=== PATIENT | female | born 1965 | race African-American/Black ===

== ENCOUNTER → 2017-04-06 | Outpatient (CLI) | payer BC ==
--- NOTE | 2017-04-06 17:15 | WOMENS IMAGING REPORT ---
EXAM DESCRIPTION: BILAT SCREENING MAMMO W/CAD COMPLETED DATE/TIME: 04/06/2017 3:36 pm REASON FOR STUDY: Z12.31, ROUTINE SCREENING MAMMO Z12.31 ENCNTR SCREEN MAMMOGRAM FOR MALIGNANT NEOP LASM OF ABDI COMPARISON: Multiple since 2008 TECHNIQUE: Standard craniocaudal and mediolateral oblique views of each breast recorded using Schrodingera l acquisition. LIMITATIONS: None. FINDINGS: Findings present which are benign by mammographic criteria. No suspicious masses, calcifi cations or architectural distortion. Pertinent benign findings: Postsurgical changes from bilateral breast reduction Read with the assistance of CAD. .[facility] - R2 Cenova Version 1.3 .[facility] - R2 Cenova Version 1.3 .[facility] - R2 Cenova Version 2.4 .[facility] - R2 Cenova Version 2.4 .[facility] - R2 Instructional Support Technician Version 9.2 Benign mammographic findings may include one or more of the following: Smooth masses, popcorn/rim/co arse calcifications, asymmetries, post-procedure changes, and lesions with long-standing stability. IMPRESSION: BENIGN MAMMOGRAPHIC FINDINGS. BIRADS 2 BREAST DENSITY: b. There are scattered areas of fibroglandular density. BIRAD: 2 BENIGN FINDING(S) RECOMMENDATION: ROUTINE SCREENING Please consider bilateral screening tomosynthesis in March 2018 COMMENT: The patient has been notified of the results by letter per [place] requirements. Additional no tification policies are in place for contacting patient with suspicious or incomplete findings. Quality ID #[id number]: The [employer] recommends an annual screening mammogram for women aged 40 years or over. This facility utilizes a reminder system to ensure that all patients receive reminder letters, and/or direct phone calls for appointments. This includes reminders for routine scr eening mammograms, diagnostic mammograms, or other Breast Imaging Interventions when appropriate. Th is patient will be placed in the appropriate reminder system. The [employer] (ACR) has developed recommendations for screening MRI of the breast s in certain patient populations, to be used in conjunction with mammography. Breast MRI surveillanc e may be appropriate for women with more than 20% lifetime risk of developing breast cancer as deter mined by genetic testing, significant family history of the disease, or history of mantle radiation f or Hodgkins Disease. ACR Practice Guidelines 2008. TECHNICAL DOCUMENTATION: FINDING NUMBER: (1) ASSESSMENT: (1) JOB ID: [id number] [employer]- All Rights Reserved
== END ==
LOC: WI 15:28
PROVIDERS: ATTEND Internal Medicine
DX: Z12.31 Encounter for screening mammogram for malignant neoplasm of breast (principal)
CPT/HCPCS: 77067; G0202

== ENCOUNTER 2017-07-31 05:34 | Emergency (ER) | payer BC ==
--- NOTE | 2017-07-31 06:09 | ER Document Report ---
ED General - General Chief Complaint: Low Back Pain Stated Complaint: RIGHT SIDE PAIN Time Seen by Provider: 07/31/17 05:59 Notes: 51-year-old female history of hypertension and fibromyalgia presents with right lower back pain. It has been for 4 days sharp pain, worse with movement. No radiation otherwise. No leg weakness numbness or tingling. Denies dysuria or hematuria. She has also complains of long-standing right elbow pain. This has been there apparently for months. Also is worse with movement. Feels different than her fibromyalgia. Denies fever. No other joint pain. No swelling. TRAVEL OUTSIDE OF THE [place] IN LAST 30 DAYS: No - Related Data Allergies/Adverse Reactions: etodolac [From Lodine] Allergy (Severe, Verified 02/05/16 16:39) Itchiness Penicillins Allergy (Severe, Verified 02/05/16 16:39) Hives Iodinated Contrast- Oral and IV Dye [IV Dye, Iodine Containing] Allergy (Mild, Verified 02/05/16 16:39) Pruritis aspirin [Aspirin] Adverse Reaction (Mild, Verified 02/05/16 16:39) GI upset Past Medical History - Social History Smoking Status: Current Every Day Smoker Family History: Reviewed & Not Pertinent Patient has suicidal ideation: No Patient has homicidal ideation: No - Past Medical History Cardiac Medical History: Reports: Hx Hypertension - 15 yrs-takes meds Denies: Hx Atrial Fibrillation, Hx Congestive Heart Failure, Hx Coronary Artery Disease, Hx Heart Attack, Hx Hypercholesterolemia, Hx Peripheral Vascular Disease, Hx Pulmonary Embolism, Hx Heart Murmur Pulmonary Medical History: Reports: Hx Pneumonia - 2013 X2 Denies: Hx Asthma, Hx Bronchitis, Hx COPD, Hx Respiratory Failure, Hx Sleep Apnea, Hx Tuberculosis Neurological Medical History: Denies: Hx Cerebrovascular Accident, Hx Seizures Endocrine Medical History: Reports: Hx Diabetes Mellitus Type 2. Denies: Hx Graves' Disease, Hx Hyperthyroidism, Hx Hypothyroidism Renal/ Medical History: Denies: Hx Peritoneal Dialysis Malignancy Medical History: Denies: Hx Lung Cancer GI Medical History: Reports: Hx Gastroesophageal Reflux Disease - 2 yrs-takes meds. Denies: Hx Crohn's Disease, Hx Hiatal Hernia, Hx Irritable Bowel, Hx Liver Failure, Hx Ulcer Musculoskeltal Medical History: Reports Hx Arthritis, Reports Hx Fibromyalgia - 3 years, Denies Hx Multiple Sclerosis, Denies Hx Muscular Dystrophy Psychiatric Medical History: Reports: Hx Depression Denies: Hx Bipolar Disorder, Hx Dementia, Hx Post Traumatic Stress Disorder, Hx Schizophrenia Traumatic Medical History: Denies: Hx Fractures Past Surgical History: Reports: Hx Breast Surgery - Breast reduction, Hx Orthopedic Surgery - L acl. Denies: Hx Appendectomy, Hx Bowel Surgery, Hx Section, Hx Cholecystectomy, Hx Colostomy, Hx Coronary Artery Bypass Graft, Hx Gastric Bypass Surgery, Hx Herniorrhaphy, Hx Hysterectomy, Hx Mastectomy, Hx Pacemaker, Hx Tonsillectomy, Hx Tubal Ligation - Immunizations Immunizations up to date: Yes Hx Diphtheria, Pertussis, Tetanus Vaccination: Yes Hx Pneumococcal Vaccination: 11/13/09 Review of Systems - Review of Systems -: Yes All other systems reviewed and negative Physical Exam - Vital signs Vitals: Temp Pulse Resp BP Pulse Ox 97.6 F 73 18 146/81 H 98 07/31/17 05:43 07/31/17 05:43 07/31/17 05:43 07/31/17 05:43 07/31/17 05:43 - Notes Notes: GENERAL: VS as per nursing doc. Well-appearing, well-nourished and in no acute distress. HEAD: Atraumatic, normocephalic. EYES: Pupils equal round and reactive to light, extraocular movements intact, sclera anicteric, no conjunctival injection or discharge. ENT: Nares patent, oropharynx clear without exudates, moist mucous membranes. NECK: Normal range of motion, supple without lymphadenopathy. LUNGS: Breath sounds clear to auscultation bilaterally and equal. No wheezes rales or rhonchi. HEART: Regular rate and rhythm without murmurs. ABDOMEN: Soft, non-tender, normoactive bowel sounds. No guarding, no rebound. No masses appreciated. No Spring sign. BACK: No midline tenderness. Tenderness more over the paraspinal musculature of the lumbar region extending to the right CVA area. EXTREMITIES: Slight decreased range of motion with limited extension secondary to pain. No clear joint effusion. Diffuse right elbow tenderness to palpation. No redness or warmth. NEUROLOGICAL: Cranial nerves grossly intact. Normal speech. Normal sensory and motor exams. No gross cerebellar abnormalities. PSYCH: Normal mood, normal affect. SKIN: Warm, dry, normal turgor, no lesions noted. Course - Re-evaluation Re-evalutation: 07/31/17 07:13 Reviewed x-ray findings with the patient. She does have an orthopedist she will follow up with for further care particularly of the elbow which will be a chronic issue. - Vital Signs Vital signs: Temp Pulse Resp BP Pulse Ox 97.6 F 73 18 146/81 H 98 07/31/17 05:43 07/31/17 05:43 07/31/17 05:43 07/31/17 05:43 07/31/17 05:43 - Laboratory Laboratory results interpreted by me: 07/31/17 06:18 Urine Blood SMALL H Discharge - Discharge Clinical Impression: Elbow pain, right Condition: Good Additional Instructions: Contact your primary care physician for further care. I suggest you contact your orthopedist that you have regarding your elbow as this will be a long-term issue. Prescriptions: Tramadol HCl 50 mg PO Q6HP PRN #12 tablet PRN Reason: Referrals: OSCAR ADAMS MD [Primary Care Provider] - Follow up in 3-5 days
[2017-07-31 06:31] LABS: APPEARANCE,URINE CLEAR; BILIRUBIN,URINE NEGATIVE (NEGATIVE); GLUCOSE, URINE NEGATIVE (NEGATIVE); KETONES,URINE NEGATIVE (NEGATIVE); LEUKOCYTE ESTERASE,URINE NEGATIVE (NEGATIVE); NITRITE,URINE NEGATIVE (NEGATIVE); PROTEIN,URINE NEGATIVE (NEGATIVE); URINE SPECIFIC GRAVITY 1.008; UROBILINOGEN,URINE NEGATIVE mg/dL (<2.0)
--- NOTE | 2017-07-31 06:53 | RADIOLOGY REPORT (SQ) ---
EXAM DESCRIPTION: ELBOW RIGHT OVER 2 VIEWS COMPLETED DATE/TIME: 07/31/2017 6:31 am REASON FOR STUDY: Pain COMPARISON: None. NUMBER OF VIEWS: Four views. 5 images. TECHNIQUE: AP, lateral, and both oblique radiographic images acquired of the right elbow. LIMITATIONS: None. FINDINGS: MINERALIZATION: Normal. BONES: Small to moderate osteophytes throughout the elbow joint. Moderate joint space narrowing and eburnation of the ulnohumeral joint. JOINT: Small-moderate effusion. SOFT TISSUES: No soft tissue swelling. No foreign body. OTHER: No other significant finding. IMPRESSION: Moderate osteoarthritis of the right elbow. Small to moderate right elbow effusion. TECHNICAL DOCUMENTATION: JOB ID: [id number] [employer]- All Rights Reserved
[2017-07-31 08:10] VITALS: BP 133/87
== END 2017-07-31 08:09 | disposition home or self-care (01) ==
LOC: ER 05:34
DX: M25.521 Pain in right elbow (principal); M54.5 Low back pain; I10 Essential (primary) hypertension; E11.9 Type 2 diabetes mellitus without complications; F17.200 Nicotine dependence, unspecified, uncomplicated; Z88.8 Allergy status to other drugs, medicaments and biological substances; Z88.0 Allergy status to penicillin; Z91.041 Radiographic dye allergy status
CPT/HCPCS: 81001; 99284

== ENCOUNTER 2017-08-15 10:08 | Emergency (ER) | payer BC ==
--- NOTE | 2017-08-15 10:56 | ER Document Report ---
ED Medical Screen (RME) - General Chief Complaint: Flank Pain Stated Complaint: FLANK PAIN Time Seen by Provider: 08/15/17 10:46 Notes: Patient says she is having pain in the right lower lumbar back region for approximately 2 weeks. The pain goes away at times, but then at other times is quite severe. She does not have any front, abdominal pain. Patient was seen here in this facility a week ago for the same pain. She says the pain has worsened. Hurts when she moves. She is nauseated but not vomiting. No diarrhea. Unaware of any fever, although she says she sweats heavily. No UTI symptoms. Patient has fibromyalgia. Hypertension, NIDDM. TRAVEL OUTSIDE OF THE [place] IN LAST 30 DAYS: No - Related Data Allergies/Adverse Reactions: etodolac [From Lodine] Allergy (Severe, Verified 08/15/17 10:17) Itchiness Penicillins Allergy (Severe, Verified 08/15/17 10:17) Hives Iodinated Contrast- Oral and IV Dye [IV Dye, Iodine Containing] Allergy (Mild, Verified 08/15/17 10:17) Pruritis aspirin [Aspirin] Adverse Reaction (Mild, Verified 08/15/17 10:17) GI upset Past Medical History - Social History Frequency of alcohol use: None Drug Abuse: None - Past Medical History Cardiac Medical History: Reports: Hx Hypertension - 17 yrs-takes meds Denies: Hx Atrial Fibrillation, Hx Congestive Heart Failure, Hx Coronary Artery Disease, Hx Heart Attack, Hx Hypercholesterolemia, Hx Peripheral Vascular Disease, Hx Pulmonary Embolism, Hx Heart Murmur Pulmonary Medical History: Reports: Hx Pneumonia - 2013 X2 Denies: Hx Asthma, Hx Bronchitis, Hx COPD, Hx Respiratory Failure, Hx Sleep Apnea, Hx Tuberculosis Neurological Medical History: Denies: Hx Cerebrovascular Accident, Hx Seizures Endocrine Medical History: Reports: Hx Diabetes Mellitus Type 2. Denies: Hx Graves' Disease, Hx Hyperthyroidism, Hx Hypothyroidism Renal/ Medical History: Denies: Hx Peritoneal Dialysis Malignancy Medical History: Denies: Hx Lung Cancer GI Medical History: Reports: Hx Gastroesophageal Reflux Disease - 2 yrs-takes meds. Denies: Hx Crohn's Disease, Hx Hiatal Hernia, Hx Irritable Bowel, Hx Liver Failure, Hx Ulcer Musculoskeltal Medical History: Reports Hx Arthritis, Reports Hx Fibromyalgia - 3 years, Denies Hx Multiple Sclerosis, Denies Hx Muscular Dystrophy Psychiatric Medical History: Reports: Hx Depression Denies: Hx Bipolar Disorder, Hx Dementia, Hx Post Traumatic Stress Disorder, Hx Schizophrenia Traumatic Medical History: Denies: Hx Fractures Past Surgical History: Reports: Hx Breast Surgery - breast reduction, Hx Orthopedic Surgery - left knee, rt hip replaced. Denies: Hx Appendectomy, Hx Bowel Surgery, Hx Section, Hx Cholecystectomy, Hx Colostomy, Hx Coronary Artery Bypass Graft, Hx Gastric Bypass Surgery, Hx Herniorrhaphy, Hx Hysterectomy, Hx Mastectomy, Hx Pacemaker, Hx Tonsillectomy, Hx Tubal Ligation - Immunizations Immunizations up to date: Yes Hx Diphtheria, Pertussis, Tetanus Vaccination: Yes Physical Exam - Vital signs Vitals: Temp Pulse Resp BP Pulse Ox 97.9 F 70 22 H 141/70 H 97 08/15/17 10:23 08/15/17 10:23 08/15/17 10:23 08/15/17 10:23 08/15/17 10:23 Course - Vital Signs Vital signs: Temp Pulse Resp BP Pulse Ox 97.9 F 70 22 H 141/70 H 97 08/15/17 10:23 08/15/17 10:23 08/15/17 10:23 08/15/17 10:23 08/15/17 10:23
[2017-08-15 11:27] LABS: APPEARANCE,URINE CLEAR; BILIRUBIN,URINE NEGATIVE (NEGATIVE); GLUCOSE, URINE NEGATIVE (NEGATIVE); KETONES,URINE NEGATIVE (NEGATIVE); LEUKOCYTE ESTERASE,URINE NEGATIVE (NEGATIVE); NITRITE,URINE NEGATIVE (NEGATIVE); PROTEIN,URINE NEGATIVE (NEGATIVE); URINE SPECIFIC GRAVITY 1.003; UROBILINOGEN,URINE NEGATIVE mg/dL (<2.0)
[2017-08-15 11:27] LABS: ABSOLUTE BASOPHILS # (AUTO) 0.1 10^3/uL (0.0-0.2); ABSOLUTE LYMPHOCYTES (AUTO) 1.7 10^3/uL (0.5-4.7); ABSOLUTE MONOCYTES (AUTO) 0.9 10^3/uL (0.1-1.4); ABSOLUTE NEUT (AUTO) 10.6 10^3/uL (1.7-8.2); BASOPHILS % (AUTO) 1.1 % (0-2); EOSINOPHILS % (AUTO) 0.3 % (0-6); HEMATOCRIT 37.1 % (36.0-47.0); HEMOGLOBIN 12.9 g/dL (12.0-15.5); HGB HCT DIFFERENCE 1.6; LYMPHOCYTES % (AUTO) 12.7 % (13-45); MEAN CORPUSCULAR HEMOGLOBIN 29.6 pg (27.0-33.4); MEAN CORPUSCULAR HGB CONC 34.9 g/dL (32.0-36.0); MEAN CORPUSCULAR VOLUME 85 fl (80-97); MONOCYTES % (AUTO) 6.6 % (3-13); RED BLOOD COUNT 4.38 10^6/uL (3.72-5.28); RED CELL DISTRIBUTION WIDTH 13.1 % (11.5-14.0); SEGMENTED NEUTROPHILS % (AUTO) 79.3 % (42-78); WHITE BLOOD COUNT 13.4 10^3/uL (4.0-10.5)
[2017-08-15 11:52] LABS: ALANINE AMINOTRANSFERASE 28 U/L (9-52); ALBUMIN 4.7 g/dL (3.5-5.0); ALKALINE PHOSPHATASE 101 U/L (38-126); ANION GAP 13 (5-19); ASPARTATE AMINO TRANSFERASE 25 U/L (14-36); BILIRUBIN,DIRECT 0.5 mg/dL (0.0-0.4); BILIRUBIN,TOTAL 0.6 mg/dL (0.2-1.3); BLOOD UREA NITROGEN 14 mg/dL (7-20); CALCIUM 9.6 mg/dL (8.4-10.2); CARBON DIOXIDE 26 mmol/L (22-30); CHLORIDE 95 mmol/L (98-107); CREATININE RESULT 0.77 mg/dL (0.52-1.25); GLUCOSE 90 mg/dL (75-110); LIPASE 26.5 U/L (23-300); POTASSIUM 3.8 mmol/L (3.6-5.0); SODIUM 133.5 mmol/L (137-145); TOTAL PROTEIN 8.2 g/dL (6.3-8.2)
--- NOTE | 2017-08-15 12:12 | RADIOLOGY REPORT (SQ) ---
EXAM DESCRIPTION: CT LTD RENAL STONE PROTOCOL ON COMPLETED DATE/TIME: 08/15/2017 11:48 am REASON FOR STUDY: right flank pain COMPARISON: CT abdomen pelvis 02/06/2016, 02/05/2016, 09/25/2014, 08/25/2014, 09/06/2010 TECHNIQUE: CT scan of the abdomen and pelvis performed without intravenous or oral contrast. Images reviewed with lung, soft tissue, and bone windows. Reconstructed coronal and sagittal MPR images revi ewed. All images stored on PACS. All CT scanners at this facility use dose modulation, iterative reconstruction, and/or weight based d osing when appropriate to reduce radiation dose to as low as reasonably achievable (ALARA). [facility]: Dose Right [facility]: CareDose [facility]: Dose Right [facility]: Teradose 4D [facility]: Smart OpenSpan RADIATION DOSE: Up-to-date CT equipment and radiation dose reduction techniques were employed. CTDIv ol: 8.9 mGy. DLP: 471 mGy-cm.mGy. LIMITATIONS: None. FINDINGS: LOWER CHEST: 5 mm left lower lobe noncalcified pleural based nodule unchanged from CT abdo men and pelvis 09/06/2010, benign NON-CONTRASTED LIVER, SPLEEN, ADRENALS: Evaluation limited by lack of IV contrast. No identified sign ificant masses. PANCREAS: No masses. No peripancreatic inflammatory changes. GALLBLADDER: No identified stones by CT criteria. No inflammatory changes to suggest cholecystitis. RIGHT KIDNEY AND URETER: No suspicious masses. Assessment limited by lack of IV contrast. No signif icant calcifications. No hydronephrosis or hydroureter. LEFT KIDNEY AND URETER: No suspicious masses. Assessment limited by lack of IV contrast. No signifi cant calcifications. No hydronephrosis or hydroureter. AORTA AND RETROPERITONEUM: No aneurysm. No retroperitoneal masses or adenopathy. BOWEL AND PERITONEAL CAVITY: No obvious masses or inflammatory changes. No free fluid. Massive const ipation, huge amount of stool throughout the seen right colon, transverse colon, splenic flexure. APPENDIX: Normal. PELVIS, BLADDER, AND ABDOMINAL WALL:No abnormal masses. No free fluid. Bladder normal. BONES: Right hip replacement. OTHER: No other significant finding. IMPRESSION: Large amount of stool in the ascending colon, transverse colon, and splenic flexure. COMMENT: Quality ID # [id number]: Final reports with documentation of one or more dose reduction techniques (e.g., Automated exposure control, adjustment of the mA and/or kV according to patient size, use of iterative reconstruction technique) TECHNICAL DOCUMENTATION: JOB ID: [id number] [employer]- All Rights Reserved
--- NOTE | 2017-08-15 12:28 | ER Document Report ---
ED General - General Chief Complaint: Flank Pain Stated Complaint: FLANK PAIN Time Seen by Provider: 08/15/17 10:46 Mode of Arrival: Ambulatory Information source: Patient Notes: 51-year-old female history of chronic pain presents with complaints of constipation back pain. Patient denies any trauma denies any neurological dysfunction notes her last bowel movement was 1 week ago TRAVEL OUTSIDE OF THE [place] IN LAST 30 DAYS: No - HPI Onset: Last week Onset/Duration: Persistent Quality of pain: Achy Severity: Mild Pain Level: 1 Associated symptoms: Body/muscle aches, Other Exacerbated by: Movement Relieved by: Denies Similar symptoms previously: Yes Recently seen / treated by doctor: Yes - Related Data Allergies/Adverse Reactions: etodolac [From Lodine] Allergy (Severe, Verified 08/15/17 10:17) Itchiness Penicillins Allergy (Severe, Verified 08/15/17 10:17) Hives Iodinated Contrast- Oral and IV Dye [IV Dye, Iodine Containing] Allergy (Mild, Verified 08/15/17 10:17) Pruritis aspirin [Aspirin] Adverse Reaction (Mild, Verified 08/15/17 10:17) GI upset Past Medical History - Social History Smoking Status: Current Every Day Smoker Cigarette use (# per day): Yes Chew tobacco use (# tins/day): No Smoking Education Provided: No Frequency of alcohol use: None Drug Abuse: None Family History: Reviewed & Not Pertinent Patient has suicidal ideation: No Patient has homicidal ideation: No - Past Medical History Cardiac Medical History: Reports: Hx Hypertension - 17 yrs-takes meds Denies: Hx Atrial Fibrillation, Hx Congestive Heart Failure, Hx Coronary Artery Disease, Hx Heart Attack, Hx Hypercholesterolemia, Hx Peripheral Vascular Disease, Hx Pulmonary Embolism, Hx Heart Murmur Pulmonary Medical History: Reports: Hx Pneumonia - 2013 X2 Denies: Hx Asthma, Hx Bronchitis, Hx COPD, Hx Respiratory Failure, Hx Sleep Apnea, Hx Tuberculosis Neurological Medical History: Denies: Hx Cerebrovascular Accident, Hx Seizures Endocrine Medical History: Reports: Hx Diabetes Mellitus Type 2. Denies: Hx Graves' Disease, Hx Hyperthyroidism, Hx Hypothyroidism Renal/ Medical History: Denies: Hx Peritoneal Dialysis Malignancy Medical History: Denies: Hx Lung Cancer GI Medical History: Reports: Hx Gastroesophageal Reflux Disease - 2 yrs-takes meds. Denies: Hx Crohn's Disease, Hx Hiatal Hernia, Hx Irritable Bowel, Hx Liver Failure, Hx Ulcer Musculoskeltal Medical History: Reports Hx Arthritis, Reports Hx Fibromyalgia - 3 years, Denies Hx Multiple Sclerosis, Denies Hx Muscular Dystrophy Psychiatric Medical History: Reports: Hx Depression Denies: Hx Bipolar Disorder, Hx Dementia, Hx Post Traumatic Stress Disorder, Hx Schizophrenia Traumatic Medical History: Denies: Hx Fractures Past Surgical History: Reports: Hx Breast Surgery - breast reduction, Hx Orthopedic Surgery - left knee, rt hip replaced. Denies: Hx Appendectomy, Hx Bowel Surgery, Hx Section, Hx Cholecystectomy, Hx Colostomy, Hx Coronary Artery Bypass Graft, Hx Gastric Bypass Surgery, Hx Herniorrhaphy, Hx Hysterectomy, Hx Mastectomy, Hx Pacemaker, Hx Tonsillectomy, Hx Tubal Ligation - Immunizations Immunizations up to date: Yes Hx Diphtheria, Pertussis, Tetanus Vaccination: Yes Hx Pneumococcal Vaccination: 11/13/09 Review of Systems - Review of Systems Notes: REVIEW OF SYSTEMS: CONSTITUTIONAL : Denies fever, chills, or sweats. Denies recent illness. EENT: Denies eye, ear, throat, or mouth pain or symptoms. Denies nasal or sinus congestion or discharge. Denies throat, tongue, or mouth swelling or difficulty swallowing. CARDIOVASCULAR: Denies chest pain. Denies palpitations or racing or irregular heart beat. Denies ankle edema. RESPIRATORY: Denies cough, cold, or chest congestion. Denies shortness of breath, difficulty breathing, or wheezing. GASTROINTESTINAL: Admits to flank pain constipation GENITOURINARY: Denies difficulty urinating, painful urination, burning, frequency, blood in urine, or discharge. FEMALE GENITOURINARY: Denies vaginal bleeding, heavy or abnormal periods, irregular periods. Denies vaginal discharge or odor. MUSCULOSKELETAL: Denies back or neck pain or stiffness. Denies joint pain or swelling. SKIN: Denies rash, lesions or sores. HEMATOLOGIC : Denies easy bruising or bleeding. LYMPHATIC: Denies swollen, enlarged glands. NEUROLOGICAL: Denies confusion or altered mental status. Denies passing out or loss of consciousness. Denies dizziness or lightheadedness. Denies headache. Denies weakness or paralysis or loss of use of either side. Denies problems with gait or speech. Denies sensory loss, numbness, or tingling. Denies seizures. PSYCHIATRIC: Denies anxiety or stress. Denies depression, suicidal ideation, or homicidal ideation. ALL OTHER SYSTEMS REVIEWED AND NEGATIVE. PHYSICAL EXAMINATION: GENERAL: Well-appearing, well-nourished and in no acute distress. HEAD: Atraumatic, normocephalic. EYES: Pupils equal round and reactive to light, extraocular movements intact, conjunctiva are normal. ENT: Nares patent, oropharynx clear without exudates. Moist mucous membranes. NECK: Normal range of motion, supple without lymphadenopathy LUNGS: Breath sounds clear to auscultation bilaterally and equal. No wheezes rales or rhonchi. HEART: Regular rate and rhythm without murmurs ABDOMEN: Soft, nontender, nondistended abdomen. No guarding, no rebound. No masses appreciated. Right CVA tenderness Female : deferred Musculoskeletal: Normal range of motion, no pitting or edema. No cyanosis. NEUROLOGICAL: Cranial nerves grossly intact. Normal speech, normal gait. Normal sensory, motor exams PSYCH: Normal mood, normal affect. SKIN: Warm, Dry, normal turgor, no rashes or lesions noted. Dictation was performed using [employer] voice recognition software Physical Exam - Vital signs Vitals: Temp Pulse Resp BP Pulse Ox 97.9 F 70 22 H 141/70 H 97 08/15/17 10:23 08/15/17 10:23 08/15/17 10:23 08/15/17 10:23 08/15/17 10:23 Course - Re-evaluation Re-evalutation: 08/15/17 12:[address] was performed noted large amount of stool, this would be consistent with her pain. her pain medication would worsen her symptoms and will treated with Tylenol as a result. She will be given MiraLAX and discharged home Patient was walked by multiple times and she is in the hallway while I was treating emergent patients and noted that she was not making any noise but when I approached her patient immediately began yelling in pain After performing a Medical Screening Examination, I estimate there is LOW risk for EXPANDING OR RUPTURED ABDOMINAL AORTIC ANEURYSM, CAUDA EQUINA SYNDROME, EPIDURAL MASS LESION, or HERNIATED DISK CAUSING SEVERE SPINAL STENOSIS, thus I consider the discharge disposition reasonable. I have reevaluated this patient multiple times and no significant life threatening changes are noted. The patient and I have discussed the diagnosis and risks, and we agree with discharging home and close follow-up. We also discussed returning to the Emergency Department immediately if new or worsening symptoms occur with the understanding that symptoms and presentations can change. We have discussed the symptoms which are most concerning (e.g., saddle anesthesia, urinary or bowel incontinence or retention, changing or worsening pain) that necessitate immediate return. - Vital Signs Vital signs: Temp Pulse Resp BP Pulse Ox 97.9 F 70 22 H 141/70 H 97 08/15/17 10:23 08/15/17 10:23 08/15/17 10:23 08/15/17 10:23 08/15/17 10:23 - Laboratory Result Diagrams: 08/15/17 11:15 08/15/17 11:15 Laboratory results interpreted by me: 08/15/17 08/15/17 08/15/17 10:55 11:15 11:15 WBC 13.4 H Seg Neutrophils % 79.3 H Lymphocytes % 12.7 L Absolute Neutrophils 10.6 H Sodium 133.5 L Chloride 95 L Direct Bilirubin 0.5 H Urine Blood SMALL H - Diagnostic Test Radiology reviewed: Image reviewed, Reports reviewed - Constipation Discharge - Discharge Clinical Impression: Flank pain Constipation Qualifiers: Constipation type: unspecified constipation type Qualified Code(s): K59.00 - Constipation, unspecified Condition: Stable Disposition: HOME, SELF-CARE Instructions: Constipation ([facility]) Prescriptions: Polyethylene Glycol 3350 [Miralax Powder 17 gm/Packet] 1 packet PO DAILY #10 pkg Referrals: OSCAR ADAMS MD [Primary Care Provider] - Follow up tomorrow
[2017-08-15] MEDS ORDERED: ACETAMINOPHEN 325 MG TABLET PO ONE (12:41)
[2017-08-15 13:29] VITALS: BP 148/68
== END 2017-08-15 13:18 | disposition home or self-care (01) ==
LOC: ER 10:08
DX: K59.00 Constipation, unspecified (principal); I10 Essential (primary) hypertension; E11.9 Type 2 diabetes mellitus without complications; F17.210 Nicotine dependence, cigarettes, uncomplicated; Z88.0 Allergy status to penicillin; Z91.041 Radiographic dye allergy status; Z88.8 Allergy status to other drugs, medicaments and biological substances; Z87.19 Personal history of other diseases of the digestive system
CPT/HCPCS: 36415; 76380; 80053; 81001; 83690; 84703; 85025; 99284

== ENCOUNTER 2017-12-11 06:05 | Emergency (ER) | payer BC ==
--- NOTE | 2017-12-11 06:43 | ER Document Report ---
ED General - General Chief Complaint: Flu Symptoms Stated Complaint: FLU LIKE SYMPTOMS Time Seen by Provider: 12/11/17 06:19 Notes: 52-year-old lady presents with a week and a half of cough congestion and intermittent fevers, this is been constant and she has not been evaluated by physician. She woke up this morning with palpitations pounding heart, rapid, which she was able to feel in her throat with some intermittent sharp chest pain. No shortness of breath. No leg swelling. She denies cardiac history but says that she had a stress test done a couple years ago and was fine. In reviewing her records I see that she is at least supposed to be taking metoprolol and Xarelto, presumably for A. fib although she has no history by report and I do not see that in her chart. She states that she has been evaluated in the past for rapid heart rate. In triage her heart rate was 165, but it slowed down when she was moved to the room. TRAVEL OUTSIDE OF THE [place] IN LAST 30 DAYS: No - Related Data Allergies/Adverse Reactions: etodolac [From Lodine] Allergy (Severe, Verified 12/11/17 06:06) Itchiness Penicillins Allergy (Severe, Verified 12/11/17 06:06) Hives Iodinated Contrast- Oral and IV Dye [IV Dye, Iodine Containing] Allergy (Mild, Verified 12/11/17 06:06) Pruritis aspirin [Aspirin] Adverse Reaction (Mild, Verified 12/11/17 06:06) GI upset Past Medical History - Social History Smoking Status: Current Every Day Smoker Smoking Education Provided: Yes - The patient ED visit today was directly related to their abuse of tobacco. Family History: Reviewed & Not Pertinent - Past Medical History Cardiac Medical History: Reports: Hx Hypertension - 17 yrs-takes meds Denies: Hx Atrial Fibrillation, Hx Congestive Heart Failure, Hx Coronary Artery Disease, Hx Heart Attack, Hx Hypercholesterolemia, Hx Peripheral Vascular Disease, Hx Pulmonary Embolism, Hx Heart Murmur Pulmonary Medical History: Reports: Hx Pneumonia - 2013 X2 Denies: Hx Asthma, Hx Bronchitis, Hx COPD, Hx Respiratory Failure, Hx Sleep Apnea, Hx Tuberculosis Neurological Medical History: Denies: Hx Cerebrovascular Accident, Hx Seizures Endocrine Medical History: Reports: Hx Diabetes Mellitus Type 2. Denies: Hx Graves' Disease, Hx Hyperthyroidism, Hx Hypothyroidism Renal/ Medical History: Denies: Hx Peritoneal Dialysis Malignancy Medical History: Denies: Hx Lung Cancer GI Medical History: Reports: Hx Gastroesophageal Reflux Disease - 2 yrs-takes meds. Denies: Hx Crohn's Disease, Hx Hiatal Hernia, Hx Irritable Bowel, Hx Liver Failure, Hx Pancreatitis, Hx Ulcer Musculoskeltal Medical History: Reports Hx Arthritis, Reports Hx Fibromyalgia - 3 years, Denies Hx Multiple Sclerosis, Denies Hx Muscular Dystrophy Psychiatric Medical History: Reports: Hx Depression Denies: Hx Bipolar Disorder, Hx Dementia, Hx Post Traumatic Stress Disorder, Hx Schizophrenia Traumatic Medical History: Denies: Hx Fractures Past Surgical History: Reports: Hx Breast Surgery - breast reduction, Hx Orthopedic Surgery - left knee, rt hip replaced. Denies: Hx Appendectomy, Hx Bowel Surgery, Hx Section, Hx Cholecystectomy, Hx Colostomy, Hx Coronary Artery Bypass Graft, Hx Gastric Bypass Surgery, Hx Herniorrhaphy, Hx Hysterectomy, Hx Mastectomy, Hx Pacemaker, Hx Tonsillectomy, Hx Tubal Ligation - Immunizations Immunizations up to date: Yes Hx Diphtheria, Pertussis, Tetanus Vaccination: Yes Hx Pneumococcal Vaccination: 11/13/09 Review of Systems - Review of Systems Notes: REVIEW OF SYSTEMS GEN: Denies fever, chills, weight loss ENT: Denies sore throat, nasal discharge, ear pain EYES: Denies blurry vision, eye pain, discharge CV: Palpitations no edema, chest pain RESP: Congestion GI: Denies abdominal pain, nausea, vomiting, diarrhea MSK: Denies joint pain/swelling, edema, SKIN: Denies rash, skin lesions LYMPH: Denies swollen glands/lymph nodes NEURO: Denies headache, focal weakness or numbness, dizziness PSYCH: Denies depression, suicidal or homicidal ideation PHYSICAL EXAMINATION General: No acute distress, well-nourished Head: Atraumatic, normocephalic ENT: Mouth normal, oropharynx moist, no exudates or tonsillar enlargement Eyes: Conjunctiva normal, pupils equal, lids normal Neck: No JVD, supple, no guarding CVS: Normal rate, regular rhythm, no murmurs Resp: No resp distress, equal and normal breath sounds bilaterally GI: Nondistended, soft, no tenderness to palpation, no rebound or guarding Ext: No deformities, no edema, normal range of motion in upper and lower ext Back: No CVA or midline TTP Skin: No rash, warm Lymphatic: No lymphadeopathy noted Neuro: Awake, alert. Face symmetric. GCS 15. Physical Exam - Vital signs Vitals: Temp Pulse Resp BP Pulse Ox 97.4 F 165 H 18 142/97 H 96 12/11/17 06:07 12/11/17 06:07 12/11/17 06:07 12/11/17 06:07 12/11/17 06:07 Course - Re-evaluation Re-evalutation: 12/11/17 06:42 This is a 52-year-old lady presented with a history of atrial fibrillation on chronic anticoagulation and rate control presented with resolved palpitations. This is all in the setting of viral illness. She was most likely in rapid atrial fibrillation at triage with a rate of 165 although in the room she is in sinus in the 90s. Her ECG confirms this. I think this is probably a case of intermittent/paroxysmal atrial fibrillation on top of viral syndrome but I will rule out fluid and significant electrolyte abnormalities with lab testing. Her chest pain is probably a consequence of the palpitations rather than true acute coronary syndrome given its atypical nature and history of a stress test which was presumably normal. We will rule out ACS with troponin. 12/11/17 07:34 Patient found to be mildly hypokalemic. This was repleted orally. Her flu swab chest x-ray EKG and other labs are normal. I called and spoke with her primary care doctor, Dr. Hudson. He denies that she has a history of atrial fibrillation. Given that we were unable to capture any arrhythmia and given her otherwise clinical stability she is safe for discharge, he agrees, and he will see her in the office in 2 days for possible laboratory cardiac monitoring. I have discussed with the patient there likely diagnosis, aftercare plan, follow-up plans and my usual and customary return precautions. They verbalized understanding of this. - Vital Signs Vital signs: Temp Pulse Resp BP Pulse Ox 97.4 F 165 H 18 142/97 H 96 12/11/17 06:07 12/11/17 06:07 12/11/17 06:07 12/11/17 06:07 12/11/17 06:07 - Laboratory Result Diagrams: 12/11/17 06:25 12/11/17 06:25 Laboratory results interpreted by me: 12/11/17 12/11/17 06:25 06:25 RDW 14.2 H Sodium 135.5 L Potassium 3.3 L Chloride 95 L Glucose 138 H - Diagnostic Test Radiology reviewed: Image reviewed, Reports reviewed - EKG Interpretation by Me EKG shows normal: Sinus rhythm Rate: Normal Rhythm: NSR When compared to previous EKG there are: No significant change Discharge - Discharge Clinical Impression: Viral syndrome, Hypokalemia Condition: Good Disposition: HOME, SELF-CARE Instructions: Viral Syndrome ([facility]) Additional Instructions: Your potassium was low. I am not going to initiate oral potassium therapy but I would like you to eat a diet high in potassium: Bananas, spinach, avocados. Dr. Hudson will see you in 2 days. Please call his office today to make an appointment. Forms: Return to Work
[2017-12-11 06:45] LABS: ABSOLUTE LYMPHOCYTES (AUTO) 1.7 10^3/uL (0.5-4.7); ABSOLUTE MONOCYTES (AUTO) 0.6 10^3/uL (0.1-1.4); ABSOLUTE NEUT (AUTO) 6.2 10^3/uL (1.7-8.2); BASOPHILS % (AUTO) 0.3 % (0-2); EOSINOPHILS % (AUTO) 0.5 % (0-6); HEMATOCRIT 39.7 % (36.0-47.0); HEMOGLOBIN 13.5 g/dL (12.0-15.5); LYMPHOCYTES % (AUTO) 19.4 % (13-45); MEAN CORPUSCULAR HEMOGLOBIN 28.5 pg (27.0-33.4); MEAN CORPUSCULAR VOLUME 84 fl (80-97); MONOCYTES % (AUTO) 7.1 % (3-13); PLATELET COUNT 298 10^3/uL (150-450); RED BLOOD COUNT 4.73 10^6/uL (3.72-5.28); RED CELL DISTRIBUTION WIDTH 14.2 % (11.5-14.0); SEGMENTED NEUTROPHILS % (AUTO) 72.7 % (42-78); TOTAL CELLS COUNTED % (AUTO) 100 %; WHITE BLOOD COUNT 8.6 10^3/uL (4.0-10.5)
--- NOTE | 2017-12-11 06:53 | RADIOLOGY REPORT (SQ) ---
EXAM DESCRIPTION: CHEST SINGLE VIEW CLINICAL HISTORY: SOB, flu sx COMPARISON: 04/26/2016 FINDINGS: Single frontal view of the chest. The cardiomediastinal silhouette has normal size and contour. No consolidation, pneumothorax, or pleural effusion. No displaced rib fractures identified. Upper abdominal soft tissues are unremarkable. Leads overlie the chest. IMPRESSION: 1. No acute pulmonary process identified.
[2017-12-11] MEDS ORDERED: ACETAMINOPHEN 325 MG TABLET PO ONE (06:55)
[2017-12-11 06:58] LABS: ANION GAP 13 (5-19); BLOOD UREA NITROGEN 7 mg/dL (7-20); CALCIUM 9.4 mg/dL (8.4-10.2); CARBON DIOXIDE 28 mmol/L (22-30); CHLORIDE 95 mmol/L (98-107); GLUCOSE 138 mg/dL (75-110); POTASSIUM 3.3 mmol/L (3.6-5.0); SODIUM 135.5 mmol/L (137-145)
[2017-12-11 07:04] LABS: A TYPE INFLUENZA AG NEGATIVE (NEGATIVE); B INFLUENZA AG NEGATIVE (NEGATIVE)
[2017-12-11] MEDS ORDERED: POTASSIUM CHLORIDE 20 MEQ/15 ML UDCUP PO ONE (07:27)
--- NOTE | 2017-12-11 07:52 | EKG REPORT ---
SEVERITY:- ABNORMAL ECG - SINUS RHYTHM LEFT VENTRICULAR HYPERTROPHY : Confirmed by: Maciej Agosto MD 11-Dec-2017 07:52:21
[2017-12-11 08:13] VITALS: BP 158/98
== END 2017-12-11 09:06 | disposition home or self-care (01) ==
LOC: ER 06:05
DX: B34.9 Viral infection, unspecified (principal); E87.6 Hypokalemia; R05 Cough; R07.9 Chest pain, unspecified; R00.2 Palpitations; I10 Essential (primary) hypertension; F17.200 Nicotine dependence, unspecified, uncomplicated; Z88.0 Allergy status to penicillin; Z91.041 Radiographic dye allergy status; Z88.8 Allergy status to other drugs, medicaments and biological substances; Z87.01 Personal history of pneumonia (recurrent); Z79.01 Long term (current) use of anticoagulants
CPT/HCPCS: 36415; 71045; 80048; 84484; 85025; 87804; 93005; 93010; 99284

== ENCOUNTER → 2018-03-06 | Outpatient (CLI) | payer BC ==
--- NOTE | 2018-03-06 16:23 | RADIOLOGY REPORT (SQ) ---
EXAM DESCRIPTION: ELBOW RT AP/LAT COMPLETED DATE/TIME: 03/06/2018 3:57 pm REASON FOR STUDY: PAIN IN RIGHT ELBOW M25.521 PAIN IN RIGHT ELBOW COMPARISON: 07/31/2017. NUMBER OF VIEWS: Four view. TECHNIQUE: AP, lateral, and both oblique radiographic images acquired of the right elbow. LIMITATIONS: None. FINDINGS: MINERALIZATION: Normal. BONES: No acute fracture or dislocation. No worrisome bone lesions. Prominent osteophytes. JOINT: Moderate joint effusion. SOFT TISSUES: No soft tissue swelling. No foreign body. OTHER: No other significant finding. IMPRESSION: DEGENERATIVE OSTEOARTHRITIS WITH MODERATE JOINT EFFUSION. NO APPARENT ACUTE FINDINGS. TECHNICAL DOCUMENTATION: JOB ID: [id number] [employer]- All Rights Reserved Reading location - IP/workstation name: [email or web address]
== END ==
LOC: OD 15:42
PROVIDERS: ATTEND Internal Medicine
DX: M25.521 Pain in right elbow (principal); M19.021 Primary osteoarthritis, right elbow; M25.421 Effusion, right elbow

== ENCOUNTER 2018-04-11 08:36 | Emergency (ER) | payer BC ==
--- NOTE | 2018-04-11 09:12 | ER Document Report ---
ED General - General Chief Complaint: Fall Stated Complaint: DIZZINESS,FALL Time Seen by Provider: 04/11/18 09:12 Mode of Arrival: Ambulatory Information source: Patient Notes: 52-year-old lady with past medical history of hypertension, diabetes, insomnia who presented today for evaluation of dizziness as well as associated fall. According to patient she was walking down the steps today from her residence and sustained a fall. According to patient she is not sure why she fell. Patient did have some dizziness associated with her symptoms this morning. Patient denies any fevers, chills, chest pain or shortness of breath. Patient does take multiple medications including trazodone as well as Benadryl. Patient appears to be slightly sedated as well as sleepy. Patient denies any drug or alcohol use. Incident happened at work. Patient also complains of low back pain after she sustained a fall, localized to the lumbar spine, no radiation, severity of symptoms a 6 out of 10. Patient also has mild right knee pain without any deformity. TRAVEL OUTSIDE OF THE [place] IN LAST 30 DAYS: No - Related Data Allergies/Adverse Reactions: etodolac [From Lodine] Allergy (Severe, Verified 04/11/18 10:34) Itchiness Penicillins Allergy (Severe, Verified 04/11/18 10:34) Hives Iodinated Contrast- Oral and IV Dye [IV Dye, Iodine Containing] Allergy (Mild, Verified 04/11/18 10:34) Pruritis aspirin [Aspirin] Adverse Reaction (Mild, Verified 04/11/18 10:34) GI upset Past Medical History - General Information source: Patient - Social History Smoking Status: Current Every Day Smoker Family History: Reviewed & Not Pertinent - Past Medical History Cardiac Medical History: Reports: Hx Hypertension - 17 yrs-takes meds Denies: Hx Atrial Fibrillation, Hx Congestive Heart Failure, Hx Coronary Artery Disease, Hx Heart Attack, Hx Hypercholesterolemia, Hx Peripheral Vascular Disease, Hx Pulmonary Embolism, Hx Heart Murmur Pulmonary Medical History: Reports: Hx Pneumonia - 2013 X2 Denies: Hx Asthma, Hx Bronchitis, Hx COPD, Hx Respiratory Failure, Hx Sleep Apnea, Hx Tuberculosis Neurological Medical History: Denies: Hx Cerebrovascular Accident, Hx Seizures Endocrine Medical History: Reports: Hx Diabetes Mellitus Type 2. Denies: Hx Graves' Disease, Hx Hyperthyroidism, Hx Hypothyroidism Renal/ Medical History: Denies: Hx Peritoneal Dialysis Malignancy Medical History: Denies: Hx Lung Cancer GI Medical History: Reports: Hx Gastroesophageal Reflux Disease - 2 yrs-takes meds. Denies: Hx Crohn's Disease, Hx Hiatal Hernia, Hx Irritable Bowel, Hx Liver Failure, Hx Pancreatitis, Hx Ulcer Musculoskeltal Medical History: Reports Hx Arthritis, Reports Hx Fibromyalgia - 3 years, Denies Hx Multiple Sclerosis, Denies Hx Muscular Dystrophy Psychiatric Medical History: Reports: Hx Depression Denies: Hx Bipolar Disorder, Hx Dementia, Hx Post Traumatic Stress Disorder, Hx Schizophrenia Traumatic Medical History: Denies: Hx Fractures Past Surgical History: Reports: Hx Breast Surgery - breast reduction, Hx Orthopedic Surgery - left knee, rt hip replaced. Denies: Hx Appendectomy, Hx Bowel Surgery, Hx Section, Hx Cholecystectomy, Hx Colostomy, Hx Coronary Artery Bypass Graft, Hx Gastric Bypass Surgery, Hx Herniorrhaphy, Hx Hysterectomy, Hx Mastectomy, Hx Pacemaker, Hx Tonsillectomy, Hx Tubal Ligation - Immunizations Immunizations up to date: Yes Hx Diphtheria, Pertussis, Tetanus Vaccination: Yes Hx Pneumococcal Vaccination: 11/13/09 Review of Systems - Review of Systems Notes: REVIEW OF SYSTEMS: CONSTITUTIONAL: -fevers, -chills, + dizziness, + fatigue EENT: -eye pain, -difficulty swallowing, -nasal congestion CARDIOVASCULAR: -chest pain, -syncope. RESPIRATORY: + Cough, -SOB GASTROINTESTINAL: -abdominal pain, -nausea, -vomiting, -diarrhea GENITOURINARY: -dysuria, -hematuria MUSCULOSKELETAL: + Back pain, -neck pain, + knee pain SKIN: -rash or skin lesions. HEMATOLOGIC: -easy bruising or bleeding. LYMPHATIC: -swollen, enlarged glands. NEUROLOGICAL: -altered mental status or loss of consciousness, -headache, - neurologic symptoms PSYCHIATRIC: -anxiety, -depression. ALL OTHER SYSTEMS REVIEWED AND NEGATIVE. Physical Exam - Vital signs Vitals: Temp Pulse Resp BP Pulse Ox 97.8 F 81 18 104/60 94 04/11/18 08:49 04/11/18 08:49 04/11/18 08:49 04/11/18 08:49 04/11/18 08:49 - Notes Notes: Reviewed vital signs and nursing note as charted by RN. CONSTITUTIONAL: Alert and oriented and responds appropriately to questions, appears sleepy and sedated HEAD: Normocephalic; atraumatic EYES: PERRL; Conjunctivae clear, sclerae non-icteric ENT: normal nose; no rhinorrhea; moist mucous membranes; pharynx without lesions noted NECK: Supple without meningismus; non-tender; no cervical lymphadenopathy, no masses CARD: Regular rate and rhythm; no murmurs, no clicks, no rubs, no gallops; symmetric distal pulses RESP: Normal chest excursion without splinting or tachypnea; breath sounds clear and equal bilaterally ABD/GI: Normal bowel sounds; non-distended; soft, nontender BACK: The back appears normal, patient has midline tenderness to palpation without any deformity along the lumbar spine, no step-off, bilateral lower external examination with 5 out of 5 motor strength, sensation is present in all the dermatomes of bilateral lower extremities EXT: Right knee examination without any obvious deformity or abrasions, no open fragments, DP and PT palpable, sensation is present in all dermatomes of the right lower extremity SKIN: Normal color for age and race; warm; dry; good turgor; capillary refill < 2 seconds; no acute lesions noted NEURO: Cranial nerves 3-12 intact. Motor strength 5/5 bilaterally. Sensation intact to touch bilaterally. No pronator drift. Finger to nose intact bilaterally PSYCH: The patient's mood and manner are appropriate. Grooming and personal hygiene are appropriate. Course - Re-evaluation Re-evalutation: 52-year-old here for evaluation of fall secondary to dizziness Unsure if patient sustained a syncope Differential diagnoses includes drug abuse, alcohol intoxication, anemia, syncope, ACS, lumbar spine fracture, DKA, pneumonia, electrolyte abnormalities, lumbar fracture We will obtain basic lab work including CBC, CMP, lipase, alcohol level Chest x-ray, EKG, cardiac biomarkers We will obtain lumbar films No suspicion for any fracture, therefore no need for imaging at present time IV hydration Reassess patient 04/11/18 11:42 Patient is doing well, so far normal workup Alcohol level is negative, normal cardiac workup, no evidence of acute cystitis X-rays without acute fractures We will obtain CT scan of her brain to rule out acute intracranial process such as subdural Patient does not exhibit any focal neurological findings, therefore no suspicion for acute CVA 04/11/18 12:46 CT scan within normal limits Discussed results of workup as well as findings with patient and family, agree with disposition home today and close follow-up with primary care physician Recommended stop taking Benadryl as well as other sedating medications as well as sleep aid agents Patient was given strict precautions to come back if her symptoms are not improving - Vital Signs Vital signs: Temp Pulse Resp BP Pulse Ox 97.8 F 81 18 104/60 94 04/11/18 08:49 04/11/18 08:49 04/11/18 08:49 04/11/18 08:49 04/11/18 08:49 - Laboratory Result Diagrams: 04/11/18 09:25 04/11/18 09:25 Laboratory results interpreted by me: 04/11/18 04/11/18 04/11/18 08:56 09:25 09:25 Hgb 11.4 L Hct 34.0 L POC Glucose 119 H Total Bilirubin 0.1 L - Diagnostic Test Radiology reviewed: Image reviewed - EXAM DESCRIPTION: CT HEAD WITHOUT COMPLETED DATE/TIME: 04/11/2018 12:21 pm REASON FOR STUDY: confusion COMPARISON: 11/21/2010 TECHNIQUE: Axial images acquired through the brain without intravenous contrast. Images reviewed with bone, brain and subdural windows. Additional sagittal and coronal reconstructions were generated. Images stored on PACS. All CT scanners at this facility use dose modulation, iterative reconstruction, and/or weight based dosing when appropriate to reduce radiation dose to as low as reasonably achievable (ALARA). [facility]: Dose Right [facility]: CareDose [facility]: Dose Right [facility]: Teradose 4D [facility]: [employer] RADIATION DOSE: CT Rad equipment meets quality standard of care and radiation dose reduction techniques were employed. CTDIvol: 53.2 mGy. DLP: 1044 mGy-cm. mGy. LIMITATIONS: None. FINDINGS: VENTRICLES: Normal size and contour. CEREBRUM: No masses. No hemorrhage. No midline shift. No evidence for acute infarction. Normal [place]/white matter differentiation. No areas of low density in the white matter. CEREBELLUM: No masses. No hemorrhage. No alteration of density. No evidence for acute infarction. EXTRAAXIAL SPACES: No fluid collections. No masses. ORBITS AND GLOBE: No intra- or extraconal masses. Normal contour of globe without masses. CALVARIUM: No fracture. PARANASAL SINUSES: No fluid or mucosal thickening. SOFT TISSUES: No mass or hematoma. OTHER: No other significant finding. IMPRESSION: NORMAL BRAIN CT WITHOUT CONTRAST. EVIDENCE OF ACUTE STROKE: NO. COMMENT: Quality ID # [id number]: Final reports with documentation of one or more dose reduction techniques (e.g., Automated exposure control, adjustment of the mA and/or kV according to patient size, use of iterative reconstruction technique) TECHNICAL DOCUMENTATION: JOB ID: [id number] [employer]- All Rights Reserved Reading location - IP/workstation name: [email or web address] Dictated by: CHAYO ANDRADE MD [id number] CC: XIAO MCGHEE MD - EKG Interpretation by Me Additional EKG results interpreted by me: 04/11/18 10:51 EKG interpretation 9:56 AM Patient has sinus rhythm, rate 75 DC to 220, QRS narrow, QTC [address] elevations or depressions in any of the leads, no T-wave changes Discharge - Discharge Clinical Impression: Dizziness Fall Qualifiers: Encounter type: initial encounter Qualified Code(s): W19.XXXA - Unspecified fall, initial encounter Back strain Qualifiers: Encounter type: initial encounter Qualified Code(s): S39.012A - Strain of muscle, fascia and tendon of lower back, initial encounter Condition: Stable Disposition: HOME, SELF-CARE Instructions: Dizziness ([facility]) Additional Instructions: Your workup did not reveal any evidence of heart or lung disease You do not have any intracranial abnormalities Please avoid taking sedating medications such as Benadryl, sleeping aid pills as well as melatonin Back films did not reveal any evidence of acute fracture, you probably have degenerative joint disease Please come back if it worsening fevers, chills, nausea vomiting, chest pain or shortness of breath Referrals: OSCAR ADAMS MD [Primary Care Provider] - Follow up as needed
[2018-04-11] MEDS ORDERED: NORMAL SALINE 1000 ML 1,000 ML IV ONE (09:40)
--- NOTE | 2018-04-11 10:19 | EKG REPORT ---
SEVERITY:- ABNORMAL ECG - SINUS RHYTHM FIRST DEGREE AV BLOCK : Confirmed by: Jorge Strong 11-Apr-2018 10:18:41
[2018-04-11 10:46] LABS: ABSOLUTE BASOPHILS # (AUTO) 0.1 10^3/uL (0.0-0.2); ABSOLUTE EOSINOPHILS # (AUTO) 0.1 10^3/uL (0.0-0.6); ABSOLUTE LYMPHOCYTES (AUTO) 1.9 10^3/uL (0.5-4.7); ABSOLUTE MONOCYTES (AUTO) 0.6 10^3/uL (0.1-1.4); ABSOLUTE NEUT (AUTO) 5.8 10^3/uL (1.7-8.2); BASOPHILS % (AUTO) 0.9 % (0-2); EOSINOPHILS % (AUTO) 1.5 % (0-6); HEMOGLOBIN 11.4 g/dL (12.0-15.5); LYMPHOCYTES % (AUTO) 22.3 % (13-45); MEAN CORPUSCULAR HGB CONC 33.6 g/dL (32.0-36.0); MEAN CORPUSCULAR VOLUME 87 fl (80-97); MONOCYTES % (AUTO) 6.9 % (3-13); PLATELET COUNT 271 10^3/uL (150-450); RED BLOOD COUNT 3.93 10^6/uL (3.72-5.28); RED CELL DISTRIBUTION WIDTH 13.8 % (11.5-14.0); SEGMENTED NEUTROPHILS % (AUTO) 68.4 % (42-78); TOTAL CELLS COUNTED % (AUTO) 100 %; WHITE BLOOD COUNT 8.5 10^3/uL (4.0-10.5)
--- NOTE | 2018-04-11 10:55 | RADIOLOGY REPORT (SQ) ---
EXAM DESCRIPTION: CHEST 2 VIEWS COMPLETED DATE/TIME: 04/11/2018 10:44 am REASON FOR STUDY: pneumonia COMPARISON: 04/26/2016 EXAM PARAMETERS: NUMBER OF VIEWS: two views TECHNIQUE: Digital Frontal and Lateral radiographic views of the chest acquired. RADIATION DOSE: NA LIMITATIONS: none FINDINGS: LUNGS AND PLEURA: No opacities, masses or pneumothorax. No pleural effusion. MEDIASTINUM AND HILAR STRUCTURES: No masses or contour abnormalities. HEART AND VASCULAR STRUCTURES: Heart normal size. No evidence for failure. BONES: No acute findings. HARDWARE: None in the chest. OTHER: No other significant finding. IMPRESSION: NO ACUTE RADIOGRAPHIC FINDING IN THE CHEST. TECHNICAL DOCUMENTATION: JOB ID: [id number] [employer]- All Rights Reserved Reading location - IP/workstation name: [email or web address]
--- NOTE | 2018-04-11 10:59 | RADIOLOGY REPORT (SQ) ---
EXAM DESCRIPTION: L SPINE 2 VIEWS COMPLETED DATE/TIME: 04/11/2018 10:44 am REASON FOR STUDY: pain COMPARISON: 09/06/2010 NUMBER OF VIEWS: Three views. TECHNIQUE: AP, lateral and sacral radiographic images acquired of the lumbar spine. LIMITATIONS: None. FINDINGS: Grade 1 anterolisthesis of L4 relative to L5. Disc spaces are preserved. Facet arthropat hy L4- 5 and L5-S1. No definite pars defect. SI joints are normal. IMPRESSION: Facet arthropathy. Grade 1 spondylolisthesis L4-5. TECHNICAL DOCUMENTATION: JOB ID: [id number] [employer]- All Rights Reserved Reading location - IP/workstation name: [email or web address]
[2018-04-11 11:05] LABS: ALANINE AMINOTRANSFERASE 30 U/L (9-52); ALBUMIN 3.6 g/dL (3.5-5.0); ALKALINE PHOSPHATASE 93 U/L (38-126); ANION GAP 9 (5-19); ASPARTATE AMINO TRANSFERASE 26 U/L (14-36); BILIRUBIN,DIRECT 0.1 mg/dL (0.0-0.4); BILIRUBIN,TOTAL 0.1 mg/dL (0.2-1.3); BLOOD UREA NITROGEN 13 mg/dL (7-20); CARBON DIOXIDE 26 mmol/L (22-30); CHLORIDE 104 mmol/L (98-107); GLUCOSE 91 mg/dL (75-110); LIPASE 37.5 U/L (23-300); POTASSIUM 3.7 mmol/L (3.6-5.0); SODIUM 139.2 mmol/L (137-145); TOTAL PROTEIN 6.5 g/dL (6.3-8.2)
[2018-04-11 11:06] LABS: ALCOHOL < 10 mg/dL (NONE DETECTED)
[2018-04-11 11:30] LABS: APPEARANCE,URINE CLEAR; BILIRUBIN,URINE NEGATIVE (NEGATIVE); COLOR,URINE STRAW; GLUCOSE, URINE NEGATIVE (NEGATIVE); KETONES,URINE NEGATIVE (NEGATIVE); LEUKOCYTE ESTERASE,URINE NEGATIVE (NEGATIVE); NITRITE,URINE NEGATIVE (NEGATIVE); PROTEIN,URINE NEGATIVE (NEGATIVE); URINE SPECIFIC GRAVITY 1.004; UROBILINOGEN,URINE NEGATIVE mg/dL (<2.0)
--- NOTE | 2018-04-11 12:30 | RADIOLOGY REPORT (SQ) ---
EXAM DESCRIPTION: CT HEAD WITHOUT COMPLETED DATE/TIME: 04/11/2018 12:21 pm REASON FOR STUDY: confusion COMPARISON: 11/21/2010 TECHNIQUE: Axial images acquired through the brain without intravenous contrast. Images reviewed wi th bone, brain and subdural windows. Additional sagittal and coronal reconstructions were generated. Images stored on PACS. All CT scanners at this facility use dose modulation, iterative reconstruction, and/or weight based d osing when appropriate to reduce radiation dose to as low as reasonably achievable (ALARA). [facility]: Dose Right [facility]: CareDose [facility]: Dose Right [facility]: Teradose 4D [facility]: [employer] RADIATION DOSE: CT Rad equipment meets quality standard of care and radiation dose reduction techniq ues were employed. CTDIvol: 53.2 mGy. DLP: 1044 mGy-cm. mGy. LIMITATIONS: None. FINDINGS: VENTRICLES: Normal size and contour. CEREBRUM: No masses. No hemorrhage. No midline shift. No evidence for acute infarction. Normal gra y/white matter differentiation. No areas of low density in the white matter. CEREBELLUM: No masses. No hemorrhage. No alteration of density. No evidence for acute infarction. EXTRAAXIAL SPACES: No fluid collections. No masses. ORBITS AND GLOBE: No intra- or extraconal masses. Normal contour of globe without masses. CALVARIUM: No fracture. PARANASAL SINUSES: No fluid or mucosal thickening. SOFT TISSUES: No mass or hematoma. OTHER: No other significant finding. IMPRESSION: NORMAL BRAIN CT WITHOUT CONTRAST. EVIDENCE OF ACUTE STROKE: NO. COMMENT: Quality ID # [id number]: Final reports with documentation of one or more dose reduction techniques (e.g., Automated exposure control, adjustment of the mA and/or kV according to patient size, use of iterative reconstruction technique) TECHNICAL DOCUMENTATION: JOB ID: [id number] [employer]- All Rights Reserved Reading location - IP/workstation name: [email or web address]
[2018-04-11 13:26] VITALS: BP 161/81
== END 2018-04-11 13:26 | disposition home or self-care (01) ==
LOC: ER 08:36
DX: S39.012A Strain of muscle, fascia and tendon of lower back, initial encounter (principal); R42 Dizziness and giddiness; W19.XXXA Unspecified fall, initial encounter; I10 Essential (primary) hypertension; E11.9 Type 2 diabetes mellitus without complications; G47.00 Insomnia, unspecified; Z96.651 Presence of right artificial knee joint; Z96.641 Presence of right artificial hip joint
CPT/HCPCS: 93005; 99284; 96360; 36415; 82962; 80307; 83690; 85025; 80053; 81001; 84484; 71046; 72100; 70450; 93010; J7030

== ENCOUNTER 2018-05-10 18:50 | Inpatient (IN) | payer BC ==
[2018-05-10] MEDS ORDERED: VANCOMYCIN HCL INJ 1000 MG VIAL IV ONE (19:11)
[2018-05-10] MEDS ORDERED: LEVOFLOXACIN 750 MG/D5W RTU 750 MG/150 ML RTUPB IV ONE (19:11)
[2018-05-10] MEDS ORDERED: NORMAL SALINE 1000 ML 1,000 ML IV ONE ×2 (19:11→19:54)
[2018-05-10] MEDS ORDERED: ACETAMINOPHEN 325 MG TABLET PO ONE (19:11)
[2018-05-10 19:29] LABS: ABSOLUTE LYMPHOCYTES (AUTO) 0.8 10^3/uL (0.5-4.7); ABSOLUTE MONOCYTES (AUTO) 0.9 10^3/uL (0.1-1.4); ABSOLUTE NEUT (AUTO) 9.7 10^3/uL (1.7-8.2); BASOPHILS % (AUTO) 0.2 % (0-2); HEMATOCRIT 31.1 % (36.0-47.0); HEMOGLOBIN 10.6 g/dL (12.0-15.5); LYMPHOCYTES % (AUTO) 6.9 % (13-45); MEAN CORPUSCULAR HEMOGLOBIN 29.4 pg (27.0-33.4); MEAN CORPUSCULAR HGB CONC 33.9 g/dL (32.0-36.0); MEAN CORPUSCULAR VOLUME 87 fl (80-97); PLATELET COUNT 273 10^3/uL (150-450); RED CELL DISTRIBUTION WIDTH 13.4 % (11.5-14.0); SEGMENTED NEUTROPHILS % (AUTO) 84.9 % (42-78); TOTAL CELLS COUNTED % (AUTO) 100 %; WHITE BLOOD COUNT 11.4 10^3/uL (4.0-10.5)
[2018-05-10 19:33] LABS: INTERNATIONAL RATION (INR) 1.19; PROTHROMBIN TIME 15.7 SEC (11.4-15.4)
[2018-05-10 19:59] LABS: ALANINE AMINOTRANSFERASE 61 U/L (9-52); ALBUMIN 3.6 g/dL (3.5-5.0); ALKALINE PHOSPHATASE 78 U/L (38-126); ANION GAP 15 (5-19); ASPARTATE AMINO TRANSFERASE 105 U/L (14-36); BILIRUBIN,DIRECT 0.6 mg/dL (0.0-0.4); BILIRUBIN,TOTAL 0.6 mg/dL (0.2-1.3); BLOOD UREA NITROGEN 42 mg/dL (7-20); CARBON DIOXIDE 22 mmol/L (22-30); CHLORIDE 101 mmol/L (98-107); GLUCOSE 124 mg/dL (75-110); POTASSIUM 3.7 mmol/L (3.6-5.0); SODIUM 137.9 mmol/L (137-145); TOTAL PROTEIN 6.5 g/dL (6.3-8.2)
--- NOTE | 2018-05-10 20:09 | RADIOLOGY REPORT (SQ) ---
EXAM DESCRIPTION: CHEST 2 VIEWS COMPLETED DATE/TIME: 05/10/2018 7:56 pm REASON FOR STUDY: Pneumonia COMPARISON: 04/11/2018 EXAM PARAMETERS: NUMBER OF VIEWS: two views TECHNIQUE: Digital Frontal and Lateral radiographic views of the chest acquired. RADIATION DOSE: NA LIMITATIONS: none FINDINGS: LUNGS AND PLEURA: There is patchy opacification in the left base and posteriorly and infer iorly on the lateral view. MEDIASTINUM AND HILAR STRUCTURES: No masses or contour abnormalities. HEART AND VASCULAR STRUCTURES: Heart normal size. No evidence for failure. BONES: No acute findings. HARDWARE: None in the chest. OTHER: No other significant finding. IMPRESSION: Left lower lobe pneumonia. TECHNICAL DOCUMENTATION: JOB ID: [id number] [employer]- All Rights Reserved Reading location - IP/workstation name: [email or web address]
--- NOTE | 2018-05-10 21:34 | RADIOLOGY REPORT (SQ) ---
EXAM DESCRIPTION: PELVIS AP COMPLETED DATE/TIME: 05/10/2018 9:26 pm REASON FOR STUDY: injury COMPARISON: 06/13/2016 NUMBER OF VIEWS: One view TECHNIQUE: AP Pelvis LIMITATIONS: None. FINDINGS: MINERALIZATION: Normal. HIPS: Right hip arthroplasty remains in good position. PELVIS AND SACRUM: No acute fracture or dislocation. No worrisome bone lesions. PUBIS AND ISCHIUM: No acute fracture. LOWER LUMBAR SPINE: No significant findings as visualized. SOFT TISSUES: No findings. OTHER: No other significant finding. IMPRESSION: Right hip arthroplasty. No acute abnormality. TECHNICAL DOCUMENTATION: JOB ID: [id number] [employer]- All Rights Reserved Reading location - IP/workstation name: [email or web address]
--- NOTE | 2018-05-10 22:50 | ER Document Report ---
ED General - General Chief Complaint: Altered Mental Status Stated Complaint: FEVER Time Seen by Provider: 05/10/18 19:01 Mode of Arrival: Stretcher Information source: Patient, Emergency Med Personnel Notes: Chief complaint: Fall History of complain:( obtained from----patient) 52 years old female, was presented after had a fall and feeling dizzy and lightheaded. Coughing with possible pneumonia. She called the EMS and EMS opened the door she was at the door step and could not make it and collapsed down. No head injury. Very poor historian Onset: As above Duration: Prior to arrival Severity: Moderate to severe Quality: Not known Context: Possible pneumonia Exacerbating factor and relieving factors: Change of position REVIEW OF SYSTEMS: CONSTITUTIONAL : Denies fever, chills, or sweats. Denies recent illness. EENT: Denies eye, ear, throat, or mouth pain or symptoms. Denies nasal or sinus congestion or discharge. Denies throat, tongue, or mouth swelling or difficulty swallowing. CARDIOVASCULAR: Denies chest pain. Denies palpitations or racing or irregular heart beat. Denies ankle edema. RESPIRATORY: Denies cough, cold, or chest congestion. Denies shortness of breath, difficulty breathing, or wheezing. GASTROINTESTINAL: Denies distention. Denies nausea, vomiting, or diarrhea. Denies blood in vomitus, stools, or per rectum. Denies black, tarry stools. Denies constipation. GENITOURINARY: Denies difficulty urinating, painful urination, burning, frequency, blood in urine, or discharge. FEMALE GENITOURINARY: Denies vaginal bleeding, heavy or abnormal periods, irregular periods. Denies vaginal discharge or odor. MUSCULOSKELETAL: Denies back or neck pain or stiffness. Denies joint pain or swelling. SKIN: Denies rash, lesions or sores. HEMATOLOGIC : Denies easy bruising or bleeding. LYMPHATIC: Denies swollen, enlarged glands. NEUROLOGICAL: Denies confusion or altered mental status. Denies passing out or loss of consciousness. Denies dizziness or lightheadedness. Denies headache. Denies weakness or paralysis or loss of use of either side. Denies problems with gait or speech. Denies sensory loss, numbness, or tingling. Denies seizures. PSYCHIATRIC: Denies anxiety or stress. Denies depression, suicidal ideation, or homicidal ideation. ALL OTHER SYSTEMS REVIEWED AND NEGATIVE. PHYSICAL EXAMINATION: GENERAL: Appears much older than her age. Seems to be in moderate discomfort HEAD: Atraumatic, normocephalic. EYES: Pupils equal round and reactive to light, extraocular movements intact, conjunctiva are normal. ENT: Nares patent, oropharynx clear without exudates. Moist mucous membranes. NECK: Normal range of motion, supple without lymphadenopathy LUNGS: Diffusely decreased breath sounds with left lower lobe crackles HEART: Regular rate and rhythm without murmurs ABDOMEN: Soft, nontender, nondistended abdomen. No guarding, no rebound. No masses appreciated. Examination of genitals-deferred Musculoskeletal: Normal range of motion, no pitting or edema. No cyanosis. NEUROLOGICAL: Cranial nerves grossly intact. Normal speech, normal gait. Normal sensory, motor exams PSYCH: Normal mood, normal affect. SKIN: Warm, Dry, normal turgor, no rashes or lesions noted. Dictation was performed using [employer] voice recognition software TRAVEL OUTSIDE OF THE [place] IN LAST 30 DAYS: No - Related Data Allergies/Adverse Reactions: etodolac [From Lodine] Allergy (Severe, Verified 05/10/18 19:09) Itchiness Penicillins Allergy (Severe, Verified 05/10/18 19:09) Hives Iodinated Contrast- Oral and IV Dye [IV Dye, Iodine Containing] Allergy (Mild, Verified 05/10/18 19:09) Pruritis aspirin [Aspirin] Adverse Reaction (Mild, Verified 05/10/18 19:09) GI upset Past Medical History - General Information source: Patient - Social History Smoking Status: Current Every Day Smoker Frequency of alcohol use: None Drug Abuse: None Family History: Reviewed & Not Pertinent Patient has suicidal ideation: No Patient has homicidal ideation: No - Past Medical History Cardiac Medical History: Reports: Hx Hypertension - 15 yrs-takes meds Denies: Hx Atrial Fibrillation, Hx Congestive Heart Failure, Hx Coronary Artery Disease, Hx Heart Attack, Hx Hypercholesterolemia, Hx Peripheral Vascular Disease, Hx Pulmonary Embolism, Hx Heart Murmur Pulmonary Medical History: Reports: Hx Pneumonia - 2013 X2 Denies: Hx Asthma, Hx Bronchitis, Hx COPD, Hx Respiratory Failure, Hx Sleep Apnea, Hx Tuberculosis Neurological Medical History: Denies: Hx Cerebrovascular Accident, Hx Seizures Endocrine Medical History: Reports: Hx Diabetes Mellitus Type 2. Denies: Hx Graves' Disease, Hx Hyperthyroidism, Hx Hypothyroidism Renal/ Medical History: Denies: Hx Peritoneal Dialysis Malignancy Medical History: Denies: Hx Lung Cancer GI Medical History: Reports: Hx Gastroesophageal Reflux Disease - 2 yrs-takes meds. Denies: Hx Crohn's Disease, Hx Hiatal Hernia, Hx Irritable Bowel, Hx Liver Failure, Hx Pancreatitis, Hx Ulcer Musculoskeltal Medical History: Reports Hx Arthritis, Reports Hx Fibromyalgia - 3 years, Denies Hx Multiple Sclerosis, Denies Hx Muscular Dystrophy Psychiatric Medical History: Reports: Hx Depression Denies: Hx Bipolar Disorder, Hx Dementia, Hx Post Traumatic Stress Disorder, Hx Schizophrenia Traumatic Medical History: Denies: Hx Fractures Past Surgical History: Reports: Hx Breast Surgery - breast reduction, Hx Orthopedic Surgery - left knee, rt hip replaced. Denies: Hx Appendectomy, Hx Bowel Surgery, Hx Section, Hx Cholecystectomy, Hx Colostomy, Hx Coronary Artery Bypass Graft, Hx Gastric Bypass Surgery, Hx Herniorrhaphy, Hx Hysterectomy, Hx Mastectomy, Hx Pacemaker, Hx Tonsillectomy, Hx Tubal Ligation - Immunizations Immunizations up to date: Yes Hx Diphtheria, Pertussis, Tetanus Vaccination: Yes Hx Pneumococcal Vaccination: 11/13/09 Review of Systems - Review of Systems Notes: Dictated Physical Exam - Vital signs Vitals: Resp Pulse Ox 24 H 84 L 05/10/18 19:00 05/10/18 19:00 - Notes Notes: Dictated Course - Re-evaluation Re-evalutation: 05/10/18 22:48 Given IV antibiotics Case was discussed with Dr. Adams and been admitted. - Vital Signs Vital signs: Temp Pulse Resp BP Pulse Ox 100.9 F H 19 92/57 L 93 05/10/18 19:01 05/10/18 19:26 05/10/18 19:26 05/10/18 19:26 - Laboratory Result Diagrams: 05/10/18 19:02 05/10/18 19:02 Laboratory results interpreted by me: 05/10/18 05/10/18 05/10/18 19:02 19:02 19:02 WBC 11.4 H RBC 3.60 L Hgb 10.6 L Hct 31.1 L Seg Neutrophils % 84.9 H Lymphocytes % 6.9 L Absolute Neutrophils 9.7 H PT 15.7 H BUN 42 H Creatinine 5.32 H Est GFR ( Amer) 10 L Est GFR (Non-Af Amer) 8 L Glucose 124 H Direct Bilirubin 0.6 H AST 105 H ALT 61 H - Diagnostic Test Radiology reviewed: Reports reviewed - X-ray reported by radiologist as left lower lobe pneumonia - EKG Interpretation by Ut EKG shows normal: Sinus rhythm - Sinus rhythm sinus tach at 109 bpm normal axis no acute ST elevation ST depression T wave inversion noted. Discharge - Discharge Clinical Impression: Syncope and collapse Pneumonia Qualifiers: Pneumonia type: due to unspecified organism Laterality: left Lung location: lower lobe of lung Qualified Code(s): J18.1 - Lobar pneumonia, unspecified organism Hypotension Qualifiers: Hypotension type: idiopathic hypotension Qualified Code(s): I95.0 - Idiopathic hypotension Condition: Stable Disposition: ADMITTED INPATIENT Admitting Provider: Becca Unit Admitted: Telemetry Referrals: OSCAR ADAMS MD [Primary Care Provider] - Follow up as needed
[2018-05-10] MEDS ORDERED: DEXTROSE 5%-WATER 250 ML with NOREPINEPHRINE BITARTRATE 4 MG IV PRN ×2 (22:55)
[2018-05-10] MEDS ORDERED: DEXTROSE 50%-WATER 25 GM/50 ML DISP.SYRIN IV PRN ×2 (22:56)
[2018-05-10] MEDS ORDERED: DEXTROSE 40% GEL 15 GM TUBE PO PRN ×2 (22:56)
[2018-05-10] MEDS ORDERED: GLUCAGON,HUMAN RECOMB 1 MG INJ IM PRN (22:56)
[2018-05-10] MEDS ORDERED: VANCOMYCIN HCL 0 MG in DEXTROSE 5%-WATER 250 ML IV NR (23:00)
[2018-05-10] MEDS ORDERED: AZTREONAM INJ 1 GM VIAL INJ PRN (23:05)
[2018-05-10 23:09] LABS: VENOUS BLOOD BASE EXCESS -3.9 mmol/L; VENOUS BLOOD HCO3 23.8 mmol/L (20-32); VENOUS BLOOD PCO2 56.2 mmHg (35-63); VENOUS BLOOD PH 7.25 (7.30-7.42)
[2018-05-10] MEDS ORDERED: AZTREONAM 1 GM in DEXTROSE 5%-WATER 50 ML IV ONE (23:15)
[2018-05-11 00:20] LABS: ARTERIAL BLOOD BASE EXCESS -5.5 mmol/L; ARTERIAL BLOOD HCO3 20.6 mmol/L (20-26); ARTERIAL BLOOD O2 SATURATION 95.6 % (94-98); ARTERIAL BLOOD PCO2 43.1 mmHg (35-45); ARTERIAL BLOOD PO2 86.1 mmHg (80-100)
[2018-05-11 00:21] LABS: ARTERIAL BLOOD FIO2 4L
--- NOTE | 2018-05-11 00:26 | EKG REPORT ---
SEVERITY:- OTHERWISE NORMAL ECG - SINUS TACHYCARDIA : Confirmed by: Alida Queen MD 11-May-2018 00:25:06
[2018-05-11] MEDS: NORMAL SALINE 1000 ML 1,000 ML IV PRN ×4 (01:08→23:56)
[2018-05-11] MEDS ORDERED: LEVOFLOXACIN 750 MG/D5W RTU 750 MG/150 ML RTUPB IV ONE (01:30)
[2018-05-11] MEDS ORDERED: AZTREONAM 1 GM in DEXTROSE 5%-WATER 50 ML IV ONE (04:00)
[2018-05-11] MEDS ORDERED: AZTREONAM INJ 1 GM VIAL ONE (04:06)
[2018-05-11] MEDS: HEPARIN SOD (PORCINE) 5,000 UNIT/ML 1 ML SYRINGE SUBCUT SCH ×3 (05:16→21:31)
[2018-05-11 05:25] LABS: APPEARANCE,URINE CLOUDY; BILIRUBIN,URINE NEGATIVE (NEGATIVE); COLOR,URINE AMBER; GLUCOSE, URINE NEGATIVE (NEGATIVE); KETONES,URINE NEGATIVE (NEGATIVE); LEUKOCYTE ESTERASE,URINE TRACE (NEGATIVE); NITRITE,URINE NEGATIVE (NEGATIVE); PROTEIN,URINE 100 mg/dL (NEGATIVE); URINE SPECIFIC GRAVITY 1.016; UROBILINOGEN,URINE NEGATIVE mg/dL (<2.0)
[2018-05-11] MEDS ORDERED: AZTREONAM 1 GM in DEXTROSE 5%-WATER 50 ML IV SCH (06:00)
[2018-05-11 06:52] LABS: ABSOLUTE LYMPHOCYTES (AUTO) 0.8 10^3/uL (0.5-4.7); ABSOLUTE NEUT (AUTO) 11.7 10^3/uL (1.7-8.2); BASOPHILS % (AUTO) 0.3 % (0-2); HEMATOCRIT 30.4 % (36.0-47.0); HEMOGLOBIN 10.3 g/dL (12.0-15.5); LYMPHOCYTES % (AUTO) 5.9 % (13-45); MEAN CORPUSCULAR HEMOGLOBIN 29.4 pg (27.0-33.4); MEAN CORPUSCULAR HGB CONC 33.8 g/dL (32.0-36.0); MEAN CORPUSCULAR VOLUME 87 fl (80-97); MONOCYTES % (AUTO) 7.6 % (3-13); PLATELET COUNT 251 10^3/uL (150-450); RED BLOOD COUNT 3.49 10^6/uL (3.72-5.28); RED CELL DISTRIBUTION WIDTH 13.3 % (11.5-14.0); SEGMENTED NEUTROPHILS % (AUTO) 86.2 % (42-78); TOTAL CELLS COUNTED % (AUTO) 100 %; WHITE BLOOD COUNT 13.6 10^3/uL (4.0-10.5)
[2018-05-11 07:11] LABS: ALANINE AMINOTRANSFERASE 92 U/L (9-52); ALBUMIN 3.3 g/dL (3.5-5.0); ALKALINE PHOSPHATASE 80 U/L (38-126); ANION GAP 13 (5-19); ASPARTATE AMINO TRANSFERASE 267 U/L (14-36); BILIRUBIN,DIRECT 0.6 mg/dL (0.0-0.4); BILIRUBIN,TOTAL 0.6 mg/dL (0.2-1.3); BLOOD UREA NITROGEN 43 mg/dL (7-20); CALCIUM 8.4 mg/dL (8.4-10.2); CARBON DIOXIDE 22 mmol/L (22-30); CHLORIDE 104 mmol/L (98-107); GLUCOSE 122 mg/dL (75-110); POTASSIUM 3.8 mmol/L (3.6-5.0); SODIUM 139.1 mmol/L (137-145); TOTAL PROTEIN 6.1 g/dL (6.3-8.2)
--- NOTE | 2018-05-11 10:21 | RADIOLOGY REPORT (SQ) ---
EXAM DESCRIPTION: CT CHEST WITHOUT COMPLETED DATE/TIME: 05/11/2018 9:56 am REASON FOR STUDY: PNEUMONIA COMPARISON: 2013. Recent radiographs. TECHNIQUE: CT scan performed of the chest without intravenous contrast. Images reviewed with lung, soft tissue and bone windows. Reconstructed coronal and sagittal MPR images reviewed. All images st ored on PACS. All CT scanners at this facility use dose modulation, iterative reconstruction, and/or weight based d osing when appropriate to reduce radiation dose to as low as reasonably achievable (ALARA). [facility]: Dose Right [facility]: CareDose [facility]: Dose Right [facility]: Teradose 4D [facility]: [employer] RADIATION DOSE: CT Rad equipment meets quality standard of care and radiation dose reduction techniq ues were employed. CTDIvol: 13.1 mGy. DLP: 503 mGy-cm. mGy. LIMITATIONS: No technical limitations. FINDINGS: LUNGS AND PLEURA: Right lung clear. Patchy consolidation throughout the left lower lobe. Faint patchy minimally nodular infiltrate in the left upper lobe. HILAR AND MEDIASTINAL STRUCTURES: Limited evaluation without IV contrast. No bulky adenopathy. Slig ht fullness in the left hilum may reflect associated adenopathy. HEART AND VASCULAR STRUCTURES: No aneurysm. No pericardial effusion. UPPER ABDOMEN: Large volume stool, incompletely assessed. THYROID AND OTHER SOFT TISSUES: Thyroid poorly assessed. At least 1 calcified right thyroid nodule. No mass effect on the airway. No axillary adenopathy. BONES: No significant finding. HARDWARE: None in the chest. OTHER: No other significant findings. IMPRESSION: 1. Left upper lobe and left lower lobe pneumonia. Probable associated left hilar adenop athy. TECHNICAL DOCUMENTATION: JOB ID: [id number] Quality ID # [id number]: Final reports with documentation of one or more dose reduction techniques (e.g., Au tomated exposure control, adjustment of the mA and/or kV according to patient size, use of iterative reconstruction technique) 2010 [employer]- All Rights Reserved Reading location - IP/workstation name: [email or web address]
--- NOTE | 2018-05-11 12:16 | RADIOLOGY REPORT (SQ) ---
EXAM DESCRIPTION: CT HEAD WITHOUT COMPLETED DATE/TIME: 05/11/2018 11:59 am REASON FOR STUDY: altered mental status COMPARISON: 04/11/2018 TECHNIQUE: Axial images acquired through the brain without intravenous contrast. Images reviewed wi th bone, brain and subdural windows. Additional sagittal and coronal reconstructions were generated. Images stored on PACS. All CT scanners at this facility use dose modulation, iterative reconstruction, and/or weight based d osing when appropriate to reduce radiation dose to as low as reasonably achievable (ALARA). [facility]: Dose Right [facility]: CareDose [facility]: Dose Right [facility]: Teradose 4D [facility]: Smart [employer] RADIATION DOSE: CT Rad equipment meets quality standard of care and radiation dose reduction techniq ues were employed. CTDIvol: 48.6 mGy. DLP: 929 mGy-cm. mGy. LIMITATIONS: None. FINDINGS: VENTRICLES: Normal size and contour. CEREBRUM: No masses. No hemorrhage. No midline shift. No evidence for acute infarction. Normal gra y/white matter differentiation. No areas of low density in the white matter. CEREBELLUM: No masses. No hemorrhage. No alteration of density. No evidence for acute infarction. EXTRAAXIAL SPACES: No fluid collections. No masses. ORBITS AND GLOBE: No intra- or extraconal masses. Normal contour of globe without masses. CALVARIUM: No fracture. PARANASAL SINUSES: No fluid or mucosal thickening. SOFT TISSUES: No mass or hematoma. OTHER: No other significant finding. IMPRESSION: NORMAL BRAIN CT WITHOUT CONTRAST. EVIDENCE OF ACUTE STROKE: NO. COMMENT: Quality ID # [id number]: Final reports with documentation of one or more dose reduction techniques (e.g., Automated exposure control, adjustment of the mA and/or kV according to patient size, use of iterative reconstruction technique) TECHNICAL DOCUMENTATION: JOB ID: [id number] [facility]- All Rights Reserved Reading location - IP/workstation name: [email or web address]
[2018-05-11] MEDS: AZTREONAM 1 GM in DEXTROSE 5%-WATER 50 ML IV SCH ×2 (14:28→21:31)
--- NOTE | 2018-05-11 16:33 | PDOC H&P ---
History of Present Illness Admission Date/PCP: 05/10/18 22:59 OSCAR ADAMS MD History of Present Illness: DILIP DELGADO is a 52 year old female, she was transferred from home by EMS to the emergency room for evaluation of altered mental status, the patient called EMS to residence, when EMS arrived at the door she apparently collapsed no head injury, she was then transferred to the emergency room for evaluation. When she arrived in the emergency room she was hypotensive, the blood pressure recorded was 70 systolic, she was febrile temperature recorded was 100.9, the oxygen saturation was 84%. The serum creatinine was 5.32. CT chest was done without contrast, it showed patchy consolidation throughout the left lower lobe. The arterial blood gas on FiO2 4 L pH 7.30, PO2 86.2 on, PCO2 is 43 bicarbonate 20. Patient's condition is critical, she has shock liver with severely elevated liver enzymes, acute kidney injury, encephalopathy, she is vigorously resuscitated with IV normal saline to restore blood pressure and improve kidney function. Past Medical History Cardiac Medical History: Reports: Hypertension - 15 yrs-takes meds Pulmonary Medical History: Reports: Pneumonia - 2013 X2 Endocrine Medical History: Reports: Diabetes Mellitus Type 2 Malignancy Medical History: GI Medical History: Reports: Gastroesophageal Reflux Disease - 2 yrs-takes meds Musculoskeltal Medical History: Reports: Arthritis, Fibromyalgia - 3 years Psychiatric Medical History: Reports: Depression Past Surgical History Past Surgical History: Reports: Orthopedic Surgery - left knee, rt hip replaced Social History Smoking Status: Current Every Day Smoker Cigarettes Packs Per Day: 1 Frequency of Alcohol Use: None Hx Recreational Drug Use: No Hx Prescription Drug Abuse: No - Advance Directive Resuscitation Status: Full Code Family History Family History: Reviewed & Not Pertinent Parental Family History Reviewed: Yes Children Family History Reviewed: Yes Sibling(s) Family History Reviewed.: Yes Medication/Allergy Home Medications: Acetaminophen with Codeine [Acetaminophen-Cod #3 Tablet] 1 tab PO Q6HP PRN 05/11 Amitriptyline HCl [Elavil 100 mg Tablet] 100 mg PO DAILY 05/11/18 Chlorpheniramine Maleate [Aller-Chlor 4 mg Tablet] 4 mg PO Q6HP PRN 05/11/18 Desipramine HCl [Norpramin 50 mg Tablet] 50 mg PO DAILY 05/11/18 Esomeprazole Magnesium [Nexium] 40 mg PO DAILY 05/11/18 Eszopiclone [Lunesta] 3 mg PO QHS 05/11/18 Lisinopril/Hydrochlorothiazide [Lisinopril-Hctz 20-12.5 mg Tab] 1 tab PO Q12 Metoprolol Tartrate [Lopressor 50 mg Tablet] 50 mg PO Q12 05/11/18 Montelukast Sodium [Singulair 10 mg Tablet] 10 mg PO QPM 05/11/18 Allergies/Adverse Reactions: etodolac [From Lodine] Allergy (Severe, Verified 05/10/18 19:09) Itchiness Penicillins Allergy (Severe, Verified 05/10/18 19:09) Hives Iodinated Contrast- Oral and IV Dye [IV Dye, Iodine Containing] Allergy (Mild, Verified 05/10/18 19:09) Pruritis aspirin [Aspirin] Adverse Reaction (Mild, Verified 05/10/18 19:09) GI upset Review of Systems Constitutional: PRESENT: chills, fever(s) Eyes: ABSENT: visual disturbances Ears: ABSENT: hearing changes Cardiovascular: PRESENT: chest pain Respiratory: PRESENT: cough Gastrointestinal: PRESENT: nausea Genitourinary: ABSENT: dysuria, hematuria Musculoskeletal: ABSENT: joint swelling Integumentary: ABSENT: rash, wounds Neurological: PRESENT: confusion Psychiatric: PRESENT: anxiety Hematologic/Lymphatic: ABSENT: easy bleeding, easy bruising, lymphadenopathy Physical Exam Vital Signs: Temp Pulse Resp BP Pulse Ox 98.0 F 94 16 111/65 98 05/11/18 11:22 05/11/18 14:00 05/11/18 11:22 05/11/18 11:22 05/11/18 11:22 Intake & Output 05/10/18 05/11/18 05/12/18 06:59 06:59 06:59 Intake Total 522 118 Output Total 80 Balance 442 118 Weight 71.6 kg General appearance: PRESENT: mild distress, other - She is alert but confused, able to answer question sometime appropriately Eye exam: PRESENT: PERRLA Mouth exam: PRESENT: dry mucosa Respiratory exam: PRESENT: rhonchi Cardiovascular exam: PRESENT: +S1, +S2 GI/Abdominal exam: PRESENT: soft Neurological exam: PRESENT: alert, altered Results Laboratory Results: 05/11/18 06:23 05/11/18 06:23 05/11/18 05/11/18 05/11/18 00:05 04:35 06:23 WBC 13.6 H RBC 3.49 L Hgb 10.3 L Hct 30.4 L MCV 87 MCH 29.4 MCHC 33.8 RDW 13.3 Plt Count 251 Seg Neutrophils % 86.2 H Lymphocytes % 5.9 L Monocytes % 7.6 Eosinophils % 0.0 Basophils % 0.3 Absolute Neutrophils 11.7 H Absolute Lymphocytes 0.8 Absolute Monocytes 1.0 Absolute Eosinophils 0.0 Absolute Basophils 0.0 Carbonic Acid 1.30 HCO3/H2CO3 Ratio 15:1 ABG pH 7.30 L ABG pCO2 43.1 ABG pO2 86.1 ABG HCO3 20.6 ABG O2 Saturation 95.6 ABG Base Excess -5.5 FiO2 4L Sodium Potassium Chloride Carbon Dioxide Anion Gap BUN Creatinine Est GFR ( Amer) Est GFR (Non-Af Amer) Glucose Calcium Total Bilirubin AST ALT Alkaline Phosphatase Total Protein Albumin Urine Color DAVON Urine Appearance CLOUDY Urine pH 5.0 Ur Specific [place] 1.016 Urine Protein 100 H Urine Glucose (UA) NEGATIVE Urine Ketones NEGATIVE Urine Blood LARGE H Urine Nitrite NEGATIVE Ur Leukocyte Esterase TRACE H Urine WBC (Auto) 8 Urine RBC (Auto) 3 05/11/18 06:23 WBC RBC Hgb Hct MCV MCH MCHC RDW Plt Count Seg Neutrophils % Lymphocytes % Monocytes % Eosinophils % Basophils % Absolute Neutrophils Absolute Lymphocytes Absolute Monocytes Absolute Eosinophils Absolute Basophils Carbonic Acid HCO3/H2CO3 Ratio ABG pH ABG pCO2 ABG pO2 ABG HCO3 ABG O2 Saturation ABG Base Excess FiO2 Sodium 139.1 Potassium 3.8 Chloride 104 Carbon Dioxide 22 Anion Gap 13 BUN 43 H Creatinine 4.30 H Est GFR ( Amer) 13 L Est GFR (Non-Af Amer) 11 L Glucose 122 H Calcium 8.4 Total Bilirubin 0.6 AST 267 H ALT 92 H Alkaline Phosphatase 80 Total Protein 6.1 L Albumin 3.3 L Urine Color Urine Appearance Urine pH Ur Specific [place] Urine Protein Urine Glucose (UA) Urine Ketones Urine Blood Urine Nitrite Ur Leukocyte Esterase Urine WBC (Auto) Urine RBC (Auto) Impressions: Chest X-Ray 05/10/18 19:12 IMPRESSION: Left lower lobe pneumonia. Pelvis X-Ray 05/10/18 21:10 IMPRESSION: Right hip arthroplasty. No acute abnormality. Chest CT 05/11/18 00:00 IMPRESSION: 1. Left upper lobe and left lower lobe pneumonia. Probable associated left hilar adenopathy. Head CT 05/11/18 00:00 IMPRESSION: NORMAL BRAIN CT WITHOUT CONTRAST. EVIDENCE OF ACUTE STROKE: NO. Assessment & Plan - Diagnosis (1) Septic shock Is this a current diagnosis for this admission?: Yes Plan: Patient presents with septic shock with evidence of end organ dysfunction including acute kidney injury, acute liver injury, acute metabolic encephalopathy with hypotension, she is vigorously hydrated with normal saline at 200 cc/h to restore volume and blood pressure for the next 24 hours with IV norepinephrine if needed (2) Left lower lobe pneumonia Qualifiers: Pneumonia type: due to unspecified organism Qualified Code(s): J18.1 - Lobar pneumonia, unspecified organism Is this a current diagnosis for this admission?: Yes Plan: She has left lower lobe pneumonia, she will empirically be treated with IV antibiotic to cover potential pathogens including community-acquired pathogens and also MRSA (3) Acute hypoxemic respiratory failure Is this a current diagnosis for this admission?: Yes (4) Acute kidney injury Is this a current diagnosis for this admission?: Yes (5) Metabolic acidosis with respiratory acidosis Is this a current diagnosis for this admission?: Yes (6) Shock liver Is this a current diagnosis for this admission?: Yes
[2018-05-11] MEDS ORDERED: ACETAMINOPHEN 325 MG TABLET PO PRN (21:09)
[2018-05-11] MEDS ORDERED: ACETAMINOPHEN 325 MG TABLET ONE (21:09)
[2018-05-12] MEDS: AZTREONAM 1 GM in DEXTROSE 5%-WATER 50 ML IV SCH ×3 (06:38→21:56)
[2018-05-12] MEDS: HEPARIN SOD (PORCINE) 5,000 UNIT/ML 1 ML SYRINGE SUBCUT SCH ×3 (06:39→21:54)
[2018-05-12 08:53] LABS: ABSOLUTE EOSINOPHILS # (AUTO) 0.1 10^3/uL (0.0-0.6); ABSOLUTE LYMPHOCYTES (AUTO) 1.2 10^3/uL (0.5-4.7); ABSOLUTE MONOCYTES (AUTO) 0.9 10^3/uL (0.1-1.4); BASOPHILS % (AUTO) 0.4 % (0-2); EOSINOPHILS % (AUTO) 0.5 % (0-6); HEMATOCRIT 33.5 % (36.0-47.0); HEMOGLOBIN 11.2 g/dL (12.0-15.5); LYMPHOCYTES % (AUTO) 9.2 % (13-45); MEAN CORPUSCULAR HEMOGLOBIN 28.8 pg (27.0-33.4); MEAN CORPUSCULAR HGB CONC 33.4 g/dL (32.0-36.0); MEAN CORPUSCULAR VOLUME 86 fl (80-97); MONOCYTES % (AUTO) 7.1 % (3-13); PLATELET COUNT 247 10^3/uL (150-450); RED BLOOD COUNT 3.87 10^6/uL (3.72-5.28); RED CELL DISTRIBUTION WIDTH 13.5 % (11.5-14.0); SEGMENTED NEUTROPHILS % (AUTO) 82.8 % (42-78); TOTAL CELLS COUNTED % (AUTO) 100 %; WHITE BLOOD COUNT 13.2 10^3/uL (4.0-10.5)
[2018-05-12 09:09] LABS: ALANINE AMINOTRANSFERASE 165 U/L (9-52); ALBUMIN 3.1 g/dL (3.5-5.0); ALKALINE PHOSPHATASE 143 U/L (38-126); ANION GAP 10 (5-19); ASPARTATE AMINO TRANSFERASE 375 U/L (14-36); BILIRUBIN,DIRECT 0.5 mg/dL (0.0-0.4); BILIRUBIN,TOTAL 0.5 mg/dL (0.2-1.3); BLOOD UREA NITROGEN 30 mg/dL (7-20); CALCIUM 8.8 mg/dL (8.4-10.2); CARBON DIOXIDE 24 mmol/L (22-30); CHLORIDE 107 mmol/L (98-107); GLUCOSE 98 mg/dL (75-110); POTASSIUM 3.7 mmol/L (3.6-5.0); SODIUM 141.4 mmol/L (137-145); TOTAL PROTEIN 6.2 g/dL (6.3-8.2)
[2018-05-12] MEDS: NORMAL SALINE 1000 ML 1,000 ML IV PRN (11:36)
[2018-05-12] MEDS ORDERED: (PENDING PHARMACY ID) (Amitriptyline Hcl [Elavil 100 Mg Tablet] 100 MG) PO SCH (13:30)
[2018-05-12] MEDS ORDERED: METOPROLOL TARTRATE 50 MG TABLET PO ONE (14:00)
--- NOTE | 2018-05-12 14:20 | PDOC CONSULTATION ---
Consultation Consult Date: 05/12/18 Consult reason:: blister on right buttock History of Present Illness Admission Date/PCP: 05/10/18 22:59 OSCAR ADAMS MD Patient complains of: pains in the right buttock History of Present Illness: DILIP DELGADO is a 52 year old female who has been having falls bckyard about 2- 4x/day past few weeks. She usually would land on her butt.She also claims a 40- 50 lbs weight loss in the past 2 months. Claims has severe anorexia. Past Medical History Cardiac Medical History: Reports: Hypertension - 17 yrs-takes meds Denies: Atrial Fibrillation, Congestive Heart Failure, Coronary Artery Disease, Myocardial Infarction, Hyperlipidema, Peripheral Vascular Disease, Pulmonary Embolism, Heart Murmur Pulmonary Medical History: Reports: Pneumonia - 2013 X2 Denies: Asthma, Bronchitis, Chronic Obstructive Pulmonary Disease (COPD), Respiratory Failure, Sleep Apnea, Tuberculosis Neurological Medical History: Denies: Seizures Endocrine Medical History: Reports: Diabetes Mellitus Type 2 Denies: Hyperthyroidism, Hypothyroidism Malignancy Medical History: Denies: Lung Cancer GI Medical History: Reports: Gastroesophageal Reflux Disease - 2 yrs-takes meds Denies: Crohn's Disease, Hiatal Hernia Musculoskeltal Medical History: Reports: Arthritis, Fibromyalgia - 3 years Psychiatric Medical History: Reports: Depression Denies: Bipolar Disorder, Dementia, Post Traumatic Stress Disorder Past Surgical History Past Surgical History: Reports: Orthopedic Surgery - left knee, rt hip replaced Denies: Amputation, Appendectomy, Section, Cholecystectomy, Colostomy, Coronary Artery Bypass Graft, Gastric Bypass Surgery, Herniorrhaphy, Hysterectomy, Mastectomy, Pacemaker, Tonsillectomy, Tubal Ligation Social History Smoking Status: Current Every Day Smoker Cigarettes Packs Per Day: 1 Frequency of Alcohol Use: None Hx Recreational Drug Use: No Hx Prescription Drug Abuse: No - Advance Directive Resuscitation Status: Full Code Family History Family History: Reviewed & Not Pertinent Parental Family History Reviewed: Yes Children Family History Reviewed: No Sibling(s) Family History Reviewed.: No Medication/Allergy Home Medications: Acetaminophen with Codeine [Acetaminophen-Cod #3 Tablet] 1 tab PO Q6HP PRN 05/11 Amitriptyline HCl [Elavil 100 mg Tablet] 100 mg PO DAILY 05/11/18 Chlorpheniramine Maleate [Aller-Chlor 4 mg Tablet] 4 mg PO Q6HP PRN 05/11/18 Desipramine HCl [Norpramin 50 mg Tablet] 50 mg PO DAILY 05/11/18 Esomeprazole Magnesium [Nexium] 40 mg PO DAILY 05/11/18 Eszopiclone [Lunesta] 3 mg PO QHS 05/11/18 Lisinopril/Hydrochlorothiazide [Lisinopril-Hctz 20-12.5 mg Tab] 1 tab PO Q12 Metoprolol Tartrate [Lopressor 50 mg Tablet] 50 mg PO Q12 05/11/18 Montelukast Sodium [Singulair 10 mg Tablet] 10 mg PO QPM 05/11/18 Allergies/Adverse Reactions: etodolac [From Lodine] Allergy (Severe, Verified 05/10/18 19:09) Itchiness Penicillins Allergy (Severe, Verified 05/10/18 19:09) Hives Iodinated Contrast- Oral and IV Dye [IV Dye, Iodine Containing] Allergy (Mild, Verified 05/10/18 19:09) Pruritis aspirin [Aspirin] Adverse Reaction (Mild, Verified 05/10/18 19:09) GI upset Review of Systems Constitutional: PRESENT: fever(s), headache(s) Eyes: PRESENT: other - novisual/hearing changes Respiratory: PRESENT: other - no chest pains/dyspnea Genitourinary: PRESENT: other - no dysuria Neurological: PRESENT: syncope Psychiatric: PRESENT: depression Physical Exam Vital Signs: Temp Pulse Resp BP Pulse Ox 98.2 F 101 H 16 136/58 H 100 05/12/18 11:56 05/12/18 11:56 05/12/18 11:56 05/12/18 11:56 05/12/18 11:56 Intake & Output 05/11/18 05/12/18 05/13/18 06:59 06:59 06:59 Intake Total 522 4868 Output Total 80 2250 Balance 442 2618 Weight 71.6 kg 79 kg General appearance: PRESENT: mild distress Head exam: PRESENT: atraumatic, normocephalic Eye exam: PRESENT: conjunctiva pink Mouth exam: PRESENT: moist Neck exam: PRESENT: full ROM Respiratory exam: PRESENT: clear to auscultation katina Cardiovascular exam: PRESENT: RRR Pulses: PRESENT: normal radial pulses Vascular exam: PRESENT: normal capillary refill GI/Abdominal exam: PRESENT: soft Rectal exam: PRESENT: tenderness - right perec, other - right paulie-anal area has a blister about 1.5 cm in diameter Extremities exam: PRESENT: full ROM Musculoskeletal exam: PRESENT: ambulatory Neurological exam: PRESENT: alert, oriented to person, oriented to place, oriented to time, oriented to situation Psychiatric exam: PRESENT: appropriate affect Skin exam: PRESENT: normal color, warm Results Laboratory Results: 05/12/18 08:45 05/12/18 08:45 05/12/18 05/12/18 08:45 08:45 WBC 13.2 H RBC 3.87 Hgb 11.2 L Hct 33.5 L MCV 86 MCH 28.8 MCHC 33.4 RDW 13.5 Plt Count 247 Seg Neutrophils % 82.8 H Lymphocytes % 9.2 L Monocytes % 7.1 Eosinophils % 0.5 Basophils % 0.4 Absolute Neutrophils 11.0 H Absolute Lymphocytes 1.2 Absolute Monocytes 0.9 Absolute Eosinophils 0.1 Absolute Basophils 0.0 Sodium 141.4 Potassium 3.7 Chloride 107 Carbon Dioxide 24 Anion Gap 10 BUN 30 H Creatinine 2.06 H Est GFR ( Amer) 30 L Est GFR (Non-Af Amer) 25 L Glucose 98 Calcium 8.8 Total Bilirubin 0.5 AST 375 H ALT 165 H Alkaline Phosphatase 143 H Total Protein 6.2 L Albumin 3.1 L Impressions: Chest X-Ray 05/10/18 19:12 IMPRESSION: Left lower lobe pneumonia. Pelvis X-Ray 05/10/18 21:10 IMPRESSION: Right hip arthroplasty. No acute abnormality. Chest CT 05/11/18 00:00 IMPRESSION: 1. Left upper lobe and left lower lobe pneumonia. Probable associated left hilar adenopathy. Head CT 05/11/18 00:00 IMPRESSION: NORMAL BRAIN CT WITHOUT CONTRAST. EVIDENCE OF ACUTE STROKE: NO. Assessment & Plan - Diagnosis (1) contusion right butt Is this a current diagnosis for this admission?: Yes - Time Time Spent: 30 to 50 Minutes - Plan Summary Plan Summary: Ct scan of pelvis/gluteal areas with no contrast to r/o abscess Re-evaluate after CT scan.
[2018-05-12] MEDS ORDERED: AMITRIPTYLINE HCL 50 MG TABLET PO ONE (14:30)
--- NOTE | 2018-05-12 14:33 | PDOC PROGRESS REPORT ---
Subjective Progress Note for:: 05/12/18 Subjective:: Patient was admitted for the management of septic shock, she has inflammatory swelling of the right buttock, suspect abscess versus other causes, consultation obtained from surgery, CT scan of the pelvis and abdomen is ordered Reason For Visit: PNEUMONIA, SEPTIC SHOCK,ACUTE KIDNEY INJURY, T2DM Physical Exam Vital Signs: Temp Pulse Resp BP Pulse Ox 98.2 F 101 H 16 136/58 H 100 05/12/18 11:56 05/12/18 11:56 05/12/18 11:56 05/12/18 11:56 05/12/18 11:56 Intake & Output 05/11/18 05/12/18 05/13/18 06:59 06:59 06:59 Intake Total 522 4868 Output Total 80 2250 Balance 442 2618 Weight 71.6 kg 79 kg General appearance: PRESENT: no acute distress Eye exam: PRESENT: PERRLA Respiratory exam: PRESENT: clear to auscultation katina Cardiovascular exam: PRESENT: +S1, +S2 GI/Abdominal exam: PRESENT: soft Neurological exam: PRESENT: alert Results Laboratory Results: 05/12/18 08:45 05/12/18 08:45 05/12/18 05/12/18 08:45 08:45 WBC 13.2 H RBC 3.87 Hgb 11.2 L Hct 33.5 L MCV 86 MCH 28.8 MCHC 33.4 RDW 13.5 Plt Count 247 Seg Neutrophils % 82.8 H Lymphocytes % 9.2 L Monocytes % 7.1 Eosinophils % 0.5 Basophils % 0.4 Absolute Neutrophils 11.0 H Absolute Lymphocytes 1.2 Absolute Monocytes 0.9 Absolute Eosinophils 0.1 Absolute Basophils 0.0 Sodium 141.4 Potassium 3.7 Chloride 107 Carbon Dioxide 24 Anion Gap 10 BUN 30 H Creatinine 2.06 H Est GFR ( Amer) 30 L Est GFR (Non-Af Amer) 25 L Glucose 98 Calcium 8.8 Total Bilirubin 0.5 AST 375 H ALT 165 H Alkaline Phosphatase 143 H Total Protein 6.2 L Albumin 3.1 L Impressions: Chest X-Ray 05/10/18 19:12 IMPRESSION: Left lower lobe pneumonia. Pelvis X-Ray 05/10/18 21:10 IMPRESSION: Right hip arthroplasty. No acute abnormality. Chest CT 05/11/18 00:00 IMPRESSION: 1. Left upper lobe and left lower lobe pneumonia. Probable associated left hilar adenopathy. Head CT 05/11/18 00:00 IMPRESSION: NORMAL BRAIN CT WITHOUT CONTRAST. EVIDENCE OF ACUTE STROKE: NO. Assessment & Plan - Diagnosis (1) Septic shock Is this a current diagnosis for this admission?: Yes (2) Left lower lobe pneumonia Qualifiers: Pneumonia type: due to unspecified organism Qualified Code(s): J18.1 - Lobar pneumonia, unspecified organism Is this a current diagnosis for this admission?: Yes (3) Acute hypoxemic respiratory failure Is this a current diagnosis for this admission?: Yes (4) Acute kidney injury Is this a current diagnosis for this admission?: Yes (5) Metabolic acidosis with respiratory acidosis Is this a current diagnosis for this admission?: Yes (6) Shock liver Is this a current diagnosis for this admission?: Yes (7) Swelling of perineal tissue Is this a current diagnosis for this admission?: Yes Plan: Consultation obtained from surgery (8) ATN (acute tubular necrosis) Is this a current diagnosis for this admission?: Yes Plan: Kidney function improving with hydration
[2018-05-12] MEDS: ACETAMINOPHEN WITH CODEINE #3 TABLET PO PRN ×2 (14:48→22:27)
[2018-05-12] MEDS ORDERED: DESIPRAMINE HCL 50 MG TABLET PO ONE (15:00)
--- NOTE | 2018-05-12 15:44 | RADIOLOGY REPORT (SQ) ---
EXAM DESCRIPTION: CT ABD/PELVIS NO ORAL OR IV COMPLETED DATE/TIME: 05/12/2018 3:27 pm REASON FOR STUDY: weight loss ,inf. swelling of the right gluteal COMPARISON: 02/06/2016 TECHNIQUE: CT scan of the abdomen and pelvis performed without intravenous or oral contrast. Images reviewed with lung, soft tissue, and bone windows. Reconstructed coronal and sagittal MPR images revi ewed. All images stored on PACS. All CT scanners at this facility use dose modulation, iterative reconstruction, and/or weight based d osing when appropriate to reduce radiation dose to as low as reasonably achievable (ALARA). [facility]: Dose Right [facility]: CareDose [facility]: Dose Right [facility]: Teradose 4D [facility]: Smart clipsync RADIATION DOSE: CT Rad equipment meets quality standard of care and radiation dose reduction techniq ues were employed. CTDIvol: 9.5 mGy. DLP: 549 mGy-cm.mGy. LIMITATIONS: None. FINDINGS: LOWER CHEST: Patchy parenchymal opacity at the left lung base. Appearance suggests pneumo nitis. NON-CONTRASTED LIVER, SPLEEN, ADRENALS: Evaluation limited by lack of IV contrast. No identified sign ificant masses. PANCREAS: No masses. No peripancreatic inflammatory changes. GALLBLADDER: No identified stones by CT criteria. No inflammatory changes to suggest cholecystitis. RIGHT KIDNEY AND URETER: No suspicious masses. Assessment limited by lack of IV contrast. No signif icant calcifications. No hydronephrosis or hydroureter. LEFT KIDNEY AND URETER: No suspicious masses. Assessment limited by lack of IV contrast. No signifi cant calcifications. No hydronephrosis or hydroureter. AORTA AND RETROPERITONEUM: No aneurysm. No retroperitoneal masses or adenopathy. BOWEL AND PERITONEAL CAVITY: No obvious masses or inflammatory changes. No free fluid. APPENDIX: Normal. PELVIS, BLADDER, AND ABDOMINAL WALL:Beam hardening artifact obscures detail. Increased soft tissue p resacral an along the rectum and anus slightly asymmetric on the right. Cannot determine if cystic o r solid. A discrete mass is not identified. Bladder is unremarkable. BONES: No significant findings. OTHER: No other significant finding. IMPRESSION: Soft tissue along the rectum and anus as well as presacral which cannot be adequately ch aracterized as there is considerable beam hardening artifact from the right hip replacement. A discrete soft tissue mass is not identified. COMMENT: Quality ID # [id number]: Final reports with documentation of one or more dose reduction techniques (e.g., Automated exposure control, adjustment of the mA and/or kV according to patient size, use of iterative reconstruction technique) TECHNICAL DOCUMENTATION: JOB ID: [id number] [employer]- All Rights Reserved Reading location - IP/workstation name: [email or web address]
[2018-05-12] MEDS: MONTELUKAST SODIUM 10 MG TABLET PO SCH (17:52)
[2018-05-12] MEDS ORDERED: VANCOMYCIN HCL 1,000 MG in DEXTROSE 5%-WATER 250 ML IV SCH (18:00)
[2018-05-12] MEDS ORDERED: VANCOMYCIN HCL 750 MG in DEXTROSE 5%-WATER 250 ML IV SCH (18:00)
[2018-05-12] MEDS: LISINOPRIL 10 MG TABLET PO SCH (21:54)
[2018-05-12] MEDS: METOPROLOL TARTRATE 50 MG TABLET PO SCH (21:54)
[2018-05-12] MEDS ORDERED: LEVOFLOXACIN 500 MG/D5W RTU 500 MG/100 ML RTUPB IV SCH (22:00)
[2018-05-12] MEDS ORDERED: (PENDING PHARMACY ID) (Lisinopril/Hydrochlorothiazide [Lisinopril-Hctz 20-12.5 Mg Tab] 1 T PO SCH (22:00)
[2018-05-12] MEDS: HYDROCHLOROTHIAZIDE 12.5 MG TABLET PO SCH (22:25)
[2018-05-13] MEDS: SILVER SULFADIAZINE 1% CREAM 400 GM TP SCH ×2 (04:00→11:18)
[2018-05-13] MEDS: ACETAMINOPHEN WITH CODEINE #3 TABLET PO PRN (04:11)
[2018-05-13] MEDS: NORMAL SALINE 1000 ML 1,000 ML IV PRN ×2 (04:11→21:38)
[2018-05-13] MEDS: LANSOPRAZOLE 30 MG TAB.RAP.DR PO SCH (05:09)
[2018-05-13] MEDS: AZTREONAM 1 GM in DEXTROSE 5%-WATER 50 ML IV SCH ×3 (05:09→21:37)
[2018-05-13] MEDS: HEPARIN SOD (PORCINE) 5,000 UNIT/ML 1 ML SYRINGE SUBCUT SCH ×3 (05:10→21:38)
[2018-05-13 06:14] LABS: ABSOLUTE EOSINOPHILS # (AUTO) 0.1 10^3/uL (0.0-0.6); ABSOLUTE MONOCYTES (AUTO) 0.9 10^3/uL (0.1-1.4); ABSOLUTE NEUT (AUTO) 8.3 10^3/uL (1.7-8.2); BASOPHILS % (AUTO) 0.3 % (0-2); EOSINOPHILS % (AUTO) 1.2 % (0-6); HEMOGLOBIN 9.7 g/dL (12.0-15.5); MEAN CORPUSCULAR HEMOGLOBIN 29.6 pg (27.0-33.4); MEAN CORPUSCULAR HGB CONC 34.5 g/dL (32.0-36.0); MEAN CORPUSCULAR VOLUME 86 fl (80-97); MONOCYTES % (AUTO) 8.3 % (3-13); PLATELET COUNT 216 10^3/uL (150-450); RED BLOOD COUNT 3.26 10^6/uL (3.72-5.28); RED CELL DISTRIBUTION WIDTH 13.5 % (11.5-14.0); SEGMENTED NEUTROPHILS % (AUTO) 80.2 % (42-78); TOTAL CELLS COUNTED % (AUTO) 100 %; WHITE BLOOD COUNT 10.3 10^3/uL (4.0-10.5)
[2018-05-13 06:28] LABS: ALANINE AMINOTRANSFERASE 137 U/L (9-52); ALBUMIN 2.5 g/dL (3.5-5.0); ALKALINE PHOSPHATASE 130 U/L (38-126); ANION GAP 6 (5-19); ASPARTATE AMINO TRANSFERASE 217 U/L (14-36); BILIRUBIN,DIRECT 0.4 mg/dL (0.0-0.4); BILIRUBIN,TOTAL 0.4 mg/dL (0.2-1.3); BLOOD UREA NITROGEN 21 mg/dL (7-20); CALCIUM 8.4 mg/dL (8.4-10.2); CARBON DIOXIDE 23 mmol/L (22-30); CHLORIDE 109 mmol/L (98-107); GLUCOSE 88 mg/dL (75-110); POTASSIUM 3.4 mmol/L (3.6-5.0); TOTAL PROTEIN 5.1 g/dL (6.3-8.2)
[2018-05-13] MEDS ORDERED: LIDOCAINE 2% INJ-PF (20 MG/ML) 10 ML AMPUL ONE (07:38)
[2018-05-13] MEDS ORDERED: FENTANYL CITRATE INJ/PF 100 MCG/2 ML AMPUL ONE (07:39)
[2018-05-13] MEDS ORDERED: ACETAMINOPHEN 0 MG/0 ML RTUPB IV ONE (07:39)
[2018-05-13] MEDS ORDERED: PROPOFOL INJ 200 MG/20 ML VIAL IV ONE ×2 (07:39→07:56)
[2018-05-13] MEDS ORDERED: MIDAZOLAM 2 MG/2 ML INJ ONE (07:39)
[2018-05-13] MEDS ORDERED: BUPIVACAINE HCL 0.5 % INJ/PF 30 ML SDV ONE (07:54)
[2018-05-13] MEDS ORDERED: KETAMINE HCL INJ 500 MG/10 ML VIAL ONE (07:56)
[2018-05-13] MEDS ORDERED: SILVER SULFADIAZINE 1% CREAM 25 GM ONE (08:29)
[2018-05-13] MEDS ORDERED: DIPHENHYDRAMINE HCL 50 MG/ML VIAL IV PRN (08:31)
[2018-05-13] MEDS ORDERED: MORPHINE SULFATE 10 MG/ML INJ IV PRN (08:31)
[2018-05-13] MEDS ORDERED: OXYCODONE-ACETAMINOPHEN 5-325 MG TABLET PO PRN ×2 (08:31)
[2018-05-13] MEDS ORDERED: FENTANYL CITRATE INJ/PF 100 MCG/2 ML AMPUL IV PRN ×3 (08:31)
[2018-05-13] MEDS ORDERED: MEPERIDINE HCL/PF INJ 25 MG/1 ML DISP.SYRIN IV PRN (08:31)
[2018-05-13] MEDS ORDERED: PROMETHAZINE HCL INJ 25 MG/1 ML VIAL IV PRN ×2 (08:31)
[2018-05-13] MEDS ORDERED: ONDANSETRON HCL INJ/PF 4 MG/2 ML SDV IV PRN (08:31)
[2018-05-13] MEDS ORDERED: OXYCODONE-ACETAMINOPHEN 5-325 MG TABLET ONE (09:46)
[2018-05-13] MEDS ORDERED: MORPHINE SULFATE 10 MG/ML INJ ONE (09:47)
--- NOTE | 2018-05-13 09:50 | OPERATIVE REPORT E ---
Operative Report NAME: DILIP DELGADO : 1965 AGE: 52Y DATE OF SURGERY: 05/13/2018 ROOM: 325 PREOPERATIVE DIAGNOSES: 1. Blisters on the right gluteal area. 2. Soft tissue increase along the right gluteal area on CAT scan. POSTOPERATIVE DIAGNOSES: Second degree holloway along the left gluteal area and primarily on the right side measuring about 13 cm long x 14 cm wide. OPERATION: 1. Debridement of blisters along both gluteal areas. 2. Attempted aspiration along the right gluteal area. 3. Rectal exam. SURGEON: UBALDO CONTE M.D. ANESTHESIA: Sedation. INDICATION: This is a 52-year-old female who was admitted on 05/10/2018 for hypertension, tachycardia and fever. She is diagnosed to have pneumonia. On further history however, patient claims that she would fall backwards about twice a day for the past few days. She was then noted yesterday to have blister along the right perianal sacral areas. She had a CAT scan of the pelvic area which showed increased tissue density primarily on the right gluteal presacral areas. Because of better examination under anesthesia, patient was taken to the OR this morning to make sure there is no further abscess or collection around her rectal area. PROCEDURE: Patient was placed in prone, jackknife position. Adequate sedation was then given. The gluteal and perirectal areas were then prepped and draped in the usual sterile fashion. Appropriate timeout was then called. Next, patient had multiple blisters along the right gluteal area close to the rectum. This extended to the left lateral gluteal area. This measured roughly about 13 cm long x 14 cm wide. The blisters were debrided sharply also with the use of a curette for correctly removing all of this superficial skin as second degree holloway. There was some thickening of the skin on the right side where the blisters were and two attempts [address] place an 18-gauge needle to make sure there was no collection underneath and both times they were negative. After adequate debridement, at this time a rectal exam was then done and patient noted to have no mass or abnormal sphincter tone. Patient was semi-awake and felt the rectal exam. Following this, gloves were changed and a Silvadene cream was placed over the debrided areas and covered with Telfa, 4 x 4 and a thin panty was used to hold dressings in place. Patient tolerated the procedure well. Needle, instruments and sponge counts were all correct. Estimated blood loss was about 5 mL. Patient then brought to the recovery room in satisfactory condition. DICTATING PHYSICIAN: UBALDO CONTE M.D. [id number] PHY#: [id number] ID: [id number] JOB#: [id number] ACCT: [id number] cc:UBALDO CONTE M.D. >
[2018-05-13] MEDS: HYDROCHLOROTHIAZIDE 12.5 MG TABLET PO SCH ×2 (12:18→22:09)
[2018-05-13] MEDS: METOPROLOL TARTRATE 50 MG TABLET PO SCH ×2 (12:18→21:39)
[2018-05-13] MEDS: AMITRIPTYLINE HCL 50 MG TABLET PO SCH (12:18)
[2018-05-13] MEDS: DESIPRAMINE HCL 50 MG TABLET PO SCH (12:19)
[2018-05-13] MEDS: LISINOPRIL 10 MG TABLET PO SCH ×2 (12:19→21:38)
--- NOTE | 2018-05-13 15:28 | PDOC PROGRESS REPORT ---
Subjective Progress Note for:: 05/13/18 Subjective:: Patient was seen today by the bedside she had debridement of both gluteal areas today Reason For Visit: PNEUMONIA, SEPTIC SHOCK,ACUTE KIDNEY INJURY, T2DM Physical Exam Vital Signs: Temp Pulse Resp BP Pulse Ox 97.6 F 78 12 138/78 H 98 05/13/18 11:51 05/13/18 11:51 05/13/18 11:51 05/13/18 11:51 05/13/18 11:51 Intake & Output 05/12/18 05/13/18 05/14/18 06:59 06:59 06:59 Intake Total 4868 2651 177 Output Total 2250 2975 300 Balance 2618 -324 -123 Weight 79 kg 76.7 kg General appearance: PRESENT: no acute distress Eye exam: PRESENT: PERRLA Respiratory exam: PRESENT: rhonchi Cardiovascular exam: PRESENT: +S1, +S2 Neurological exam: PRESENT: alert Results Laboratory Results: 05/13/18 05:55 05/13/18 05:55 05/13/18 05/13/18 05:55 05:55 WBC 10.3 RBC 3.26 L Hgb 9.7 L Hct 28.0 L MCV 86 MCH 29.6 MCHC 34.5 RDW 13.5 Plt Count 216 Seg Neutrophils % 80.2 H Lymphocytes % 10.0 L Monocytes % 8.3 Eosinophils % 1.2 Basophils % 0.3 Absolute Neutrophils 8.3 H Absolute Lymphocytes 1.0 Absolute Monocytes 0.9 Absolute Eosinophils 0.1 Absolute Basophils 0.0 Sodium 138.0 Potassium 3.4 L Chloride 109 H Carbon Dioxide 23 Anion Gap 6 BUN 21 H Creatinine 1.21 Est GFR ( Amer) 56 L Est GFR (Non-Af Amer) 46 L Glucose 88 Calcium 8.4 Total Bilirubin 0.4 AST 217 H ALT 137 H Alkaline Phosphatase 130 H Total Protein 5.1 L Albumin 2.5 L 05/11/18 04:35 Clean Catch Midstream Urine Culture - Final Mixed Urogenital Liz Impressions: Chest X-Ray 05/10/18 19:12 IMPRESSION: Left lower lobe pneumonia. Pelvis X-Ray 05/10/18 21:10 IMPRESSION: Right hip arthroplasty. No acute abnormality. Chest CT 05/11/18 00:00 IMPRESSION: 1. Left upper lobe and left lower lobe pneumonia. Probable associated left hilar adenopathy. Head CT 05/11/18 00:00 IMPRESSION: NORMAL BRAIN CT WITHOUT CONTRAST. EVIDENCE OF ACUTE STROKE: NO. Abdomen/Pelvis CT 05/12/18 00:00 IMPRESSION: Soft tissue along the rectum and anus as well as presacral which cannot be adequately characterized as there is considerable beam hardening artifact from the right hip replacement. A discrete soft tissue mass is not identified. Assessment & Plan - Diagnosis (1) Septic shock Is this a current diagnosis for this admission?: Yes (2) Left lower lobe pneumonia Qualifiers: Pneumonia type: due to unspecified organism Qualified Code(s): J18.1 - Lobar pneumonia, unspecified organism Is this a current diagnosis for this admission?: Yes Plan: Continue IV antibiotic (3) Acute hypoxemic respiratory failure Is this a current diagnosis for this admission?: Yes (4) Acute kidney injury Is this a current diagnosis for this admission?: Yes Plan: The kidney function is improved (5) Metabolic acidosis with respiratory acidosis Is this a current diagnosis for this admission?: Yes (6) Shock liver Is this a current diagnosis for this admission?: Yes (7) Swelling of perineal tissue Is this a current diagnosis for this admission?: Yes (8) ATN (acute tubular necrosis) Is this a current diagnosis for this admission?: Yes (9) Second degree burn of buttock Qualifiers: Encounter type: initial encounter Qualified Code(s): T21.25XA - Burn of second degree of buttock, initial encounter Is this a current diagnosis for this admission?: Yes
[2018-05-13] MEDS: MORPHINE SULFATE 10 MG/ML INJ IV PRN ×2 (16:41→21:52)
[2018-05-13] MEDS: MONTELUKAST SODIUM 10 MG TABLET PO SCH (18:59)
--- NOTE | 2018-05-13 19:12 | EKG REPORT ---
SEVERITY:- NORMAL ECG - SINUS RHYTHM : Confirmed by: Alida Queen MD 13-May-2018 19:10:45
[2018-05-13] MEDS ORDERED: HYDROCHLOROTHIAZIDE 25 MG TABLET ONE (21:46)
[2018-05-14] MEDS: MORPHINE SULFATE 10 MG/ML INJ IV PRN ×3 (06:19→22:55)
[2018-05-14] MEDS: HEPARIN SOD (PORCINE) 5,000 UNIT/ML 1 ML SYRINGE SUBCUT SCH ×3 (06:20→22:40)
[2018-05-14] MEDS: AZTREONAM 1 GM in DEXTROSE 5%-WATER 50 ML IV SCH ×3 (06:20→22:39)
[2018-05-14] MEDS: LANSOPRAZOLE 30 MG TAB.RAP.DR PO SCH (06:20)
[2018-05-14] MEDS: NORMAL SALINE 1000 ML 1,000 ML IV PRN (06:24)
[2018-05-14] MEDS: LISINOPRIL 10 MG TABLET PO SCH ×2 (09:25→22:42)
[2018-05-14] MEDS: AMITRIPTYLINE HCL 50 MG TABLET PO SCH (09:25)
[2018-05-14] MEDS: METOPROLOL TARTRATE 50 MG TABLET PO SCH ×2 (09:26→22:41)
[2018-05-14] MEDS: HYDROCHLOROTHIAZIDE 12.5 MG TABLET PO SCH ×2 (09:26→22:42)
[2018-05-14] MEDS: DESIPRAMINE HCL 50 MG TABLET PO SCH (09:26)
[2018-05-14] MEDS: SILVER SULFADIAZINE 1% CREAM 400 GM TP SCH ×2 (11:51→22:36)
[2018-05-14 17:45] LABS: ABSOLUTE BASOPHILS # (AUTO) 0.1 10^3/uL (0.0-0.2); ABSOLUTE EOSINOPHILS # (AUTO) 0.1 10^3/uL (0.0-0.6); ABSOLUTE LYMPHOCYTES (AUTO) 1.5 10^3/uL (0.5-4.7); ABSOLUTE MONOCYTES (AUTO) 0.9 10^3/uL (0.1-1.4); ABSOLUTE NEUT (AUTO) 8.9 10^3/uL (1.7-8.2); BASOPHILS % (AUTO) 0.6 % (0-2); EOSINOPHILS % (AUTO) 0.7 % (0-6); HEMATOCRIT 30.1 % (36.0-47.0); HEMOGLOBIN 10.2 g/dL (12.0-15.5); LYMPHOCYTES % (AUTO) 13.3 % (13-45); MEAN CORPUSCULAR HEMOGLOBIN 29.1 pg (27.0-33.4); MEAN CORPUSCULAR VOLUME 86 fl (80-97); MONOCYTES % (AUTO) 8.3 % (3-13); PLATELET COUNT 273 10^3/uL (150-450); RED BLOOD COUNT 3.51 10^6/uL (3.72-5.28); RED CELL DISTRIBUTION WIDTH 13.7 % (11.5-14.0); SEGMENTED NEUTROPHILS % (AUTO) 77.1 % (42-78); TOTAL CELLS COUNTED % (AUTO) 100 %; WHITE BLOOD COUNT 11.5 10^3/uL (4.0-10.5)
[2018-05-14 18:02] LABS: ALANINE AMINOTRANSFERASE 142 U/L (9-52); ALBUMIN 2.7 g/dL (3.5-5.0); ALKALINE PHOSPHATASE 158 U/L (38-126); ANION GAP 9 (5-19); ASPARTATE AMINO TRANSFERASE 222 U/L (14-36); BILIRUBIN,DIRECT 0.3 mg/dL (0.0-0.4); BILIRUBIN,TOTAL 0.3 mg/dL (0.2-1.3); BLOOD UREA NITROGEN 9 mg/dL (7-20); CALCIUM 8.1 mg/dL (8.4-10.2); CARBON DIOXIDE 23 mmol/L (22-30); CHLORIDE 107 mmol/L (98-107); GLUCOSE 112 mg/dL (75-110); POTASSIUM 3.4 mmol/L (3.6-5.0); SODIUM 139.4 mmol/L (137-145); TOTAL PROTEIN 5.4 g/dL (6.3-8.2)
[2018-05-14] MEDS: MONTELUKAST SODIUM 10 MG TABLET PO SCH (18:51)
--- NOTE | 2018-05-14 20:00 | PDOC PROGRESS REPORT ---
Subjective Progress Note for:: 05/14/18 Subjective:: Patient was seen by the bedside today she complained of pain at the site of the debridement of the buttock Reason For Visit: PNEUMONIA, SEPTIC SHOCK,ACUTE KIDNEY INJURY, T2DM Physical Exam Vital Signs: Temp Pulse Resp BP Pulse Ox 98.5 F 77 16 135/80 H 100 05/14/18 16:00 05/14/18 16:00 05/14/18 16:00 05/14/18 16:00 05/14/18 16:00 Intake & Output 05/13/18 05/14/18 05/15/18 06:59 06:59 06:59 Intake Total 2651 8220 1608 Output Total 2975 3005 400 Balance -324 5215 1208 Weight 76.7 kg 78.9 kg General appearance: PRESENT: no acute distress Eye exam: PRESENT: PERRLA Respiratory exam: PRESENT: clear to auscultation katina Cardiovascular exam: PRESENT: +S1, +S2 GI/Abdominal exam: PRESENT: soft Neurological exam: PRESENT: alert Results Laboratory Results: 05/14/18 17:30 05/14/18 17:30 05/14/18 05/14/18 17:30 17:30 WBC 11.5 H RBC 3.51 L Hgb 10.2 L Hct 30.1 L MCV 86 MCH 29.1 MCHC 34.0 RDW 13.7 Plt Count 273 Seg Neutrophils % 77.1 Lymphocytes % 13.3 Monocytes % 8.3 Eosinophils % 0.7 Basophils % 0.6 Absolute Neutrophils 8.9 H Absolute Lymphocytes 1.5 Absolute Monocytes 0.9 Absolute Eosinophils 0.1 Absolute Basophils 0.1 Sodium 139.4 Potassium 3.4 L Chloride 107 Carbon Dioxide 23 Anion Gap 9 BUN 9 Creatinine 0.75 Est GFR ( Amer) > 60 Est GFR (Non-Af Amer) > 60 Glucose 112 H Calcium 8.1 L Total Bilirubin 0.3 AST 222 H ALT 142 H Alkaline Phosphatase 158 H Total Protein 5.4 L Albumin 2.7 L Impressions: Chest X-Ray 05/10/18 19:12 IMPRESSION: Left lower lobe pneumonia. Pelvis X-Ray 05/10/18 21:10 IMPRESSION: Right hip arthroplasty. No acute abnormality. Chest CT 05/11/18 00:00 IMPRESSION: 1. Left upper lobe and left lower lobe pneumonia. Probable associated left hilar adenopathy. Head CT 05/11/18 00:00 IMPRESSION: NORMAL BRAIN CT WITHOUT CONTRAST. EVIDENCE OF ACUTE STROKE: NO. Abdomen/Pelvis CT 05/12/18 00:00 IMPRESSION: Soft tissue along the rectum and anus as well as presacral which cannot be adequately characterized as there is considerable beam hardening artifact from the right hip replacement. A discrete soft tissue mass is not identified. Assessment & Plan - Diagnosis (1) Septic shock Is this a current diagnosis for this admission?: Yes (2) Left lower lobe pneumonia Qualifiers: Pneumonia type: due to unspecified organism Qualified Code(s): J18.1 - Lobar pneumonia, unspecified organism Is this a current diagnosis for this admission?: Yes (3) Acute hypoxemic respiratory failure Is this a current diagnosis for this admission?: Yes (4) Acute kidney injury Is this a current diagnosis for this admission?: Yes (5) Metabolic acidosis with respiratory acidosis Is this a current diagnosis for this admission?: Yes (6) Shock liver Is this a current diagnosis for this admission?: Yes (7) Swelling of perineal tissue Is this a current diagnosis for this admission?: Yes (8) ATN (acute tubular necrosis) Is this a current diagnosis for this admission?: Yes (9) Second degree burn of buttock Qualifiers: Encounter type: initial encounter Qualified Code(s): T21.25XA - Burn of second degree of buttock, initial encounter Is this a current diagnosis for this admission?: Yes
[2018-05-14] MEDS: LEVOFLOXACIN 750 MG TABLET PO SCH (22:39)
[2018-05-14] MEDS: ZOLPIDEM TARTRATE 5 MG TABLET PO SCH (22:45)
[2018-05-15] MEDS: HEPARIN SOD (PORCINE) 5,000 UNIT/ML 1 ML SYRINGE SUBCUT SCH ×3 (05:17→21:16)
[2018-05-15] MEDS: LANSOPRAZOLE 30 MG TAB.RAP.DR PO SCH (05:18)
[2018-05-15] MEDS: AZTREONAM 1 GM in DEXTROSE 5%-WATER 50 ML IV SCH ×3 (05:21→21:19)
[2018-05-15] MEDS: MORPHINE SULFATE 10 MG/ML INJ IV PRN ×3 (06:00→20:00)
[2018-05-15 09:15] LABS: ABSOLUTE BASOPHILS # (AUTO) 0.1 10^3/uL (0.0-0.2); ABSOLUTE EOSINOPHILS # (AUTO) 0.1 10^3/uL (0.0-0.6); ABSOLUTE LYMPHOCYTES (AUTO) 1.3 10^3/uL (0.5-4.7); ABSOLUTE MONOCYTES (AUTO) 0.8 10^3/uL (0.1-1.4); ABSOLUTE NEUT (AUTO) 10.4 10^3/uL (1.7-8.2); BASOPHILS % (AUTO) 0.5 % (0-2); EOSINOPHILS % (AUTO) 0.5 % (0-6); HEMATOCRIT 31.6 % (36.0-47.0); HEMOGLOBIN 10.7 g/dL (12.0-15.5); LYMPHOCYTES % (AUTO) 10.6 % (13-45); MEAN CORPUSCULAR HEMOGLOBIN 28.6 pg (27.0-33.4); MEAN CORPUSCULAR HGB CONC 33.8 g/dL (32.0-36.0); MEAN CORPUSCULAR VOLUME 85 fl (80-97); MONOCYTES % (AUTO) 6.3 % (3-13); PLATELET COUNT 279 10^3/uL (150-450); RED BLOOD COUNT 3.73 10^6/uL (3.72-5.28); RED CELL DISTRIBUTION WIDTH 13.4 % (11.5-14.0); SEGMENTED NEUTROPHILS % (AUTO) 82.1 % (42-78); TOTAL CELLS COUNTED % (AUTO) 100 %; WHITE BLOOD COUNT 12.7 10^3/uL (4.0-10.5)
[2018-05-15 09:27] LABS: ALANINE AMINOTRANSFERASE 170 U/L (9-52); ALBUMIN 3.1 g/dL (3.5-5.0); ALKALINE PHOSPHATASE 180 U/L (38-126); ANION GAP 11 (5-19); ASPARTATE AMINO TRANSFERASE 228 U/L (14-36); BILIRUBIN,DIRECT 0.4 mg/dL (0.0-0.4); BILIRUBIN,TOTAL 0.5 mg/dL (0.2-1.3); BLOOD UREA NITROGEN 8 mg/dL (7-20); CALCIUM 8.1 mg/dL (8.4-10.2); CARBON DIOXIDE 24 mmol/L (22-30); CHLORIDE 105 mmol/L (98-107); GLUCOSE 134 mg/dL (75-110); POTASSIUM 3.2 mmol/L (3.6-5.0); SODIUM 139.5 mmol/L (137-145)
[2018-05-15] MEDS: AMITRIPTYLINE HCL 50 MG TABLET PO SCH (10:33)
[2018-05-15] MEDS: METOPROLOL TARTRATE 50 MG TABLET PO SCH ×2 (10:33→21:15)
[2018-05-15] MEDS: LISINOPRIL 10 MG TABLET PO SCH ×2 (10:33→21:13)
[2018-05-15] MEDS: DESIPRAMINE HCL 50 MG TABLET PO SCH (10:34)
[2018-05-15] MEDS: HYDROCHLOROTHIAZIDE 12.5 MG TABLET PO SCH ×2 (10:34→21:15)
[2018-05-15] MEDS: NORMAL SALINE 1000 ML 1,000 ML IV PRN (12:25)
[2018-05-15] MEDS: SILVER SULFADIAZINE 1% CREAM 400 GM TP SCH ×2 (15:53→23:58)
[2018-05-15] MEDS: MONTELUKAST SODIUM 10 MG TABLET PO SCH (17:49)
--- NOTE | 2018-05-15 19:27 | PDOC PROGRESS REPORT ---
Subjective Progress Note for:: 05/15/18 Subjective:: Patient seen by the bedside she was admitted for the management of pneumonia and second-degree holloway of the buttock, she complained of pain Reason For Visit: PNEUMONIA, SEPTIC SHOCK,ACUTE KIDNEY INJURY, T2DM Physical Exam Vital Signs: Temp Pulse Resp BP Pulse Ox 98.0 F 65 16 159/64 H 96 05/15/18 14:59 05/15/18 14:59 05/15/18 14:59 05/15/18 14:59 05/15/18 14:59 Intake & Output 05/14/18 05/15/18 05/16/18 06:59 06:59 06:59 Intake Total 8220 2358 1355 Output Total 3005 1750 350 Balance 5215 608 1005 Weight 78.9 kg 80.6 kg General appearance: PRESENT: no acute distress Eye exam: PRESENT: PERRLA Respiratory exam: PRESENT: clear to auscultation katina Cardiovascular exam: PRESENT: +S1, +S2 GI/Abdominal exam: PRESENT: soft Neurological exam: PRESENT: alert Results Laboratory Results: 05/15/18 08:53 05/15/18 08:53 05/15/18 05/15/18 08:53 08:53 WBC 12.7 H RBC 3.73 Hgb 10.7 L Hct 31.6 L MCV 85 MCH 28.6 MCHC 33.8 RDW 13.4 Plt Count 279 Seg Neutrophils % 82.1 H Lymphocytes % 10.6 L Monocytes % 6.3 Eosinophils % 0.5 Basophils % 0.5 Absolute Neutrophils 10.4 H Absolute Lymphocytes 1.3 Absolute Monocytes 0.8 Absolute Eosinophils 0.1 Absolute Basophils 0.1 Sodium 139.5 Potassium 3.2 L Chloride 105 Carbon Dioxide 24 Anion Gap 11 BUN 8 Creatinine 0.72 Est GFR ( Amer) > 60 Est GFR (Non-Af Amer) > 60 Glucose 134 H Calcium 8.1 L Total Bilirubin 0.5 AST 228 H ALT 170 H Alkaline Phosphatase 180 H Total Protein 6.0 L Albumin 3.1 L Impressions: Chest X-Ray 05/10/18 19:12 IMPRESSION: Left lower lobe pneumonia. Pelvis X-Ray 05/10/18 21:10 IMPRESSION: Right hip arthroplasty. No acute abnormality. Chest CT 05/11/18 00:00 IMPRESSION: 1. Left upper lobe and left lower lobe pneumonia. Probable associated left hilar adenopathy. Head CT 05/11/18 00:00 IMPRESSION: NORMAL BRAIN CT WITHOUT CONTRAST. EVIDENCE OF ACUTE STROKE: NO. Abdomen/Pelvis CT 05/12/18 00:00 IMPRESSION: Soft tissue along the rectum and anus as well as presacral which cannot be adequately characterized as there is considerable beam hardening artifact from the right hip replacement. A discrete soft tissue mass is not identified. Assessment & Plan - Diagnosis (1) Septic shock Is this a current diagnosis for this admission?: Yes (2) Left lower lobe pneumonia Qualifiers: Pneumonia type: due to unspecified organism Qualified Code(s): J18.1 - Lobar pneumonia, unspecified organism Is this a current diagnosis for this admission?: Yes (3) Acute hypoxemic respiratory failure Is this a current diagnosis for this admission?: Yes (4) Acute kidney injury Is this a current diagnosis for this admission?: Yes (5) Metabolic acidosis with respiratory acidosis Is this a current diagnosis for this admission?: Yes (6) Shock liver Is this a current diagnosis for this admission?: Yes (7) Swelling of perineal tissue Is this a current diagnosis for this admission?: Yes (8) ATN (acute tubular necrosis) Is this a current diagnosis for this admission?: Yes (9) Second degree burn of buttock Qualifiers: Encounter type: initial encounter Qualified Code(s): T21.25XA - Burn of second degree of buttock, initial encounter Is this a current diagnosis for this admission?: Yes - Plan Summary Plan Summary: Continue IV antibiotic, IV fluids, other treatment
[2018-05-15] MEDS: POTASSI CL 20 MEQ/50 ML RIDER 20 MEQ/50 ML RTUPB IV SCH (20:06)
[2018-05-15] MEDS: LEVOFLOXACIN 750 MG TABLET PO SCH (21:16)
[2018-05-15] MEDS: ZOLPIDEM TARTRATE 5 MG TABLET PO SCH (21:16)
[2018-05-16] MEDS: POTASSI CL 20 MEQ/50 ML RIDER 20 MEQ/50 ML RTUPB IV SCH ×4 (01:10→17:21)
[2018-05-16] MEDS: MORPHINE SULFATE 10 MG/ML INJ IV PRN ×4 (03:31→21:16)
[2018-05-16] MEDS: NORMAL SALINE 1000 ML 1,000 ML IV PRN ×2 (05:08→20:37)
[2018-05-16] MEDS: HEPARIN SOD (PORCINE) 5,000 UNIT/ML 1 ML SYRINGE SUBCUT SCH ×3 (05:12→21:18)
[2018-05-16] MEDS: LANSOPRAZOLE 30 MG TAB.RAP.DR PO SCH (05:12)
[2018-05-16] MEDS: AZTREONAM 1 GM in DEXTROSE 5%-WATER 50 ML IV SCH ×3 (05:14→22:06)
[2018-05-16] MEDS: INSULIN LISPRO 100 UNIT/ML 3 ML VIAL SUBCUT PRN ×2 (08:12→22:50)
[2018-05-16] MEDS: HYDROCHLOROTHIAZIDE 12.5 MG TABLET PO SCH ×2 (09:18→21:20)
[2018-05-16] MEDS: DESIPRAMINE HCL 50 MG TABLET PO SCH (09:18)
[2018-05-16] MEDS: AMITRIPTYLINE HCL 50 MG TABLET PO SCH (09:18)
[2018-05-16] MEDS: METOPROLOL TARTRATE 50 MG TABLET PO SCH ×2 (09:19→21:19)
[2018-05-16] MEDS: LISINOPRIL 10 MG TABLET PO SCH ×2 (09:19→21:20)
--- NOTE | 2018-05-16 09:57 | PDOC PROGRESS REPORT ---
Subjective Progress Note for:: 05/16/18 Subjective:: Patient was seen by the bedside, the biggest challenge for this patient at this time is balance and gait disorder, MRI brain be ordered to rule out CVA or any other intracranial lesion Reason For Visit: PNEUMONIA, SEPTIC SHOCK,ACUTE KIDNEY INJURY, T2DM Physical Exam Vital Signs: Temp Pulse Resp BP Pulse Ox 98.3 F 76 16 146/75 H 95 05/16/18 07:37 05/16/18 07:37 05/16/18 07:37 05/16/18 07:37 05/16/18 07:37 Intake & Output 05/15/18 05/16/18 05/17/18 06:59 06:59 06:59 Intake Total 2358 2219 Output Total 1750 350 Balance 608 1869 Weight 80.6 kg 80 kg General appearance: PRESENT: no acute distress Head exam: PRESENT: atraumatic, normocephalic Eye exam: PRESENT: PERRLA Ear exam: PRESENT: normal external ear exam Mouth exam: PRESENT: moist, tongue midline Neck exam: PRESENT: full ROM Respiratory exam: PRESENT: clear to auscultation katina Cardiovascular exam: PRESENT: RRR, +S1, +S2 Vascular exam: PRESENT: normal capillary refill GI/Abdominal exam: PRESENT: normal bowel sounds, soft Rectal exam: PRESENT: deferred Neurological exam: PRESENT: alert Psychiatric exam: PRESENT: appropriate affect, normal mood Skin exam: PRESENT: dry, intact, warm Results Laboratory Results: 05/15/18 08:53 05/15/18 08:53 05/11/18 00:34 Blood Blood Culture - Final NO GROWTH IN 5 DAYS Impressions: Chest X-Ray 05/10/18 19:12 IMPRESSION: Left lower lobe pneumonia. Pelvis X-Ray 05/10/18 21:10 IMPRESSION: Right hip arthroplasty. No acute abnormality. Chest CT 05/11/18 00:00 IMPRESSION: 1. Left upper lobe and left lower lobe pneumonia. Probable associated left hilar adenopathy. Head CT 05/11/18 00:00 IMPRESSION: NORMAL BRAIN CT WITHOUT CONTRAST. EVIDENCE OF ACUTE STROKE: NO. Abdomen/Pelvis CT 05/12/18 00:00 IMPRESSION: Soft tissue along the rectum and anus as well as presacral which cannot be adequately characterized as there is considerable beam hardening artifact from the right hip replacement. A discrete soft tissue mass is not identified. Assessment & Plan - Diagnosis (1) Septic shock Is this a current diagnosis for this admission?: Yes (2) Left lower lobe pneumonia Qualifiers: Pneumonia type: due to unspecified organism Qualified Code(s): J18.1 - Lobar pneumonia, unspecified organism Is this a current diagnosis for this admission?: Yes (3) Acute hypoxemic respiratory failure Is this a current diagnosis for this admission?: Yes (4) Acute kidney injury Is this a current diagnosis for this admission?: Yes (5) Metabolic acidosis with respiratory acidosis Is this a current diagnosis for this admission?: Yes (6) Shock liver Is this a current diagnosis for this admission?: Yes (7) Swelling of perineal tissue Is this a current diagnosis for this admission?: Yes (8) ATN (acute tubular necrosis) Is this a current diagnosis for this admission?: Yes (9) Second degree burn of buttock Qualifiers: Encounter type: initial encounter Qualified Code(s): T21.25XA - Burn of second degree of buttock, initial encounter Is this a current diagnosis for this admission?: Yes - Plan Summary Plan Summary: She will continue IV antibiotic, MRI brain ordered to rule out CVA, physical therapy consultation
[2018-05-16] MEDS: SILVER SULFADIAZINE 1% CREAM 400 GM TP SCH ×2 (10:25→22:07)
[2018-05-16 10:36] LABS: HEMATOCRIT 27.4 % (36.0-47.0); HEMOGLOBIN 9.5 g/dL (12.0-15.5); MEAN CORPUSCULAR HEMOGLOBIN 29.3 pg (27.0-33.4); MEAN CORPUSCULAR HGB CONC 34.8 g/dL (32.0-36.0); MEAN CORPUSCULAR VOLUME 84 fl (80-97); PLATELET COUNT 305 10^3/uL (150-450); RED BLOOD COUNT 3.26 10^6/uL (3.72-5.28); RED CELL DISTRIBUTION WIDTH 13.5 % (11.5-14.0); WHITE BLOOD COUNT 16.8 10^3/uL (4.0-10.5)
[2018-05-16 10:54] LABS: ALANINE AMINOTRANSFERASE 147 U/L (9-52); ALBUMIN 2.9 g/dL (3.5-5.0); ALKALINE PHOSPHATASE 161 U/L (38-126); ANION GAP 8 (5-19); ASPARTATE AMINO TRANSFERASE 149 U/L (14-36); BILIRUBIN,DIRECT 0.4 mg/dL (0.0-0.4); BILIRUBIN,TOTAL 0.4 mg/dL (0.2-1.3); BLOOD UREA NITROGEN 8 mg/dL (7-20); CALCIUM 7.6 mg/dL (8.4-10.2); CARBON DIOXIDE 28 mmol/L (22-30); CHLORIDE 104 mmol/L (98-107); GLUCOSE 113 mg/dL (75-110); POTASSIUM 3.2 mmol/L (3.6-5.0); SODIUM 140.3 mmol/L (137-145); TOTAL PROTEIN 5.6 g/dL (6.3-8.2)
[2018-05-16 10:58] LABS: ABSOLUTE LYMPHOCYTES# (MANUAL) 0.7 10^3/uL (0.5-4.7); ABSOLUTE MONOCYTES # (MANUAL) 0.8 10^3/uL (0.1-1.4); ABSOLUTE NEUTROPHILS# (MANUAL) 15.3 10^3/uL (1.7-8.2); BASOPHILS % (MANUAL) 0 % (0-2); EOSINOPHILS % (MANUAL) 0 % (0-6); LYMPHOCYTES % (MANUAL) 4 % (13-45); METAMYELOCYTES % (MANUAL) 2 % (0); MONOCYTES % (MANUAL) 5 % (3-13); RBC MORPHOLOGY COMMENT NORMO-CYTIC/CHROMIC; SEGMENTED NEUTROPHILS % (MAN) 89 % (42-78); TOTAL CELLS COUNTED 100
[2018-05-16 10:59] LABS: PLATELET COMMENT ADEQUATE
--- NOTE | 2018-05-16 12:58 | RADIOLOGY REPORT (SQ) ---
EXAM DESCRIPTION: MRI HEAD WITHOUT COMPLETED DATE/TIME: 05/16/2018 12:22 pm REASON FOR STUDY: balance problem,suspect CVA COMPARISON: MRI brain 03/01/2011, 04/16/2014 CT brain 04/11/2018, 05/11/2018 TECHNIQUE: Multiplanar imaging includes non-contrasted T1, T2, FLAIR, and diffusion with ADC map seq uences. Images stored on PACS. LIMITATIONS: None. FINDINGS: ANATOMY: No developmental anomalies. Normal vascular flow voids. Pituitary fossa normal. CSF SPACES: Normal in size and contour. No hemorrhage. CEREBRUM: Sulci and gyri normal in size and contour. Minimal age-appropriate increased white matter signal on FLAIR imaging, unchanged from prior MR exams. No evidence of hemorrhage, mass, or extraaxi al fluid collection. POSTERIOR FOSSA: No signal alteration. No hemorrhage. No edema, masses or mass effect. Internal paula tory canals, cerebello-pontine angles, mastoids normal. DIFFUSION IMAGING: Negative for acute or sub-acute infarction. ORBITS: No masses. Globes normal. PARANASAL SINUSES: No fluid levels. Mucosa normal. OTHER: No other significant finding. IMPRESSION: ESSENTIALLY NORMAL MRI OF THE BRAIN WITHOUT INTRAVENOUS GADOLINIUM CONTRAST. EVIDENCE OF ACUTE STROKE: NO. TECHNICAL DOCUMENTATION: JOB ID: [id number] [employer]- All Rights Reserved Reading location - IP/workstation name: [email or web address]
[2018-05-16] MEDS: MONTELUKAST SODIUM 10 MG TABLET PO SCH (17:21)
[2018-05-16] MEDS: LEVOFLOXACIN 750 MG TABLET PO SCH (21:20)
[2018-05-16] MEDS: ZOLPIDEM TARTRATE 5 MG TABLET PO SCH (21:20)
[2018-05-17] MEDS: MORPHINE SULFATE 10 MG/ML INJ IV PRN ×5 (01:30→20:26)
[2018-05-17] MEDS: LANSOPRAZOLE 30 MG TAB.RAP.DR PO SCH (05:18)
[2018-05-17] MEDS: HEPARIN SOD (PORCINE) 5,000 UNIT/ML 1 ML SYRINGE SUBCUT SCH ×3 (05:19→21:26)
[2018-05-17] MEDS: AZTREONAM 1 GM in DEXTROSE 5%-WATER 50 ML IV SCH ×3 (05:20→21:28)
[2018-05-17 06:25] LABS: HEMATOCRIT 26.3 % (36.0-47.0); HEMOGLOBIN 9.2 g/dL (12.0-15.5); MEAN CORPUSCULAR HEMOGLOBIN 29.6 pg (27.0-33.4); MEAN CORPUSCULAR HGB CONC 34.8 g/dL (32.0-36.0); MEAN CORPUSCULAR VOLUME 85 fl (80-97); PLATELET COUNT 253 10^3/uL (150-450); RED CELL DISTRIBUTION WIDTH 13.7 % (11.5-14.0); WHITE BLOOD COUNT 15.8 10^3/uL (4.0-10.5)
[2018-05-17 06:55] LABS: ALANINE AMINOTRANSFERASE 119 U/L (9-52); ALBUMIN 2.7 g/dL (3.5-5.0); ALKALINE PHOSPHATASE 143 U/L (38-126); ANION GAP 8 (5-19); ASPARTATE AMINO TRANSFERASE 102 U/L (14-36); BILIRUBIN,DIRECT 0.3 mg/dL (0.0-0.4); BILIRUBIN,TOTAL 0.3 mg/dL (0.2-1.3); BLOOD UREA NITROGEN 6 mg/dL (7-20); CALCIUM 7.5 mg/dL (8.4-10.2); CARBON DIOXIDE 29 mmol/L (22-30); CHLORIDE 104 mmol/L (98-107); GLUCOSE 104 mg/dL (75-110); POTASSIUM 3.4 mmol/L (3.6-5.0); SODIUM 140.7 mmol/L (137-145); TOTAL PROTEIN 5.3 g/dL (6.3-8.2)
[2018-05-17 07:31] LABS: ABSOLUTE LYMPHOCYTES# (MANUAL) 1.9 10^3/uL (0.5-4.7); ABSOLUTE MONOCYTES # (MANUAL) 2.1 10^3/uL (0.1-1.4); ABSOLUTE NEUTROPHILS# (MANUAL) 11.9 10^3/uL (1.7-8.2); BAND NEUTROPHILS % (MANUAL) 2 % (3-5); BASOPHILS % (MANUAL) 0 % (0-2); EOSINOPHILS % (MANUAL) 0 % (0-6); LYMPHOCYTES % (MANUAL) 12 % (13-45); METAMYELOCYTES % (MANUAL) 1 % (0); MONOCYTES % (MANUAL) 13 % (3-13); PLATELET COMMENT ADEQUATE; POLYCHROMASIA SLIGHT; SEGMENTED NEUTROPHILS % (MAN) 72 % (42-78); TOTAL CELLS COUNTED 100; TOXIC GRANULATION SLIGHT; TOXIC VACUOLATION PRESENT
[2018-05-17] MEDS: METOPROLOL TARTRATE 50 MG TABLET PO SCH ×2 (10:24→21:27)
[2018-05-17] MEDS: AMITRIPTYLINE HCL 50 MG TABLET PO SCH (10:24)
[2018-05-17] MEDS: HYDROCHLOROTHIAZIDE 12.5 MG TABLET PO SCH ×2 (10:24→21:26)
[2018-05-17] MEDS: LISINOPRIL 10 MG TABLET PO SCH ×2 (10:24→21:28)
[2018-05-17] MEDS: DESIPRAMINE HCL 50 MG TABLET PO SCH (10:25)
[2018-05-17] MEDS: SILVER SULFADIAZINE 1% CREAM 400 GM TP SCH ×2 (10:25→22:02)
[2018-05-17] MEDS: INSULIN LISPRO 100 UNIT/ML 3 ML VIAL SUBCUT PRN ×2 (17:03→22:01)
[2018-05-17] MEDS: MONTELUKAST SODIUM 10 MG TABLET PO SCH (17:03)
--- NOTE | 2018-05-17 20:15 | PDOC PROGRESS REPORT ---
Subjective Progress Note for:: 05/17/18 Subjective:: She was seen today by physical therapy, outpatient physical therapy was recommended on discharge, she continues to complain of pain of the buttock at the site of the debridement Reason For Visit: PNEUMONIA, SEPTIC SHOCK,ACUTE KIDNEY INJURY, T2DM Physical Exam Vital Signs: Temp Pulse Resp BP Pulse Ox 98.7 F 73 16 140/80 H 97 05/17/18 16:09 05/17/18 19:00 05/17/18 16:09 05/17/18 16:09 05/17/18 16:09 Intake & Output 05/16/18 05/17/18 05/18/18 06:59 06:59 06:59 Intake Total 2219 2574 1430 Output Total 892 463 8226 Balance 1869 1624 -1070 Weight 80 kg 78.9 kg 78.9 kg General appearance: PRESENT: no acute distress Eye exam: PRESENT: PERRLA Respiratory exam: PRESENT: clear to auscultation katina Cardiovascular exam: PRESENT: +S1, +S2 GI/Abdominal exam: PRESENT: soft Neurological exam: PRESENT: alert Results Laboratory Results: 05/17/18 06:13 05/17/18 06:13 05/17/18 05/17/18 06:13 06:13 WBC 15.8 H RBC 3.10 L Hgb 9.2 L Hct 26.3 L MCV 85 MCH 29.6 MCHC 34.8 RDW 13.7 Plt Count 253 Seg Neutrophils % Not Reportable Lymphocytes % Not Reportable Monocytes % Not Reportable Eosinophils % Not Reportable Basophils % Not Reportable Absolute Neutrophils Not Reportable Absolute Lymphocytes Not Reportable Absolute Monocytes Not Reportable Absolute Eosinophils Not Reportable Absolute Basophils Not Reportable Sodium 140.7 Potassium 3.4 L Chloride 104 Carbon Dioxide 29 Anion Gap 8 BUN 6 L Creatinine 0.65 Est GFR ( Amer) > 60 Est GFR (Non-Af Amer) > 60 Glucose 104 Calcium 7.5 L Total Bilirubin 0.3 AST 102 H ALT 119 H Alkaline Phosphatase 143 H Total Protein 5.3 L Albumin 2.7 L Impressions: Chest X-Ray 05/10/18 19:12 IMPRESSION: Left lower lobe pneumonia. Pelvis X-Ray 05/10/18 21:10 IMPRESSION: Right hip arthroplasty. No acute abnormality. Chest CT 05/11/18 00:00 IMPRESSION: 1. Left upper lobe and left lower lobe pneumonia. Probable associated left hilar adenopathy. Head CT 05/11/18 00:00 IMPRESSION: NORMAL BRAIN CT WITHOUT CONTRAST. EVIDENCE OF ACUTE STROKE: NO. Abdomen/Pelvis CT 05/12/18 00:00 IMPRESSION: Soft tissue along the rectum and anus as well as presacral which cannot be adequately characterized as there is considerable beam hardening artifact from the right hip replacement. A discrete soft tissue mass is not identified. Head MRI 05/16/18 00:00 IMPRESSION: ESSENTIALLY NORMAL MRI OF THE BRAIN WITHOUT INTRAVENOUS GADOLINIUM CONTRAST. EVIDENCE OF ACUTE STROKE: NO. Assessment & Plan - Diagnosis (1) Septic shock Is this a current diagnosis for this admission?: Yes (2) Left lower lobe pneumonia Qualifiers: Pneumonia type: due to unspecified organism Qualified Code(s): J18.1 - Lobar pneumonia, unspecified organism Is this a current diagnosis for this admission?: Yes (3) Acute hypoxemic respiratory failure Is this a current diagnosis for this admission?: Yes (4) Acute kidney injury Is this a current diagnosis for this admission?: Yes (5) Metabolic acidosis with respiratory acidosis Is this a current diagnosis for this admission?: Yes (6) Shock liver Is this a current diagnosis for this admission?: Yes (7) Swelling of perineal tissue Is this a current diagnosis for this admission?: Yes (8) ATN (acute tubular necrosis) Is this a current diagnosis for this admission?: Yes (9) Second degree burn of buttock Qualifiers: Encounter type: initial encounter Qualified Code(s): T21.25XA - Burn of second degree of buttock, initial encounter Is this a current diagnosis for this admission?: Yes
[2018-05-17] MEDS: ZOLPIDEM TARTRATE 5 MG TABLET PO SCH (21:27)
[2018-05-17] MEDS: LEVOFLOXACIN 750 MG TABLET PO SCH (21:27)
[2018-05-18] MEDS: MORPHINE SULFATE 10 MG/ML INJ IV PRN ×5 (02:25→20:37)
[2018-05-18] MEDS: LANSOPRAZOLE 30 MG TAB.RAP.DR PO SCH (05:11)
[2018-05-18] MEDS: AZTREONAM 1 GM in DEXTROSE 5%-WATER 50 ML IV SCH ×2 (05:11→21:25)
[2018-05-18] MEDS: HEPARIN SOD (PORCINE) 5,000 UNIT/ML 1 ML SYRINGE SUBCUT SCH ×3 (05:12→21:11)
[2018-05-18 06:40] LABS: HEPATITIS A AB IGM Negative (Negative); HEPATITIS B CORE AB IGM Negative (Negative); HEPATITS B SURFACE ANTIGEN Negative (Negative)
[2018-05-18 07:41] LABS: HEPATITIS A AB IGM Negative (Negative); HEPATITIS B CORE AB IGM Negative (Negative); HEPATITS B SURFACE ANTIGEN Negative (Negative)
[2018-05-18 09:11] LABS: HEPATITIS C VIRUS ANTIBODY <0.1 s/co ratio (0.0-0.9)
[2018-05-18 09:12] LABS: HEPATITIS C VIRUS ANTIBODY <0.1 s/co ratio (0.0-0.9)
[2018-05-18] MEDS: METOPROLOL TARTRATE 50 MG TABLET PO SCH ×2 (10:02→21:12)
[2018-05-18] MEDS: DESIPRAMINE HCL 50 MG TABLET PO SCH (10:02)
[2018-05-18] MEDS: HYDROCHLOROTHIAZIDE 12.5 MG TABLET PO SCH ×2 (10:03→21:14)
[2018-05-18] MEDS: LISINOPRIL 10 MG TABLET PO SCH ×2 (10:03→21:13)
[2018-05-18] MEDS: AMITRIPTYLINE HCL 50 MG TABLET PO SCH (10:03)
[2018-05-18] MEDS: SILVER SULFADIAZINE 1% CREAM 400 GM TP SCH ×2 (10:03→23:00)
[2018-05-18] MEDS: NORMAL SALINE 1000 ML 1,000 ML IV PRN (10:44)
[2018-05-18] MEDS: MONTELUKAST SODIUM 10 MG TABLET PO SCH (17:29)
--- NOTE | 2018-05-18 20:20 | PDOC PROGRESS REPORT ---
Subjective Progress Note for:: 05/18/18 Subjective:: Patient was seen by the bedside she continues to require pain medication for the control of the burn injury in the buttock, the plan is for her to be discharged home on Monday she will stay the weekend in the hospital, when discharged she will require outpatient physical therapy, she has a twin sister and the plan is for her to be discharged home with her sister until full recovery. She is still very deconditioned physically she will require intensive physical therapy to get back to her baseline of functionality Reason For Visit: PNEUMONIA, SEPTIC SHOCK,ACUTE KIDNEY INJURY, T2DM Physical Exam Vital Signs: Temp Pulse Resp BP Pulse Ox 98.5 F 76 16 129/67 H 98 05/18/18 19:19 05/18/18 19:40 05/18/18 19:19 05/18/18 19:19 05/18/18 19:19 Intake & Output 05/17/18 05/18/18 05/19/18 06:59 06:59 06:59 Intake Total 2574 2103 715 Output Total 950 3950 2000 Balance 1624 -2597 -1285 Weight 78.9 kg 78.1 kg General appearance: PRESENT: no acute distress Eye exam: PRESENT: PERRLA Respiratory exam: PRESENT: clear to auscultation katina Cardiovascular exam: PRESENT: +S1, +S2 GI/Abdominal exam: PRESENT: soft Neurological exam: PRESENT: alert, CN II-XII grossly intact Results Laboratory Results: 05/17/18 06:13 05/17/18 06:13 Impressions: Chest X-Ray 05/10/18 19:12 IMPRESSION: Left lower lobe pneumonia. Pelvis X-Ray 05/10/18 21:10 IMPRESSION: Right hip arthroplasty. No acute abnormality. Chest CT 05/11/18 00:00 IMPRESSION: 1. Left upper lobe and left lower lobe pneumonia. Probable associated left hilar adenopathy. Head CT 05/11/18 00:00 IMPRESSION: NORMAL BRAIN CT WITHOUT CONTRAST. EVIDENCE OF ACUTE STROKE: NO. Abdomen/Pelvis CT 05/12/18 00:00 IMPRESSION: Soft tissue along the rectum and anus as well as presacral which cannot be adequately characterized as there is considerable beam hardening artifact from the right hip replacement. A discrete soft tissue mass is not identified. Head MRI 05/16/18 00:00 IMPRESSION: ESSENTIALLY NORMAL MRI OF THE BRAIN WITHOUT INTRAVENOUS GADOLINIUM CONTRAST. EVIDENCE OF ACUTE STROKE: NO. Assessment & Plan - Diagnosis (1) Septic shock Is this a current diagnosis for this admission?: Yes (2) Left lower lobe pneumonia Qualifiers: Pneumonia type: due to unspecified organism Qualified Code(s): J18.1 - Lobar pneumonia, unspecified organism Is this a current diagnosis for this admission?: Yes (3) Acute hypoxemic respiratory failure Is this a current diagnosis for this admission?: Yes (4) Acute kidney injury Is this a current diagnosis for this admission?: Yes (5) Metabolic acidosis with respiratory acidosis Is this a current diagnosis for this admission?: Yes (6) Shock liver Is this a current diagnosis for this admission?: Yes (7) Swelling of perineal tissue Is this a current diagnosis for this admission?: Yes (8) ATN (acute tubular necrosis) Is this a current diagnosis for this admission?: Yes (9) Second degree burn of buttock Qualifiers: Encounter type: initial encounter Qualified Code(s): T21.25XA - Burn of second degree of buttock, initial encounter Is this a current diagnosis for this admission?: Yes
[2018-05-18 20:38] LABS: HEMATOCRIT 28.2 % (36.0-47.0); HEMOGLOBIN 9.8 g/dL (12.0-15.5); MEAN CORPUSCULAR HEMOGLOBIN 29.3 pg (27.0-33.4); MEAN CORPUSCULAR HGB CONC 34.7 g/dL (32.0-36.0); MEAN CORPUSCULAR VOLUME 84 fl (80-97); PLATELET COUNT 329 10^3/uL (150-450); RED BLOOD COUNT 3.34 10^6/uL (3.72-5.28); RED CELL DISTRIBUTION WIDTH 13.8 % (11.5-14.0); WHITE BLOOD COUNT 14.2 10^3/uL (4.0-10.5)
[2018-05-18 20:54] LABS: ABSOLUTE LYMPHOCYTES# (MANUAL) 1.1 10^3/uL (0.5-4.7); ABSOLUTE MONOCYTES # (MANUAL) 0.6 10^3/uL (0.1-1.4); ABSOLUTE NEUTROPHILS# (MANUAL) 12.5 10^3/uL (1.7-8.2); BASOPHILS % (MANUAL) 0 % (0-2); EOSINOPHILS % (MANUAL) 0 % (0-6); LYMPHOCYTES % (MANUAL) 8 % (13-45); MONOCYTES % (MANUAL) 4 % (3-13); SEGMENTED NEUTROPHILS % (MAN) 88 % (42-78); TOTAL CELLS COUNTED 100
[2018-05-18 20:57] LABS: PLATELET COMMENT ADEQUATE; POIKILOCYTOSIS SLIGHT; TARGET CELLS SLIGHT; TOXIC VACUOLATION PRESENT
[2018-05-18 20:59] LABS: ALANINE AMINOTRANSFERASE 87 U/L (9-52); ALBUMIN 2.9 g/dL (3.5-5.0); ALKALINE PHOSPHATASE 152 U/L (38-126); ANION GAP 11 (5-19); ASPARTATE AMINO TRANSFERASE 60 U/L (14-36); BILIRUBIN,DIRECT 0.2 mg/dL (0.0-0.4); BILIRUBIN,TOTAL 0.2 mg/dL (0.2-1.3); BLOOD UREA NITROGEN 10 mg/dL (7-20); CALCIUM 7.5 mg/dL (8.4-10.2); CARBON DIOXIDE 27 mmol/L (22-30); CHLORIDE 102 mmol/L (98-107); GLUCOSE 128 mg/dL (75-110); POTASSIUM 3.3 mmol/L (3.6-5.0); SODIUM 139.6 mmol/L (137-145); TOTAL PROTEIN 5.7 g/dL (6.3-8.2)
[2018-05-18] MEDS: ZOLPIDEM TARTRATE 5 MG TABLET PO SCH (21:12)
[2018-05-18] MEDS: LEVOFLOXACIN 750 MG TABLET PO SCH (21:12)
[2018-05-19] MEDS: MORPHINE SULFATE 10 MG/ML INJ IV PRN ×5 (04:34→22:20)
[2018-05-19] MEDS: AZTREONAM 1 GM in DEXTROSE 5%-WATER 50 ML IV SCH ×3 (05:00→22:02)
[2018-05-19] MEDS: LANSOPRAZOLE 30 MG TAB.RAP.DR PO SCH (05:01)
[2018-05-19] MEDS: HEPARIN SOD (PORCINE) 5,000 UNIT/ML 1 ML SYRINGE SUBCUT SCH ×3 (05:01→22:02)
[2018-05-19 05:28] LABS: ABSOLUTE EOSINOPHILS # (AUTO) 0.1 10^3/uL (0.0-0.6); ABSOLUTE LYMPHOCYTES (AUTO) 1.6 10^3/uL (0.5-4.7); ABSOLUTE MONOCYTES (AUTO) 0.8 10^3/uL (0.1-1.4); ABSOLUTE NEUT (AUTO) 10.9 10^3/uL (1.7-8.2); BASOPHILS % (AUTO) 0.4 % (0-2); EOSINOPHILS % (AUTO) 0.6 % (0-6); HEMATOCRIT 30.4 % (36.0-47.0); HEMOGLOBIN 10.3 g/dL (12.0-15.5); LYMPHOCYTES % (AUTO) 12.1 % (13-45); MEAN CORPUSCULAR HGB CONC 33.9 g/dL (32.0-36.0); MEAN CORPUSCULAR VOLUME 86 fl (80-97); MONOCYTES % (AUTO) 5.8 % (3-13); PLATELET COUNT 348 10^3/uL (150-450); RED BLOOD COUNT 3.55 10^6/uL (3.72-5.28); RED CELL DISTRIBUTION WIDTH 13.5 % (11.5-14.0); SEGMENTED NEUTROPHILS % (AUTO) 81.1 % (42-78); TOTAL CELLS COUNTED % (AUTO) 100 %; WHITE BLOOD COUNT 13.4 10^3/uL (4.0-10.5)
[2018-05-19 05:31] LABS: ALANINE AMINOTRANSFERASE 81 U/L (9-52); ALKALINE PHOSPHATASE 140 U/L (38-126); ANION GAP 11 (5-19); ASPARTATE AMINO TRANSFERASE 55 U/L (14-36); BILIRUBIN,DIRECT 0.3 mg/dL (0.0-0.4); BILIRUBIN,TOTAL 0.3 mg/dL (0.2-1.3); BLOOD UREA NITROGEN 11 mg/dL (7-20); CARBON DIOXIDE 28 mmol/L (22-30); CHLORIDE 103 mmol/L (98-107); GLUCOSE 107 mg/dL (75-110); POTASSIUM 3.7 mmol/L (3.6-5.0); SODIUM 142.3 mmol/L (137-145); TOTAL PROTEIN 5.8 g/dL (6.3-8.2)
[2018-05-19] MEDS: INSULIN LISPRO 100 UNIT/ML 3 ML VIAL SUBCUT PRN ×2 (07:46→22:02)
[2018-05-19] MEDS: HYDROCHLOROTHIAZIDE 12.5 MG TABLET PO SCH ×2 (09:57→22:03)
[2018-05-19] MEDS: AMITRIPTYLINE HCL 50 MG TABLET PO SCH (09:57)
[2018-05-19] MEDS: DESIPRAMINE HCL 50 MG TABLET PO SCH (09:58)
[2018-05-19] MEDS: LISINOPRIL 10 MG TABLET PO SCH ×2 (09:58→22:02)
[2018-05-19] MEDS: METOPROLOL TARTRATE 50 MG TABLET PO SCH ×2 (09:58→22:03)
[2018-05-19] MEDS: SILVER SULFADIAZINE 1% CREAM 400 GM TP SCH (09:59)
--- NOTE | 2018-05-19 10:55 | PDOC PROGRESS REPORT ---
Subjective Progress Note for:: 05/19/18 Subjective:: She is currently doing well Since denied any chest pain denied any shortness of the breath Is complaining of a just the back problems while patient had with this burn wound Reason For Visit: PNEUMONIA, SEPTIC SHOCK,ACUTE KIDNEY INJURY, T2DM Physical Exam Vital Signs: Temp Pulse Resp BP Pulse Ox 97.8 F 65 14 134/71 H 99 05/19/18 07:30 05/19/18 07:30 05/19/18 07:30 05/19/18 07:30 05/19/18 07:30 Intake & Output 05/18/18 05/19/18 05/20/18 06:59 06:59 06:59 Intake Total 2103 1590 Output Total 3950 4400 Balance -1847 -2810 Weight 78.1 kg 77.2 kg General appearance: PRESENT: no acute distress, well-developed, well-nourished Head exam: PRESENT: atraumatic, normocephalic Eye exam: PRESENT: conjunctiva pink, EOMI, PERRLA. ABSENT: scleral icterus Ear exam: PRESENT: normal external ear exam Mouth exam: PRESENT: moist, tongue midline Neck exam: PRESENT: full ROM. ABSENT: carotid bruit, JVD, lymphadenopathy, thyromegaly Respiratory exam: PRESENT: clear to auscultation katina Cardiovascular exam: PRESENT: RRR. ABSENT: diastolic murmur, rubs, systolic murmur Pulses: PRESENT: normal dorsalis pedis pul, +2 pedal pulses bilateral Vascular exam: PRESENT: normal capillary refill GI/Abdominal exam: PRESENT: normal bowel sounds, soft. ABSENT: distended, guarding, mass, organolmegaly, rebound, tenderness Rectal exam: PRESENT: deferred Extremities exam: ABSENT: pedal edema Neurological exam: PRESENT: alert, awake, oriented to person, oriented to place , oriented to time. ABSENT: motor sensory deficit Psychiatric exam: PRESENT: appropriate affect, normal mood. ABSENT: homicidal ideation, suicidal ideation Skin exam: PRESENT: dry, intact, warm. ABSENT: cyanosis, rash Results Laboratory Results: 05/19/18 04:26 05/19/18 04:26 05/18/18 05/18/18 05/19/18 20:30 20:30 04:26 WBC 14.2 H 13.4 H RBC 3.34 L 3.55 L Hgb 9.8 L 10.3 L Hct 28.2 L 30.4 L MCV 84 86 MCH 29.3 29.0 MCHC 34.7 33.9 RDW 13.8 13.5 Plt Count 329 348 Seg Neutrophils % Not Reportable 81.1 H Lymphocytes % Not Reportable 12.1 L Monocytes % Not Reportable 5.8 Eosinophils % Not Reportable 0.6 Basophils % Not Reportable 0.4 Absolute Neutrophils Not Reportable 10.9 H Absolute Lymphocytes Not Reportable 1.6 Absolute Monocytes Not Reportable 0.8 Absolute Eosinophils Not Reportable 0.1 Absolute Basophils Not Reportable 0.0 Sodium 139.6 Potassium 3.3 L Chloride 102 Carbon Dioxide 27 Anion Gap 11 BUN 10 Creatinine 0.83 Est GFR ( Amer) > 60 Est GFR (Non-Af Amer) > 60 Glucose 128 H Calcium 7.5 L Total Bilirubin 0.2 AST 60 H ALT 87 H Alkaline Phosphatase 152 H Total Protein 5.7 L Albumin 2.9 L 05/19/18 04:26 WBC RBC Hgb Hct MCV MCH MCHC RDW Plt Count Seg Neutrophils % Lymphocytes % Monocytes % Eosinophils % Basophils % Absolute Neutrophils Absolute Lymphocytes Absolute Monocytes Absolute Eosinophils Absolute Basophils Sodium 142.3 Potassium 3.7 Chloride 103 Carbon Dioxide 28 Anion Gap 11 BUN 11 Creatinine 0.74 Est GFR ( Amer) > 60 Est GFR (Non-Af Amer) > 60 Glucose 107 Calcium 8.0 L Total Bilirubin 0.3 AST 55 H ALT 81 H Alkaline Phosphatase 140 H Total Protein 5.8 L Albumin 3.0 L Impressions: Chest X-Ray 05/10/18 19:12 IMPRESSION: Left lower lobe pneumonia. Pelvis X-Ray 05/10/18 21:10 IMPRESSION: Right hip arthroplasty. No acute abnormality. Chest CT 05/11/18 00:00 IMPRESSION: 1. Left upper lobe and left lower lobe pneumonia. Probable associated left hilar adenopathy. Head CT 05/11/18 00:00 IMPRESSION: NORMAL BRAIN CT WITHOUT CONTRAST. EVIDENCE OF ACUTE STROKE: NO. Abdomen/Pelvis CT 05/12/18 00:00 IMPRESSION: Soft tissue along the rectum and anus as well as presacral which cannot be adequately characterized as there is considerable beam hardening artifact from the right hip replacement. A discrete soft tissue mass is not identified. Head MRI 05/16/18 00:00 IMPRESSION: ESSENTIALLY NORMAL MRI OF THE BRAIN WITHOUT INTRAVENOUS GADOLINIUM CONTRAST. EVIDENCE OF ACUTE STROKE: NO. 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
[2018-05-19] MEDS: MONTELUKAST SODIUM 10 MG TABLET PO SCH (16:59)
[2018-05-19] MEDS: ZOLPIDEM TARTRATE 5 MG TABLET PO SCH (22:02)
[2018-05-19] MEDS: LEVOFLOXACIN 750 MG TABLET PO SCH (22:02)
[2018-05-20] MEDS: MORPHINE SULFATE 10 MG/ML INJ IV PRN ×6 (03:16→21:50)
[2018-05-20] MEDS: SILVER SULFADIAZINE 1% CREAM 400 GM TP SCH ×2 (03:18→14:38)
[2018-05-20] MEDS: AZTREONAM 1 GM in DEXTROSE 5%-WATER 50 ML IV SCH ×3 (05:56→21:50)
[2018-05-20] MEDS: HEPARIN SOD (PORCINE) 5,000 UNIT/ML 1 ML SYRINGE SUBCUT SCH ×3 (05:57→21:48)
[2018-05-20] MEDS: LANSOPRAZOLE 30 MG TAB.RAP.DR PO SCH (05:57)
[2018-05-20 06:06] LABS: ABSOLUTE EOSINOPHILS # (AUTO) 0.1 10^3/uL (0.0-0.6); ABSOLUTE LYMPHOCYTES (AUTO) 1.4 10^3/uL (0.5-4.7); ABSOLUTE MONOCYTES (AUTO) 0.8 10^3/uL (0.1-1.4); ABSOLUTE NEUT (AUTO) 11.8 10^3/uL (1.7-8.2); BASOPHILS % (AUTO) 0.3 % (0-2); EOSINOPHILS % (AUTO) 0.5 % (0-6); HEMATOCRIT 27.6 % (36.0-47.0); HEMOGLOBIN 9.4 g/dL (12.0-15.5); LYMPHOCYTES % (AUTO) 9.7 % (13-45); MEAN CORPUSCULAR HEMOGLOBIN 29.2 pg (27.0-33.4); MEAN CORPUSCULAR HGB CONC 34.2 g/dL (32.0-36.0); MEAN CORPUSCULAR VOLUME 85 fl (80-97); MONOCYTES % (AUTO) 5.5 % (3-13); PLATELET COUNT 366 10^3/uL (150-450); RED BLOOD COUNT 3.23 10^6/uL (3.72-5.28); RED CELL DISTRIBUTION WIDTH 13.8 % (11.5-14.0); TOTAL CELLS COUNTED % (AUTO) 100 %
[2018-05-20 07:14] LABS: ANION GAP 11 (5-19); BLOOD UREA NITROGEN 12 mg/dL (7-20); CALCIUM 8.3 mg/dL (8.4-10.2); CARBON DIOXIDE 25 mmol/L (22-30); CHLORIDE 103 mmol/L (98-107); GLUCOSE 148 mg/dL (75-110)
[2018-05-20] MEDS: AMITRIPTYLINE HCL 50 MG TABLET PO SCH (09:23)
[2018-05-20] MEDS: METOPROLOL TARTRATE 50 MG TABLET PO SCH ×2 (09:23→21:49)
[2018-05-20] MEDS: DESIPRAMINE HCL 50 MG TABLET PO SCH (09:23)
[2018-05-20] MEDS: HYDROCHLOROTHIAZIDE 12.5 MG TABLET PO SCH ×2 (09:24→21:49)
[2018-05-20] MEDS: LISINOPRIL 10 MG TABLET PO SCH ×2 (09:24→21:49)
--- NOTE | 2018-05-20 10:18 | PDOC PROGRESS REPORT ---
Subjective Progress Note for:: 05/20/18 Subjective:: She is currently doing well Since denied any chest pain denied any shortness of the breath Is complaining of a just the back problems while patient had with this burn wound Reason For Visit: PNEUMONIA, SEPTIC SHOCK,ACUTE KIDNEY INJURY, T2DM Physical Exam Vital Signs: Temp Pulse Resp BP Pulse Ox 97.9 F 65 12 105/82 100 05/20/18 07:54 05/20/18 07:54 05/20/18 07:54 05/20/18 07:54 05/20/18 07:54 Intake & Output 05/19/18 05/20/18 05/21/18 06:59 06:59 06:59 Intake Total 1590 2176 Output Total 4400 3775 Balance -2810 -1599 Weight 77.2 kg 77.9 kg General appearance: PRESENT: no acute distress, well-developed, well-nourished Head exam: PRESENT: atraumatic, normocephalic Eye exam: PRESENT: conjunctiva pink, EOMI, PERRLA. ABSENT: scleral icterus Ear exam: PRESENT: normal external ear exam Mouth exam: PRESENT: moist, tongue midline Neck exam: PRESENT: full ROM. ABSENT: carotid bruit, JVD, lymphadenopathy, thyromegaly Respiratory exam: PRESENT: clear to auscultation katina Cardiovascular exam: PRESENT: RRR. ABSENT: diastolic murmur, rubs, systolic murmur Pulses: PRESENT: normal dorsalis pedis pul, +2 pedal pulses bilateral Vascular exam: PRESENT: normal capillary refill GI/Abdominal exam: PRESENT: normal bowel sounds, soft. ABSENT: distended, guarding, mass, organolmegaly, rebound, tenderness Additonal comments: On the gluteal area second-degree holloway is presence Rectal exam: PRESENT: deferred Extremities exam: ABSENT: pedal edema Neurological exam: PRESENT: alert, awake, oriented to person, oriented to place , oriented to time, oriented to situation, CN II-XII grossly intact. ABSENT: motor sensory deficit Psychiatric exam: PRESENT: appropriate affect, normal mood. ABSENT: homicidal ideation, suicidal ideation Skin exam: PRESENT: dry, intact, warm. ABSENT: cyanosis, rash Results Laboratory Results: 05/20/18 05:18 05/20/18 05:18 05/20/18 05/20/18 05:18 05:18 WBC 14.0 H RBC 3.23 L Hgb 9.4 L Hct 27.6 L MCV 85 MCH 29.2 MCHC 34.2 RDW 13.8 Plt Count 366 Seg Neutrophils % 84.0 H Lymphocytes % 9.7 L Monocytes % 5.5 Eosinophils % 0.5 Basophils % 0.3 Absolute Neutrophils 11.8 H Absolute Lymphocytes 1.4 Absolute Monocytes 0.8 Absolute Eosinophils 0.1 Absolute Basophils 0.0 Sodium 139.0 Potassium 4.0 Chloride 103 Carbon Dioxide 25 Anion Gap 11 BUN 12 Creatinine 0.67 Est GFR ( Amer) > 60 Est GFR (Non-Af Amer) > 60 Glucose 148 H Calcium 8.3 L Impressions: Chest X-Ray 05/10/18 19:12 IMPRESSION: Left lower lobe pneumonia. Pelvis X-Ray 05/10/18 21:10 IMPRESSION: Right hip arthroplasty. No acute abnormality. Chest CT 05/11/18 00:00 IMPRESSION: 1. Left upper lobe and left lower lobe pneumonia. Probable associated left hilar adenopathy. Head CT 05/11/18 00:00 IMPRESSION: NORMAL BRAIN CT WITHOUT CONTRAST. EVIDENCE OF ACUTE STROKE: NO. Abdomen/Pelvis CT 05/12/18 00:00 IMPRESSION: Soft tissue along the rectum and anus as well as presacral which cannot be adequately characterized as there is considerable beam hardening artifact from the right hip replacement. A discrete soft tissue mass is not identified. Head MRI 05/16/18 00:00 IMPRESSION: ESSENTIALLY NORMAL MRI OF THE BRAIN WITHOUT INTRAVENOUS GADOLINIUM CONTRAST. EVIDENCE OF ACUTE STROKE: NO. Assessment & Plan - Diagnosis (1) Second degree burn of buttock Qualifiers: Encounter type: initial encounter Qualified Code(s): T21.25XA - Burn of second degree of buttock, initial encounter Is this a current diagnosis for this admission?: Yes (2) History of total right hip arthroplasty Is this a current diagnosis for this admission?: Yes - Time Time Spent with patient: 15-24 minutes Medications reviewed and adjusted accordingly: Yes Anticipated discharge: Home Within: Other - Inpatient Certification Medical Necessity: Need Close Monitoring Due to Risk of Patient Decompensation Post Hospital Care: D/C Hand Mounter Documentation - Plan Summary Plan Summary: to current medication
[2018-05-20] MEDS: MONTELUKAST SODIUM 10 MG TABLET PO SCH (17:30)
[2018-05-20] MEDS: INSULIN LISPRO 100 UNIT/ML 3 ML VIAL SUBCUT PRN (21:48)
[2018-05-20] MEDS: ZOLPIDEM TARTRATE 5 MG TABLET PO SCH (21:49)
[2018-05-20] MEDS: LEVOFLOXACIN 750 MG TABLET PO SCH (21:49)
[2018-05-21] MEDS: MORPHINE SULFATE 10 MG/ML INJ IV PRN ×7 (01:16→22:04)
[2018-05-21] MEDS: AZTREONAM 1 GM in DEXTROSE 5%-WATER 50 ML IV SCH ×3 (05:24→22:12)
[2018-05-21] MEDS: SILVER SULFADIAZINE 1% CREAM 400 GM TP SCH ×3 (05:24→23:17)
[2018-05-21] MEDS: LANSOPRAZOLE 30 MG TAB.RAP.DR PO SCH (05:24)
[2018-05-21] MEDS: HEPARIN SOD (PORCINE) 5,000 UNIT/ML 1 ML SYRINGE SUBCUT SCH ×3 (05:45→22:05)
[2018-05-21 06:45] LABS: ANION GAP 12 (5-19); BLOOD UREA NITROGEN 11 mg/dL (7-20); CALCIUM 8.9 mg/dL (8.4-10.2); CARBON DIOXIDE 25 mmol/L (22-30); CHLORIDE 105 mmol/L (98-107); GLUCOSE 141 mg/dL (75-110); POTASSIUM 4.1 mmol/L (3.6-5.0)
[2018-05-21] MEDS: AMITRIPTYLINE HCL 50 MG TABLET PO SCH (11:02)
[2018-05-21] MEDS: LISINOPRIL 10 MG TABLET PO SCH ×2 (11:03→21:59)
[2018-05-21] MEDS: METOPROLOL TARTRATE 50 MG TABLET PO SCH ×2 (11:03→22:00)
[2018-05-21] MEDS: DESIPRAMINE HCL 50 MG TABLET PO SCH (11:07)
[2018-05-21] MEDS: HYDROCHLOROTHIAZIDE 12.5 MG TABLET PO SCH ×2 (11:08→21:59)
[2018-05-21 18:21] LABS: ABSOLUTE BASOPHILS # (AUTO) 0.1 10^3/uL (0.0-0.2); ABSOLUTE EOSINOPHILS # (AUTO) 0.1 10^3/uL (0.0-0.6); ABSOLUTE LYMPHOCYTES (AUTO) 1.7 10^3/uL (0.5-4.7); ABSOLUTE MONOCYTES (AUTO) 0.6 10^3/uL (0.1-1.4); ABSOLUTE NEUT (AUTO) 11.9 10^3/uL (1.7-8.2); BASOPHILS % (AUTO) 0.9 % (0-2); EOSINOPHILS % (AUTO) 0.9 % (0-6); HEMATOCRIT 30.3 % (36.0-47.0); HEMOGLOBIN 10.4 g/dL (12.0-15.5); LYMPHOCYTES % (AUTO) 11.7 % (13-45); MEAN CORPUSCULAR HEMOGLOBIN 29.5 pg (27.0-33.4); MEAN CORPUSCULAR HGB CONC 34.2 g/dL (32.0-36.0); MEAN CORPUSCULAR VOLUME 86 fl (80-97); PLATELET COUNT 425 10^3/uL (150-450); RED BLOOD COUNT 3.52 10^6/uL (3.72-5.28); RED CELL DISTRIBUTION WIDTH 14.2 % (11.5-14.0); SEGMENTED NEUTROPHILS % (AUTO) 82.5 % (42-78); TOTAL CELLS COUNTED % (AUTO) 100 %; WHITE BLOOD COUNT 14.4 10^3/uL (4.0-10.5)
[2018-05-21] MEDS: MONTELUKAST SODIUM 10 MG TABLET PO SCH (18:53)
--- NOTE | 2018-05-21 19:55 | PDOC DISCHARGE SUMMARY ---
General - Admit/Disc Date/PCP Admission Date/Primary Care Provider: 05/10/18 22:59 OSCAR ADAMS MD Discharge Date: 05/21/18 - Discharge Diagnosis (1) Septic shock Is this a current diagnosis for this admission?: Yes (2) Left lower lobe pneumonia Is this a current diagnosis for this admission?: Yes (3) Acute hypoxemic respiratory failure Is this a current diagnosis for this admission?: Yes (4) Acute kidney injury Is this a current diagnosis for this admission?: Yes (5) Metabolic acidosis with respiratory acidosis Is this a current diagnosis for this admission?: Yes (6) Shock liver Is this a current diagnosis for this admission?: Yes (7) ATN (acute tubular necrosis) Is this a current diagnosis for this admission?: Yes (8) Second degree burn of buttock Is this a current diagnosis for this admission?: Yes - Additional Information Resuscitation Status: Full Code Prescriptions: Silver Sulfadiazine [Silvadene 1% Cream 400 gm] 1 applic TP Q12@1100,2300 #4 jar Home Medications: Acetaminophen with Codeine [Acetaminophen-Cod #3 Tablet] 1 tab PO Q6HP PRN 05/11 Chlorpheniramine Maleate [Aller-Chlor 4 mg Tablet] 4 mg PO Q6HP PRN 05/11/18 Desipramine HCl [Norpramin 50 mg Tablet] 50 mg PO DAILY 05/11/18 Esomeprazole Magnesium [Nexium] 40 mg PO DAILY 05/11/18 Eszopiclone [Lunesta] 3 mg PO QHS 05/11/18 Lisinopril/Hydrochlorothiazide [Lisinopril-Hctz 20-12.5 mg Tab] 1 tab PO Q12 Metoprolol Tartrate [Lopressor 50 mg Tablet] 50 mg PO Q12 05/11/18 Montelukast Sodium [Singulair 10 mg Tablet] 10 mg PO QPM 05/11/18 Silver Sulfadiazine [Silvadene 1% Cream 400 gm] 1 applic TP Q12@1100,2300 #4 jar 05/21/18 History of Present Illness History of Present Illness: DILIP DELGADO is a 52 year old female, she was transferred from home by EMS to the emergency room for evaluation of altered mental status, the patient called EMS to residence, when EMS arrived at the door she apparently collapsed no head injury, she was then transferred to the emergency room for evaluation. When she arrived in the emergency room she was hypotensive, the blood pressure recorded was 70 systolic, she was febrile temperature recorded was 100.9, the oxygen saturation was 84%. The serum creatinine was 5.32. CT chest was done without contrast, it showed patchy consolidation throughout the left lower lobe. The arterial blood gas on FiO2 4 L pH 7.30, PO2 86.2 on, PCO2 is 43 bicarbonate 20. Patient's condition is critical, she has shock liver with severely elevated liver enzymes, acute kidney injury, encephalopathy, she is vigorously resuscitated with IV normal saline to restore blood pressure and improve kidney function. Hospital Course Hospital Course: Patient was admitted for the management of septic shock, left lower lobe pneumonia and second-degree holloway of the left buttock. She was resuscitated with normal saline to restore blood pressure, she did not require intravenous vasopressors. She was empirically treated with IV antibiotic, aztreonam and Levaquin and vancomycin. She had acute kidney injury secondary to ATN, there was also associated shock liver. She was seen in consultation by the surgeon, she underwent debridement of the holloway injury of the left buttock.She is physically deconditioned, she was seen by physical therapy, outpatient rehabilitation was recommended by physical therapy. Physical Exam Vital Signs: Temp Pulse Resp BP Pulse Ox 98.0 F 66 16 131/69 H 99 05/21/18 15:36 05/21/18 15:36 05/21/18 15:36 05/21/18 15:36 05/21/18 15:36 Intake & Output 05/20/18 05/21/18 05/22/18 06:59 06:59 06:59 Intake Total 2176 2148 1000 Output Total 4872 0890 1600 Balance -6253 -4935 -600 Weight 77.9 kg 77.7 kg General appearance: PRESENT: no acute distress, well-developed, well-nourished Head exam: PRESENT: atraumatic, normocephalic Eye exam: PRESENT: conjunctiva pink, EOMI, PERRLA Ear exam: PRESENT: normal external ear exam Mouth exam: PRESENT: moist, tongue midline Neck exam: PRESENT: full ROM Respiratory exam: PRESENT: clear to auscultation katina Cardiovascular exam: PRESENT: RRR, +S1, +S2 Vascular exam: PRESENT: normal capillary refill GI/Abdominal exam: PRESENT: normal bowel sounds, soft Rectal exam: PRESENT: deferred Neurological exam: PRESENT: alert, awake, oriented to person, oriented to place , oriented to time, oriented to situation, CN II-XII grossly intact Psychiatric exam: PRESENT: appropriate affect, normal mood Skin exam: PRESENT: dry, intact, warm Results Laboratory Results: 05/21/18 18:12 05/21/18 18:12 05/21/18 05/21/18 05/21/18 05:50 18:12 18:12 WBC 14.4 H RBC 3.52 L Hgb 10.4 L Hct 30.3 L MCV 86 MCH 29.5 MCHC 34.2 RDW 14.2 H Plt Count 425 Seg Neutrophils % 82.5 H Lymphocytes % 11.7 L Monocytes % 4.0 Eosinophils % 0.9 Basophils % 0.9 Absolute Neutrophils 11.9 H Absolute Lymphocytes 1.7 Absolute Monocytes 0.6 Absolute Eosinophils 0.1 Absolute Basophils 0.1 Sodium 142.0 Cancelled Potassium 4.1 Cancelled Chloride 105 Cancelled Carbon Dioxide 25 Cancelled Anion Gap 12 Cancelled BUN 11 Cancelled Creatinine 0.68 Cancelled Est GFR ( Amer) > 60 Cancelled Est GFR (Non-Af Amer) > 60 Cancelled Glucose 141 H Cancelled Calcium 8.9 Cancelled Total Bilirubin Cancelled AST Cancelled ALT Cancelled Alkaline Phosphatase Cancelled Total Protein Cancelled Albumin Cancelled Impressions: Chest X-Ray 05/10/18 19:12 IMPRESSION: Left lower lobe pneumonia. Pelvis X-Ray 05/10/18 21:10 IMPRESSION: Right hip arthroplasty. No acute abnormality. Chest CT 05/11/18 00:00 IMPRESSION: 1. Left upper lobe and left lower lobe pneumonia. Probable associated left hilar adenopathy. Head CT 05/11/18 00:00 IMPRESSION: NORMAL BRAIN CT WITHOUT CONTRAST. EVIDENCE OF ACUTE STROKE: NO. Abdomen/Pelvis CT 05/12/18 00:00 IMPRESSION: Soft tissue along the rectum and anus as well as presacral which cannot be adequately characterized as there is considerable beam hardening artifact from the right hip replacement. A discrete soft tissue mass is not identified. Head MRI 05/16/18 00:00 IMPRESSION: ESSENTIALLY NORMAL MRI OF THE BRAIN WITHOUT INTRAVENOUS GADOLINIUM CONTRAST. EVIDENCE OF ACUTE STROKE: NO. Qualifiers - * PATIENT BEING DISCHARGED WITH ANY OF THE FOLLOWING DIAGNOSIS: No
[2018-05-21 20:38] LABS: ALANINE AMINOTRANSFERASE 65 U/L (9-52); ALBUMIN 3.3 g/dL (3.5-5.0); ALKALINE PHOSPHATASE 144 U/L (38-126); ANION GAP 10 (5-19); ASPARTATE AMINO TRANSFERASE 36 U/L (14-36); BILIRUBIN,DIRECT 0.2 mg/dL (0.0-0.4); BILIRUBIN,TOTAL 0.2 mg/dL (0.2-1.3); BLOOD UREA NITROGEN 12 mg/dL (7-20); CARBON DIOXIDE 26 mmol/L (22-30); CHLORIDE 103 mmol/L (98-107); GLUCOSE 183 mg/dL (75-110); POTASSIUM 3.9 mmol/L (3.6-5.0); SODIUM 138.9 mmol/L (137-145); TOTAL PROTEIN 6.2 g/dL (6.3-8.2)
[2018-05-21] MEDS: ZOLPIDEM TARTRATE 5 MG TABLET PO SCH (22:00)
[2018-05-21] MEDS: LEVOFLOXACIN 750 MG TABLET PO SCH (22:00)
[2018-05-21] MEDS: INSULIN LISPRO 100 UNIT/ML 3 ML VIAL SUBCUT PRN (22:05)
[2018-05-22] MEDS: MORPHINE SULFATE 10 MG/ML INJ IV PRN ×3 (01:57→08:58)
[2018-05-22 05:07] LABS: ANION GAP 11 (5-19); BLOOD UREA NITROGEN 12 mg/dL (7-20); CALCIUM 9.3 mg/dL (8.4-10.2); CARBON DIOXIDE 27 mmol/L (22-30); CHLORIDE 104 mmol/L (98-107); GLUCOSE 145 mg/dL (75-110); POTASSIUM 4.1 mmol/L (3.6-5.0); SODIUM 141.7 mmol/L (137-145)
[2018-05-22] MEDS: HEPARIN SOD (PORCINE) 5,000 UNIT/ML 1 ML SYRINGE SUBCUT SCH (05:19)
[2018-05-22] MEDS: AZTREONAM 1 GM in DEXTROSE 5%-WATER 50 ML IV SCH (05:19)
[2018-05-22] MEDS: LANSOPRAZOLE 30 MG TAB.RAP.DR PO SCH (05:20)
[2018-05-22] MEDS: METOPROLOL TARTRATE 50 MG TABLET PO SCH (08:59)
[2018-05-22] MEDS: AMITRIPTYLINE HCL 50 MG TABLET PO SCH (08:59)
[2018-05-22] MEDS: DESIPRAMINE HCL 50 MG TABLET PO SCH (08:59)
[2018-05-22] MEDS: HYDROCHLOROTHIAZIDE 12.5 MG TABLET PO SCH (08:59)
[2018-05-22] MEDS: LISINOPRIL 10 MG TABLET PO SCH (09:00)
[2018-05-22] MEDS: SILVER SULFADIAZINE 1% CREAM 400 GM TP SCH (09:00)
[2018-05-22 09:22] VITALS: BP 135/80
== END 2018-05-22 10:11 | disposition home or self-care (01) | DRG 871 ==
LOC: ER 18:50 → EH 22:59 → 3W 05-11 02:44
PROVIDERS: ADMIT Internal Medicine; ATTEND Internal Medicine
PROC: 0HD8XZZ Extraction of Buttock Skin, External Approach (ICD-10-PCS; principal; 2018-05-13 08:00)
DX: A41.9 Sepsis, unspecified organism (principal); R65.21 Severe sepsis with septic shock; J18.1 Lobar pneumonia, unspecified organism; K72.00 Acute and subacute hepatic failure without coma; N17.0 Acute kidney failure with tubular necrosis; J96.01 Acute respiratory failure with hypoxia; E87.4 Mixed disorder of acid-base balance; T21.25XA Burn of second degree of buttock, initial encounter; T31.0 Burns involving less than 10% of body surface; S30.0XXA Contusion of lower back and pelvis, initial encounter; I10 Essential (primary) hypertension; E11.9 Type 2 diabetes mellitus without complications; K21.9 Gastro-esophageal reflux disease without esophagitis; M79.7 Fibromyalgia; M19.90 Unspecified osteoarthritis, unspecified site; Z79.899 Other long term (current) drug therapy; W19.XXXA Unspecified fall, initial encounter; Y93.9 Activity, unspecified; Y92.9 Unspecified place or not applicable; Y99.9 Unspecified external cause status; F17.200 Nicotine dependence, unspecified, uncomplicated; Z88.0 Allergy status to penicillin; Z91.041 Radiographic dye allergy status; Z88.8 Allergy status to other drugs, medicaments and biological substances; Z88.6 Allergy status to analgesic agent; Z96.641 Presence of right artificial hip joint
CPT/HCPCS: 00300; 36415; 70450; 70551; 71046; 71250; 72170; 74176; 80048; 80053; 80074; 81001; 82550; 82553; 82803; 82962; 83036; 83605; 85025; 85610; 87040; 87086; 93005; 93010; 96361; 96365; 99285; J0131; J1644; J1815; J1956; J2250; J2270; J2704; J3010; J3370; J3480; J3490; J7030; J7060

== ENCOUNTER 2018-05-23 13:13 | Inpatient (IN) | payer BC ==
[2018-05-23] MEDS ORDERED: NORMAL SALINE 1000 ML 1,000 ML IV ONE (13:43)
[2018-05-23 14:04] LABS: ABSOLUTE BASOPHILS # (AUTO) 0.1 10^3/uL (0.0-0.2); ABSOLUTE EOSINOPHILS # (AUTO) 0.1 10^3/uL (0.0-0.6); ABSOLUTE LYMPHOCYTES (AUTO) 1.8 10^3/uL (0.5-4.7); ABSOLUTE MONOCYTES (AUTO) 0.9 10^3/uL (0.1-1.4); ABSOLUTE NEUT (AUTO) 11.9 10^3/uL (1.7-8.2); BASOPHILS % (AUTO) 0.8 % (0-2); EOSINOPHILS % (AUTO) 0.5 % (0-6); HEMATOCRIT 28.3 % (36.0-47.0); HEMOGLOBIN 9.6 g/dL (12.0-15.5); LYMPHOCYTES % (AUTO) 12.2 % (13-45); MEAN CORPUSCULAR HGB CONC 33.9 g/dL (32.0-36.0); MEAN CORPUSCULAR VOLUME 86 fl (80-97); MONOCYTES % (AUTO) 6.3 % (3-13); PLATELET COUNT 509 10^3/uL (150-450); RED BLOOD COUNT 3.31 10^6/uL (3.72-5.28); SEGMENTED NEUTROPHILS % (AUTO) 80.2 % (42-78); TOTAL CELLS COUNTED % (AUTO) 100 %; WHITE BLOOD COUNT 14.8 10^3/uL (4.0-10.5)
--- NOTE | 2018-05-23 14:20 | ER Document Report ---
ED General - General Chief Complaint: Low Blood Pressure Stated Complaint: BLOOD PRESSURE ISSUE Time Seen by Provider: 05/23/18 13:42 TRAVEL OUTSIDE OF THE [place] IN LAST 30 DAYS: No - HPI Notes: 52-year-old female presents with increasing weakness fatigue and falls at home. Patient states she gets woozy when she stands up. Patient was just discharged from the hospital 2 days ago. She denies fever chills or cough denies all other symptoms onset of weakness and fatigue. - Related Data Allergies/Adverse Reactions: etodolac [From Lodine] Allergy (Severe, Verified 05/10/18 19:09) Itchiness Penicillins Allergy (Severe, Verified 05/10/18 19:09) Hives Iodinated Contrast- Oral and IV Dye [IV Dye, Iodine Containing] Allergy (Mild, Verified 05/10/18 19:09) Pruritis aspirin [Aspirin] Adverse Reaction (Mild, Verified 05/10/18 19:09) GI upset Past Medical History - Social History Smoking Status: Current Every Day Smoker Chew tobacco use (# tins/day): No Drug Abuse: None Family History: Reviewed & Not Pertinent Patient has suicidal ideation: No Patient has homicidal ideation: No - Past Medical History Cardiac Medical History: Reports: Hx Hypertension - 17 yrs-takes meds Denies: Hx Atrial Fibrillation, Hx Congestive Heart Failure, Hx Coronary Artery Disease, Hx Heart Attack, Hx Hypercholesterolemia, Hx Peripheral Vascular Disease, Hx Pulmonary Embolism, Hx Heart Murmur Pulmonary Medical History: Reports: Hx Pneumonia - 2013 X2 Denies: Hx Asthma, Hx Bronchitis, Hx COPD, Hx Respiratory Failure, Hx Sleep Apnea, Hx Tuberculosis Neurological Medical History: Denies: Hx Cerebrovascular Accident, Hx Seizures Endocrine Medical History: Reports: Hx Diabetes Mellitus Type 2. Denies: Hx Graves' Disease, Hx Hyperthyroidism, Hx Hypothyroidism Renal/ Medical History: Denies: Hx Peritoneal Dialysis Malignancy Medical History: Denies: Hx Lung Cancer GI Medical History: Reports: Hx Gastroesophageal Reflux Disease - 2 yrs-takes meds. Denies: Hx Crohn's Disease, Hx Hiatal Hernia, Hx Irritable Bowel, Hx Liver Failure, Hx Pancreatitis, Hx Ulcer Musculoskeltal Medical History: Reports Hx Arthritis, Reports Hx Fibromyalgia - 3 years, Denies Hx Multiple Sclerosis, Denies Hx Muscular Dystrophy Psychiatric Medical History: Reports: Hx Depression Denies: Hx Bipolar Disorder, Hx Dementia, Hx Post Traumatic Stress Disorder, Hx Schizophrenia Traumatic Medical History: Denies: Hx Fractures Past Surgical History: Reports: Hx Breast Surgery - breast reduction, Hx Orthopedic Surgery - left knee, rt hip replaced. Denies: Hx Appendectomy, Hx Bowel Surgery, Hx Section, Hx Cholecystectomy, Hx Colostomy, Hx Coronary Artery Bypass Graft, Hx Gastric Bypass Surgery, Hx Herniorrhaphy, Hx Hysterectomy, Hx Mastectomy, Hx Pacemaker, Hx Tonsillectomy, Hx Tubal Ligation - Immunizations Immunizations up to date: Yes Hx Diphtheria, Pertussis, Tetanus Vaccination: Yes Hx Pneumococcal Vaccination: 11/13/09 Review of Systems - Review of Systems Notes: REVIEW OF SYSTEMS: CONSTITUTIONAL: -fevers, -chills EENT: -eye pain, -difficulty swallowing, -nasal congestion CARDIOVASCULAR: -chest pain, -syncope. RESPIRATORY: -cough, -SOB GASTROINTESTINAL: -abdominal pain, -nausea, -vomiting, -diarrhea GENITOURINARY: -dysuria, -hematuria MUSCULOSKELETAL: -back pain, -neck pain SKIN: -rash or skin lesions. HEMATOLOGIC: -easy bruising or bleeding. LYMPHATIC: -swollen, enlarged glands. NEUROLOGICAL: -altered mental status or loss of consciousness, -headache, - neurologic symptoms PSYCHIATRIC: -anxiety, -depression. ALL OTHER SYSTEMS REVIEWED AND NEGATIVE. Physical Exam - Vital signs Vitals: BP 105/65 05/23/18 13:20 - Notes Notes: PHYSICAL EXAMINATION: GENERAL: Well-appearing, well-nourished and in moderate acute distress. HEAD: Atraumatic, normocephalic. EYES: Pupils equal round and reactive to light, extraocular movements intact, sclera anicteric, conjunctiva are normal. ENT: nares patent, oropharynx clear without exudates. Moist mucous membranes. NECK: Normal range of motion, supple without lymphadenopathy LUNGS: Breath sounds clear to auscultation bilaterally and equal. No wheezes rales or rhonchi. HEART: Regular rate and rhythm without murmurs ABDOMEN: Soft, nontender, normoactive bowel sounds. No guarding, no rebound. No masses appreciated. EXTREMITIES: Normal range of motion, no pitting or edema. No cyanosis. NEUROLOGICAL: Cranial nerves grossly intact. Normal speech, normal gait. Normal sensory and motor exams. PSYCH: Normal mood, normal affect. SKIN: Warm, Dry, normal turgor, no rashes or lesions noted. Course - Re-evaluation Re-evalutation: 05/23/18 15:57 Unfortunate female presents with increasing weakness fatigue, profound kidney injury. Patient's kidney function is doubled in the last 2 days although she was just discharged. Patient also has profound leukocytosis. Patient's EKG unremarkable, chest x-ray shows no focal infiltrate is a source of her weakness , urine shows no signs of infection. Very concerning were unable to find the cause of this. Patient also has continued hypotension in the emergency department after fluid resuscitation. 05/23/18 15:58 Patient is no lactic acidosis, blood cultures pending at this time. Do not believe this is infectious did not initiate antibiotics. Patient will be admitted to the hospital for her hypotension and acute kidney injury. - Vital Signs Vital signs: Temp Pulse Resp BP Pulse Ox 98.4 F 20 101/60 97 05/23/18 13:21 05/23/18 15:01 05/23/18 15:00 05/23/18 15:01 - Laboratory Result Diagrams: 05/23/18 13:40 05/23/18 13:40 Laboratory results interpreted by me: 05/23/18 05/23/18 13:40 13:40 WBC 14.8 H RBC 3.31 L Hgb 9.6 L Hct 28.3 L Plt Count 509 H Seg Neutrophils % 80.2 H Lymphocytes % 12.2 L Absolute Neutrophils 11.9 H Creatinine 1.36 H Est GFR ( Amer) 49 L Est GFR (Non-Af Amer) 41 L - EKG Interpretation by Me Additional EKG results interpreted by me: 05/23/18 14:19 Normal sinus rhythm 96 bpm, no ST elevations or depressions, normal VT interval. No pathologic T-wave inversions Discharge - Discharge Clinical Impression: Acute kidney injury Hypotension Qualifiers: Hypotension type: other hypotension type Qualified Code(s): I95.89 - Other hypotension Condition: Stable Disposition: ADMITTED INPATIENT Admitting Provider: [facility] Admitted: Telemetry
[2018-05-23 14:22] LABS: ALANINE AMINOTRANSFERASE 48 U/L (9-52); ALBUMIN 3.5 g/dL (3.5-5.0); ALKALINE PHOSPHATASE 107 U/L (38-126); ANION GAP 12 (5-19); ASPARTATE AMINO TRANSFERASE 31 U/L (14-36); BILIRUBIN,DIRECT 0.4 mg/dL (0.0-0.4); BILIRUBIN,TOTAL 0.4 mg/dL (0.2-1.3); BLOOD UREA NITROGEN 20 mg/dL (7-20); CALCIUM 8.9 mg/dL (8.4-10.2); CARBON DIOXIDE 24 mmol/L (22-30); CHLORIDE 104 mmol/L (98-107); GLUCOSE 79 mg/dL (75-110); POTASSIUM 4.4 mmol/L (3.6-5.0); SODIUM 139.6 mmol/L (137-145); TOTAL PROTEIN 6.4 g/dL (6.3-8.2)
[2018-05-23 14:36] LABS: APPEARANCE,URINE SLIGHTLY-CLOUDY; BILIRUBIN,URINE NEGATIVE (NEGATIVE); COLOR,URINE YELLOW; GLUCOSE, URINE NEGATIVE (NEGATIVE); KETONES,URINE NEGATIVE (NEGATIVE); LEUKOCYTE ESTERASE,URINE NEGATIVE (NEGATIVE); NITRITE,URINE NEGATIVE (NEGATIVE); PROTEIN,URINE NEGATIVE (NEGATIVE); URINE SPECIFIC GRAVITY 1.013; UROBILINOGEN,URINE NEGATIVE mg/dL (<2.0)
--- NOTE | 2018-05-23 14:47 | RADIOLOGY REPORT (SQ) ---
EXAM DESCRIPTION: CHEST 2 VIEWS COMPLETED DATE/TIME: 05/23/2018 2:31 pm REASON FOR STUDY: sob, falls COMPARISON: Two-view chest 05/10/2018 CT chest 05/11/2018 EXAM PARAMETERS: NUMBER OF VIEWS: two views TECHNIQUE: Digital Frontal and Lateral radiographic views of the chest acquired. RADIATION DOSE: NA LIMITATIONS: none FINDINGS: LUNGS AND PLEURA: Airspace disease seen on CT chest 05/11/2018 has resolved. No pleural effusion. No pneumothorax. MEDIASTINUM AND HILAR STRUCTURES: No masses or contour abnormalities. HEART AND VASCULAR STRUCTURES: Heart normal size. No evidence for failure. BONES: No acute findings. HARDWARE: None in the chest. OTHER: No other significant finding. IMPRESSION: No acute findings TECHNICAL DOCUMENTATION: JOB ID: [id number] [employer]- All Rights Reserved Reading location - IP/workstation name: [email or web address]
[2018-05-23] MEDS ORDERED: ENOXAPARIN SODIUM INJ 30 MG/0.3 ML DISP.SYRIN SUBCUT ONE (18:00)
[2018-05-23] MEDS: NORMAL SALINE 1000 ML 1,000 ML IV PRN (18:08)
[2018-05-23] MEDS ORDERED: DESIPRAMINE HCL 50 MG TABLET PO SCH (19:00)
[2018-05-23] MEDS ORDERED: LANSOPRAZOLE 30 MG TAB.RAP.DR PO ONE (20:00)
[2018-05-23] MEDS: ACETAMINOPHEN WITH CODEINE #3 TABLET PO PRN (20:36)
[2018-05-23] MEDS ORDERED: DESIPRAMINE HCL 50 MG TABLET PO ONE (21:00)
--- NOTE | 2018-05-23 21:50 | EKG REPORT ---
SEVERITY:- NORMAL ECG - SINUS RHYTHM : Confirmed by: Alida Queen MD 23-May-2018 21:50:04
[2018-05-23] MEDS: SILVER SULFADIAZINE 1% CREAM 400 GM TP SCH (22:09)
[2018-05-24] MEDS: NORMAL SALINE 1000 ML 1,000 ML IV PRN ×3 (00:45→23:46)
[2018-05-24] MEDS: LANSOPRAZOLE 30 MG TAB.RAP.DR PO SCH (06:29)
[2018-05-24] MEDS: ACETAMINOPHEN WITH CODEINE #3 TABLET PO PRN ×3 (06:29→19:57)
[2018-05-24 08:19] LABS: ABSOLUTE EOSINOPHILS # (AUTO) 0.1 10^3/uL (0.0-0.6); ABSOLUTE LYMPHOCYTES (AUTO) 1.4 10^3/uL (0.5-4.7); ABSOLUTE MONOCYTES (AUTO) 0.8 10^3/uL (0.1-1.4); ABSOLUTE NEUT (AUTO) 7.6 10^3/uL (1.7-8.2); BASOPHILS % (AUTO) 0.3 % (0-2); EOSINOPHILS % (AUTO) 0.7 % (0-6); HEMATOCRIT 25.2 % (36.0-47.0); HEMOGLOBIN 8.7 g/dL (12.0-15.5); LYMPHOCYTES % (AUTO) 13.9 % (13-45); MEAN CORPUSCULAR HEMOGLOBIN 29.8 pg (27.0-33.4); MEAN CORPUSCULAR HGB CONC 34.7 g/dL (32.0-36.0); MEAN CORPUSCULAR VOLUME 86 fl (80-97); MONOCYTES % (AUTO) 8.3 % (3-13); PLATELET COUNT 505 10^3/uL (150-450); RED BLOOD COUNT 2.94 10^6/uL (3.72-5.28); RED CELL DISTRIBUTION WIDTH 14.3 % (11.5-14.0); SEGMENTED NEUTROPHILS % (AUTO) 76.8 % (42-78); TOTAL CELLS COUNTED % (AUTO) 100 %; WHITE BLOOD COUNT 9.9 10^3/uL (4.0-10.5)
[2018-05-24 08:43] LABS: ANION GAP 7 (5-19); BLOOD UREA NITROGEN 11 mg/dL (7-20); CALCIUM 8.9 mg/dL (8.4-10.2); CARBON DIOXIDE 24 mmol/L (22-30); CHLORIDE 110 mmol/L (98-107); GLUCOSE 111 mg/dL (75-110); POTASSIUM 4.5 mmol/L (3.6-5.0); SODIUM 141.4 mmol/L (137-145)
[2018-05-24] MEDS: ENOXAPARIN SODIUM INJ 30 MG/0.3 ML DISP.SYRIN SUBCUT SCH (09:54)
[2018-05-24] MEDS: DESIPRAMINE HCL 50 MG TABLET PO SCH (09:55)
[2018-05-24] MEDS: SILVER SULFADIAZINE 1% CREAM 400 GM TP SCH ×2 (11:44→22:42)
[2018-05-24] MEDS ORDERED: DEXTROSE 40% GEL 15 GM TUBE X 2 PO PRN (19:16)
[2018-05-24] MEDS ORDERED: GLUCAGON,HUMAN RECOMB 1 MG INJ IM PRN (19:16)
[2018-05-24] MEDS ORDERED: DEXTROSE 40% GEL 15 GM TUBE PO PRN (19:16)
[2018-05-24] MEDS ORDERED: DEXTROSE 50%-WATER SYRINGE 12.5 GM/25 ML DOSE IV PRN (19:16)
[2018-05-24] MEDS ORDERED: DEXTROSE 50%-WATER SYRINGE 25 GM/50 ML DOSE IV PRN (19:16)
--- NOTE | 2018-05-24 20:47 | PDOC H&P ---
History of Present Illness Admission Date/PCP: 05/23/18 15:12 OSCAR ADAMS MD History of Present Illness: DILIP DELGADO is a 52 year old female,She was just discharged from this hospital on 05/21/2018 when she was admitted for management of septic shock. She came to emergency room for evaluation of fatigue, frequent fall, weakness, in the emergency room she was evaluated she was found to have a low blood pressure and acute kidney injury. The last time she was admitted she has holloway injury in the left buttock, this was debrided and is still exposed. She has movement disorder, with balance and gait disorder, the last time she was admitted MRI brain was done as part of evaluation for the movement disorder, MRI brain was negative for an acute pathology we will schedule patient for lumbar puncture to evaluate for oligoclonal bands and other potential encephalopathic lesion.There is no evidence of pneumonia no UTI there is no apparent evidence of acute infection at this tiimeThe low blood pressure is most likely due to dehydration from combination of factors including insensible water loss from the large holloway surface in the left buttock and also inadequate intake Past Medical History Cardiac Medical History: Reports: Hypertension - 15 yrs-takes meds Pulmonary Medical History: Reports: Pneumonia - 2013 X2 Endocrine Medical History: Reports: Diabetes Mellitus Type 2 Malignancy Medical History: GI Medical History: Reports: Gastroesophageal Reflux Disease - 2 yrs-takes meds Musculoskeltal Medical History: Reports: Arthritis, Fibromyalgia - 3 years Psychiatric Medical History: Reports: Depression Past Surgical History Past Surgical History: Reports: Orthopedic Surgery - left knee, rt hip replaced Social History Smoking Status: Current Every Day Smoker Cigarettes Packs Per Day: 0.5 Frequency of Alcohol Use: None Hx Recreational Drug Use: No Drugs: None Hx Prescription Drug Abuse: No - Advance Directive Resuscitation Status: Full Code Family History Family History: Reviewed & Not Pertinent Parental Family History Reviewed: Yes Children Family History Reviewed: Yes Sibling(s) Family History Reviewed.: Yes Medication/Allergy Home Medications: Acetaminophen with Codeine [Tylenol #3 Tablet] 1 each PO Q6HP PRN 05/23/18 Amitriptyline HCl [Elavil 100 mg Tablet] 100 mg PO DAILY 05/23/18 Chlorpheniramine Maleate [Chlor-Trimeton 4 mg Tablet] 1 tab PO Q6HP PRN Desipramine HCl [Norpramin 50 Mg Tablet] 50 mg PO DAILY 05/23/18 Esomeprazole Magnesium [Nexium] 40 mg PO DAILY 05/23/18 Eszopiclone [Lunesta] 3 mg PO QHS 05/23/18 Lisinopril/Hydrochlorothiazide [Zestoretic 20-12.5 Mg Tablet] 1 each PO Q12 09/30 Metoprolol Tartrate [Lopressor 50 mg Tablet] 50 mg PO Q12 05/23/18 Montelukast Sodium [Singulair 10 mg Tablet] 10 mg PO QHS 05/23/18 Silver Sulfadiazine [Silvadene 1% Cream 400 gm] 1 applic TP Q12 05/23/18 Allergies/Adverse Reactions: etodolac [From Lodine] Allergy (Severe, Verified 05/10/18 19:09) Itchiness Penicillins Allergy (Severe, Verified 05/10/18 19:09) Hives Iodinated Contrast- Oral and IV Dye [IV Dye, Iodine Containing] Allergy (Mild, Verified 05/10/18 19:09) Pruritis aspirin [Aspirin] Adverse Reaction (Mild, Verified 05/10/18 19:09) GI upset Review of Systems Constitutional: ABSENT: chills, fever(s), headache(s), weight gain, weight loss Eyes: ABSENT: visual disturbances Ears: ABSENT: hearing changes Cardiovascular: ABSENT: chest pain, dyspnea on exertion, edema, orthropnea, palpitations Respiratory: ABSENT: cough, hemoptysis Gastrointestinal: ABSENT: abdominal pain, constipation, diarrhea, hematemesis, hematochezia, nausea, vomiting Genitourinary: ABSENT: dysuria, hematuria Musculoskeletal: PRESENT: back pain, deformity, muscle weakness Integumentary: ABSENT: rash, wounds Neurological: PRESENT: abnormal gait, dizziness, frequent falls, memory loss, weakness Psychiatric: ABSENT: anxiety, depression, homidical ideation, suicidal ideation Endocrine: ABSENT: cold intolerance, heat intolerance, menstrual abnormalities, polydipsia, polyuria Hematologic/Lymphatic: ABSENT: easy bleeding, easy bruising, lymphadenopathy Physical Exam Vital Signs: Temp Pulse Resp BP Pulse Ox 98.2 F 93 20 130/62 H 100 05/24/18 19:37 05/24/18 19:37 05/24/18 19:37 05/24/18 19:37 07/12/18 19:37 Intake & Output 05/23/18 05/24/18 05/25/18 06:59 06:59 06:59 Intake Total 2237 1566 Output Total 1800 Balance 2237 -234 Weight 74.2 kg General appearance: PRESENT: no acute distress Eye exam: PRESENT: PERRLA Mouth exam: PRESENT: dry mucosa Respiratory exam: PRESENT: clear to auscultation katina Cardiovascular exam: PRESENT: +S1, +S2 GI/Abdominal exam: PRESENT: soft Neurological exam: PRESENT: alert Skin exam: PRESENT: dry Results Laboratory Results: 05/24/18 08:00 05/24/18 08:00 05/24/18 05/24/18 08:00 08:00 WBC 9.9 RBC 2.94 L Hgb 8.7 L Hct 25.2 L MCV 86 MCH 29.8 MCHC 34.7 RDW 14.3 H Plt Count 505 H Seg Neutrophils % 76.8 Lymphocytes % 13.9 Monocytes % 8.3 Eosinophils % 0.7 Basophils % 0.3 Absolute Neutrophils 7.6 Absolute Lymphocytes 1.4 Absolute Monocytes 0.8 Absolute Eosinophils 0.1 Absolute Basophils 0.0 Sodium 141.4 Potassium 4.5 Chloride 110 H Carbon Dioxide 24 Anion Gap 7 BUN 11 Creatinine 0.70 Est GFR ( Amer) > 60 Est GFR (Non-Af Amer) > 60 Glucose 111 H Calcium 8.9 05/23/18 05/24/18 05/24/18 18:12 00:31 08:00 Troponin I < 0.012 < 0.012 < 0.012 Impressions: Chest X-Ray 05/23/18 13:50 IMPRESSION: No acute findings Assessment & Plan - Diagnosis (1) Hypotension Qualifiers: Hypotension type: unspecified hypotension type Qualified Code(s): I95.9 - Hypotension, unspecified Is this a current diagnosis for this admission?: Yes Plan: This is due to a combination of factors (2) Acute kidney injury Is this a current diagnosis for this admission?: Yes (3) Movement disorder Is this a current diagnosis for this admission?: Yes Plan: The differential diagnosis is very long, it includes multiple sclerosis Parkinson disease and lumbar puncture will be ordered looking for oligoclonal bands, etc.
[2018-05-24 21:29] LABS: INTERNATIONAL RATION (INR) 1.03
[2018-05-24 21:30] LABS: PARTIAL THROMBOPLASTIN TIME 34.3 SEC (23.5-35.8)
--- NOTE | 2018-05-24 22:11 | RADIOLOGY REPORT (SQ) ---
EXAM DESCRIPTION: ELBOW BILATERAL 2 VIEWS MIN COMPLETED DATE/TIME: 05/24/2018 9:47 pm REASON FOR STUDY: elbow pain COMPARISON: None. NUMBER OF VIEWS: Two views. TECHNIQUE: AP and lateral radiographic images acquired of the right and left elbow. LIMITATIONS: None. FINDINGS: MINERALIZATION: Normal. BONES: No acute fracture or dislocation. No worrisome bone lesions. JOINT: Degenerative joint changes are present to a mild degree in the left elbow into a greater degre e in the right. SOFT TISSUES: No soft tissue swelling. No foreign body. OTHER: No other significant finding. IMPRESSION: Degenerative joint disease worse on the right. TECHNICAL DOCUMENTATION: JOB ID: [id number] [employer]- All Rights Reserved Reading location - IP/workstation name: [email or web address]
[2018-05-24] MEDS: OXYCODONE-ACETAMINOPHEN 5-325 MG TABLET PO PRN (22:52)
[2018-05-25] MEDS: ACETAMINOPHEN WITH CODEINE #3 TABLET PO PRN (03:45)
[2018-05-25 04:34] LABS: HEMOGLOBIN 9.3 g/dL (12.0-15.5); MEAN CORPUSCULAR HEMOGLOBIN 29.8 pg (27.0-33.4); MEAN CORPUSCULAR HGB CONC 34.4 g/dL (32.0-36.0); MEAN CORPUSCULAR VOLUME 86 fl (80-97); RED BLOOD COUNT 3.13 10^6/uL (3.72-5.28); RED CELL DISTRIBUTION WIDTH 14.2 % (11.5-14.0); WHITE BLOOD COUNT 8.2 10^3/uL (4.0-10.5)
[2018-05-25 04:35] LABS: ABSOLUTE EOSINOPHILS # (AUTO) 0.1 10^3/uL (0.0-0.6); ABSOLUTE LYMPHOCYTES (AUTO) 1.3 10^3/uL (0.5-4.7); ABSOLUTE MONOCYTES (AUTO) 0.8 10^3/uL (0.1-1.4); ABSOLUTE NEUT (AUTO) 5.9 10^3/uL (1.7-8.2); BASOPHILS % (AUTO) 0.6 % (0-2); MONOCYTES % (AUTO) 10.2 % (3-13); PLATELET COUNT 490 10^3/uL (150-450); SEGMENTED NEUTROPHILS % (AUTO) 72.2 % (42-78); TOTAL CELLS COUNTED % (AUTO) 100 %
[2018-05-25 04:41] LABS: ANION GAP 10 (5-19); BLOOD UREA NITROGEN 8 mg/dL (7-20); CALCIUM 8.9 mg/dL (8.4-10.2); CARBON DIOXIDE 25 mmol/L (22-30); CHLORIDE 108 mmol/L (98-107); GLUCOSE 148 mg/dL (75-110); POTASSIUM 4.1 mmol/L (3.6-5.0); SODIUM 143.3 mmol/L (137-145)
[2018-05-25] MEDS: LANSOPRAZOLE 30 MG TAB.RAP.DR PO SCH (06:30)
[2018-05-25] MEDS: OXYCODONE-ACETAMINOPHEN 5-325 MG TABLET PO PRN ×3 (06:32→16:04)
[2018-05-25] MEDS: ENOXAPARIN SODIUM INJ 30 MG/0.3 ML DISP.SYRIN SUBCUT SCH (08:29)
[2018-05-25] MEDS: DESIPRAMINE HCL 50 MG TABLET PO SCH (08:32)
[2018-05-25] MEDS: SILVER SULFADIAZINE 1% CREAM 400 GM TP SCH (08:34)
[2018-05-25 11:06] LABS: APPEARANCE ALL TUBES CLEAR; COLOR ALL TUBES COLORLESS; CSF TOTAL VOLUME 8.1 CC; CSF TUBE NUMBER 3; VOLUME TUBE 2 1.8 CC; VOLUME TUBE 4 2.3 CC
[2018-05-25 11:07] LABS: RED BLOOD CELL,CSF 0 /uL (0-10)
[2018-05-25 11:08] LABS: WHITE BLOOD CELL,CSF 2 /uL (0-5)
[2018-05-25 11:31] LABS: GLUCOSE,CSF 79 mg/dL (40-70); PROTEIN,CSF 39 mg/dL (12-60)
--- NOTE | 2018-05-25 11:35 | RADIOLOGY REPORT (SQ) ---
EXAM DESCRIPTION: PICC INSERTION COMPLETED DATE/TIME: 05/25/2018 11:10 am REASON FOR STUDY: ADMINISTRATION OF IV Fluid COMPARISON: None. FLUOROSCOPY TIME: 40 seconds 2 images saved to PACS. TECHNIQUE: Fluoroscopic and ultrasound guided PICC placement. LIMITATIONS: None. PROCEDURE: After written consent and assessment were obtained, the patient was brought into the fluo roscopy room and place supine on the table. Ultrasound evaluation of potential access sites were perf ormed. After successfully identifying a patent antecubital vein, the left arm was prepped and draped in a sterile fashion along with the ultrasound probe. The entry site was anesthetized with 1% lidocai ne. A 21 gauge 7 cm needle was advanced through the skin and into the cephalic vein under live ultras ound guidance. An ultrasound image was saved to PACS confirming access site. A .018 guide wire was then inserted through the needle and into the venous system. The needle was the removed and an 11 duc de scalpel was used to make a 1cm skin incision. A 5 fr peel-away sheath was advanced over the wire and into the venous system. A measurement was then made using the existing wire and live fluoroscopic guidance. The wire was then removed and the trimmed. The PICC was advanced through the peel-away she ath and into the venous system. The peel-away sheath was removed and the catheter was adhered to the patients arm with a stat lock. The catheter was then aspirated and flushed and a sterile bandage was placed over the access site. A fluoroscopic spot image was saved to PACS confirming the catheter tip within the subclavian than. IMPRESSION: SUCCESSFUL PLACEMENT OF A 5 FR dual LUMEN 37 CM PICC IN THE subclavian VEIN. COMMENT: Patient medication list reviewed: Yes. Quality ID 145: Final reports for procedures using fluoroscopy that document radiation exposure danie [place], or exposure time and number of fluorographic images (if radiation exposure indices are not avail able) Quality ID #76: The patient was prepped and draped using maximum sterile barrier technique including cap, mask, sterile gown, sterile gloves, a large sterile sheet, hand hygiene, and 2% Chlorhexidine fo r cutaneous antisepsis. When ultrasound is used, sterile ultrasound techniques are followed requiring sterile gel and sterile probes. TECHNICAL DOCUMENTATION: JOB ID: [id number]- All Rights Reserved rev-03/30 Reading location - IP/workstation name: [email or web address]
--- NOTE | 2018-05-25 11:35 | RADIOLOGY REPORT (SQ) ---
EXAM DESCRIPTION: U/S GUIDE FOR VASCULAR ACCESS COMPLETE DATE/TIME: 05/25/2018 11:10 am REASON FOR STUDY: IV ACCESS FINDINGS: Please see combined report for performance of procedure and radiologic supervision and int erpretation. IMPRESSION: Please see combined report for performance of procedure and radiologic supervision and i nterpretation. Reading location - IP/workstation name: [email or web address]
--- NOTE | 2018-05-25 11:38 | RADIOLOGY REPORT (SQ) ---
EXAM DESCRIPTION: FLUORO/NEEDLE PLACEMENT/SPINE COMPLETE DATE/TIME: 05/25/2018 11:10 am REASON FOR STUDY: MS FINDINGS: Please see combined report for performance of procedure and radiologic supervision and int erpretation. IMPRESSION: Please see combined report for performance of procedure and radiologic supervision and i nterpretation. Reading location - IP/workstation name: [email or web address]
--- NOTE | 2018-05-25 11:38 | RADIOLOGY REPORT (SQ) ---
EXAM DESCRIPTION: LUMBAR PUNCTURE COMPLETED DATE/TIME: 05/25/2018 11:09 am REASON FOR STUDY: movement disorder ? MS COMPARISON: None. FLUOROSCOPY TIME: 27 seconds 1 images saved to PACS. TECHNIQUE: Fluoroscopic guided lumbar puncture. LIMITATIONS: None. PROCEDURE: After written consent and assessment were obtained, the patient was brought into the fluo roscopy room and placed prone on the table. The patient's lower back was prepped in a sterile fashio n and an entry site was selected under live fluoroscopic guidance. The entry site was anesthetized wi th 1% lidocaine. A 21 gauge needle was advanced through the skin and into the thecal sac at the level of L3-L4. After approximately 8 ml was drained, the needle was removed and a sterile bandage was leonid helen of the site. Specimens were sent to the lab for testing. A fluoroscopic spot image was saved to PACS confirming level access. FINDINGS: Clear CSF IMPRESSION: Lumbar puncture under fluoroscopy. No immediate complication. COMMENT: Patient medication list reviewed: Yes. Quality ID [id number]: Final reports for procedures using fluoroscopy that document radiation exposure danie [place], or exposure time and number of fluorographic images (if radiation exposure indices are not avail able) TECHNICAL DOCUMENTATION: JOB ID: [id number] [employer] All Rights Reserved Reading location - IP/workstation name: [facility]
--- NOTE | 2018-05-25 11:39 | RADIOLOGY REPORT (SQ) ---
EXAM DESCRIPTION: FLUORO/CV PLACEMENT COMPLETE DATE/TIME: 05/25/2018 11:10 am REASON FOR STUDY: IV ACCESS FINDINGS: Please see combined report for performance of procedure and radiologic supervision and int erpretation. IMPRESSION: Please see combined report for performance of procedure and radiologic supervision and i nterpretation. Reading location - IP/workstation name: [id number]
[2018-05-25 11:42] LABS: H. INFLUENZAE TYPE B AG NEGATIVE (NEGATIVE); S. PNEUMONIAE AG NEGATIVE (NEGATIVE); STREP. GROUP B AG NEGATIVE (NEGATIVE)
[2018-05-25] MEDS ORDERED: NORMAL SALINE 10 ML SDV (AFTER EACH USE) IV PRN (12:52)
--- NOTE | 2018-05-25 17:36 | PDOC PROGRESS REPORT ---
Subjective Progress Note for:: 05/25/18 Subjective:: She was seen by the bedside, she had lumbar puncture today, the protein analysis is pending. The holloway injury of the buttock especially those on the verge on the buttock looks infected, consultation will be requested from surgery for possible debridement. She has swelling of the right elbow, MRI would be ordered Reason For Visit: HYPOTENSION,JED Physical Exam Vital Signs: Temp Pulse Resp BP Pulse Ox 98.2 F 92 16 147/74 H 100 05/25/18 15:10 05/25/18 15:10 05/25/18 15:10 05/25/18 15:10 05/25/18 15:10 Intake & Output 05/24/18 05/25/18 05/26/18 06:59 06:59 06:59 Intake Total 2237 2621 722 Output Total 3000 Balance 2237 -379 722 Weight 74.2 kg 77 kg General appearance: PRESENT: no acute distress Eye exam: PRESENT: PERRLA Respiratory exam: PRESENT: clear to auscultation katina Cardiovascular exam: PRESENT: +S1, +S2 GI/Abdominal exam: PRESENT: soft Extremities exam: PRESENT: other - holloway injury of the buttock Results Laboratory Results: 05/25/18 04:16 05/25/18 04:16 05/25/18 05/25/18 05/25/18 04:16 04:16 10:15 WBC 8.2 RBC 3.13 L Hgb 9.3 L Hct 27.0 L MCV 86 MCH 29.8 MCHC 34.4 RDW 14.2 H Plt Count 490 H Seg Neutrophils % 72.2 Lymphocytes % 16.0 Monocytes % 10.2 Eosinophils % 1.0 Basophils % 0.6 Absolute Neutrophils 5.9 Absolute Lymphocytes 1.3 Absolute Monocytes 0.8 Absolute Eosinophils 0.1 Absolute Basophils 0.0 Sodium 143.3 Potassium 4.1 Chloride 108 H Carbon Dioxide 25 Anion Gap 10 BUN 8 Creatinine 0.76 Est GFR ( Amer) > 60 Est GFR (Non-Af Amer) > 60 Glucose 148 H Calcium 8.9 Fluid Tube Number 3 CSF Volume 8.1 CSF Appearance CLEAR CSF Color COLORLESS CSF WBC 2 CSF RBC 0 CSF Comment CSF Glucose CSF Total Protein 05/25/18 05/25/18 10:15 10:15 WBC RBC Hgb Hct MCV MCH MCHC RDW Plt Count Seg Neutrophils % Lymphocytes % Monocytes % Eosinophils % Basophils % Absolute Neutrophils Absolute Lymphocytes Absolute Monocytes Absolute Eosinophils Absolute Basophils Sodium Potassium Chloride Carbon Dioxide Anion Gap BUN Creatinine Est GFR ( Amer) Est GFR (Non-Af Amer) Glucose Calcium Fluid Tube Number CSF Volume CSF Appearance CSF Color CSF WBC CSF RBC CSF Comment CSF CULT NOT ORDERED CSF Glucose 79 H CSF Total Protein 39 05/23/18 05/24/18 05/24/18 18:12 00:31 08:00 Troponin I < 0.012 < 0.012 < 0.012 Impressions: Chest X-Ray 05/23/18 13:50 IMPRESSION: No acute findings Elbow X-Ray 05/24/18 00:00 IMPRESSION: Degenerative joint disease worse on the right. Guidance Fluoroscopy 05/25/18 00:00 IMPRESSION: Please see combined report for performance of procedure and radiologic supervision and interpretation. Interventional Vascular Procedure 05/25/18 00:00 IMPRESSION: Please see combined report for performance of procedure and radiologic supervision and interpretation. Lumbar Puncture 05/25/18 00:00 IMPRESSION: Lumbar puncture under fluoroscopy. No immediate complication. PICC Line Insertion 05/25/18 00:00 IMPRESSION: SUCCESSFUL PLACEMENT OF A 5 FR dual LUMEN 37 CM PICC IN THE subclavian VEIN. Assessment & Plan - Diagnosis (1) Hypotension Qualifiers: Hypotension type: unspecified hypotension type Qualified Code(s): I95.9 - Hypotension, unspecified Is this a current diagnosis for this admission?: Yes (2) Acute kidney injury Is this a current diagnosis for this admission?: Yes (3) Movement disorder Is this a current diagnosis for this admission?: Yes
[2018-05-25] MEDS: MORPHINE SULFATE 10 MG/ML INJ IV PRN (20:19)
--- NOTE | 2018-05-25 20:36 | PDOC CONSULTATION ---
Consultation Consult Date: 05/25/18 Consult reason:: possible infected debrided skin blisters at the sacrococcygeal and gluteal areas History of Present Illness Admission Date/PCP: 05/23/18 16:52 OSCAR ADAMS MD Patient complains of: Pains along burn areas History of Present Illness: DILIP DELGADO is a 52 year old female who had blisters on sacrococcygeal areas which were debrided in the OR on 05/13/18. Has been on silvadene dressings since surgery. Consulted for possible infection. Past Medical History Cardiac Medical History: Reports: Hypertension - 17 yrs-takes meds Denies: Atrial Fibrillation, Congestive Heart Failure, Coronary Artery Disease, Myocardial Infarction, Hyperlipidema, Peripheral Vascular Disease, Pulmonary Embolism, Heart Murmur Pulmonary Medical History: Reports: Pneumonia - 2013 X2 Denies: Asthma, Bronchitis, Chronic Obstructive Pulmonary Disease (COPD), Respiratory Failure, Sleep Apnea, Tuberculosis Neurological Medical History: Denies: Seizures Endocrine Medical History: Reports: Diabetes Mellitus Type 2 Denies: Hyperthyroidism, Hypothyroidism Malignancy Medical History: Denies: Lung Cancer GI Medical History: Reports: Gastroesophageal Reflux Disease - 2 yrs-takes meds Denies: Crohn's Disease, Hiatal Hernia Musculoskeltal Medical History: Reports: Arthritis, Fibromyalgia - 3 years Psychiatric Medical History: Reports: Depression Denies: Bipolar Disorder, Dementia, Post Traumatic Stress Disorder Past Surgical History Past Surgical History: Reports: Orthopedic Surgery - left knee, rt hip replaced Denies: Amputation, Appendectomy, Section, Cholecystectomy, Colostomy, Coronary Artery Bypass Graft, Gastric Bypass Surgery, Herniorrhaphy, Hysterectomy, Mastectomy, Pacemaker, Tonsillectomy, Tubal Ligation Social History Smoking Status: Current Every Day Smoker Cigarettes Packs Per Day: 0.5 Frequency of Alcohol Use: None Hx Recreational Drug Use: No Drugs: None Hx Prescription Drug Abuse: No - Advance Directive Resuscitation Status: Full Code Family History Family History: Reviewed & Not Pertinent Parental Family History Reviewed: Yes Children Family History Reviewed: No Sibling(s) Family History Reviewed.: No Medication/Allergy Home Medications: Acetaminophen with Codeine [Tylenol #3 Tablet] 1 each PO Q6HP PRN 05/23/18 Amitriptyline HCl [Elavil 100 mg Tablet] 100 mg PO DAILY 05/23/18 Chlorpheniramine Maleate [Chlor-Trimeton 4 mg Tablet] 1 tab PO Q6HP PRN Desipramine HCl [Norpramin 50 Mg Tablet] 50 mg PO DAILY 05/23/18 Esomeprazole Magnesium [Nexium] 40 mg PO DAILY 05/23/18 Eszopiclone [Lunesta] 3 mg PO QHS 05/23/18 Lisinopril/Hydrochlorothiazide [Zestoretic 20-12.5 Mg Tablet] 1 each PO Q12 09/30 Metoprolol Tartrate [Lopressor 50 mg Tablet] 50 mg PO Q12 05/23/18 Montelukast Sodium [Singulair 10 mg Tablet] 10 mg PO QHS 05/23/18 Silver Sulfadiazine [Silvadene 1% Cream 400 gm] 1 applic TP Q12 05/23/18 Allergies/Adverse Reactions: etodolac [From Lodine] Allergy (Severe, Verified 05/10/18 19:09) Itchiness Penicillins Allergy (Severe, Verified 05/10/18 19:09) Hives Iodinated Contrast- Oral and IV Dye [IV Dye, Iodine Containing] Allergy (Mild, Verified 05/10/18 19:09) Pruritis aspirin [Aspirin] Adverse Reaction (Mild, Verified 05/10/18 19:09) GI upset Review of Systems All systems: reviewed and no additional remarkable complaints except as stated - mild pains at the burn site on the sacrococcygeal areas Physical Exam Vital Signs: Temp Pulse Resp BP Pulse Ox 98.2 F 92 16 147/74 H 100 05/25/18 15:10 05/25/18 15:10 05/25/18 15:10 05/25/18 15:10 05/25/18 15:10 Intake & Output 05/24/18 05/25/18 05/26/18 06:59 06:59 06:59 Intake Total 2237 2621 1680 Output Total 3000 Balance 2237 -379 1680 Weight 74.2 kg 77 kg Exam: 2nd degree holloway to sacrococcygeal areas that are mostly healing. However area at the sacrococcygeal crease with white leathery skin likely deep 2nd degree burn but no definite collection. Results Laboratory Results: 05/25/18 04:16 05/25/18 04:16 05/25/18 05/25/18 05/25/18 04:16 04:16 10:15 WBC 8.2 RBC 3.13 L Hgb 9.3 L Hct 27.0 L MCV 86 MCH 29.8 MCHC 34.4 RDW 14.2 H Plt Count 490 H Seg Neutrophils % 72.2 Lymphocytes % 16.0 Monocytes % 10.2 Eosinophils % 1.0 Basophils % 0.6 Absolute Neutrophils 5.9 Absolute Lymphocytes 1.3 Absolute Monocytes 0.8 Absolute Eosinophils 0.1 Absolute Basophils 0.0 Sodium 143.3 Potassium 4.1 Chloride 108 H Carbon Dioxide 25 Anion Gap 10 BUN 8 Creatinine 0.76 Est GFR ( Amer) > 60 Est GFR (Non-Af Amer) > 60 Glucose 148 H Calcium 8.9 Fluid Tube Number 3 CSF Volume 8.1 CSF Appearance CLEAR CSF Color COLORLESS CSF WBC 2 CSF RBC 0 CSF Comment CSF Glucose CSF Total Protein 05/25/18 05/25/18 10:15 10:15 WBC RBC Hgb Hct MCV MCH MCHC RDW Plt Count Seg Neutrophils % Lymphocytes % Monocytes % Eosinophils % Basophils % Absolute Neutrophils Absolute Lymphocytes Absolute Monocytes Absolute Eosinophils Absolute Basophils Sodium Potassium Chloride Carbon Dioxide Anion Gap BUN Creatinine Est GFR ( Amer) Est GFR (Non-Af Amer) Glucose Calcium Fluid Tube Number CSF Volume CSF Appearance CSF Color CSF WBC CSF RBC CSF Comment CSF CULT NOT ORDERED CSF Glucose 79 H CSF Total Protein 39 05/23/18 05/24/18 05/24/18 18:12 00:31 08:00 Troponin I < 0.012 < 0.012 < 0.012 Impressions: Chest X-Ray 05/23/18 13:50 IMPRESSION: No acute findings Elbow X-Ray 05/24/18 00:00 IMPRESSION: Degenerative joint disease worse on the right. Guidance Fluoroscopy 05/25/18 00:00 IMPRESSION: Please see combined report for performance of procedure and radiologic supervision and interpretation. Interventional Vascular Procedure 05/25/18 00:00 IMPRESSION: Please see combined report for performance of procedure and radiologic supervision and interpretation. Lumbar Puncture 05/25/18 00:00 IMPRESSION: Lumbar puncture under fluoroscopy. No immediate complication. PICC Line Insertion 05/25/18 00:00 IMPRESSION: SUCCESSFUL PLACEMENT OF A 5 FR dual LUMEN 37 CM PICC IN THE subclavian VEIN. Assessment & Plan - Diagnosis (1) Deep 2nd degree holloway to sacococcygeal a Is this a current diagnosis for this admission?: Yes - Time Time Spent: 30 to 50 Minutes - Plan Summary Plan Summary: Continue with Silvadene dressings BID next 2-3 days. I will re-evaluate after 48 hrs. May need deeper debridement and possible VAC tx/skin graft
[2018-05-26] MEDS: SILVER SULFADIAZINE 1% CREAM 400 GM TP SCH ×3 (00:05→21:05)
[2018-05-26] MEDS: NORMAL SALINE 10 ML SDV (SCHEDULED) IV SCH ×3 (00:05→21:05)
[2018-05-26] MEDS: MORPHINE SULFATE 10 MG/ML INJ IV PRN ×5 (00:24→20:13)
[2018-05-26] MEDS: OXYCODONE-ACETAMINOPHEN 5-325 MG TABLET PO PRN ×2 (00:26→05:25)
--- NOTE | 2018-05-26 00:33 | RADIOLOGY REPORT (SQ) ---
EXAM DESCRIPTION: MRI of the right elbow without contrast COMPLETED DATE/TME: 05/25/2018 00:00 CLINICAL HISTORY: 52 years, Female, RT ELBOW SWELLING post IV infiltration. COMPARISON: None. TECHNIQUE: Multiplanar multisequence MRI of the right elbow obtained without contrast. LIMITATIONS: Mild loss of fat saturation on some sequences. FINDINGS: No acute fracture identified. There is severe joint space narrowing with marginal osteophytes as well as subchondral cystic change. There are numerous chondral defects of the distal humerus. Small joint effusion. There is moderate subcutaneous edema found in the lateral soft tissues of the elbow at the level of the antecubital fossa. No definite inflammatory change within the deep fascial layers of the elbow. The ulnar collateral ligament appears intact. Lateral ligamentous complex appears intact. The biceps tendon appears intact. IMPRESSION: 1. Edema in the subcutaneous soft tissues at the lateral aspect of the elbow at the level of the olecranon process. These findings could be seen with IV infiltration. No edema within the deep fascial layers of the forearm. 2. Small joint effusion. 3. No acute fracture. 4. Severe osteoarthritic change of the elbow. 2011 [employer]- All Rights Reserved
[2018-05-26] MEDS: NORMAL SALINE 1000 ML 1,000 ML IV PRN ×2 (02:59→09:27)
[2018-05-26] MEDS: LANSOPRAZOLE 30 MG TAB.RAP.DR PO SCH (05:24)
[2018-05-26 06:39] LABS: ABSOLUTE EOSINOPHILS # (AUTO) 0.1 10^3/uL (0.0-0.6); ABSOLUTE LYMPHOCYTES (AUTO) 1.3 10^3/uL (0.5-4.7); ABSOLUTE MONOCYTES (AUTO) 0.8 10^3/uL (0.1-1.4); ABSOLUTE NEUT (AUTO) 4.8 10^3/uL (1.7-8.2); BASOPHILS % (AUTO) 0.5 % (0-2); EOSINOPHILS % (AUTO) 1.2 % (0-6); HEMATOCRIT 23.9 % (36.0-47.0); HEMOGLOBIN 8.2 g/dL (12.0-15.5); LYMPHOCYTES % (AUTO) 18.9 % (13-45); MEAN CORPUSCULAR HEMOGLOBIN 29.7 pg (27.0-33.4); MEAN CORPUSCULAR HGB CONC 34.4 g/dL (32.0-36.0); MEAN CORPUSCULAR VOLUME 86 fl (80-97); PLATELET COUNT 453 10^3/uL (150-450); RED BLOOD COUNT 2.77 10^6/uL (3.72-5.28); RED CELL DISTRIBUTION WIDTH 14.4 % (11.5-14.0); SEGMENTED NEUTROPHILS % (AUTO) 68.4 % (42-78); TOTAL CELLS COUNTED % (AUTO) 100 %
[2018-05-26 06:49] LABS: ANION GAP 7 (5-19); BLOOD UREA NITROGEN 7 mg/dL (7-20); CALCIUM 8.5 mg/dL (8.4-10.2); CARBON DIOXIDE 26 mmol/L (22-30); CHLORIDE 108 mmol/L (98-107); GLUCOSE 104 mg/dL (75-110); POTASSIUM 4.4 mmol/L (3.6-5.0); SODIUM 141.1 mmol/L (137-145)
--- NOTE | 2018-05-26 08:33 | PDOC PROGRESS REPORT ---
Subjective Progress Note for:: 05/26/18 Subjective:: Patient feeling better, less right arm swelling, less pain in the sacrococcygeal and buttock areas. Reason For Visit: HYPOTENSION,JED Physical Exam Vital Signs: Temp Pulse Resp BP Pulse Ox 98.1 F 88 20 125/72 97 05/26/18 03:53 05/26/18 07:00 05/26/18 03:53 05/26/18 03:53 05/26/18 03:53 Intake & Output 05/25/18 05/26/18 05/27/18 06:59 06:59 06:59 Intake Total 2621 3132 Output Total 3000 1450 Balance -379 1682 Weight 77 kg 77.8 kg General appearance: PRESENT: no acute distress, other - Patient ambulating in room with Skin exam: PRESENT: other - Patient examined in the prone position. Irregular geographic partial dermal burn with some eschar no pus no foul smell. Areas of reepithelialization. Results Laboratory Results: 05/26/18 06:15 05/26/18 06:15 05/25/18 05/25/18 05/25/18 10:15 10:15 10:15 WBC RBC Hgb Hct MCV MCH MCHC RDW Plt Count Seg Neutrophils % Lymphocytes % Monocytes % Eosinophils % Basophils % Absolute Neutrophils Absolute Lymphocytes Absolute Monocytes Absolute Eosinophils Absolute Basophils Sodium Potassium Chloride Carbon Dioxide Anion Gap BUN Creatinine Est GFR ( Amer) Est GFR (Non-Af Amer) Glucose Calcium Fluid Tube Number 3 CSF Volume 8.1 CSF Appearance CLEAR CSF Color COLORLESS CSF WBC 2 CSF RBC 0 CSF Comment CSF CULT NOT ORDERED CSF Glucose 79 H CSF Total Protein 39 05/26/18 05/26/18 06:15 06:15 WBC 7.0 RBC 2.77 L Hgb 8.2 L Hct 23.9 L MCV 86 MCH 29.7 MCHC 34.4 RDW 14.4 H Plt Count 453 H Seg Neutrophils % 68.4 Lymphocytes % 18.9 Monocytes % 11.0 Eosinophils % 1.2 Basophils % 0.5 Absolute Neutrophils 4.8 Absolute Lymphocytes 1.3 Absolute Monocytes 0.8 Absolute Eosinophils 0.1 Absolute Basophils 0.0 Sodium 141.1 Potassium 4.4 Chloride 108 H Carbon Dioxide 26 Anion Gap 7 BUN 7 Creatinine 0.57 Est GFR ( Amer) > 60 Est GFR (Non-Af Amer) > 60 Glucose 104 Calcium 8.5 Fluid Tube Number CSF Volume CSF Appearance CSF Color CSF WBC CSF RBC CSF Comment CSF Glucose CSF Total Protein 05/23/18 05/24/18 05/24/18 18:12 00:31 08:00 Troponin I < 0.012 < 0.012 < 0.012 Impressions: Chest X-Ray 05/23/18 13:50 IMPRESSION: No acute findings Elbow X-Ray 05/24/18 00:00 IMPRESSION: Degenerative joint disease worse on the right. Guidance Fluoroscopy 05/25/18 00:00 IMPRESSION: Please see combined report for performance of procedure and radiologic supervision and interpretation. Interventional Vascular Procedure 05/25/18 00:00 IMPRESSION: Please see combined report for performance of procedure and radiologic supervision and interpretation. Lumbar Puncture 05/25/18 00:00 IMPRESSION: Lumbar puncture under fluoroscopy. No immediate complication. PICC Line Insertion 05/25/18 00:00 IMPRESSION: SUCCESSFUL PLACEMENT OF A 5 FR dual LUMEN 37 CM PICC IN THE subclavian VEIN. Upper Extremity MRI 05/25/18 00:00 IMPRESSION: 1. Edema in the subcutaneous soft tissues at the lateral aspect of the elbow at the level of the olecranon process. These findings could be seen with IV infiltration. No edema within the deep fascial layers of the forearm. 2. Small joint effusion. 3. No acute fracture. 4. Severe osteoarthritic change of the elbow. 2010 [employer]- All Rights Reserved Assessment & Plan - Diagnosis (1) Decubitus ulcer, stage III Qualifiers: Pressure injury location: contiguous region involving back and hip Is this a current diagnosis for this admission?: Yes Plan: Stage III decubitus 2 weeks status post debridement, with partial, successful healing; residual eschar sloughing off. No evidence of deeper infection, pus etc. Recommendations: 1. Continue pressure offloading; Discussed with patient importance of not sitting on her back. 2. No indication for surgical debridement at this time 3. We will start topical enzymatic debridement; avoid use of tape; may use a pull-up. 4. Wound will sloughing of skin and reepithelialization. 5. Can follow-up with surgery on a as needed basis
[2018-05-26] MEDS: DESIPRAMINE HCL 50 MG TABLET PO SCH (09:26)
[2018-05-26] MEDS: ENOXAPARIN SODIUM INJ 30 MG/0.3 ML DISP.SYRIN SUBCUT SCH (09:26)
--- NOTE | 2018-05-26 13:16 | PDOC PROGRESS REPORT ---
Subjective Progress Note for:: 05/26/18 Subjective:: Patient was seen by the bedside, she was seen by the surgeon regarding the open burn injury on the buttock, no intervention recommended at this time, will continue application of Silvadene cream. She had MRI of the right elbow, it demonstrated severe joint space narrowing with marginal osteophytes as well as subchondral cystic change there are numerous chondral defects in the distal humerus also found was subcutaneous edema in the lateral aspect of the elbow at the level of the antecubital fossa. Reason For Visit: HYPOTENSION,JED Physical Exam Vital Signs: Temp Pulse Resp BP Pulse Ox 98.1 F 88 20 125/72 97 05/26/18 03:53 05/26/18 07:00 05/26/18 03:53 05/26/18 03:53 05/26/18 03:53 Intake & Output 05/25/18 05/26/18 05/27/18 06:59 06:59 06:59 Intake Total 2621 3132 Output Total 3000 1450 Balance -379 1682 Weight 77 kg 77.8 kg General appearance: PRESENT: no acute distress Eye exam: PRESENT: PERRLA Respiratory exam: PRESENT: clear to auscultation katina Cardiovascular exam: PRESENT: +S1, +S2 GI/Abdominal exam: PRESENT: soft Musculoskeletal exam: PRESENT: deformity Neurological exam: PRESENT: alert Results Laboratory Results: 05/26/18 06:15 05/26/18 06:15 05/26/18 05/26/18 06:15 06:15 WBC 7.0 RBC 2.77 L Hgb 8.2 L Hct 23.9 L MCV 86 MCH 29.7 MCHC 34.4 RDW 14.4 H Plt Count 453 H Seg Neutrophils % 68.4 Lymphocytes % 18.9 Monocytes % 11.0 Eosinophils % 1.2 Basophils % 0.5 Absolute Neutrophils 4.8 Absolute Lymphocytes 1.3 Absolute Monocytes 0.8 Absolute Eosinophils 0.1 Absolute Basophils 0.0 Sodium 141.1 Potassium 4.4 Chloride 108 H Carbon Dioxide 26 Anion Gap 7 BUN 7 Creatinine 0.57 Est GFR ( Amer) > 60 Est GFR (Non-Af Amer) > 60 Glucose 104 Calcium 8.5 05/23/18 05/24/18 05/24/18 18:12 00:31 08:00 Troponin I < 0.012 < 0.012 < 0.012 Impressions: Chest X-Ray 05/23/18 13:50 IMPRESSION: No acute findings Elbow X-Ray 05/24/18 00:00 IMPRESSION: Degenerative joint disease worse on the right. Guidance Fluoroscopy 05/25/18 00:00 IMPRESSION: Please see combined report for performance of procedure and radiologic supervision and interpretation. Interventional Vascular Procedure 05/25/18 00:00 IMPRESSION: Please see combined report for performance of procedure and radiologic supervision and interpretation. Lumbar Puncture 05/25/18 00:00 IMPRESSION: Lumbar puncture under fluoroscopy. No immediate complication. PICC Line Insertion 05/25/18 00:00 IMPRESSION: SUCCESSFUL PLACEMENT OF A 5 FR dual LUMEN 37 CM PICC IN THE subclavian VEIN. Upper Extremity MRI 05/25/18 00:00 IMPRESSION: 1. Edema in the subcutaneous soft tissues at the lateral aspect of the elbow at the level of the olecranon process. These findings could be seen with IV infiltration. No edema within the deep fascial layers of the forearm. 2. Small joint effusion. 3. No acute fracture. 4. Severe osteoarthritic change of the elbow. 2010 [employer]- All Rights Reserved Assessment & Plan - Diagnosis (1) Hypotension Qualifiers: Hypotension type: unspecified hypotension type Qualified Code(s): I95.9 - Hypotension, unspecified Is this a current diagnosis for this admission?: Yes (2) Acute kidney injury Is this a current diagnosis for this admission?: Yes (3) Movement disorder Is this a current diagnosis for this admission?: Yes (4) Osteoarthritis of right elbow Qualifiers: Osteoarthritis type: primary Qualified Code(s): M19.021 - Primary osteoarthritis, right elbow Is this a current diagnosis for this admission?: Yes
[2018-05-26] MEDS ORDERED: COLLAGENASE CLOSTRIDIUM HIST. OINT 30 GM TOP ONE (14:00)
[2018-05-27] MEDS: NORMAL SALINE 1000 ML 1,000 ML IV PRN ×3 (00:13→19:35)
[2018-05-27] MEDS: OXYCODONE-ACETAMINOPHEN 5-325 MG TABLET PO PRN ×2 (01:37→14:11)
[2018-05-27] MEDS: LANSOPRAZOLE 30 MG TAB.RAP.DR PO SCH (05:55)
[2018-05-27] MEDS: MORPHINE SULFATE 10 MG/ML INJ IV PRN ×4 (05:55→21:20)
[2018-05-27] MEDS: COLLAGENASE CLOSTRIDIUM HIST. OINT 30 GM TOP SCH (09:38)
[2018-05-27] MEDS: DESIPRAMINE HCL 50 MG TABLET PO SCH (09:50)
[2018-05-27] MEDS: ENOXAPARIN SODIUM INJ 30 MG/0.3 ML DISP.SYRIN SUBCUT SCH (09:50)
[2018-05-27] MEDS: SILVER SULFADIAZINE 1% CREAM 400 GM TP SCH (09:51)
[2018-05-27] MEDS: NORMAL SALINE 10 ML SDV (SCHEDULED) IV SCH ×2 (09:51→21:20)
--- NOTE | 2018-05-27 15:18 | PDOC PROGRESS REPORT ---
Subjective Progress Note for:: 05/27/18 Subjective:: Patient was seen by the bedside, she complained of insomnia, hopefully discharge home in a day or 2 to inpatient rehabilitation Reason For Visit: HYPOTENSION,JED Physical Exam Vital Signs: Temp Pulse Resp BP Pulse Ox 98.0 F 96 16 98/67 L 100 05/27/18 10:57 05/27/18 13:45 05/27/18 10:57 05/27/18 10:57 05/27/18 10:57 Intake & Output 05/26/18 05/27/18 05/28/18 06:59 06:59 06:59 Intake Total 3132 5736 755 Output Total 1450 5200 200 Balance 1682 536 555 Weight 77.8 kg 78.9 kg General appearance: PRESENT: no acute distress Eye exam: PRESENT: PERRLA Respiratory exam: PRESENT: clear to auscultation katina Cardiovascular exam: PRESENT: +S1, +S2 GI/Abdominal exam: PRESENT: soft Results Laboratory Results: 05/26/18 06:15 05/26/18 06:15 05/23/18 05/24/18 05/24/18 18:12 00:31 08:00 Troponin I < 0.012 < 0.012 < 0.012 Impressions: Chest X-Ray 05/23/18 13:50 IMPRESSION: No acute findings Elbow X-Ray 05/24/18 00:00 IMPRESSION: Degenerative joint disease worse on the right. Guidance Fluoroscopy 05/25/18 00:00 IMPRESSION: Please see combined report for performance of procedure and radiologic supervision and interpretation. Interventional Vascular Procedure 05/25/18 00:00 IMPRESSION: Please see combined report for performance of procedure and radiologic supervision and interpretation. Lumbar Puncture 05/25/18 00:00 IMPRESSION: Lumbar puncture under fluoroscopy. No immediate complication. PICC Line Insertion 05/25/18 00:00 IMPRESSION: SUCCESSFUL PLACEMENT OF A 5 FR dual LUMEN 37 CM PICC IN THE subclavian VEIN. Upper Extremity MRI 05/25/18 00:00 IMPRESSION: 1. Edema in the subcutaneous soft tissues at the lateral aspect of the elbow at the level of the olecranon process. These findings could be seen with IV infiltration. No edema within the deep fascial layers of the forearm. 2. Small joint effusion. 3. No acute fracture. 4. Severe osteoarthritic change of the elbow. 2011 [employer]- All Rights Reserved Assessment & Plan - Diagnosis (1) Hypotension Qualifiers: Hypotension type: unspecified hypotension type Qualified Code(s): I95.9 - Hypotension, unspecified Is this a current diagnosis for this admission?: Yes (2) Acute kidney injury Is this a current diagnosis for this admission?: Yes (3) Movement disorder Is this a current diagnosis for this admission?: Yes (4) Osteoarthritis of right elbow Qualifiers: Osteoarthritis type: primary Qualified Code(s): M19.021 - Primary osteoarthritis, right elbow Is this a current diagnosis for this admission?: Yes
[2018-05-27] MEDS: ZOLPIDEM TARTRATE 5 MG TABLET PO SCH (21:19)
[2018-05-27] MEDS: INSULIN LISPRO 100 UNIT/ML 3 ML VIAL SUBCUT PRN (21:29)
[2018-05-28] MEDS: NORMAL SALINE 1000 ML 1,000 ML IV PRN ×4 (02:16→21:49)
[2018-05-28] MEDS: MORPHINE SULFATE 10 MG/ML INJ IV PRN ×4 (04:55→21:00)
[2018-05-28] MEDS: LANSOPRAZOLE 30 MG TAB.RAP.DR PO SCH (05:00)
[2018-05-28] MEDS: OXYCODONE-ACETAMINOPHEN 5-325 MG TABLET PO PRN ×2 (07:41→17:51)
[2018-05-28] MEDS: DESIPRAMINE HCL 50 MG TABLET PO SCH (09:09)
[2018-05-28] MEDS: ENOXAPARIN SODIUM INJ 30 MG/0.3 ML DISP.SYRIN SUBCUT SCH (09:11)
[2018-05-28] MEDS: NORMAL SALINE 10 ML SDV (SCHEDULED) IV SCH ×2 (09:16→21:49)
[2018-05-28 19:04] LABS: ABSOLUTE EOSINOPHILS # (AUTO) 0.1 10^3/uL (0.0-0.6); ABSOLUTE LYMPHOCYTES (AUTO) 1.5 10^3/uL (0.5-4.7); ABSOLUTE MONOCYTES (AUTO) 0.8 10^3/uL (0.1-1.4); ABSOLUTE NEUT (AUTO) 4.6 10^3/uL (1.7-8.2); BASOPHILS % (AUTO) 0.4 % (0-2); EOSINOPHILS % (AUTO) 1.9 % (0-6); HEMATOCRIT 23.4 % (36.0-47.0); LYMPHOCYTES % (AUTO) 21.1 % (13-45); MEAN CORPUSCULAR HEMOGLOBIN 29.7 pg (27.0-33.4); MEAN CORPUSCULAR HGB CONC 34.2 g/dL (32.0-36.0); MEAN CORPUSCULAR VOLUME 87 fl (80-97); MONOCYTES % (AUTO) 11.1 % (3-13); PLATELET COUNT 406 10^3/uL (150-450); RED CELL DISTRIBUTION WIDTH 14.3 % (11.5-14.0); SEGMENTED NEUTROPHILS % (AUTO) 65.5 % (42-78); TOTAL CELLS COUNTED % (AUTO) 100 %
[2018-05-28 19:16] LABS: ALANINE AMINOTRANSFERASE 29 U/L (9-52); ALBUMIN 2.8 g/dL (3.5-5.0); ALKALINE PHOSPHATASE 94 U/L (38-126); ANION GAP 10 (5-19); ASPARTATE AMINO TRANSFERASE 22 U/L (14-36); BLOOD UREA NITROGEN 5 mg/dL (7-20); CALCIUM 7.7 mg/dL (8.4-10.2); CARBON DIOXIDE 21 mmol/L (22-30); CHLORIDE 111 mmol/L (98-107); GLUCOSE 109 mg/dL (75-110); POTASSIUM 3.6 mmol/L (3.6-5.0); SODIUM 142.2 mmol/L (137-145); TOTAL PROTEIN 5.5 g/dL (6.3-8.2)
[2018-05-28 19:17] LABS: BILIRUBIN,TOTAL < 0.1 mg/dL (0.2-1.3)
[2018-05-28] MEDS: ZOLPIDEM TARTRATE 5 MG TABLET PO SCH (21:47)
[2018-05-29] MEDS: MORPHINE SULFATE 10 MG/ML INJ IV PRN ×5 (01:39→21:35)
[2018-05-29] MEDS: OXYCODONE-ACETAMINOPHEN 5-325 MG TABLET PO PRN ×2 (03:54→09:32)
[2018-05-29] MEDS: LANSOPRAZOLE 30 MG TAB.RAP.DR PO SCH (05:42)
[2018-05-29 06:14] LABS: ABSOLUTE EOSINOPHILS # (AUTO) 0.1 10^3/uL (0.0-0.6); ABSOLUTE LYMPHOCYTES (AUTO) 1.3 10^3/uL (0.5-4.7); ABSOLUTE MONOCYTES (AUTO) 0.7 10^3/uL (0.1-1.4); ABSOLUTE NEUT (AUTO) 4.4 10^3/uL (1.7-8.2); BASOPHILS % (AUTO) 0.5 % (0-2); EOSINOPHILS % (AUTO) 2.2 % (0-6); HEMATOCRIT 23.3 % (36.0-47.0); LYMPHOCYTES % (AUTO) 19.6 % (13-45); MEAN CORPUSCULAR HEMOGLOBIN 29.6 pg (27.0-33.4); MEAN CORPUSCULAR HGB CONC 34.4 g/dL (32.0-36.0); MEAN CORPUSCULAR VOLUME 86 fl (80-97); MONOCYTES % (AUTO) 10.9 % (3-13); PLATELET COUNT 382 10^3/uL (150-450); RED BLOOD COUNT 2.71 10^6/uL (3.72-5.28); RED CELL DISTRIBUTION WIDTH 14.1 % (11.5-14.0); SEGMENTED NEUTROPHILS % (AUTO) 66.8 % (42-78); TOTAL CELLS COUNTED % (AUTO) 100 %; WHITE BLOOD COUNT 6.6 10^3/uL (4.0-10.5)
[2018-05-29 06:19] LABS: ALANINE AMINOTRANSFERASE 31 U/L (9-52); ALBUMIN 2.9 g/dL (3.5-5.0); ALKALINE PHOSPHATASE 99 U/L (38-126); ANION GAP 9 (5-19); ASPARTATE AMINO TRANSFERASE 22 U/L (14-36); BILIRUBIN,DIRECT 0.2 mg/dL (0.0-0.4); BILIRUBIN,TOTAL 0.2 mg/dL (0.2-1.3); BLOOD UREA NITROGEN 7 mg/dL (7-20); CALCIUM 8.4 mg/dL (8.4-10.2); CARBON DIOXIDE 25 mmol/L (22-30); CHLORIDE 108 mmol/L (98-107); GLUCOSE 111 mg/dL (75-110); SODIUM 142.1 mmol/L (137-145); TOTAL PROTEIN 5.3 g/dL (6.3-8.2)
[2018-05-29] MEDS: DESIPRAMINE HCL 50 MG TABLET PO SCH (09:30)
[2018-05-29] MEDS: ENOXAPARIN SODIUM INJ 30 MG/0.3 ML DISP.SYRIN SUBCUT SCH (09:30)
[2018-05-29] MEDS: NORMAL SALINE 10 ML SDV (SCHEDULED) IV SCH ×2 (09:31→21:39)
[2018-05-29] MEDS: NORMAL SALINE 1000 ML 1,000 ML IV PRN (09:32)
[2018-05-29] MEDS: COLLAGENASE CLOSTRIDIUM HIST. OINT 30 GM TOP SCH (09:32)
[2018-05-29] MEDS: INSULIN LISPRO 100 UNIT/ML 3 ML VIAL SUBCUT PRN (11:49)
--- NOTE | 2018-05-29 20:57 | PDOC PROGRESS REPORT ---
Subjective Progress Note for:: 05/28/18 Subjective:: Patient was seen by the bedside the acute kidney injury is resolved, the plan is to get the patient into rehabilitation, discharge planning is making efforts to find placement for patient pending insurance authorization she has [email or web address] insurance Reason For Visit: HYPOTENSION,JED Physical Exam Vital Signs: Temp Pulse Resp BP Pulse Ox 98.5 F 88 18 164/85 H 100 05/29/18 19:47 05/29/18 19:47 05/29/18 19:47 05/29/18 19:47 05/29/18 19:47 Intake & Output 05/28/18 05/29/18 05/30/18 06:59 06:59 06:59 Intake Total 9277 0092 2650 Output Total 3158 6055 2400 Balance 2206 1912 250 Weight 78.9 kg 79.3 kg General appearance: PRESENT: no acute distress Eye exam: PRESENT: PERRLA Respiratory exam: PRESENT: clear to auscultation katina Cardiovascular exam: PRESENT: +S1, +S2 GI/Abdominal exam: PRESENT: soft Neurological exam: PRESENT: alert Results Laboratory Results: 05/29/18 05:50 05/29/18 05:50 05/29/18 05/29/18 05:50 05:50 WBC 6.6 RBC 2.71 L Hgb 8.0 L Hct 23.3 L MCV 86 MCH 29.6 MCHC 34.4 RDW 14.1 H Plt Count 382 Seg Neutrophils % 66.8 Lymphocytes % 19.6 Monocytes % 10.9 Eosinophils % 2.2 Basophils % 0.5 Absolute Neutrophils 4.4 Absolute Lymphocytes 1.3 Absolute Monocytes 0.7 Absolute Eosinophils 0.1 Absolute Basophils 0.0 Sodium 142.1 Potassium 4.0 Chloride 108 H Carbon Dioxide 25 Anion Gap 9 BUN 7 Creatinine 0.61 Est GFR ( Amer) > 60 Est GFR (Non-Af Amer) > 60 Glucose 111 H Calcium 8.4 Total Bilirubin 0.2 AST 22 ALT 31 Alkaline Phosphatase 99 Total Protein 5.3 L Albumin 2.9 L 05/23/18 18:12 Blood Blood Culture - Final NO GROWTH IN 5 DAYS 05/23/18 05/24/18 05/24/18 18:12 00:31 08:00 Troponin I < 0.012 < 0.012 < 0.012 Impressions: Chest X-Ray 05/23/18 13:50 IMPRESSION: No acute findings Elbow X-Ray 05/24/18 00:00 IMPRESSION: Degenerative joint disease worse on the right. Guidance Fluoroscopy 05/25/18 00:00 IMPRESSION: Please see combined report for performance of procedure and radiologic supervision and interpretation. Interventional Vascular Procedure 05/25/18 00:00 IMPRESSION: Please see combined report for performance of procedure and radiologic supervision and interpretation. Lumbar Puncture 05/25/18 00:00 IMPRESSION: Lumbar puncture under fluoroscopy. No immediate complication. PICC Line Insertion 05/25/18 00:00 IMPRESSION: SUCCESSFUL PLACEMENT OF A 5 FR dual LUMEN 37 CM PICC IN THE subclavian VEIN. Upper Extremity MRI 05/25/18 00:00 IMPRESSION: 1. Edema in the subcutaneous soft tissues at the lateral aspect of the elbow at the level of the olecranon process. These findings could be seen with IV infiltration. No edema within the deep fascial layers of the forearm. 2. Small joint effusion. 3. No acute fracture. 4. Severe osteoarthritic change of the elbow. 2010 [employer]- All Rights Reserved Assessment & Plan - Diagnosis (1) Hypotension Qualifiers: Hypotension type: unspecified hypotension type Qualified Code(s): I95.9 - Hypotension, unspecified Is this a current diagnosis for this admission?: Yes (2) Acute kidney injury Is this a current diagnosis for this admission?: Yes (3) Movement disorder Is this a current diagnosis for this admission?: Yes (4) Osteoarthritis of right elbow Qualifiers: Osteoarthritis type: primary Qualified Code(s): M19.021 - Primary osteoarthritis, right elbow Is this a current diagnosis for this admission?: Yes
--- NOTE | 2018-05-29 20:58 | PDOC PROGRESS REPORT ---
Subjective Progress Note for:: 05/29/18 Subjective:: Patient was seen by the bedside the acute kidney injury is resolved, the plan is to get the patient into rehabilitation, discharge planning is making efforts to find placement for patient pending insurance authorization she has [id number] insurance Reason For Visit: HYPOTENSION,JED Physical Exam Vital Signs: Temp Pulse Resp BP Pulse Ox 98.5 F 88 18 164/85 H 100 05/29/18 19:47 05/29/18 19:47 05/29/18 19:47 05/29/18 19:47 05/29/18 19:47 Intake & Output 05/28/18 05/29/18 05/30/18 06:59 06:59 06:59 Intake Total 6962 7420 2650 Output Total 3578 8905 2400 Balance 2206 1912 250 Weight 78.9 kg 79.3 kg General appearance: PRESENT: no acute distress, well-developed, well-nourished Head exam: PRESENT: atraumatic, normocephalic Eye exam: PRESENT: conjunctiva pink, EOMI, PERRLA Ear exam: PRESENT: normal external ear exam Mouth exam: PRESENT: moist, tongue midline Neck exam: PRESENT: full ROM Respiratory exam: PRESENT: clear to auscultation katina Cardiovascular exam: PRESENT: RRR, +S1, +S2 Pulses: PRESENT: normal dorsalis pedis pul, +2 pedal pulses bilateral Vascular exam: PRESENT: normal capillary refill GI/Abdominal exam: PRESENT: normal bowel sounds, soft Rectal exam: PRESENT: deferred Neurological exam: PRESENT: alert, awake, oriented to person, oriented to place , oriented to time, oriented to situation, CN II-XII grossly intact Psychiatric exam: PRESENT: appropriate affect, normal mood Skin exam: PRESENT: dry, intact, warm. ABSENT: cyanosis, rash Results Laboratory Results: 05/29/18 05:50 05/29/18 05:50 05/29/18 05/29/18 05:50 05:50 WBC 6.6 RBC 2.71 L Hgb 8.0 L Hct 23.3 L MCV 86 MCH 29.6 MCHC 34.4 RDW 14.1 H Plt Count 382 Seg Neutrophils % 66.8 Lymphocytes % 19.6 Monocytes % 10.9 Eosinophils % 2.2 Basophils % 0.5 Absolute Neutrophils 4.4 Absolute Lymphocytes 1.3 Absolute Monocytes 0.7 Absolute Eosinophils 0.1 Absolute Basophils 0.0 Sodium 142.1 Potassium 4.0 Chloride 108 H Carbon Dioxide 25 Anion Gap 9 BUN 7 Creatinine 0.61 Est GFR ( Amer) > 60 Est GFR (Non-Af Amer) > 60 Glucose 111 H Calcium 8.4 Total Bilirubin 0.2 AST 22 ALT 31 Alkaline Phosphatase 99 Total Protein 5.3 L Albumin 2.9 L 05/23/18 18:12 Blood Blood Culture - Final NO GROWTH IN 5 DAYS 05/23/18 05/24/18 05/24/18 18:12 00:31 08:00 Troponin I < 0.012 < 0.012 < 0.012 Impressions: Chest X-Ray 05/23/18 13:50 IMPRESSION: No acute findings Elbow X-Ray 05/24/18 00:00 IMPRESSION: Degenerative joint disease worse on the right. Guidance Fluoroscopy 05/25/18 00:00 IMPRESSION: Please see combined report for performance of procedure and radiologic supervision and interpretation. Interventional Vascular Procedure 05/25/18 00:00 IMPRESSION: Please see combined report for performance of procedure and radiologic supervision and interpretation. Lumbar Puncture 05/25/18 00:00 IMPRESSION: Lumbar puncture under fluoroscopy. No immediate complication. PICC Line Insertion 05/25/18 00:00 IMPRESSION: SUCCESSFUL PLACEMENT OF A 5 FR dual LUMEN 37 CM PICC IN THE subclavian VEIN. Upper Extremity MRI 05/25/18 00:00 IMPRESSION: 1. Edema in the subcutaneous soft tissues at the lateral aspect of the elbow at the level of the olecranon process. These findings could be seen with IV infiltration. No edema within the deep fascial layers of the forearm. 2. Small joint effusion. 3. No acute fracture. 4. Severe osteoarthritic change of the elbow. 2010 [employer]- All Rights Reserved Assessment & Plan - Diagnosis (1) Hypotension Qualifiers: Hypotension type: unspecified hypotension type Qualified Code(s): I95.9 - Hypotension, unspecified Is this a current diagnosis for this admission?: Yes (2) Acute kidney injury Is this a current diagnosis for this admission?: Yes (3) Movement disorder Is this a current diagnosis for this admission?: Yes (4) Osteoarthritis of right elbow Qualifiers: Osteoarthritis type: primary Qualified Code(s): M19.021 - Primary osteoarthritis, right elbow Is this a current diagnosis for this admission?: Yes
[2018-05-29] MEDS: ZOLPIDEM TARTRATE 5 MG TABLET PO SCH (21:34)
[2018-05-29] MEDS: ACETAMINOPHEN WITH CODEINE #3 TABLET PO PRN (23:25)
[2018-05-30] MEDS: LANSOPRAZOLE 30 MG TAB.RAP.DR PO SCH (06:05)
[2018-05-30] MEDS: MORPHINE SULFATE 10 MG/ML INJ IV PRN ×3 (06:05→14:21)
[2018-05-30] MEDS: OXYCODONE-ACETAMINOPHEN 5-325 MG TABLET PO PRN ×2 (08:37→13:19)
[2018-05-30] MEDS: COLLAGENASE CLOSTRIDIUM HIST. OINT 30 GM TOP SCH (09:56)
[2018-05-30] MEDS: DESIPRAMINE HCL 50 MG TABLET PO SCH (09:56)
[2018-05-30] MEDS: ENOXAPARIN SODIUM INJ 30 MG/0.3 ML DISP.SYRIN SUBCUT SCH (09:56)
[2018-05-30] MEDS: NORMAL SALINE 10 ML SDV (SCHEDULED) IV SCH (10:02)
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
[2018-05-30 15:00] VITALS: BP 147/74
[2018-06-02 13:42] LABS: ALPHA-1-GLOBULIN 1 4.5 % (1.1-6.6); ALPHA-2-GLOBULIN 6.7 % (3.0-12.6); CSF ALBUMIN 60.2 % (56.8-76.4); TOTAL PROTEIN CSF PE 28.2 mg/dL (0.0-44.0)
[2018-06-02 16:44] LABS: CSF PE GAMMA GLOBULIN 7.4 % (3.0-13.0); PROT ELEC MSPIKE Not Observed % (Not Observ)
== END 2018-05-30 15:25 | disposition home health service (06) | DRG 683 ==
LOC: ER 13:13 → UNDOADMIN 15:12 → INTOOBSV 15:12 → EH 15:12 → OBSVTOIN 16:52 → 3S 18:24
PROVIDERS: ADMIT Internal Medicine; ATTEND Internal Medicine
PROC: 02HV33Z Insertion of Infusion Device into Superior Vena Cava, Percutaneous Approach (ICD-10-PCS; 2018-05-24)
PROC: B548ZZA Ultrasonography of Superior Vena Cava, Guidance (ICD-10-PCS; 2018-05-24)
PROC: B518ZZA Fluoroscopy of Superior Vena Cava, Guidance (ICD-10-PCS; 2018-05-24)
PROC: 009U3ZX Drainage of Spinal Canal, Percutaneous Approach, Diagnostic (ICD-10-PCS; principal; 2018-05-25)
PROC: B01BZZZ Fluoroscopy of Spinal Cord (ICD-10-PCS; 2018-05-25)
DX: N17.9 Acute kidney failure, unspecified (principal); G25.9 Extrapyramidal and movement disorder, unspecified; T21.25XD Burn of second degree of buttock, subsequent encounter; I95.9 Hypotension, unspecified; M19.021 Primary osteoarthritis, right elbow; Z79.899 Other long term (current) drug therapy; E86.0 Dehydration; X08.8XXD Exposure to other specified smoke, fire and flames, subsequent encounter; I10 Essential (primary) hypertension; E11.9 Type 2 diabetes mellitus without complications; K21.9 Gastro-esophageal reflux disease without esophagitis; M19.90 Unspecified osteoarthritis, unspecified site; M79.7 Fibromyalgia; F32.9 Major depressive disorder, single episode, unspecified; Z96.652 Presence of left artificial knee joint; Z96.641 Presence of right artificial hip joint; F17.210 Nicotine dependence, cigarettes, uncomplicated; Z88.0 Allergy status to penicillin; Z88.8 Allergy status to other drugs, medicaments and biological substances; Z88.6 Allergy status to analgesic agent; Z91.041 Radiographic dye allergy status; Z91.81 History of falling
CPT/HCPCS: 36415; 36569; 62270; 71046; 76937; 77001; 77003; 80048; 80053; 80076; 81001; 82945; 82962; 83605; 83916; 84157; 84166; 84484; 85025; 85610; 85730; 86403; 87040; 87210; 89050; 93005; 93010; 96360; 99285; J1642; J1650; J1815; J2270; J3490; J7030

== ENCOUNTER 2018-06-18 15:14 | Inpatient (IN) | payer BC ==
[2018-06-18] MEDS ORDERED: NORMAL SALINE 1000 ML 1,000 ML IV PRN ×2 (16:32→20:16)
--- NOTE | 2018-06-18 16:32 | ER Document Report ---
ED General - General Chief Complaint: Wound Infection Stated Complaint: POSSIBLE INFECTION Information source: Patient Notes: Chief complaint: Wound infection History of complain:( obtained from----patient) 52 years old female who has a decubitus ulcers which are extensive over the gluteal region and infected was sent over here by the primary care physician to be admitted. She was having fever and chills on and off. Onset: Gradual Duration: Last several weeks Severity: Moderate Quality: Sharp Context: Ulcers Exacerbating factor and relieving factors: Movements REVIEW OF SYSTEMS: CONSTITUTIONAL : Denies fever, chills, or sweats. Denies recent illness. EENT: Denies eye, ear, throat, or mouth pain or symptoms. Denies nasal or sinus congestion or discharge. Denies throat, tongue, or mouth swelling or difficulty swallowing. CARDIOVASCULAR: Denies chest pain. Denies palpitations or racing or irregular heart beat. Denies ankle edema. RESPIRATORY: Denies cough, cold, or chest congestion. Denies shortness of breath, difficulty breathing, or wheezing. GASTROINTESTINAL: Denies distention. Denies nausea, vomiting, or diarrhea. Denies blood in vomitus, stools, or per rectum. Denies black, tarry stools. Denies constipation. GENITOURINARY: Denies difficulty urinating, painful urination, burning, frequency, blood in urine, or discharge. FEMALE GENITOURINARY: Denies vaginal bleeding, heavy or abnormal periods, irregular periods. Denies vaginal discharge or odor. MUSCULOSKELETAL: Denies back or neck pain or stiffness. Denies joint pain or swelling. SKIN: Denies rash, lesions or sores. HEMATOLOGIC : Denies easy bruising or bleeding. LYMPHATIC: Denies swollen, enlarged glands. NEUROLOGICAL: Denies confusion or altered mental status. Denies passing out or loss of consciousness. Denies dizziness or lightheadedness. Denies headache. Denies weakness or paralysis or loss of use of either side. Denies problems with gait or speech. Denies sensory loss, numbness, or tingling. Denies seizures. PSYCHIATRIC: Denies anxiety or stress. Denies depression, suicidal ideation, or homicidal ideation. ALL OTHER SYSTEMS REVIEWED AND NEGATIVE. PHYSICAL EXAMINATION: GENERAL: Appeared to be in moderate discomfort HEAD: Atraumatic, normocephalic. EYES: Pupils equal round and reactive to light, extraocular movements intact, conjunctiva are normal. ENT: Nares patent, oropharynx clear without exudates. Moist mucous membranes. NECK: Normal range of motion, supple without lymphadenopathy LUNGS: Breath sounds clear to auscultation bilaterally and equal. No wheezes rales or rhonchi. HEART: Regular rate and rhythm without murmurs ABDOMEN: Soft, nontender, nondistended abdomen. No guarding, no rebound. No masses appreciated. Examination of genitals-deferred NEUROLOGICAL: Cranial nerves grossly intact. Normal speech, normal gait. Normal sensory, motor exams PSYCH: Normal mood, normal affect. Dictation was performed using [employer] recognition software TRAVEL OUTSIDE OF THE [place] IN LAST 30 DAYS: No - HPI Notes: Dictated - Related Data Allergies/Adverse Reactions: etodolac [From Lodine] Allergy (Severe, Verified 06/18/18 15:17) Itchiness Penicillins Allergy (Severe, Verified 06/18/18 15:17) Hives Iodinated Contrast- Oral and IV Dye [IV Dye, Iodine Containing] Allergy (Mild, Verified 06/18/18 15:17) Pruritis aspirin [Aspirin] Adverse Reaction (Mild, Verified 06/18/18 15:17) GI upset Past Medical History - General Information source: Patient - Social History Smoking Status: Current Every Day Smoker Chew tobacco use (# tins/day): No Frequency of alcohol use: None Drug Abuse: None Family History: Reviewed & Not Pertinent Patient has suicidal ideation: No Patient has homicidal ideation: No - Past Medical History Cardiac Medical History: Reports: Hx Hypertension - 15 yrs-takes meds Denies: Hx Atrial Fibrillation, Hx Congestive Heart Failure, Hx Coronary Artery Disease, Hx Heart Attack, Hx Hypercholesterolemia, Hx Peripheral Vascular Disease, Hx Pulmonary Embolism, Hx Heart Murmur Pulmonary Medical History: Reports: Hx Pneumonia - 2013 X2 Denies: Hx Asthma, Hx Bronchitis, Hx COPD, Hx Respiratory Failure, Hx Sleep Apnea, Hx Tuberculosis Neurological Medical History: Denies: Hx Cerebrovascular Accident, Hx Seizures Endocrine Medical History: Reports: Hx Diabetes Mellitus Type 2. Denies: Hx Graves' Disease, Hx Hyperthyroidism, Hx Hypothyroidism Renal/ Medical History: Denies: Hx Peritoneal Dialysis Malignancy Medical History: Denies: Hx Lung Cancer GI Medical History: Reports: Hx Gastroesophageal Reflux Disease - 2 yrs-takes meds. Denies: Hx Crohn's Disease, Hx Hiatal Hernia, Hx Irritable Bowel, Hx Liver Failure, Hx Pancreatitis, Hx Ulcer Musculoskeletal Medical History: Reports Hx Arthritis, Reports Hx Fibromyalgia - 3 years, Denies Hx Multiple Sclerosis, Denies Hx Muscular Dystrophy Psychiatric Medical History: Reports: Hx Depression Denies: Hx Bipolar Disorder, Hx Dementia, Hx Post Traumatic Stress Disorder, Hx Schizophrenia Traumatic Medical History: Denies: Hx Fractures Past Surgical History: Reports: Hx Breast Surgery - breast reduction, Hx Orthopedic Surgery - left knee, rt hip replaced. Denies: Hx Appendectomy, Hx Bowel Surgery, Hx Section, Hx Cholecystectomy, Hx Colostomy, Hx Coronary Artery Bypass Graft, Hx Gastric Bypass Surgery, Hx Herniorrhaphy, Hx Hysterectomy, Hx Mastectomy, Hx Pacemaker, Hx Tonsillectomy, Hx Tubal Ligation - Immunizations Immunizations up to date: Yes Hx Diphtheria, Pertussis, Tetanus Vaccination: Yes Hx Pneumococcal Vaccination: 11/13/09 Review of Systems - Review of Systems Notes: Dictated Physical Exam - Vital signs Vitals: Temp Pulse Resp BP Pulse Ox 99.4 F 111 H 16 118/58 L 94 06/18/18 15:36 06/18/18 15:36 06/18/18 15:36 06/18/18 15:36 06/18/18 15:36 - Notes Notes: Dictated Course - Vital Signs Vital signs: Temp Pulse Resp BP Pulse Ox 99.4 F 111 H 16 118/58 L 94 06/18/18 15:36 06/18/18 15:36 06/18/18 15:36 06/18/18 15:36 06/18/18 15:36 Discharge - Discharge Clinical Impression: Wound, surgical, infected Qualifiers: Encounter type: initial encounter Qualified Code(s): T81.4XXA - Infection following a procedure, initial encounter Condition: Fair Disposition: ADMITTED INPATIENT Admitting Provider: Be[facility] Unit Admitted: Medical Floor Referrals: OSCAR ADAMS MD [Primary Care Provider] - Follow up as needed
[2018-06-18] MEDS ORDERED: ACETAMINOPHEN 325 MG TABLET PO ONE (21:14)
[2018-06-18] MEDS ORDERED: ACETAMINOPHEN WITH CODEINE #3 TABLET PO PRN (21:29)
[2018-06-18] MEDS ORDERED: VANCOMYCIN HCL 1,000 MG in DEXTROSE 5%-WATER 250 ML IV ONE (22:30)
[2018-06-18] MEDS: PIPERACILLIN SODIUM/TAZOBACTAM 3.375 GM in NORMAL SALINE 100 ML IV SCH (22:32)
[2018-06-18 22:36] LABS: ABSOLUTE LYMPHOCYTES (AUTO) 1.3 10^3/uL (0.5-4.7); ABSOLUTE MONOCYTES (AUTO) 0.9 10^3/uL (0.1-1.4); HEMOGLOBIN 8.7 g/dL (12.0-15.5); TOTAL CELLS COUNTED % (AUTO) 100 %
[2018-06-18 22:43] LABS: ANION GAP 15 (5-19); BLOOD UREA NITROGEN 22 mg/dL (7-20); CALCIUM 8.3 mg/dL (8.4-10.2); CARBON DIOXIDE 21 mmol/L (22-30); CHLORIDE 93 mmol/L (98-107); CREATINE KINASE 1040 U/L (30-135); GLUCOSE 104 mg/dL (75-110); PHOSPHORUS 2.8 mg/dL (2.5-4.5); SODIUM 129.4 mmol/L (137-145)
[2018-06-18 22:44] LABS: ABSOLUTE NEUT (AUTO) 11.2 10^3/uL (1.7-8.2); BASOPHILS % (AUTO) 0.2 % (0-2); EOSINOPHILS % (AUTO) 0.1 % (0-6); HEMATOCRIT 25.7 % (36.0-47.0); LYMPHOCYTES % (AUTO) 9.4 % (13-45); MEAN CORPUSCULAR HEMOGLOBIN 27.9 pg (27.0-33.4); MEAN CORPUSCULAR HGB CONC 33.8 g/dL (32.0-36.0); MEAN CORPUSCULAR VOLUME 83 fl (80-97); MONOCYTES % (AUTO) 6.9 % (3-13); PLATELET COUNT 331 10^3/uL (150-450); RED BLOOD COUNT 3.11 10^6/uL (3.72-5.28); RED CELL DISTRIBUTION WIDTH 14.3 % (11.5-14.0); SEGMENTED NEUTROPHILS % (AUTO) 83.4 % (42-78); WHITE BLOOD COUNT 13.5 10^3/uL (4.0-10.5)
[2018-06-18 22:48] LABS: AMYLASE < 30 U/L (30-110)
[2018-06-18 22:50] LABS: POTASSIUM 2.9 mmol/L (3.6-5.0)
[2018-06-18 22:59] LABS: FREE T4 (FREE THYROXINE) 1.82 ng/dL (0.78-2.19)
[2018-06-18 23:13] LABS: THYROID STIMULATING HORMONE 2.19 uIU/mL (0.47-4.68)
[2018-06-18] MEDS: ZOLPIDEM TARTRATE 5 MG TABLET PO SCH (23:13)
[2018-06-18] MEDS: POTASSIUM CHLORIDE 10 MEQ CAPSULE.ER PO SCH (23:54)
[2018-06-19] MEDS: NORMAL SALINE 1000 ML 1,000 ML IV PRN ×3 (00:03→22:30)
[2018-06-19] MEDS: POTASSIUM CHLORIDE 10 MEQ CAPSULE.ER PO SCH ×2 (04:16→08:47)
[2018-06-19 05:14] LABS: APPEARANCE,URINE CLEAR; BILIRUBIN,URINE NEGATIVE (NEGATIVE); COLOR,URINE YELLOW; GLUCOSE, URINE NEGATIVE (NEGATIVE); KETONES,URINE NEGATIVE (NEGATIVE); LEUKOCYTE ESTERASE,URINE NEGATIVE (NEGATIVE); NITRITE,URINE NEGATIVE (NEGATIVE); PROTEIN,URINE NEGATIVE (NEGATIVE); URINE SPECIFIC GRAVITY 1.006; UROBILINOGEN,URINE NEGATIVE mg/dL (<2.0)
[2018-06-19] MEDS: PIPERACILLIN SODIUM/TAZOBACTAM 3.375 GM in NORMAL SALINE 100 ML IV SCH ×3 (06:32→22:30)
[2018-06-19 06:57] LABS: ABSOLUTE BASOPHILS # (AUTO) 0.1 10^3/uL (0.0-0.2); ABSOLUTE LYMPHOCYTES (AUTO) 1.1 10^3/uL (0.5-4.7); ABSOLUTE MONOCYTES (AUTO) 0.8 10^3/uL (0.1-1.4); ABSOLUTE NEUT (AUTO) 12.9 10^3/uL (1.7-8.2); BASOPHILS % (AUTO) 0.5 % (0-2); EOSINOPHILS % (AUTO) 0.1 % (0-6); HEMATOCRIT 28.7 % (36.0-47.0); HEMOGLOBIN 9.7 g/dL (12.0-15.5); LYMPHOCYTES % (AUTO) 7.6 % (13-45); MEAN CORPUSCULAR HEMOGLOBIN 27.8 pg (27.0-33.4); MEAN CORPUSCULAR HGB CONC 33.8 g/dL (32.0-36.0); MEAN CORPUSCULAR VOLUME 82 fl (80-97); MONOCYTES % (AUTO) 5.2 % (3-13); PLATELET COUNT 326 10^3/uL (150-450); RED CELL DISTRIBUTION WIDTH 14.9 % (11.5-14.0); SEGMENTED NEUTROPHILS % (AUTO) 86.6 % (42-78); TOTAL CELLS COUNTED % (AUTO) 100 %; WHITE BLOOD COUNT 14.9 10^3/uL (4.0-10.5)
[2018-06-19 07:11] LABS: ALANINE AMINOTRANSFERASE 32 U/L (9-52); ALBUMIN 3.7 g/dL (3.5-5.0); ALKALINE PHOSPHATASE 150 U/L (38-126); ANION GAP 15 (5-19); ASPARTATE AMINO TRANSFERASE 70 U/L (14-36); BILIRUBIN,DIRECT 0.6 mg/dL (0.0-0.4); BILIRUBIN,TOTAL 0.8 mg/dL (0.2-1.3); BLOOD UREA NITROGEN 20 mg/dL (7-20); CALCIUM 8.6 mg/dL (8.4-10.2); CARBON DIOXIDE 23 mmol/L (22-30); CHLORIDE 96 mmol/L (98-107); GLUCOSE 133 mg/dL (75-110); POTASSIUM 3.1 mmol/L (3.6-5.0); SODIUM 134.4 mmol/L (137-145)
[2018-06-19 07:12] LABS: CHOLESTEROL 147.17 mg/dL (0-200); TOTAL PROTEIN 7.6 g/dL (6.3-8.2); TRIGLYCERIDES 203 mg/dL (<150)
[2018-06-19 07:22] LABS: DIRECT LDL 57 mg/dL (<100)
[2018-06-19 07:26] LABS: VLDL CHOLESTEROL 40.6 mg/dL (10-31)
[2018-06-19] MEDS: OXYCODONE-ACETAMINOPHEN 5-325 MG TABLET PO PRN ×3 (08:48→15:53)
[2018-06-19] MEDS: LANSOPRAZOLE 30 MG TAB.RAP.DR PO SCH (08:48)
[2018-06-19] MEDS ORDERED: DEXTROSE 40% GEL 15 GM TUBE PO PRN ×2 (09:32)
[2018-06-19] MEDS ORDERED: DEXTROSE 50%-WATER 25 GM/50 ML DISP.SYRIN IV PRN ×2 (09:32)
[2018-06-19] MEDS ORDERED: GLUCAGON,HUMAN RECOMB 1 MG INJ SUBCUT PRN (09:32)
[2018-06-19] MEDS: POTASSI CL 20 MEQ/50 ML RIDER 20 MEQ/50 ML RTUPB IV SCH ×3 (09:37→15:55)
[2018-06-19] MEDS: ENOXAPARIN SODIUM INJ 30 MG/0.3 ML DISP.SYRIN SUBCUT SCH (09:44)
--- NOTE | 2018-06-19 10:44 | PDOC CONSULTATION ---
Consultation Consult Date: 06/19/18 Consult reason:: Evaluate sacral wound History of Present Illness Admission Date/PCP: 06/18/18 17:46 OSCAR ADAMS MD Patient complains of: Buttocks wound History of Present Illness: DILIP DELGADO is a 52 year old female who apparently fell and skidded on her buttocks with resultant wound at her buttocks several weeks ago. She has had the wound problems ever since. With the recent purulent drainage and fevers and chills. She denies any prior problems in this area prior to the accident. She is able to ambulate. She is not bedbound. She does have a history of diabetes. She denies any cardiopulmonary problems in the past. She denies any history of stroke nor myocardial infarctions in the past. He denies any shortness of breath nor chest pain at this time. Past Medical History Cardiac Medical History: Reports: Hypertension - 17 yrs-takes meds Denies: Atrial Fibrillation, Congestive Heart Failure, Coronary Artery Disease, Myocardial Infarction, Hyperlipidema, Peripheral Vascular Disease, Pulmonary Embolism, Heart Murmur Pulmonary Medical History: Reports: Pneumonia - 2013 X2 Denies: Asthma, Bronchitis, Chronic Obstructive Pulmonary Disease (COPD), Respiratory Failure, Sleep Apnea, Tuberculosis Neurological Medical History: Denies: Seizures Endocrine Medical History: Reports: Diabetes Mellitus Type 2 Denies: Hyperthyroidism, Hypothyroidism Malignancy Medical History: Denies: Lung Cancer GI Medical History: Reports: Gastroesophageal Reflux Disease - 2 yrs-takes meds Denies: Crohn's Disease, Hiatal Hernia Musculoskeltal Medical History: Reports: Arthritis, Fibromyalgia - 3 years Psychiatric Medical History: Reports: Depression Denies: Bipolar Disorder, Dementia, Post Traumatic Stress Disorder Past Surgical History Past Surgical History: Reports: Orthopedic Surgery - left knee, rt hip replaced Denies: Amputation, Appendectomy, Section, Cholecystectomy, Colostomy, Coronary Artery Bypass Graft, Gastric Bypass Surgery, Herniorrhaphy, Hysterectomy, Mastectomy, Pacemaker, Tonsillectomy, Tubal Ligation Social History Smoking Status: Current Every Day Smoker Cigarettes Packs Per Day: 2.5 Frequency of Alcohol Use: Social Hx Recreational Drug Use: No Drugs: None Hx Prescription Drug Abuse: No - Advance Directive Resuscitation Status: Full Code Family History Family History: Reviewed & Not Pertinent Parental Family History Reviewed: No Children Family History Reviewed: No Sibling(s) Family History Reviewed.: No Medication/Allergy Home Medications: Acetaminophen with Codeine [Tylenol #3 Tablet] 1 tab PO Q6HP PRN 06/18/18 Esomeprazole Magnesium [Nexium] 40 mg PO DAILY 06/18/18 Eszopiclone [Lunesta] 3 mg PO QHS 06/18/18 Lisinopril/Hydrochlorothiazide [Lisinopril-Hctz 20-12.5 mg Tab] 1 tab PO Q12 04/30 Metformin HCl [Metformin HCl] 500 mg PO BID 06/18/18 Allergies/Adverse Reactions: etodolac [From Lodine] Allergy (Severe, Verified 06/18/18 21:08) Itchiness Penicillins Allergy (Severe, Verified 06/18/18 21:08) Hives Iodinated Contrast- Oral and IV Dye [IV Dye, Iodine Containing] Allergy (Mild, Verified 06/18/18 21:08) Pruritis aspirin [Aspirin] Adverse Reaction (Mild, Verified 06/18/18 21:08) GI upset Physical Exam Vital Signs: Temp Pulse Resp BP Pulse Ox 99.9 F 119 H 19 118/63 97 06/19/18 07:35 06/19/18 07:35 06/19/18 07:35 06/19/18 07:35 06/19/18 07:35 Intake & Output 06/18/18 06/19/18 06/20/18 06:59 06:59 06:59 Intake Total 1390 100 Balance 1390 100 Weight 71.9 kg General appearance: PRESENT: no acute distress, cooperative, disheveled Respiratory exam: PRESENT: clear to auscultation katina Cardiovascular exam: PRESENT: tachycardia GI/Abdominal exam: PRESENT: other - Soft, nondistended nontender to palpation. Neurological exam: PRESENT: alert, awake Psychiatric exam: PRESENT: appropriate affect Skin exam: PRESENT: warm, other - At her sacral region there is partial thickness, wide ulcer involving bilateral buttocks with purulent drainage. There is induration and surrounding erythema. Results Laboratory Results: 06/19/18 06:35 06/19/18 06:35 06/18/18 06/18/18 06/18/18 22:06 22:06 22:06 WBC 13.5 H RBC 3.11 L Hgb 8.7 L Hct 25.7 L MCV 83 MCH 27.9 MCHC 33.8 RDW 14.3 H Plt Count 331 Seg Neutrophils % 83.4 H Lymphocytes % 9.4 L Monocytes % 6.9 Eosinophils % 0.1 Basophils % 0.2 Absolute Neutrophils 11.2 H Absolute Lymphocytes 1.3 Absolute Monocytes 0.9 Absolute Eosinophils 0.0 Absolute Basophils 0.0 Sodium Cancelled Potassium Cancelled Chloride Cancelled Carbon Dioxide Cancelled Anion Gap Cancelled BUN Cancelled Creatinine Cancelled Est GFR ( Amer) Cancelled Est GFR (Non-Af Amer) Cancelled Glucose Cancelled Lactic Acid Cancelled Calcium Cancelled Phosphorus Magnesium Total Bilirubin Cancelled AST Cancelled ALT Cancelled Alkaline Phosphatase Cancelled Ammonia Total Protein Cancelled Albumin Cancelled Triglycerides Cholesterol LDL Cholesterol Direct VLDL Cholesterol HDL Cholesterol Amylase TSH Free T4 Urine Color Urine Appearance Urine pH Ur Specific [place] Urine Protein Urine Glucose (UA) Urine Ketones Urine Blood Urine Nitrite Ur Leukocyte Esterase Urine WBC (Auto) Urine RBC (Auto) 06/18/18 06/18/18 06/18/18 22:06 22:06 22:06 WBC RBC Hgb Hct MCV MCH MCHC RDW Plt Count Seg Neutrophils % Lymphocytes % Monocytes % Eosinophils % Basophils % Absolute Neutrophils Absolute Lymphocytes Absolute Monocytes Absolute Eosinophils Absolute Basophils Sodium 129.4 L Potassium 2.9 L* Chloride 93 L Carbon Dioxide 21 L Anion Gap 15 BUN 22 H Creatinine 1.57 H Est GFR ( Amer) 42 L Est GFR (Non-Af Amer) 34 L Glucose 104 Lactic Acid 0.9 Calcium 8.3 L Phosphorus 2.8 Magnesium 1.5 L Total Bilirubin AST ALT Alkaline Phosphatase Ammonia Total Protein Albumin Triglycerides Cholesterol LDL Cholesterol Direct VLDL Cholesterol HDL Cholesterol Amylase < 30 L TSH 2.19 Free T4 1.82 Urine Color Urine Appearance Urine pH Ur Specific [place] Urine Protein Urine Glucose (UA) Urine Ketones Urine Blood Urine Nitrite Ur Leukocyte Esterase Urine WBC (Auto) Urine RBC (Auto) 06/18/18 06/19/18 06/19/18 23:27 04:30 06:35 WBC 14.9 H RBC 3.50 L Hgb 9.7 L Hct 28.7 L MCV 82 MCH 27.8 MCHC 33.8 RDW 14.9 H Plt Count 326 Seg Neutrophils % 86.6 H Lymphocytes % 7.6 L Monocytes % 5.2 Eosinophils % 0.1 Basophils % 0.5 Absolute Neutrophils 12.9 H Absolute Lymphocytes 1.1 Absolute Monocytes 0.8 Absolute Eosinophils 0.0 Absolute Basophils 0.1 Sodium Potassium Chloride Carbon Dioxide Anion Gap BUN Creatinine Est GFR ( Amer) Est GFR (Non-Af Amer) Glucose Lactic Acid Calcium Phosphorus Magnesium Total Bilirubin AST ALT Alkaline Phosphatase Ammonia 14.6 Total Protein Albumin Triglycerides Cholesterol LDL Cholesterol Direct VLDL Cholesterol HDL Cholesterol Amylase TSH Free T4 Urine Color YELLOW Urine Appearance CLEAR Urine pH 5.0 Ur Specific [place] 1.006 Urine Protein NEGATIVE Urine Glucose (UA) NEGATIVE Urine Ketones NEGATIVE Urine Blood SMALL H Urine Nitrite NEGATIVE Ur Leukocyte Esterase NEGATIVE Urine WBC (Auto) 1 Urine RBC (Auto) 0 06/19/18 06:35 WBC RBC Hgb Hct MCV MCH MCHC RDW Plt Count Seg Neutrophils % Lymphocytes % Monocytes % Eosinophils % Basophils % Absolute Neutrophils Absolute Lymphocytes Absolute Monocytes Absolute Eosinophils Absolute Basophils Sodium 134.4 L Potassium 3.1 L Chloride 96 L Carbon Dioxide 23 Anion Gap 15 BUN 20 Creatinine 1.14 Est GFR ( Amer) > 60 Est GFR (Non-Af Amer) 50 L Glucose 133 H Lactic Acid Calcium 8.6 Phosphorus Magnesium Total Bilirubin 0.8 AST 70 H ALT 32 Alkaline Phosphatase 150 H Ammonia Total Protein 7.6 Albumin 3.7 Triglycerides 203 H Cholesterol 147.17 LDL Cholesterol Direct 57 VLDL Cholesterol 40.6 H HDL Cholesterol 21 L Amylase TSH Free T4 Urine Color Urine Appearance Urine pH Ur Specific [place] Urine Protein Urine Glucose (UA) Urine Ketones Urine Blood Urine Nitrite Ur Leukocyte Esterase Urine WBC (Auto) Urine RBC (Auto) 06/18/18 06/18/18 22:06 22:06 Creatine Kinase 1040 H CK-MB (CK-2) 4.02 Assessment & Plan - Diagnosis (1) Infected second-degree burn Is this a current diagnosis for this admission?: Yes Plan: To the sacral region. Likely began as an abrasion injury with her fall. That became infected and led deepening of the second-degree burn. There is purulent drainage and it needs to be debrided and explored. I will plan this procedure in the operating room. I have explained to the patient the risk and benefits of the procedure including risk of bleeding and prolonged wound healing and need for further surgery. I will likely do a biopsy of the wound as well in light of the atypical appearance and presentation. Will check sacral x-rays preoperatively. We will also check preoperative EKG in light of her what appears to be sinus tachycardia. Patient ate this morning therefore will plan this procedure later today.
--- NOTE | 2018-06-19 10:46 | RADIOLOGY REPORT (SQ) ---
EXAM DESCRIPTION: PELVIS W/OBLIQUES COMPLETED DATE/TIME: 06/19/2018 10:29 am REASON FOR STUDY: s/p fall COMPARISON: None. NUMBER OF VIEWS: Three views. TECHNIQUE: AP pelvis and additional oblique views of both hips. LIMITATIONS: None. FINDINGS: Intact right hip arthroplasty. No evidence of acute fracture or dislocation. IMPRESSION: No acute findings. TECHNICAL DOCUMENTATION: JOB ID: [id number] [employer]- All Rights Reserved Reading location - IP/workstation name: [facility]
--- NOTE | 2018-06-19 11:19 | RADIOLOGY REPORT (SQ) ---
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 FLUOROSCOPY TIME: 33 seconds 2 images saved to PACS. TECHNIQUE: Fluoroscopic and ultrasound guided PICC placement. LIMITATIONS: None. PROCEDURE: After written consent and assessment were obtained, the patient was brought into the fluo roscopy room and place supine on the table. Ultrasound evaluation of potential access sites were perf ormed. After successfully identifying a patent left basilic vein, the left arm was prepped and draped in a sterile fashion along with the ultrasound probe. The entry site was anesthetized with 1% lidoca ine. A 21 gauge 7 cm needle was advanced through the skin and into the basilic vein under live ultras ound guidance. An ultrasound image was saved to PACS confirming access site. A .018 guide wire was then inserted through the needle and into the venous system. The needle was the removed and an 11 duc de scalpel was used to make a 1cm skin incision. A 5 fr peel-away sheath was advanced over the wire and into the venous system. A measurement was then made using the existing wire and live fluoroscopic guidance. The wire was then removed and the trimmed. The PICC was advanced through the peel-away she ath and into the venous system. The peel-away sheath was removed and the catheter was adhered to the patients arm with a stat lock. The catheter was then aspirated and flushed and a sterile bandage was placed over the access site. A fluoroscopic spot image was saved to PACS confirming the catheter tip within the superior vena cava. IMPRESSION: SUCCESSFUL PLACEMENT OF A 5 FR DUAL LUMEN 41 CM PICC IN THE LEFT BASILIC VEIN. COMMENT: Patient medication list reviewed: Yes- Quality ID# 130:Eligible professional attests to doc umenting in the medical record they obtained, updated, or reviewed the patient's current medications. . Quality ID 145: Final reports for procedures using fluoroscopy that document radiation exposure [place]ie [place], or exposure time and number of fluorographic images (if radiation exposure indices are not avail able) Quality ID #76: The patient was prepped and draped using maximum sterile barrier technique including cap, mask, sterile gown, sterile gloves, a large sterile sheet, hand hygiene, and 2% Chlorhexidine fo r cutaneous antisepsis. When ultrasound is used, sterile ultrasound techniques are followed requiring sterile gel and sterile probes. TECHNICAL DOCUMENTATION: JOB ID: [id number] [employer]- All Rights Reserved rev-03/30 Reading location - IP/workstation name: [email or web address]
--- NOTE | 2018-06-19 11:19 | RADIOLOGY REPORT (SQ) ---
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 FLUOROSCOPY TIME: 33 seconds 2 images saved to PACS. TECHNIQUE: Fluoroscopic and ultrasound guided PICC placement. LIMITATIONS: None. PROCEDURE: After written consent and assessment were obtained, the patient was brought into the fluo roscopy room and place supine on the table. Ultrasound evaluation of potential access sites were perf ormed. After successfully identifying a patent left basilic vein, the left arm was prepped and draped in a sterile fashion along with the ultrasound probe. The entry site was anesthetized with 1% lidoca ine. A 21 gauge 7 cm needle was advanced through the skin and into the basilic vein under live ultras ound guidance. An ultrasound image was saved to PACS confirming access site. A .018 guide wire was then inserted through the needle and into the venous system. The needle was the removed and an 11 duc de scalpel was used to make a 1cm skin incision. A 5 fr peel-away sheath was advanced over the wire and into the venous system. A measurement was then made using the existing wire and live fluoroscopic guidance. The wire was then removed and the trimmed. The PICC was advanced through the peel-away she ath and into the venous system. The peel-away sheath was removed and the catheter was adhered to the patients arm with a stat lock. The catheter was then aspirated and flushed and a sterile bandage was placed over the access site. A fluoroscopic spot image was saved to PACS confirming the catheter tip within the superior vena cava. IMPRESSION: SUCCESSFUL PLACEMENT OF A 5 FR DUAL LUMEN 41 CM PICC IN THE LEFT BASILIC VEIN. COMMENT: Patient medication list reviewed: Yes- Quality ID# 130:Eligible professional attests to doc umenting in the medical record they obtained, updated, or reviewed the patient's current medications. . Quality ID 145: Final reports for procedures using fluoroscopy that document radiation exposure [place]ie [place], or exposure time and number of fluorographic images (if radiation exposure indices are not avail able) Quality ID #76: The patient was prepped and draped using maximum sterile barrier technique including cap, mask, sterile gown, sterile gloves, a large sterile sheet, hand hygiene, and 2% Chlorhexidine fo r cutaneous antisepsis. When ultrasound is used, sterile ultrasound techniques are followed requiring sterile gel and sterile probes. TECHNICAL DOCUMENTATION: JOB ID: [id number] [employer]- All Rights Reserved rev-03/30 Reading location - IP/workstation name: [email or web address]
--- NOTE | 2018-06-19 11:19 | RADIOLOGY REPORT (SQ) ---
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 FLUOROSCOPY TIME: 33 seconds 2 images saved to PACS. TECHNIQUE: Fluoroscopic and ultrasound guided PICC placement. LIMITATIONS: None. PROCEDURE: After written consent and assessment were obtained, the patient was brought into the fluo roscopy room and place supine on the table. Ultrasound evaluation of potential access sites were perf ormed. After successfully identifying a patent left basilic vein, the left arm was prepped and draped in a sterile fashion along with the ultrasound probe. The entry site was anesthetized with 1% lidoca ine. A 21 gauge 7 cm needle was advanced through the skin and into the basilic vein under live ultras ound guidance. An ultrasound image was saved to PACS confirming access site. A .018 guide wire was then inserted through the needle and into the venous system. The needle was the removed and an 11 duc de scalpel was used to make a 1cm skin incision. A 5 fr peel-away sheath was advanced over the wire and into the venous system. A measurement was then made using the existing wire and live fluoroscopic guidance. The wire was then removed and the trimmed. The PICC was advanced through the peel-away she ath and into the venous system. The peel-away sheath was removed and the catheter was adhered to the patients arm with a stat lock. The catheter was then aspirated and flushed and a sterile bandage was placed over the access site. A fluoroscopic spot image was saved to PACS confirming the catheter tip within the superior vena cava. IMPRESSION: SUCCESSFUL PLACEMENT OF A 5 FR DUAL LUMEN 41 CM PICC IN THE LEFT BASILIC VEIN. COMMENT: Patient medication list reviewed: Yes- Quality ID# 130:Eligible professional attests to doc umenting in the medical record they obtained, updated, or reviewed the patient's current medications. . Quality ID 145: Final reports for procedures using fluoroscopy that document radiation exposure [place]ie [place], or exposure time and number of fluorographic images (if radiation exposure indices are not avail able) Quality ID #76: The patient was prepped and draped using maximum sterile barrier technique including cap, mask, sterile gown, sterile gloves, a large sterile sheet, hand hygiene, and 2% Chlorhexidine fo r cutaneous antisepsis. When ultrasound is used, sterile ultrasound techniques are followed requiring sterile gel and sterile probes. TECHNICAL DOCUMENTATION: JOB ID: [id number] [employer]- All Rights Reserved rev-03/30 Reading location - IP/workstation name: [email or web address]
[2018-06-19] MEDS: VANCOMYCIN HCL 750 MG in DEXTROSE 5%-WATER 250 ML IV SCH ×2 (11:59→23:51)
[2018-06-19] MEDS ORDERED: NORMAL SALINE 10 ML SDV (AFTER EACH USE) IV PRN (12:11)
--- NOTE | 2018-06-19 13:45 | EKG REPORT ---
SEVERITY:- OTHERWISE NORMAL ECG - SINUS TACHYCARDIA : Confirmed by: Alida Queen MD 19-Jun-2018 13:45:04
[2018-06-19] MEDS ORDERED: SUCCINYLCHOLINE CHLORIDE INJ 200 MG/10 ML VIAL ONE (15:06)
[2018-06-19] MEDS ORDERED: ACETAMINOPHEN 325 MG TABLET PO PRN (16:12)
[2018-06-19 16:48] LABS: ANION GAP 10 (5-19); BLOOD UREA NITROGEN 14 mg/dL (7-20); CALCIUM 8.5 mg/dL (8.4-10.2); CARBON DIOXIDE 22 mmol/L (22-30); CHLORIDE 104 mmol/L (98-107); GLUCOSE 119 mg/dL (75-110)
[2018-06-19 17:07] LABS: POTASSIUM 4.7 mmol/L (3.6-5.0)
[2018-06-19] MEDS ORDERED: MIDAZOLAM 2 MG/2 ML INJ ONE (18:01)
[2018-06-19] MEDS ORDERED: FENTANYL CITRATE INJ/PF 100 MCG/2 ML AMPUL ONE (18:01)
[2018-06-19] MEDS ORDERED: PROPOFOL INJ 200 MG/20 ML VIAL IV ONE (18:02)
[2018-06-19] MEDS ORDERED: DEXAMETHASONE SOD PHOSPHATE INJ 4 MG/1 ML VIAL ONE (18:02)
[2018-06-19] MEDS ORDERED: ONDANSETRON HCL INJ/PF 4 MG/2 ML SDV ONE (18:02)
[2018-06-19] MEDS ORDERED: MORPHINE SULFATE 10 MG/ML INJ ONE (18:02)
[2018-06-19] MEDS ORDERED: BUPIVACAINE HCL 0.25 % INJ/PF (2.5 MG/1 ML) 30 ML VIAL ONE (18:07)
[2018-06-19] MEDS ORDERED: LIDOCAINE 1%/EPINEPHRINE INJ 20 ML VIAL ONE (18:08)
[2018-06-19] MEDS ORDERED: DIPHENHYDRAMINE HCL 50 MG/ML VIAL IV PRN (18:57)
[2018-06-19] MEDS ORDERED: PROMETHAZINE HCL INJ 25 MG/1 ML VIAL IV PRN ×2 (18:57)
[2018-06-19] MEDS ORDERED: MEPERIDINE HCL/PF INJ 25 MG/1 ML DISP.SYRIN IV PRN (18:57)
[2018-06-19] MEDS ORDERED: FENTANYL CITRATE INJ/PF 100 MCG/2 ML AMPUL IV PRN ×3 (18:57)
[2018-06-19] MEDS ORDERED: MORPHINE SULFATE 10 MG/ML INJ IV PRN (18:57)
--- NOTE | 2018-06-19 20:08 | Operative Report ---
Operative Report DATE OF SURGERY: 06/19/18 PREOPERATIVE DIAGNOSIS: Sacral ulcer POSTOPERATIVE DIAGNOSIS: Necrotic sacral ulcer with soft tissue necrosis and associated infection OPERATION: Extensive excisional debridement of sacral necrotic ulcer with 10 x 10 x 4 cm volume of necrotic tissue excised sharply. SURGEON: SOFYA COX ANESTHESIA: GA TISSUE REMOVED OR ALTERED: Necrotic sacral ulcer soft tissue submitted for Gram stain and culture with skin edge submitted to pathology. COMPLICATIONS: None ESTIMATED BLOOD LOSS: 100 cc INTRAOPERATIVE FINDINGS: Extensive soft tissue necrosis of the sacral region with partial thickness skin loss of 13 x 12 cm in area. With full-thickness skin necrosis in an area of just smaller than 5 x 4 cm. Depth of the wound being 4 cm deep with a cavity filled with necrotic tissue about 10 x 10 cm in size. Necrosis extending through most of the sacral muscle in this region. Foul-smelling associated pus. PROCEDURE: Informed consent was obtained. Patient was brought to the operating room and placed on the operating table in supine position. After satisfactory induction of general anesthesia patient was placed in a prone position and her buttocks was prepped and draped in usual sterile fashion. Patient had a 13 x 12 cm ulceration area at the sacral region mostly on the right side with some extension to the left. At the superior portion of this ulcer there was evidence of necrotic skin which was sharply debrided to viable skin. The skin that was excised measured about 4 x 5 cm in size. After unroofing the necrotic region foul-smelling fluid and necrotic tissue was noted. The necrotic tissue was sharply debrided with a scalpel. Extensive debridement had to be performed debriding out about 10 x 10 x 4 cm block of necrotic tissue composed of necrotic fat as well as necrotic muscle the process appear to extend near the sacral fascia. Debridement was performed with a scalpel as well as cautery and curetting but mostly with scalpel. All of the grossly necrotic tissue was debrided. There was bleeding at the base that was controlled with electrocautery. The bleeding at the skin edges were controlled with electrocautery as well. The partial-thickness area of ulceration was scraped which yielded oozing blood indicating viability. Skin edge excised was submitted to pathology. The necrotic tissue was submitted to microbiology. Hemostasis appeared to be good. The wound was then irrigated and packed with gauze. Patient tolerated procedure well with no apparent complications and was taken to the recovery area in stable condition.
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
[2018-06-19] MEDS ORDERED: NORMAL SALINE 500 ML IV ONE (21:15)
[2018-06-19] MEDS: ZOLPIDEM TARTRATE 5 MG TABLET PO SCH (22:30)
[2018-06-19] MEDS: NORMAL SALINE 10 ML SDV (SCHEDULED) IV SCH (22:31)
[2018-06-20] MEDS: PIPERACILLIN SODIUM/TAZOBACTAM 3.375 GM in NORMAL SALINE 100 ML IV SCH ×3 (05:32→22:14)
[2018-06-20 06:13] LABS: ALANINE AMINOTRANSFERASE 50 U/L (9-52); ALBUMIN 2.7 g/dL (3.5-5.0); ALKALINE PHOSPHATASE 153 U/L (38-126); ANION GAP 10 (5-19); ASPARTATE AMINO TRANSFERASE 66 U/L (14-36); BILIRUBIN,DIRECT 0.4 mg/dL (0.0-0.4); BILIRUBIN,TOTAL 0.4 mg/dL (0.2-1.3); BLOOD UREA NITROGEN 11 mg/dL (7-20); CALCIUM 8.5 mg/dL (8.4-10.2); CARBON DIOXIDE 20 mmol/L (22-30); CHLORIDE 110 mmol/L (98-107); GLUCOSE 127 mg/dL (75-110); POTASSIUM 5.1 mmol/L (3.6-5.0); SODIUM 139.7 mmol/L (137-145); TOTAL PROTEIN 5.6 g/dL (6.3-8.2)
[2018-06-20 06:27] LABS: HEMATOCRIT 23.1 % (36.0-47.0); MEAN CORPUSCULAR HEMOGLOBIN 28.1 pg (27.0-33.4); MEAN CORPUSCULAR HGB CONC 33.7 g/dL (32.0-36.0); MEAN CORPUSCULAR VOLUME 83 fl (80-97); PLATELET COUNT 314 10^3/uL (150-450); RED BLOOD COUNT 2.77 10^6/uL (3.72-5.28); RED CELL DISTRIBUTION WIDTH 14.7 % (11.5-14.0); WHITE BLOOD COUNT 13.4 10^3/uL (4.0-10.5)
[2018-06-20 06:32] LABS: HEMOGLOBIN 7.8 g/dL (12.0-15.5)
[2018-06-20 06:44] LABS: ABSOLUTE LYMPHOCYTES# (MANUAL) 0.8 10^3/uL (0.5-4.7); ABSOLUTE MONOCYTES # (MANUAL) 0.4 10^3/uL (0.1-1.4); ABSOLUTE NEUTROPHILS# (MANUAL) 12.2 10^3/uL (1.7-8.2); BAND NEUTROPHILS % (MANUAL) 5 % (3-5); BASOPHILS % (MANUAL) 0 % (0-2); EOSINOPHILS % (MANUAL) 0 % (0-6); LYMPHOCYTES % (MANUAL) 6 % (13-45); MONOCYTES % (MANUAL) 3 % (3-13); SEGMENTED NEUTROPHILS % (MAN) 86 % (42-78); TOTAL CELLS COUNTED 100
[2018-06-20 06:45] LABS: BURR CELLS 2+; PLATELET COMMENT ADEQUATE; POIKILOCYTOSIS 2+; TARGET CELLS 1+
[2018-06-20] MEDS: OXYCODONE-ACETAMINOPHEN 5-325 MG TABLET PO PRN ×2 (06:54→19:51)
[2018-06-20] MEDS: LANSOPRAZOLE 30 MG TAB.RAP.DR PO SCH (06:54)
[2018-06-20] MEDS: ENOXAPARIN SODIUM INJ 30 MG/0.3 ML DISP.SYRIN SUBCUT SCH (09:23)
[2018-06-20] MEDS: VANCOMYCIN HCL 750 MG in DEXTROSE 5%-WATER 250 ML IV SCH ×2 (09:23→22:58)
[2018-06-20] MEDS: MORPHINE SULFATE 10 MG/ML INJ IV PRN ×2 (09:23→22:15)
[2018-06-20] MEDS: NORMAL SALINE 1000 ML 1,000 ML IV PRN ×2 (09:37→22:14)
[2018-06-20] MEDS: NORMAL SALINE 10 ML SDV (SCHEDULED) IV SCH ×2 (09:40→22:17)
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
[2018-06-20 11:50] LABS: ABSOLUTE LYMPHOCYTES (AUTO) 0.8 10^3/uL (0.5-4.7); ABSOLUTE MONOCYTES (AUTO) 0.6 10^3/uL (0.1-1.4); ABSOLUTE NEUT (AUTO) 10.3 10^3/uL (1.7-8.2); BASOPHILS % (AUTO) 0.1 % (0-2); HEMATOCRIT 22.1 % (36.0-47.0); LYMPHOCYTES % (AUTO) 6.7 % (13-45); MEAN CORPUSCULAR HGB CONC 32.5 g/dL (32.0-36.0); MEAN CORPUSCULAR VOLUME 83 fl (80-97); PLATELET COUNT 307 10^3/uL (150-450); RED BLOOD COUNT 2.66 10^6/uL (3.72-5.28); RED CELL DISTRIBUTION WIDTH 14.9 % (11.5-14.0); SEGMENTED NEUTROPHILS % (AUTO) 88.2 % (42-78); TOTAL CELLS COUNTED % (AUTO) 100 %; WHITE BLOOD COUNT 11.7 10^3/uL (4.0-10.5)
[2018-06-20 11:52] LABS: HEMOGLOBIN 7.2 g/dL (12.0-15.5)
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
[2018-06-20] MEDS: ZOLPIDEM TARTRATE 5 MG TABLET PO SCH (22:14)
[2018-06-21] MEDS: OXYCODONE-ACETAMINOPHEN 5-325 MG TABLET PO PRN ×2 (01:27→23:22)
[2018-06-21] MEDS: LANSOPRAZOLE 30 MG TAB.RAP.DR PO SCH (05:55)
[2018-06-21] MEDS: PIPERACILLIN SODIUM/TAZOBACTAM 3.375 GM in NORMAL SALINE 100 ML IV SCH ×3 (05:55→21:06)
[2018-06-21 06:47] LABS: ABSOLUTE EOSINOPHILS # (AUTO) 0.1 10^3/uL (0.0-0.6); ABSOLUTE LYMPHOCYTES (AUTO) 1.6 10^3/uL (0.5-4.7); ABSOLUTE MONOCYTES (AUTO) 0.7 10^3/uL (0.1-1.4); ABSOLUTE NEUT (AUTO) 8.3 10^3/uL (1.7-8.2); BASOPHILS % (AUTO) 0.2 % (0-2); EOSINOPHILS % (AUTO) 0.8 % (0-6); LYMPHOCYTES % (AUTO) 14.8 % (13-45); MEAN CORPUSCULAR HEMOGLOBIN 28.3 pg (27.0-33.4); MEAN CORPUSCULAR HGB CONC 33.7 g/dL (32.0-36.0); MEAN CORPUSCULAR VOLUME 84 fl (80-97); MONOCYTES % (AUTO) 6.2 % (3-13); PLATELET COUNT 319 10^3/uL (150-450); RED BLOOD COUNT 3.45 10^6/uL (3.72-5.28); RED CELL DISTRIBUTION WIDTH 14.4 % (11.5-14.0); TOTAL CELLS COUNTED % (AUTO) 100 %; WHITE BLOOD COUNT 10.6 10^3/uL (4.0-10.5)
[2018-06-21 06:49] LABS: HEMOGLOBIN 9.8 g/dL (12.0-15.5)
[2018-06-21 07:12] LABS: ALANINE AMINOTRANSFERASE 76 U/L (9-52); ALBUMIN 2.6 g/dL (3.5-5.0); ALKALINE PHOSPHATASE 155 U/L (38-126); ANION GAP 9 (5-19); ASPARTATE AMINO TRANSFERASE 119 U/L (14-36); BILIRUBIN,DIRECT 0.3 mg/dL (0.0-0.4); BILIRUBIN,TOTAL 0.4 mg/dL (0.2-1.3); BLOOD UREA NITROGEN 5 mg/dL (7-20); CALCIUM 8.3 mg/dL (8.4-10.2); CARBON DIOXIDE 22 mmol/L (22-30); CHLORIDE 110 mmol/L (98-107); GLUCOSE 103 mg/dL (75-110); POTASSIUM 4.2 mmol/L (3.6-5.0); SODIUM 141.3 mmol/L (137-145); TOTAL PROTEIN 5.7 g/dL (6.3-8.2)
[2018-06-21] MEDS: MORPHINE SULFATE 10 MG/ML INJ IV PRN ×3 (10:13→21:11)
[2018-06-21] MEDS: NORMAL SALINE 10 ML SDV (SCHEDULED) IV SCH ×2 (10:16→21:09)
[2018-06-21] MEDS: ENOXAPARIN SODIUM INJ 30 MG/0.3 ML DISP.SYRIN SUBCUT SCH (10:21)
[2018-06-21] MEDS: VANCOMYCIN HCL 750 MG in DEXTROSE 5%-WATER 250 ML IV SCH ×2 (10:27→21:56)
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
[2018-06-21] MEDS: NORMAL SALINE 1000 ML 1,000 ML IV PRN (21:06)
[2018-06-21] MEDS: ZOLPIDEM TARTRATE 5 MG TABLET PO SCH (21:10)
[2018-06-22] MEDS: MORPHINE SULFATE 10 MG/ML INJ IV PRN ×4 (03:24→21:29)
[2018-06-22] MEDS: PIPERACILLIN SODIUM/TAZOBACTAM 3.375 GM in NORMAL SALINE 100 ML IV SCH ×2 (05:25→16:39)
[2018-06-22] MEDS: LANSOPRAZOLE 30 MG TAB.RAP.DR PO SCH (05:26)
[2018-06-22] MEDS: OXYCODONE-ACETAMINOPHEN 5-325 MG TABLET PO PRN (05:26)
[2018-06-22] MEDS: NORMAL SALINE 10 ML SDV (SCHEDULED) IV SCH ×2 (10:12→21:34)
[2018-06-22] MEDS: NORMAL SALINE 1000 ML 1,000 ML IV PRN (10:13)
[2018-06-22] MEDS: ENOXAPARIN SODIUM INJ 30 MG/0.3 ML DISP.SYRIN SUBCUT SCH (10:15)
[2018-06-22] MEDS: VANCOMYCIN HCL 750 MG in DEXTROSE 5%-WATER 250 ML IV SCH ×2 (12:29→17:41)
[2018-06-22 12:47] LABS: VANCOMYCIN,TROUGH 8.2 ug/mL (5.0-20.0)
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
[2018-06-22] MEDS: ZOLPIDEM TARTRATE 5 MG TABLET PO SCH (21:29)
[2018-06-23] MEDS: OXYCODONE-ACETAMINOPHEN 5-325 MG TABLET PO PRN ×3 (00:05→22:47)
[2018-06-23] MEDS: PIPERACILLIN SODIUM/TAZOBACTAM 3.375 GM in NORMAL SALINE 100 ML IV SCH ×4 (00:06→23:01)
[2018-06-23] MEDS: MORPHINE SULFATE 10 MG/ML INJ IV PRN ×4 (03:06→20:36)
[2018-06-23] MEDS: NORMAL SALINE 1000 ML 1,000 ML IV PRN ×2 (03:08→14:28)
[2018-06-23] MEDS: VANCOMYCIN HCL 750 MG in DEXTROSE 5%-WATER 250 ML IV SCH ×3 (03:49→17:45)
[2018-06-23] MEDS: LANSOPRAZOLE 30 MG TAB.RAP.DR PO SCH (05:37)
[2018-06-23 06:07] LABS: HEMATOCRIT 28.9 % (36.0-47.0); HEMOGLOBIN 9.8 g/dL (12.0-15.5); MEAN CORPUSCULAR HEMOGLOBIN 28.1 pg (27.0-33.4); MEAN CORPUSCULAR VOLUME 83 fl (80-97); PLATELET COUNT 355 10^3/uL (150-450); RED BLOOD COUNT 3.49 10^6/uL (3.72-5.28); RED CELL DISTRIBUTION WIDTH 14.7 % (11.5-14.0); WHITE BLOOD COUNT 10.2 10^3/uL (4.0-10.5)
[2018-06-23 06:22] LABS: ANION GAP 10 (5-19); BLOOD UREA NITROGEN 4 mg/dL (7-20); CALCIUM 8.3 mg/dL (8.4-10.2); CARBON DIOXIDE 22 mmol/L (22-30); CHLORIDE 109 mmol/L (98-107); GLUCOSE 105 mg/dL (75-110); SODIUM 141.4 mmol/L (137-145)
[2018-06-23] MEDS: ENOXAPARIN SODIUM INJ 30 MG/0.3 ML DISP.SYRIN SUBCUT SCH (09:08)
[2018-06-23] MEDS: NORMAL SALINE 10 ML SDV (SCHEDULED) IV SCH ×2 (09:11→22:49)
[2018-06-23] MEDS ORDERED: FENTANYL CITRATE INJ/PF 100 MCG/2 ML AMPUL ONE (11:51)
[2018-06-23] MEDS ORDERED: PROPOFOL INJ 200 MG/20 ML VIAL IV ONE (11:51)
[2018-06-23] MEDS ORDERED: MIDAZOLAM 2 MG/2 ML INJ ONE (11:51)
[2018-06-23] MEDS ORDERED: ACETAMINOPHEN 1,000 MG/100 ML RTUPB IV ONE (11:51)
--- NOTE | 2018-06-23 12:20 | EKG REPORT ---
SEVERITY:- NORMAL ECG - SINUS RHYTHM : Confirmed by: Alida Queen MD 23-Jun-2018 12:20:08
[2018-06-23] MEDS ORDERED: FENTANYL CITRATE INJ/PF 100 MCG/2 ML AMPUL IV PRN ×3 (12:29)
[2018-06-23] MEDS ORDERED: ONDANSETRON HCL INJ/PF 4 MG/2 ML SDV IV PRN (12:29)
[2018-06-23] MEDS ORDERED: MEPERIDINE HCL/PF INJ 25 MG/1 ML DISP.SYRIN IV PRN (12:29)
[2018-06-23] MEDS ORDERED: PROMETHAZINE HCL INJ 25 MG/1 ML VIAL IV PRN ×2 (12:29)
[2018-06-23] MEDS ORDERED: DIPHENHYDRAMINE HCL 50 MG/ML VIAL IV PRN (12:29)
[2018-06-23] MEDS ORDERED: LIDOCAINE 1% INJ-PF (10 MG/ML) 30 ML SDV ONE (12:34)
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
--- NOTE | 2018-06-23 14:21 | OPERATIVE REPORT E ---
Operative Report NAME: DILIP DELGADO : 1965 AGE: 52Y DATE OF SURGERY: 06/23/2018 ROOM: 530 PREOPERATIVE DIAGNOSIS: STAGE IV SACRAL DECUBITUS ULCER, Measuring 10 CM WIDE X 12 CM LONG DOWN TO THE BONE. POSTOPERATIVE DIAGNOSIS: STAGE IV SACRAL DECUBITUS ULCER, Measuring 10 CM WIDE X 12 CM LONG DOWN TO THE BONE. OPERATION: Debridement, incision & drainage of stage IV sacral decubitus ulcer. SURGEON: UBALDO CONTE M.D. ANESTHESIA: Local MAC. INDICATION: This is a 52-year-old female who developed skin necrosis and decubitus ulcer in the sacral area. The patient in the past would have syncopal episode and then would walk or push herself through the wall to get up, causing friction on her sacral area, causing the eventual decubitus ulcer. PROCEDURE: The patient was placed in the prone position and the sacral area was then prepped and draped in the usual sterile fashion. Appropriate timeout was then called. There is tunneling through the sacral area going distally towards the right coccygeal area. This was then anesthetized using 1% lidocaine. About a 6 cm incision was made and hemostasis obtained with cautery. Necrotic tissue underneath it was debrided using #5 blades. There was some foul-smelling discharge and part of this was sent for culture. Next, there was some tunneling also proximally and this was then anesthetized and 2 cm incision made at the midline going proximal. This was further debrided with necrotic tissue underneath. Also, some necrotic tissue underneath the right lateral area with also some tunneling a few centimeters. Debridement was done right close to the bone. Following this, the area was lavaged with 4 liters of saline. Further debridement was then done afterwards. Hemostasis obtained with cautery primarily along the skin and subcu incision site. There may be a few areas of skin necrosis that might be quite difficult to remove, and this may need to be re-seen in the OR in the next 24-48 hours. At any rate, the area was subsequently packed with at least a roll of Betadine-soaked gauze with [id number] Betadine and saline solution. The are was packed with 4 x 4 and ABD pads. The patient tolerated the procedure well. Needle, instrument, and sponge count were all correct. Estimated blood loss about 10 mL. The patient was then brought to the recovery room in satisfactory condition. DICTATING PHYSICIAN: UBALDO CONTE M.D. [id number] PHY#: [id number] ID: [id number] JOB#: [id number] ACCT: [id number] cc:UBALDO CONTE M.D. > [facility]
[2018-06-23] MEDS: ZOLPIDEM TARTRATE 5 MG TABLET PO SCH (22:48)
[2018-06-24] MEDS: VANCOMYCIN HCL 750 MG in DEXTROSE 5%-WATER 250 ML IV SCH ×2 (02:30→09:22)
[2018-06-24] MEDS: MORPHINE SULFATE 10 MG/ML INJ IV PRN ×4 (02:31→20:48)
[2018-06-24] MEDS: NORMAL SALINE 1000 ML 1,000 ML IV PRN ×2 (02:47→14:14)
[2018-06-24] MEDS: PIPERACILLIN SODIUM/TAZOBACTAM 3.375 GM in NORMAL SALINE 100 ML IV SCH ×3 (06:30→23:05)
[2018-06-24] MEDS: LANSOPRAZOLE 30 MG TAB.RAP.DR PO SCH (06:31)
[2018-06-24] MEDS ORDERED: MIDAZOLAM 2 MG/2 ML INJ ONE ×2 (07:39→12:32)
[2018-06-24] MEDS ORDERED: PROPOFOL INJ 200 MG/20 ML VIAL IV ONE ×2 (07:39→12:32)
[2018-06-24] MEDS ORDERED: FENTANYL CITRATE INJ/PF 100 MCG/2 ML AMPUL ONE ×2 (07:39→13:19)
[2018-06-24] MEDS ORDERED: LIDOCAINE 2% INJ-PF (20 MG/ML) 10 ML AMPUL ONE (07:39)
[2018-06-24] MEDS ORDERED: ACETAMINOPHEN 1,000 MG/100 ML RTUPB IV ONE (07:40)
[2018-06-24] MEDS: OXYCODONE-ACETAMINOPHEN 5-325 MG TABLET PO PRN ×2 (08:49→23:05)
[2018-06-24] MEDS: ENOXAPARIN SODIUM INJ 30 MG/0.3 ML DISP.SYRIN SUBCUT SCH (09:18)
[2018-06-24] MEDS: NORMAL SALINE 10 ML SDV (SCHEDULED) IV SCH ×2 (09:22→22:57)
[2018-06-24] MEDS ORDERED: DEXMEDETOMIDINE INJ 80 MCG/20 ML VIAL IV ONE (10:06)
[2018-06-24 10:35] LABS: VANCOMYCIN,TROUGH 22.1 ug/mL (5.0-20.0)
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
[2018-06-24] MEDS ORDERED: LIDOCAINE 1% INJ-PF (10 MG/ML) 30 ML SDV ONE (12:30)
[2018-06-24] MEDS ORDERED: FENTANYL CITRATE INJ/PF 250 MCG/5 ML AMPULE ONE (12:32)
[2018-06-24] MEDS ORDERED: DIPHENHYDRAMINE HCL 50 MG/ML VIAL IV PRN (12:51)
[2018-06-24] MEDS ORDERED: PROMETHAZINE HCL INJ 25 MG/1 ML VIAL IV PRN ×2 (12:51)
[2018-06-24] MEDS ORDERED: MEPERIDINE HCL/PF INJ 25 MG/1 ML DISP.SYRIN IV PRN (12:51)
[2018-06-24] MEDS ORDERED: MORPHINE SULFATE 10 MG/ML INJ IV PRN (12:51)
[2018-06-24] MEDS ORDERED: ONDANSETRON HCL INJ/PF 4 MG/2 ML SDV IV PRN (12:51)
[2018-06-24] MEDS ORDERED: FENTANYL CITRATE INJ/PF 100 MCG/2 ML AMPUL IV PRN ×3 (12:51)
[2018-06-24] MEDS: VANCOMYCIN HCL 500 MG in DEXTROSE 5%-WATER 100 ML IV SCH (17:12)
[2018-06-24] MEDS ORDERED: ONDANSETRON HCL INJ/PF 4 MG/2 ML SDV ONE (18:40)
[2018-06-24] MEDS ORDERED: DEXAMETHASONE SOD PHOSPHATE INJ 4 MG/1 ML VIAL ONE (18:40)
--- NOTE | 2018-06-24 20:41 | OPERATIVE REPORT E ---
Operative Report NAME: DILIP DELGADO : 1965 AGE: 52Y DATE OF SURGERY:06/24/2018 ROOM: [facility] PREOPERATIVE DIAGNOSIS: SACRAL DECUBITUS ULCER, MEASURING 14 X 11 X 4, DOWN TO THE SACRAL BONE. POSTOPERATIVE DIAGNOSIS: SACRAL DECUBITUS ULCER, MEASURING 14 X 11 X 4, DOWN TO THE SACRAL BONE. OPERATION: Debridement and placement of wound vacuum-assisted closure of sacral decubitus ulcer. SURGEON: UBALDO CONTE M.D. ANESTHESIA: Local MAC. INDICATION: This is a 52-year-old female who developed a large sacral decubitus ulcer after falling in the past and trying to move to the door by pushing on her back sitting down, creating friction on the sacral area. This eventually developed a large decubitus, stage IV, that was initially debrided yesterday. Patient is coming today for further debridement and placement of wound V.A.C. PROCEDURE: The patient was placed in the prone position and given sedation. After adequate sedation, patient's sacral area was then prepped and draped in the usual sterile fashion. Local anesthesia infiltrated the undermining circumferential area. An appropriate timeout was called prior to placement of local anesthesia. Further local anesthesia infiltrated near the sacral bone area, where there was some necrotic tissue noted. There was some necrotic tissue that was further debrided sharply with the use of scalpel, #10 blade. Hemostasis was then controlled with cautery. There was more necrotic area down distal, where there was tunneling, and this was then debrided sharply. Again, hemostasis obtained with cautery. The area was then pulse lavaged with about 2 liters of saline. Most of the necrotic tissue was then further debrided sharply. Good hemostasis noted. The cavity that measured 14 x 11 x 4 cm deep was then placed with foam and the foam covered with transparent dressing, with a hole made in the middle of the foam through the transparent dressing, then connected to suction to a pressure of -125 mmHg pressure. It suctioned foam nicely without any leak. Patient tolerated procedure well. Needle, instrument and sponge counts were all correct. Estimated blood loss about 10 cc. Patient was brought to the recovery room in satisfactory condition. DICTATING PHYSICIAN: UBALDO CONTE M.D. [id number] PHY#: [id number] ID: [id number] JOB#: [id number] ACCT: [id number] cc:UBALDO CONTE M.D. >
[2018-06-24] MEDS: ZOLPIDEM TARTRATE 5 MG TABLET PO SCH (22:56)
[2018-06-25] MEDS: VANCOMYCIN HCL 500 MG in DEXTROSE 5%-WATER 100 ML IV SCH ×3 (01:59→18:31)
[2018-06-25] MEDS: NORMAL SALINE 1000 ML 1,000 ML IV PRN ×3 (02:00→22:51)
[2018-06-25] MEDS: MORPHINE SULFATE 10 MG/ML INJ IV PRN ×4 (03:23→20:19)
[2018-06-25] MEDS: LANSOPRAZOLE 30 MG TAB.RAP.DR PO SCH (06:14)
[2018-06-25] MEDS: PIPERACILLIN SODIUM/TAZOBACTAM 3.375 GM in NORMAL SALINE 100 ML IV SCH ×2 (06:14→14:35)
[2018-06-25 07:48] LABS: ABSOLUTE EOSINOPHILS # (AUTO) 0.1 10^3/uL (0.0-0.6); ABSOLUTE LYMPHOCYTES (AUTO) 1.7 10^3/uL (0.5-4.7); ABSOLUTE NEUT (AUTO) 7.5 10^3/uL (1.7-8.2); BASOPHILS % (AUTO) 0.1 % (0-2); EOSINOPHILS % (AUTO) 0.8 % (0-6); HEMATOCRIT 29.4 % (36.0-47.0); HEMOGLOBIN 9.7 g/dL (12.0-15.5); LYMPHOCYTES % (AUTO) 16.7 % (13-45); MEAN CORPUSCULAR HEMOGLOBIN 27.6 pg (27.0-33.4); MEAN CORPUSCULAR VOLUME 84 fl (80-97); MONOCYTES % (AUTO) 9.9 % (3-13); PLATELET COUNT 374 10^3/uL (150-450); RED BLOOD COUNT 3.52 10^6/uL (3.72-5.28); RED CELL DISTRIBUTION WIDTH 14.9 % (11.5-14.0); SEGMENTED NEUTROPHILS % (AUTO) 72.5 % (42-78); TOTAL CELLS COUNTED % (AUTO) 100 %; WHITE BLOOD COUNT 10.4 10^3/uL (4.0-10.5)
[2018-06-25 08:06] LABS: ANION GAP 8 (5-19); BLOOD UREA NITROGEN 7 mg/dL (7-20); CALCIUM 7.9 mg/dL (8.4-10.2); CARBON DIOXIDE 26 mmol/L (22-30); CHLORIDE 107 mmol/L (98-107); GLUCOSE 89 mg/dL (75-110); POTASSIUM 3.8 mmol/L (3.6-5.0); SODIUM 141.3 mmol/L (137-145)
[2018-06-25] MEDS: ENOXAPARIN SODIUM INJ 30 MG/0.3 ML DISP.SYRIN SUBCUT SCH (10:09)
[2018-06-25] MEDS: NORMAL SALINE 10 ML SDV (SCHEDULED) IV SCH ×2 (10:17→22:47)
[2018-06-25] MEDS: OXYCODONE-ACETAMINOPHEN 5-325 MG TABLET PO PRN ×2 (18:30→22:47)
[2018-06-25 19:23] LABS: VANCOMYCIN,TROUGH 18.3 ug/mL (5.0-20.0)
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
[2018-06-26] MEDS: VANCOMYCIN HCL 500 MG in DEXTROSE 5%-WATER 100 ML IV SCH ×2 (01:10→10:08)
[2018-06-26] MEDS: MORPHINE SULFATE 10 MG/ML INJ IV PRN ×5 (01:49→21:37)
[2018-06-26] MEDS: LANSOPRAZOLE 30 MG TAB.RAP.DR PO SCH (05:27)
[2018-06-26 07:44] LABS: ANION GAP 9 (5-19); BLOOD UREA NITROGEN 8 mg/dL (7-20); CALCIUM 8.3 mg/dL (8.4-10.2); CARBON DIOXIDE 24 mmol/L (22-30); CHLORIDE 110 mmol/L (98-107); GLUCOSE 83 mg/dL (75-110); POTASSIUM 3.9 mmol/L (3.6-5.0); SODIUM 142.6 mmol/L (137-145)
[2018-06-26] MEDS: NORMAL SALINE 1000 ML 1,000 ML IV PRN ×3 (09:56→21:39)
[2018-06-26] MEDS: ENOXAPARIN SODIUM INJ 30 MG/0.3 ML DISP.SYRIN SUBCUT SCH (10:08)
[2018-06-26] MEDS: NORMAL SALINE 10 ML SDV (SCHEDULED) IV SCH ×2 (10:09→21:39)
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
[2018-06-26] MEDS: TEMAZEPAM 15 MG CAPSULE PO SCH (21:38)
[2018-06-26] MEDS: PIPERACILLIN SODIUM/TAZOBACTAM 3.375 GM in NORMAL SALINE 100 ML IV SCH (21:38)
[2018-06-27] MEDS: MORPHINE SULFATE 10 MG/ML INJ IV PRN ×4 (03:56→17:07)
[2018-06-27] MEDS: PIPERACILLIN SODIUM/TAZOBACTAM 3.375 GM in NORMAL SALINE 100 ML IV SCH ×4 (03:56→21:10)
[2018-06-27] MEDS: LANSOPRAZOLE 30 MG TAB.RAP.DR PO SCH (05:38)
[2018-06-27 07:15] LABS: ANION GAP 11 (5-19); BLOOD UREA NITROGEN 7 mg/dL (7-20); CALCIUM 8.2 mg/dL (8.4-10.2); CARBON DIOXIDE 24 mmol/L (22-30); CHLORIDE 108 mmol/L (98-107); GLUCOSE 89 mg/dL (75-110); POTASSIUM 3.8 mmol/L (3.6-5.0); SODIUM 142.6 mmol/L (137-145)
[2018-06-27] MEDS: ENOXAPARIN SODIUM INJ 30 MG/0.3 ML DISP.SYRIN SUBCUT SCH (11:07)
[2018-06-27] MEDS: NORMAL SALINE 10 ML SDV (SCHEDULED) IV SCH ×2 (11:09→21:09)
[2018-06-27] MEDS: NORMAL SALINE 1000 ML 1,000 ML IV PRN ×2 (11:12→21:10)
[2018-06-27] MEDS: TEMAZEPAM 15 MG CAPSULE PO SCH (21:09)
[2018-06-28] MEDS: MORPHINE SULFATE 10 MG/ML INJ IV PRN ×6 (01:45→23:44)
[2018-06-28] MEDS: PIPERACILLIN SODIUM/TAZOBACTAM 3.375 GM in NORMAL SALINE 100 ML IV SCH ×3 (02:49→14:32)
[2018-06-28] MEDS: LANSOPRAZOLE 30 MG TAB.RAP.DR PO SCH (06:05)
[2018-06-28] MEDS: ENOXAPARIN SODIUM INJ 30 MG/0.3 ML DISP.SYRIN SUBCUT SCH (09:52)
[2018-06-28] MEDS: NORMAL SALINE 10 ML SDV (SCHEDULED) IV SCH ×2 (09:52→21:27)
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
[2018-06-28] MEDS: NORMAL SALINE 1000 ML 1,000 ML IV PRN (19:20)
[2018-06-28] MEDS ORDERED: CLINDAMYCIN 600 MG/D5W RTU 600 MG/50 ML RTUPB IV SCH (19:30)
[2018-06-28] MEDS ORDERED: FLUCONAZOLE 100 MG TABLET PO SCH (20:00)
[2018-06-28] MEDS: TEMAZEPAM 15 MG CAPSULE PO SCH (21:27)
[2018-06-28] MEDS: CLINDAMYCIN 600 MG/D5W RTU 600 MG/50 ML RTUPB IV SCH (21:28)
[2018-06-28] MEDS ORDERED: CLINDAMYCIN 300 MG/D5W RTU 300 MG/50 ML RTUPB IV SCH (22:00)
[2018-06-29] MEDS: LANSOPRAZOLE 30 MG TAB.RAP.DR PO SCH (05:01)
[2018-06-29] MEDS: MORPHINE SULFATE 10 MG/ML INJ IV PRN ×3 (05:02→14:33)
[2018-06-29] MEDS: CLINDAMYCIN 600 MG/D5W RTU 600 MG/50 ML RTUPB IV SCH ×2 (05:02→14:10)
[2018-06-29] MEDS: ENOXAPARIN SODIUM INJ 30 MG/0.3 ML DISP.SYRIN SUBCUT SCH (09:16)
[2018-06-29] MEDS: NORMAL SALINE 10 ML SDV (SCHEDULED) IV SCH (09:21)
[2018-06-29 16:50] VITALS: BP 169/77
== END 2018-06-29 17:30 | disposition home health service (06) | DRG 854 ==
LOC: ER 15:14 → EH 17:46 → 5 06-19 06:49
PROVIDERS: ADMIT Internal Medicine; ATTEND Internal Medicine
PROC: 0KBP0ZZ Excision of Left Hip Muscle, Open Approach (ICD-10-PCS; 2018-06-19)
PROC: 0KBN0ZZ Excision of Right Hip Muscle, Open Approach (ICD-10-PCS; 2018-06-19)
PROC: B518ZZA Fluoroscopy of Superior Vena Cava, Guidance (ICD-10-PCS; 2018-06-19)
PROC: 02HV33Z Insertion of Infusion Device into Superior Vena Cava, Percutaneous Approach (ICD-10-PCS; 2018-06-19)
PROC: B548ZZA Ultrasonography of Superior Vena Cava, Guidance (ICD-10-PCS; 2018-06-19)
PROC: 0QB10ZZ Excision of Sacrum, Open Approach (ICD-10-PCS; 2018-06-23)
PROC: 0QB10ZZ Excision of Sacrum, Open Approach (ICD-10-PCS; principal; 2018-06-24 11:30)
DX: A41.9 Sepsis, unspecified organism (principal); T81.4XXA Infection following a procedure, initial encounter; L98.423 Non-pressure chronic ulcer of back with necrosis of muscle; B96.6 Bacteroides fragilis [B. fragilis] as the cause of diseases classified elsewhere; B95.7 Other staphylococcus as the cause of diseases classified elsewhere; I10 Essential (primary) hypertension; K21.9 Gastro-esophageal reflux disease without esophagitis; M19.90 Unspecified osteoarthritis, unspecified site; F32.9 Major depressive disorder, single episode, unspecified; Z96.652 Presence of left artificial knee joint; F17.210 Nicotine dependence, cigarettes, uncomplicated; T21.24XD Burn of second degree of lower back, subsequent encounter; W01.0XXD Fall on same level from slipping, tripping and stumbling without subsequent striking against object, subsequent encounter; E11.42 Type 2 diabetes mellitus with diabetic polyneuropathy; G47.00 Insomnia, unspecified; Z96.641 Presence of right artificial hip joint; E11.622 Type 2 diabetes mellitus with other skin ulcer; L98.493 Non-pressure chronic ulcer of skin of other sites with necrosis of muscle; Z88.0 Allergy status to penicillin; Z88.8 Allergy status to other drugs, medicaments and biological substances; Z91.041 Radiographic dye allergy status; Z88.6 Allergy status to analgesic agent; Z79.899 Other long term (current) drug therapy
CPT/HCPCS: 1120; 300; 36415; 36430; 36569; 72190; 76937; 77001; 80048; 80061; 80076; 80202; 81001; 82140; 82150; 82550; 82553; 82565; 82962; 83036; 83605; 83735; 84100; 84439; 84443; 85025; 85027; 86850; 86900; 86901; 86920; 87040; 87070; 87075; 87077; 87186; 87205; 88304; 93005; 93010; 99284; J0131; J0330; J1100; J1642; J1650; J2250; J2270; J2405; J2543; J2704; J3010; J3370; J3480; J3490; J7030; J7060; P9016

== ENCOUNTER → 2018-08-22 | Outpatient (CLI) | payer SELFPAY ==
--- NOTE | 2018-08-22 12:45 | RADIOLOGY REPORT (SQ) ---
EXAM DESCRIPTION: PELVIS AP COMPLETED DATE/TIME: 08/22/2018 11:51 am REASON FOR STUDY: PRESSURE ULCER OF SACRAL REGION, STAGE 4 L89.154 PRESSURE ULCER OF SACRAL REGION, STAGE 4 COMPARISON: 06/19/2018, 05/08/2018, 06/13/2016, 11/29/2013 NUMBER OF VIEWS: One view TECHNIQUE: AP Pelvis LIMITATIONS: None. FINDINGS: MINERALIZATION: Osteopenic HIPS: No acute fracture or dislocation. No worrisome bone lesions. PELVIS AND SACRUM: No acute fracture or dislocation. No worrisome bone lesions. PUBIS AND ISCHIUM: No acute fracture. LOWER LUMBAR SPINE: No significant findings as visualized. SOFT TISSUES: No findings. OTHER: There is a right total hip replacement with acetabular component anchored with a single screw. No lucency around the hardware worrisome for loosening IMPRESSION: Old right hip replacement. No aggressive bony demineralization worrisome for osteomyelitis TECHNICAL DOCUMENTATION: JOB ID: [id number] [email or web address] All Rights Reserved Reading location - IP/workstation name: [email or web address]
[2018-08-22 13:42] LABS: ABSOLUTE BASOPHILS # (AUTO) 0.1 10^3/uL (0.0-0.2); ABSOLUTE EOSINOPHILS # (AUTO) 0.1 10^3/uL (0.0-0.6); ABSOLUTE LYMPHOCYTES (AUTO) 2.3 10^3/uL (0.5-4.7); ABSOLUTE MONOCYTES (AUTO) 0.5 10^3/uL (0.1-1.4); ABSOLUTE NEUT (AUTO) 5.8 10^3/uL (1.7-8.2); BASOPHILS % (AUTO) 1.4 % (0-2); HEMATOCRIT 32.2 % (36.0-47.0); HEMOGLOBIN 10.9 g/dL (12.0-15.5); LYMPHOCYTES % (AUTO) 26.6 % (13-45); MEAN CORPUSCULAR HGB CONC 33.7 g/dL (32.0-36.0); MEAN CORPUSCULAR VOLUME 80 fl (80-97); MONOCYTES % (AUTO) 5.2 % (3-13); PLATELET COUNT 297 10^3/uL (150-450); RED BLOOD COUNT 4.01 10^6/uL (3.72-5.28); RED CELL DISTRIBUTION WIDTH 17.4 % (11.5-14.0); SEGMENTED NEUTROPHILS % (AUTO) 65.8 % (42-78); TOTAL CELLS COUNTED % (AUTO) 100 %; WHITE BLOOD COUNT 8.8 10^3/uL (4.0-10.5)
[2018-08-22 14:16] LABS: ALANINE AMINOTRANSFERASE 19 U/L (9-52); ALBUMIN 3.9 g/dL (3.5-5.0); ALKALINE PHOSPHATASE 85 U/L (38-126); ANION GAP 12 (5-19); ASPARTATE AMINO TRANSFERASE 19 U/L (14-36); BILIRUBIN,DIRECT 0.2 mg/dL (0.0-0.4); BILIRUBIN,TOTAL 0.3 mg/dL (0.2-1.3); BLOOD UREA NITROGEN 7 mg/dL (7-20); C-REACTIVE PROTEIN 21.6 mg/L (<10.0); CALCIUM 9.5 mg/dL (8.4-10.2); CARBON DIOXIDE 25 mmol/L (22-30); CHLORIDE 101 mmol/L (98-107); GLUCOSE 80 mg/dL (75-110); POTASSIUM 3.6 mmol/L (3.6-5.0); SODIUM 138.4 mmol/L (137-145); TOTAL PROTEIN 7.4 g/dL (6.3-8.2)
[2018-08-22 14:24] LABS: ERYTHROCYTE SEDIMENTATION RATE 63 mm/hr (0-30)
== END ==
LOC: OD 11:35
PROVIDERS: ATTEND Nurse Practitioner
DX: E11.621 Type 2 diabetes mellitus with foot ulcer (principal); L89.154 Pressure ulcer of sacral region, stage 4
CPT/HCPCS: 36415; 72170; 80053; 83036; 85025; 85652; 86140

== ENCOUNTER 2018-09-18 12:16 | Emergency (ER) | payer SELFPAY ==
--- NOTE | 2018-09-18 14:04 | ER Document Report ---
HPI - HPI Patient complains to provider of: recheck wound Onset: Other - 08/04 Onset/Duration: Gradual Pain Level: 5 Context: 53 yo female c/o pain to her chronic sacral ulcer that is tx at the wound care clinic. Wants it to be checked. No fever. Associated Symptoms: None Exacerbated by: Sitting Relieved by: Denies - ROS ROS below otherwise negative: Yes Systems Reviewed and Negative: Yes All other systems reviewed and negative - REPRODUCTIVE Reproductive: DENIES: : Past Medical History - General Information source: Patient - Social History Smoking Status: Current Every Day Smoker Lives with: Family Family History: Reviewed & Not Pertinent - Past Medical History Cardiac Medical History: Reports: Hx Hypertension - 15 yrs-takes meds Pulmonary Medical History: Reports: Hx Pneumonia - 2013 X2 Endocrine Medical History: Reports: Hx Diabetes Mellitus Type 2 Malignancy Medical History: GI Medical History: Reports: Hx Gastroesophageal Reflux Disease - 2 yrs-takes meds Musculoskeletal Medical History: Reports Hx Arthritis, Reports Hx Fibromyalgia - 3 years Psychiatric Medical History: Reports: Hx Depression Past Surgical History: Reports: Hx Breast Surgery - breast reduction, Hx Orthopedic Surgery - left knee, rt hip replaced - Immunizations Immunizations up to date: Yes Hx Diphtheria, Pertussis, Tetanus Vaccination: Yes Hx Pneumococcal Vaccination: 11/13/09 Vertical Provider Document - CONSTITUTIONAL Agree With Documented VS: Yes Exam Limitations: No Limitations General Appearance: No Apparent Distress - INFECTION CONTROL TRAVEL OUTSIDE OF THE [place] IN LAST 30 DAYS: No - NEURO Level of Consciousness: Alert - 8 cm irregularly Motor/Sensory: No Motor Deficit, No Sensory Deficit - DERM Notes: 8 cm oval sacral wound with exudate, tissue filling in, looks healthy Course - Re-evaluation Re-evalutation: 09/18/18 15:14 pt has not had dressing change of xray yet. 09/18/18 15:55 X-rays negative per radiologist, patient wants to go back to work tomorrow 09/18/18 16:00 - Vital Signs Vital signs: Temp Pulse Resp BP Pulse Ox 98.4 F 74 14 154/77 H 96 09/18/18 12:22 09/18/18 12:22 09/18/18 12:22 09/18/18 12:22 09/18/18 12:22 Discharge - Discharge Clinical Impression: dressing changer coccyx Contusion Qualifiers: Encounter type: initial encounter Contusion area: lower back Qualified Code(s) : S30.0XXA - Contusion of lower back and pelvis, initial encounter Condition: Good Disposition: HOME, SELF-CARE Instructions: Contusion ([facility]), Dressing Instructions for Open Wounds ([facility]) Additional Instructions: Shower with antibacterial soap and water daily with packing See the wound care clinic as planned Tylenol up to 4000 mg a day for pain Return to the emergency room for any worsening of the symptoms Wound culture is pending Prescriptions: Tramadol HCl [Ultram 50 mg Tablet] 50 mg PO ASDIR PRN #15 tablet PRN Reason: Forms: Return to Work Referrals: MARY CARLISLE, INSTRUCTOR [employer]ITT[employer] [ALLIED HEALTH PROFESSIONAL] - Follow up as needed
[2018-09-18] MEDS ORDERED: ACETAMINOPHEN 325 MG TABLET PO ONE (14:20)
--- NOTE | 2018-09-18 15:51 | RADIOLOGY REPORT (SQ) ---
EXAM DESCRIPTION: SACRUM AND COCCYX COMPLETED DATE/TIME: 09/18/2018 3:43 pm REASON FOR STUDY: fall, increased pain COMPARISON: None. NUMBER OF VIEWS: Three views. TECHNIQUE: AP, lateral, and tilt views of the sacrum and coccyx. LIMITATIONS: None. FINDINGS: MINERALIZATION: Normal. BONES: No acute fracture or dislocation. No worrisome bone lesions. SOFT TISSUES: No soft tissue swelling. No foreign body. OTHER: No other significant finding. IMPRESSION: NEGATIVE STUDY OF THE SACRUM AND COCCYX. TECHNICAL DOCUMENTATION: JOB ID: [id number] [employer]- All Rights Reserved Reading location - IP/workstation name: [email or web address]
[2018-09-18 16:19] VITALS: BP 140/80
== END 2018-09-18 16:19 | disposition home or self-care (01) ==
LOC: ER 12:16
DX: S31.000D Unspecified open wound of lower back and pelvis without penetration into retroperitoneum, subsequent encounter (principal); I10 Essential (primary) hypertension; E11.9 Type 2 diabetes mellitus without complications; X58.XXXD Exposure to other specified factors, subsequent encounter
CPT/HCPCS: 72220; 87070; 87077; 87186; 87205; 99283

== ENCOUNTER 2018-10-02 05:57 | Emergency (ER) | payer SELFPAY ==
[2018-10-02] MEDS ORDERED: MORPHINE SULFATE 10 MG/ML INJ IV ONE ×2 (06:58→09:32)
--- NOTE | 2018-10-02 07:11 | ER Document Report ---
ED General - General Chief Complaint: Hip Pain Stated Complaint: HIP AND BACK PAIN Time Seen by Provider: 10/02/18 06:38 TRAVEL OUTSIDE OF THE [place] IN LAST 30 DAYS: No - HPI Notes: Patient is a 53-year-old female that presents to the emergency department for chief complaint of sacral wound pain. Patient has had a chronic wound over her sacrum since surgery back in June. She is not sure what exactly the surgery was that she had done initially or who her surgeon was. The wound had been followed by the wound clinic until 3 weeks ago when she ran out of insurance. She states that she has had increased pain and drainage from the wound over the last few days. She has been taking Tylenol with minimal relief of her pain. She states it is more painful when she sits on the wound or is up walking around. She states it is a sharp pain. Past Medical History: Diabetes, hypertension Past Surgical History: Back surgery Social History: Daily tobacco, denies drugs and alcohol Family History: Reviewed and noncontributory for presenting illness Allergies: Reviewed, see documented allergy list. REVIEW OF SYSTEMS: CONSTITUTIONAL : No fever No chills No diaphoresis No recent illness EENT: No vision changes No congestion No sore throat CARDIOVASCULAR: No chest pain No palpitations RESPIRATORY: No shortness of breath No cough No difficulty breathing GASTROINTESTINAL: No abdominal pain No nausea No vomiting No diarrhea GENITOURINARY: No dysuria No hematuria No difficulty urinating MUSCULOSKELETAL: back pain No leg pain No arm pain SKIN: No rashes sacral lesions LYMPHATIC: No swollen, enlarged glands. NEUROLOGICAL: No lightheadedness No headache No weakness No paresthesias PSYCHIATRIC: No anxiety No depression PHYSICAL EXAMINATION: Vital signs reviewed, nursing noted reviewed. GENERAL: Well-appearing, well-nourished and in no acute distress. HEAD: Atraumatic, normocephalic. EYES: Eyes appear normal, extraocular movements intact, sclera anicteric, conjunctiva are normal. ENT: nares patent, oropharynx clear without exudates. Moist mucous membranes. NECK: Normal range of motion, supple without lymphadenopathy LUNGS: Breath sounds clear to auscultation bilaterally and equal. No wheezes rales or rhonchi. HEART: Regular rate and rhythm without murmurs ABDOMEN: Soft, nontender, normoactive bowel sounds. No rebound, guarding, or rigidity. No masses appreciated. EXTREMITIES: Nontender, good range of motion, no pitting or edema. NEUROLOGICAL: No focal neurological deficits. Moves all extremities spontaneously Motor and sensory grossly intact on exam. PSYCH: Normal mood, normal affect. SKIN: Warm, Dry, normal turgor. chronic full-thickness sacral wound with overlying granulous tissue, no surrounding erythema, no crepitus. - Related Data Allergies/Adverse Reactions: etodolac [From Lodine] Allergy (Severe, Verified 09/18/18 12:24) Itchiness Penicillins Allergy (Severe, Verified 09/18/18 12:24) Hives Iodinated Contrast- Oral and IV Dye [IV Dye, Iodine Containing] Allergy (Mild, Verified 09/18/18 12:24) Pruritis aspirin [Aspirin] Adverse Reaction (Mild, Verified 09/18/18 12:24) GI upset Past Medical History - Social History Smoking Status: Unknown if Ever Smoked Chew tobacco use (# tins/day): No Frequency of alcohol use: None Drug Abuse: None Family History: Reviewed & Not Pertinent Patient has suicidal ideation: No Patient has homicidal ideation: No - Past Medical History Cardiac Medical History: Reports: Hx Hypertension - 17 yrs-takes meds Denies: Hx Atrial Fibrillation, Hx Congestive Heart Failure, Hx Coronary Artery Disease, Hx Heart Attack, Hx Hypercholesterolemia, Hx Peripheral Vascular Disease, Hx Pulmonary Embolism, Hx Heart Murmur Pulmonary Medical History: Reports: Hx Pneumonia - 2013 X2 Denies: Hx Asthma, Hx Bronchitis, Hx COPD, Hx Respiratory Failure, Hx Sleep Apnea, Hx Tuberculosis Neurological Medical History: Denies: Hx Cerebrovascular Accident, Hx Seizures Endocrine Medical History: Reports: Hx Diabetes Mellitus Type 2. Denies: Hx Graves' Disease, Hx Hyperthyroidism, Hx Hypothyroidism Renal/ Medical History: Denies: Hx Peritoneal Dialysis Malignancy Medical History: Denies: Hx Lung Cancer GI Medical History: Reports: Hx Gastroesophageal Reflux Disease - 2 yrs-takes meds. Denies: Hx Crohn's Disease, Hx Hiatal Hernia, Hx Irritable Bowel, Hx Liver Failure, Hx Pancreatitis, Hx Ulcer Musculoskeletal Medical History: Reports Hx Arthritis, Reports Hx Fibromyalgia - 3 years, Denies Hx Multiple Sclerosis, Denies Hx Muscular Dystrophy Psychiatric Medical History: Reports: Hx Depression Denies: Hx Bipolar Disorder, Hx Dementia, Hx Post Traumatic Stress Disorder, Hx Schizophrenia Traumatic Medical History: Denies: Hx Fractures Past Surgical History: Reports: Hx Breast Surgery - breast reduction, Hx Orthopedic Surgery - left knee, rt hip replaced. Denies: Hx Appendectomy, Hx Bowel Surgery, Hx Section, Hx Cholecystectomy, Hx Colostomy, Hx Coronary Artery Bypass Graft, Hx Gastric Bypass Surgery, Hx Herniorrhaphy, Hx Hysterectomy, Hx Mastectomy, Hx Pacemaker, Hx Tonsillectomy, Hx Tubal Ligation - Immunizations Immunizations up to date: Yes Hx Diphtheria, Pertussis, Tetanus Vaccination: Yes Hx Pneumococcal Vaccination: 11/13/09 Review of Systems - Review of Systems Notes: Dictated Physical Exam - Vital signs Vitals: Temp Pulse Resp BP Pulse Ox 98.1 F 80 18 171/85 H 98 10/02/18 05:58 10/02/18 05:58 10/02/18 05:58 10/02/18 05:58 10/02/18 05:58 - Notes Notes: Dictated Course - Re-evaluation Re-evalutation: 10/02/18 07:11 Vitals reviewed. Nursing notes reviewed. Patient given pain medication. 10/02/18 09:37 Patient reevaluated and did have improvement of her pain. She is still feeling uncomfortable and will be given a repeat dose of morphine. X-ray shows no signs of osteomyelitis or deeper wound. She has no superficial erythema or signs of infection. Lab work was initially ordered however after 8 tries to draw blood with no success patient is now refusing further blood draw attempts. I feel it is reasonable to forego lab work since patient has no sirs criteria and is nontoxic-appearing. She will follow closely with her primary care doctor for wound reevaluation. She was encouraged to continue pursuing insurance so she can get back into wound management. She was counseled on symptoms to return to the emergency room and verbalized understanding. She was discharged in stable condition. Sacrum and Coccyx X-Ray 10/02/18 07:37 IMPRESSION: No radiographic abnormality of the sacrum or coccyx; evaluation is somewhat limited by large burden of stool in the colon and rectum. There is no evidence of bony erosion or sclerosis to suggest osteomyelitis. MRI is more sensitive for the evaluation of bone marrow edema if osteomyelitis is suspected. - Vital Signs Vital signs: Temp Pulse Resp BP Pulse Ox 98.1 F 80 18 171/85 H 98 10/02/18 05:58 10/02/18 05:58 10/02/18 05:58 10/02/18 05:58 10/02/18 05:58 Discharge - Discharge Clinical Impression: Sacral wound Qualifiers: Encounter type: initial encounter Qualified Code(s): S31.000A - Unspecified open wound of lower back and pelvis without penetration into retroperitoneum, initial encounter Condition: Stable Disposition: HOME, SELF-CARE Instructions: Delayed Wound Closure ([facility]) Additional Instructions: Please return to the emergency department if you have any worsening, or concern of your symptoms. Please return to the emergency department if you develop chest pain, difficulty breathing, severe abdominal pain, or ongoing vomiting. Please follow-up with your primary care physician in 2-3 days and any other recommended physicians. If prescribed, take all medications as directed. If you have any questions or concerns do not hesitate to return the emergency department for evaluation. Continue pursuing health insurance and return to wound management physician care. Forms: Return to Work Referrals: OSCAR ADAMS MD [Primary Care Provider] - Follow up in 3-5 days
--- NOTE | 2018-10-02 09:05 | RADIOLOGY REPORT (SQ) ---
EXAM DESCRIPTION: SACRUM AND COCCYX COMPLETED DATE/TIME: 10/02/2018 8:54 am REASON FOR STUDY: sacral wound COMPARISON: 09/18/2018 NUMBER OF VIEWS: Three views. TECHNIQUE: AP, lateral, and tilt views of the sacrum and coccyx. LIMITATIONS: Overlying stool FINDINGS: MINERALIZATION: Osteopenia. BONES: No acute fracture or dislocation. No evidence of bony erosion or sclerosis. No worrisome bon e lesions. Evaluation of the sacrum and frontal views is limited by burden of dense stool in the col on and rectum. SOFT TISSUES: No soft tissue swelling. No foreign body. OTHER: No other significant finding. IMPRESSION: No radiographic abnormality of the sacrum or coccyx; evaluation is somewhat limited by l arge burden of stool in the colon and rectum. There is no evidence of bony erosion or sclerosis to s uggest osteomyelitis. MRI is more sensitive for the evaluation of bone marrow edema if osteomyelitis is suspected. TECHNICAL DOCUMENTATION: JOB ID: [id number] [employer]- All Rights Reserved Reading location - IP/workstation name: [email or web address]
[2018-10-02 10:02] VITALS: BP 140/76
== END 2018-10-02 10:02 | disposition home or self-care (01) ==
LOC: ER 05:57
DX: S31.000A Unspecified open wound of lower back and pelvis without penetration into retroperitoneum, initial encounter (principal); X58.XXXA Exposure to other specified factors, initial encounter; I10 Essential (primary) hypertension; E11.9 Type 2 diabetes mellitus without complications; Z98.890 Other specified postprocedural states; Z88.0 Allergy status to penicillin; Z88.6 Allergy status to analgesic agent; Z96.641 Presence of right artificial hip joint
CPT/HCPCS: 96376; 99283; 96374; 72220; J2270

== ENCOUNTER 2018-12-20 10:40 | Emergency (ER) | payer BC ==
--- NOTE | 2018-12-20 11:11 | ER Document Report ---
ED Medical Screen (RME) - General Chief Complaint: Numbness Stated Complaint: HEADACHE Time Seen by Provider: 12/20/18 10:58 Primary Care Provider: OSCAR ADAMS MD [Primary Care Provider] - Follow up as needed Mode of Arrival: Ambulatory Information source: Patient Notes: Patient is a 53-year-old female who presents to the emergency department complaining of left-sided numbness. She reports numbness from her face down to her foot on the left side. Patient denies any weakness. She states she has a history of mini strokes. Patient reports she woke up with the symptoms at 3:00 this morning. She ambulated into the emergency department with multimedia assistant an even and steady gait. Exam: Heart sounds S1-S2 present. Lung sounds clear to auscultation bilaterally. 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 I have greeted and performed a rapid initial assessment of this patient. A comprehensive ED assessment and evaluation of the patient, analysis of test results and completion of the medical decision making process will be conducted by additional ED providers. Dictation of this chart was performed using voice recognition software; therefore, there may be some unintended grammatical errors. TRAVEL OUTSIDE OF THE [place] IN LAST 30 DAYS: No - Related Data Allergies/Adverse Reactions: etodolac [From Lodine] Allergy (Severe, Verified 12/20/18 10:51) Itchiness Penicillins Allergy (Severe, Verified 12/20/18 10:51) Hives Iodinated Contrast- Oral and IV Dye [IV Dye, Iodine Containing] Allergy (Mild, Verified 12/20/18 10:51) Pruritis aspirin [Aspirin] Adverse Reaction (Mild, Verified 12/20/18 10:51) GI upset Past Medical History - Past Medical History Cardiac Medical History: Reports: Hx Hypertension - 17 yrs-takes meds Denies: Hx Atrial Fibrillation, Hx Congestive Heart Failure, Hx Coronary Artery Disease, Hx Heart Attack, Hx Hypercholesterolemia, Hx Peripheral Vascular Disease, Hx Pulmonary Embolism, Hx Heart Murmur Pulmonary Medical History: Reports: Hx Pneumonia - 2013 X2 Denies: Hx Asthma, Hx Bronchitis, Hx COPD, Hx Respiratory Failure, Hx Sleep Apnea, Hx Tuberculosis Neurological Medical History: Denies: Hx Cerebrovascular Accident, Hx Seizures Endocrine Medical History: Reports: Hx Diabetes Mellitus Type 2. Denies: Hx Graves' Disease, Hx Hyperthyroidism, Hx Hypothyroidism Renal/ Medical History: Denies: Hx Peritoneal Dialysis Malignancy Medical History: Denies: Hx Lung Cancer GI Medical History: Reports: Hx Gastroesophageal Reflux Disease - 2 yrs-takes meds. Denies: Hx Crohn's Disease, Hx Hiatal Hernia, Hx Irritable Bowel, Hx Liver Failure, Hx Pancreatitis, Hx Ulcer Musculoskeltal Medical History: Reports Hx Arthritis, Reports Hx Fibromyalgia - 3 years, Denies Hx Multiple Sclerosis, Denies Hx Muscular Dystrophy Psychiatric Medical History: Reports: Hx Depression Denies: Hx Bipolar Disorder, Hx Dementia, Hx Post Traumatic Stress Disorder, Hx Schizophrenia Traumatic Medical History: Denies: Hx Fractures Past Surgical History: Reports: Hx Breast Surgery - breast reduction, Hx Orthopedic Surgery - left knee, rt hip replaced. Denies: Hx Appendectomy, Hx Bowel Surgery, Hx Section, Hx Cholecystectomy, Hx Colostomy, Hx Coronary Artery Bypass Graft, Hx Gastric Bypass Surgery, Hx Herniorrhaphy, Hx Hysterectomy, Hx Mastectomy, Hx Pacemaker, Hx Tonsillectomy, Hx Tubal Ligation - Immunizations Immunizations up to date: Yes Hx Diphtheria, Pertussis, Tetanus Vaccination: Yes Physical Exam - Vital signs Vitals: Temp Pulse Resp BP Pulse Ox 97.9 F 77 20 171/87 H 98 12/20/18 10:54 12/20/18 10:54 12/20/18 10:54 12/20/18 10:54 12/20/18 10:54 Course - Vital Signs Vital signs: Temp Pulse Resp BP Pulse Ox 97.9 F 77 20 171/87 H 98 12/20/18 10:54 12/20/18 10:54 12/20/18 10:54 12/20/18 10:54 12/20/18 10:54 Doctor's Discharge - Discharge Referrals: OSCAR ADAMS MD [Primary Care Provider] - Follow up as needed
--- NOTE | 2018-12-20 12:10 | RADIOLOGY REPORT (SQ) ---
EXAM DESCRIPTION: CHEST SINGLE VIEW COMPLETED DATE/TIME: 12/20/2018 11:53 am REASON FOR STUDY: altered sensation left side COMPARISON: 07/21/2018 EXAM PARAMETERS: NUMBER OF VIEWS: One view. TECHNIQUE: Single frontal radiographic view of the chest acquired. RADIATION DOSE: NA LIMITATIONS: None. FINDINGS: LUNGS AND PLEURA: No opacities, masses or pneumothorax. No pleural effusion. Linear atele ctasis right base. MEDIASTINUM AND HILAR STRUCTURES: No masses. Contour normal. HEART AND VASCULAR STRUCTURES: Heart normal in size. Normal vasculature. BONES: No acute findings. HARDWARE: None in the chest. OTHER: No other significant finding. IMPRESSION: Linear atelectasis at the right lung base. TECHNICAL DOCUMENTATION: JOB ID: [id number] [employer]- All Rights Reserved Reading location - IP/workstation name: [email or web address]
--- NOTE | 2018-12-20 12:16 | RADIOLOGY REPORT (SQ) ---
EXAM DESCRIPTION: CT HEAD WITHOUT COMPLETED DATE/TIME: 12/20/2018 12:06 pm REASON FOR STUDY: altered sensation left side COMPARISON: 05/11/2018 TECHNIQUE: Axial images acquired through the brain without intravenous contrast. Images reviewed wi th bone, brain and subdural windows. Additional sagittal and coronal reconstructions were generated. Images stored on PACS. All CT scanners at this facility use dose modulation, iterative reconstruction, and/or weight based d osing when appropriate to reduce radiation dose to as low as reasonably achievable (ALARA). [facility]: Dose Right [facility]: CareDose [facility]: Dose Right [facility]: Teradose 4D [facility]: Smart Black[employer] RADIATION DOSE: CT Rad equipment meets quality standard of care and radiation dose reduction techniq ues were employed. CTDIvol: 53.2 mGy. DLP: 991 mGy-cm. mGy. LIMITATIONS: None. FINDINGS: VENTRICLES: Normal size and contour. CEREBRUM: No masses. No hemorrhage. No midline shift. No evidence for acute infarction. Normal gra y/white matter differentiation. No areas of low density in the white matter. CEREBELLUM: No masses. No hemorrhage. No alteration of density. No evidence for acute infarction. EXTRAAXIAL SPACES: No fluid collections. No masses. ORBITS AND GLOBE: No intra- or extraconal masses. Normal contour of globe without masses. CALVARIUM: No fracture. PARANASAL SINUSES: No fluid or mucosal thickening. SOFT TISSUES: No mass or hematoma. OTHER: No other significant finding. IMPRESSION: NORMAL BRAIN CT WITHOUT CONTRAST. EVIDENCE OF ACUTE STROKE: NO. COMMENT: Quality ID # [id number]: Final reports with documentation of one or more dose reduction techniques (e.g., Automated exposure control, adjustment of the mA and/or kV according to patient size, use of iterative reconstruction technique) TECHNICAL DOCUMENTATION: JOB ID: [id number] [employer]- All Rights Reserved Reading location - IP/workstation name: [email or web address]
[2018-12-20 12:38] LABS: INTERNATIONAL RATION (INR) 0.94
[2018-12-20 12:39] LABS: PARTIAL THROMBOPLASTIN TIME 28.9 SEC (23.5-35.8)
[2018-12-20 12:40] LABS: ABSOLUTE EOSINOPHILS # (AUTO) 0.1 10^3/uL (0.0-0.6); LYMPHOCYTES % (AUTO) 23.1 % (13-45); MEAN CORPUSCULAR VOLUME 86 fl (80-97); TOTAL CELLS COUNTED % (AUTO) 100 %
[2018-12-20 12:44] LABS: ABSOLUTE BASOPHILS # (AUTO) 0.1 10^3/uL (0.0-0.2); ABSOLUTE LYMPHOCYTES (AUTO) 1.7 10^3/uL (0.5-4.7); ABSOLUTE MONOCYTES (AUTO) 0.6 10^3/uL (0.1-1.4); BASOPHILS % (AUTO) 0.8 % (0-2); HEMATOCRIT 38.7 % (36.0-47.0); HEMOGLOBIN 13.2 g/dL (12.0-15.5); MEAN CORPUSCULAR HEMOGLOBIN 29.4 pg (27.0-33.4); MEAN CORPUSCULAR HGB CONC 34.1 g/dL (32.0-36.0); MONOCYTES % (AUTO) 8.1 % (3-13); PLATELET COUNT 317 10^3/uL (150-450); RED BLOOD COUNT 4.49 10^6/uL (3.72-5.28); RED CELL DISTRIBUTION WIDTH 14.4 % (11.5-14.0); WHITE BLOOD COUNT 7.5 10^3/uL (4.0-10.5)
[2018-12-20 12:55] LABS: ALANINE AMINOTRANSFERASE 11 U/L (9-52); ALBUMIN 4.8 g/dL (3.5-5.0); ALKALINE PHOSPHATASE 99 U/L (38-126); ANION GAP 11 (5-19); ASPARTATE AMINO TRANSFERASE 34 U/L (14-36); BILIRUBIN,DIRECT 0.3 mg/dL (0.0-0.4); BILIRUBIN,TOTAL 0.4 mg/dL (0.2-1.3); BLOOD UREA NITROGEN 13 mg/dL (7-20); CALCIUM 9.7 mg/dL (8.4-10.2); CARBON DIOXIDE 30 mmol/L (22-30); CHLORIDE 103 mmol/L (98-107); CREATINE KINASE 88 U/L (30-135); GLUCOSE 111 mg/dL (75-110); POTASSIUM 3.7 mmol/L (3.6-5.0); SODIUM 143.5 mmol/L (137-145); TOTAL PROTEIN 8.4 g/dL (6.3-8.2)
[2018-12-20 13:07] LABS: CREATINE KINASE MB 0.79 ng/mL (<4.55)
[2018-12-20 13:10] LABS: TROPONIN I < 0.012 ng/mL
[2018-12-20 15:32] LABS: APPEARANCE,URINE CLEAR; BILIRUBIN,URINE NEGATIVE (NEGATIVE); COLOR,URINE STRAW; GLUCOSE, URINE NEGATIVE (NEGATIVE); KETONES,URINE NEGATIVE (NEGATIVE); LEUKOCYTE ESTERASE,URINE NEGATIVE (NEGATIVE); NITRITE,URINE NEGATIVE (NEGATIVE); PROTEIN,URINE NEGATIVE (NEGATIVE); URINE SPECIFIC GRAVITY 1.004; UROBILINOGEN,URINE NEGATIVE mg/dL (<2.0)
[2018-12-20] MEDS ORDERED: NORMAL SALINE 1000 ML 1,000 ML IV ONE (16:46)
[2018-12-20] MEDS ORDERED: METOCLOPRAMIDE HCL INJ/PF 10 MG/2 ML SDV IV ONE (16:46)
[2018-12-20] MEDS ORDERED: DIPHENHYDRAMINE HCL 50 MG/ML VIAL IV ONE (16:46)
--- NOTE | 2018-12-20 16:53 | ER Document Report ---
ED General - General Chief Complaint: Numbness Stated Complaint: HEADACHE Time Seen by Provider: 12/20/18 10:58 Primary Care Provider: OSCAR ADAMS MD [Primary Care Provider] - Follow up as needed Mode of Arrival: Ambulatory Information source: Patient, [facility], [facility] Records Notes: 53-year-old female with hypertension, diabetes, GERD, fibromyalgia, previous history of TIAs presents with multiple complaints including headache, left sided facial numbness, left arm numbness and left leg numbness that was present upon awakening this morning. Patient also states that she awoke to left-sided flank pain that she describes as sharp, intermittent. Patient denies any aggravating or alleviating factors. Patient also complaining of right hand pain that she states is chronic. Patient does report a recent upper respiratory infection with nasal congestion, sore throat and cough. She denies any fever, chills, nausea, vomiting, chest pain, shortness of breath, abdominal pain. Patient's primary care physician is Dr. Adams. She does admit to smoking a pack of cigarettes every other day. TRAVEL OUTSIDE OF THE [place] IN LAST 30 DAYS: No - HPI Onset: This morning Onset/Duration: Sudden Quality of pain: Burning, Sharp Associated symptoms: Nonproductive cough, Headache, Rhinnorhea, Sore throat. denies: Fever, Nausea, Vomiting Exacerbated by: Denies Relieved by: Denies Similar symptoms previously: Yes Recently seen / treated by doctor: Yes - Related Data Allergies/Adverse Reactions: etodolac [From Lodine] Allergy (Severe, Verified 12/20/18 10:51) Itchiness Penicillins Allergy (Severe, Verified 12/20/18 10:51) Hives Iodinated Contrast- Oral and IV Dye [IV Dye, Iodine Containing] Allergy (Mild, Verified 12/20/18 10:51) Pruritis aspirin [Aspirin] Adverse Reaction (Mild, Verified 12/20/18 10:51) GI upset Past Medical History - General Information source: Patient - Social History Smoking Status: Current Every Day Smoker Cigarette use (# per day): Yes - 10 Chew tobacco use (# tins/day): No Smoking Education Provided: Yes - Smoking cessation counseling was provided for 4 minutes at the bedside Frequency of alcohol use: None Drug Abuse: None Lives with: Family Family History: Reviewed & Not Pertinent Patient has suicidal ideation: No Patient has homicidal ideation: No - Past Medical History Cardiac Medical History: Reports: Hx Hypertension - 17 yrs-takes meds Denies: Hx Atrial Fibrillation, Hx Congestive Heart Failure, Hx Coronary Artery Disease, Hx Heart Attack, Hx Hypercholesterolemia, Hx Peripheral Vascular Disease, Hx Pulmonary Embolism, Hx Heart Murmur Pulmonary Medical History: Reports: Hx Pneumonia - 2013 X2 Denies: Hx Asthma, Hx Bronchitis, Hx COPD, Hx Respiratory Failure, Hx Sleep Apnea, Hx Tuberculosis Neurological Medical History: Denies: Hx Cerebrovascular Accident, Hx Seizures Endocrine Medical History: Reports: Hx Diabetes Mellitus Type 2. Denies: Hx Graves' Disease, Hx Hyperthyroidism, Hx Hypothyroidism Renal/ Medical History: Denies: Hx Peritoneal Dialysis Malignancy Medical History: Denies: Hx Lung Cancer GI Medical History: Reports: Hx Gastroesophageal Reflux Disease - 2 yrs-takes meds. Denies: Hx Crohn's Disease, Hx Hiatal Hernia, Hx Irritable Bowel, Hx Liver Failure, Hx Pancreatitis, Hx Ulcer Musculoskeletal Medical History: Reports Hx Arthritis, Reports Hx Fibromyalgia - 3 years, Denies Hx Multiple Sclerosis, Denies Hx Muscular Dystrophy Psychiatric Medical History: Reports: Hx Depression Denies: Hx Bipolar Disorder, Hx Dementia, Hx Post Traumatic Stress Disorder, Hx Schizophrenia Traumatic Medical History: Denies: Hx Fractures Past Surgical History: Reports: Hx Breast Surgery - breast reduction, Hx Orthopedic Surgery - left knee, rt hip replaced. Denies: Hx Appendectomy, Hx Bowel Surgery, Hx Section, Hx Cholecystectomy, Hx Colostomy, Hx Coronary Artery Bypass Graft, Hx Gastric Bypass Surgery, Hx Herniorrhaphy, Hx Hysterectomy, Hx Mastectomy, Hx Pacemaker, Hx Tonsillectomy, Hx Tubal Ligation - Immunizations Immunizations up to date: Yes Hx Diphtheria, Pertussis, Tetanus Vaccination: Yes Hx Pneumococcal Vaccination: 11/13/09 Review of Systems - Review of Systems Notes: REVIEW OF SYSTEMS: CONSTITUTIONAL : Denies fever, chills, or sweats. Denies weight loss, recent hospitalizations. EENT: Denies visual changes, eye pain. Denies oral lesions, difficulty swallowing. CARDIOVASCULAR: Denies chest pain. Denies palpitations. Denies lower extremity edema. RESPIRATORY: Denies shortness of breath, wheezing. GASTROINTESTINAL: Denies abdominal pain or distention. Denies nausea, vomiting, or diarrhea. Denies blood in vomitus, stools, or per rectum. Denies black, tarry stools. Denies constipation. GENITOURINARY: Denies difficulty urinating, painful urination, frequency, blood in urine, or vaginal discharge. MUSCULOSKELETAL: Denies neck pain or stiffness. Denies joint pain or swelling. SKIN: Denies rash, lesions or sores. HEMATOLOGIC : Denies easy bruising or bleeding. LYMPHATIC: Denies swollen glands. NEUROLOGICAL: Denies confusion or altered mental status. Denies loss of consciousness. Denies dizziness or lightheadedness. Denies weakness or paralysis. Denies problems difficulty with ambulation, slurred speech. Denies seizures. PSYCHIATRIC: Denies anxiety or stress. Denies depression, suicidal ideation, or homicidal ideation. Denies visual or auditory hallucinations. Physical Exam - Vital signs Vitals: Temp Pulse Resp BP Pulse Ox 97.9 F 77 20 171/87 H 98 12/20/18 10:54 12/20/18 10:54 12/20/18 10:54 12/20/18 10:54 12/20/18 10:54 - Notes Notes: PHYSICAL EXAMINATION: GENERAL: Well-appearing, well-nourished and in no acute distress. HEAD: Atraumatic, normocephalic. EYES: Pupils equal round and reactive to light, extraocular movements intact, conjunctiva are normal. ENT: Nares patent, oropharynx clear without exudates. Moist mucous membranes. NECK: Normal range of motion, supple without lymphadenopathy LUNGS: Breath sounds clear to auscultation bilaterally and equal. No wheezes rales or rhonchi. HEART: Regular rate and rhythm without murmurs ABDOMEN: Soft, nontender, nondistended abdomen. No guarding, no rebound. No masses appreciated. Female : deferred Musculoskeletal: Normal range of motion, no pitting or edema. No cyanosis. Left sided paraspinal tenderness of the lumbar spine. NEUROLOGICAL: Cranial nerves grossly intact. Normal speech, normal gait. Normal sensory, motor exams.Mental status; alert and oriented x3. Cranial nerves II through XII intact. Sensation intact to sharp/dull differentiation in all extremities. Motor; normal tone. No abnormal movements appreciated. No pronator drift. Strength tested and 5/5 in bilateral wrist flexion/extension, elbow flexion/extension, shoulder abduction, straight leg raise, knee flexion/extension, ankle dorsiflexion/plantar flexion. Patient ambulates with a steady gait.Coordination; no ataxia. Finger to nose and heel to mcamhon testing intact bilaterally. Reflexes; brachial radialis, biceps, and patellar reflexes within normal limits and symmetric bilaterally. Babinski with downgoing toes bilaterally. NIH 0 PSYCH: Normal mood, normal affect. SKIN: Warm, Dry, normal turgor, no rashes or lesions noted. Course - Re-evaluation Re-evalutation: Temp Pulse Resp BP Pulse Ox 97.9 F 77 20 171/87 H 98 12/20/18 10:54 12/20/18 10:54 12/20/18 10:54 12/20/18 10:54 12/20/18 10:54 Chest X-Ray 12/20/18 11:04 IMPRESSION: Linear atelectasis at the right lung base. Head CT 12/20/18 11:04 IMPRESSION: NORMAL BRAIN CT WITHOUT CONTRAST. EVIDENCE OF ACUTE STROKE: NO. Head MRI 12/20/18 16:45 IMPRESSION: Areas of high signal on FLAIR imaging in the white matter, slightly progressed from previous, most typical small vessel ischemia. No acute intracranial process. EVIDENCE OF ACUTE STROKE: NO. Limited or Localized CT 12/20/18 16:45 IMPRESSION: Prominent left renal pelvis, possibly due to recently passed stone. No urinary tract stones identified. 12/20/18 16:52 53-year-old female presents with multiple complaints including headache, left- sided paresthesias, right hand pain, left flank pain that all started this morning upon awakening. Vital signs reviewed upon arrival and patient is afebrile, hypertensive but not hypoxic or tachycardic. NIH was performed and 0. Exam is significant for left flank tenderness. Patient ambulates without difficulty. Headache is described as generalized, aching and without associated nausea, vomiting, photophobia. Patient received Reglan, Benadryl, IV fluids for her headache. CT of the head was reviewed and showed no acute process. Significant lab findings include urinalysis with hematuria. Will get MRI of the head due to patient's previous history of TIA. Will obtain CT of the abdomen without contrast to the patient's left CVA tenderness and hematuria. 12/21/18 01:46 MRI of the brain showed no evidence of acute stroke. CT of the abdomen was significant for a prominent left renal pelvis possibly due to a recent passed stone. This would be the reason that patient has blood in her urine. Patient was reevaluated multiple times and every time she is sleeping peacefully but awakes and complains of pain. Findings were discussed with the patient. Advised to follow-up with her primary care physician Dr. Adams. Patient was evaluated and treated as appropriate for the patient's presenting symptoms and complaint, with consideration of any critical or life threatening conditions that may be associated with their obtained history and exam as noted above. All results were discussed with patient. Patient provided the opportunity to ask questions, and express concerns. Patient was educated on treatments based on their presumed diagnosis as noted above. At this time we will discharge the patient with return precautions and follow-up recommendations. Verbal discharge instructions given a the bedside. Medication warnings reviewed. Patient is in agreement with this plan and has verbalized understanding of return precautions. After careful consideration I feel that that patient can be safely discharged from the emergency department, they were advised to followup with a primary care physician in 2-3 days. Dictation on this chart was performed using voice recognition software and may result in unintended grammatical, spelling, syntax or errors. - Vital Signs Vital signs: Temp Pulse Resp BP Pulse Ox 97.8 F 72 14 135/77 H 95 12/20/18 20:25 12/20/18 20:25 12/20/18 20:25 12/20/18 20:25 12/20/18 20:25 - Laboratory Result Diagrams: 12/20/18 12:23 12/20/18 12:23 Laboratory results interpreted by me: 12/20/18 12/20/18 12/20/18 12:23 12:23 15:02 RDW 14.4 H Glucose 111 H Total Protein 8.4 H Urine Blood SMALL H - Diagnostic Test Radiology reviewed: Image reviewed, Reports reviewed Discharge - Discharge Clinical Impression: Paresthesia, Elevated blood pressure reading, Left flank pain, Suspect recent kidney stone Hematuria Qualifiers: Hematuria type: unspecified type Qualified Code(s): R31.9 - Hematuria, unspecified Condition: Good Disposition: HOME, SELF-CARE Instructions: Flank Pain ([facility]), Headache ([facility]), Hematuria ([facility]), Kidney Stone ([facility]), Numbness or Paresthesia ([facility]) Additional Instructions: Your MRI today showed no evidence of acute stroke. Your CAT scan is suspicious for a recently passed kidney stone which would explain the blood found in your urine. Smoking cessation is advised. Please talk to your primary care physician regarding help with quitting smoking. Prescriptions: Diazepam [Valium 5 mg Tablet] 5 mg PO QIDP PRN #10 tablet PRN Reason: spasm Forms: Elevated Blood Pressure, Smoking Cessation Education, Return to Work Referrals: OSCAR ADAMS MD [Primary Care Provider] - Follow up as needed
--- NOTE | 2018-12-20 17:21 | RADIOLOGY REPORT (SQ) ---
EXAM DESCRIPTION: CT LTD RENAL STONE PROTOCOL ON COMPLETED DATE/TIME: 12/20/2018 5:09 pm REASON FOR STUDY: left flank pain hematuria COMPARISON: 08/15/2017. TECHNIQUE: CT scan of the abdomen and pelvis performed without intravenous or oral contrast. Images reviewed with lung, soft tissue, and bone windows. Reconstructed coronal and sagittal MPR images revi ewed. All images stored on PACS. All CT scanners at this facility use dose modulation, iterative reconstruction, and/or weight based d osing when appropriate to reduce radiation dose to as low as reasonably achievable (ALARA). [facility]: Dose Right [facility]: CareDose [facility]: Dose Right [facility]: Teradose 4D [facility]: [employer] RADIATION DOSE: CT Rad equipment meets quality standard of care and radiation dose reduction techniq ues were employed. CTDIvol: 9.1 mGy. DLP: 489 mGy-cm.mGy. LIMITATIONS: Right hip arthroplasty. FINDINGS: LOWER CHEST: Stable subcentimeter nodule left lower lobe. NON-CONTRASTED LIVER, SPLEEN, ADRENALS: Evaluation limited by lack of IV contrast. No identified sign ificant masses. PANCREAS: No masses. No peripancreatic inflammatory changes. GALLBLADDER: No identified stones by CT criteria. No inflammatory changes to suggest cholecystitis. RIGHT KIDNEY AND URETER: No suspicious masses. Assessment limited by lack of IV contrast. No signif icant calcifications. No hydronephrosis or hydroureter. LEFT KIDNEY AND URETER: No suspicious masses. Assessment limited by lack of IV contrast. No signifi cant calcifications. Prominent renal pelvis. AORTA AND RETROPERITONEUM: No aneurysm. No retroperitoneal masses or adenopathy. BOWEL AND PERITONEAL CAVITY: No obvious masses or inflammatory changes. No free fluid. APPENDIX: Normal. PELVIS, BLADDER, AND ABDOMINAL WALL:No abnormal masses. No free fluid. Bladder normal. BONES: No significant findings. OTHER: No other significant finding. IMPRESSION: Prominent left renal pelvis, possibly due to recently passed stone. No urinary tract st ones identified. COMMENT: Quality ID # [id number]: Final reports with documentation of one or more dose reduction techniques (e.g., Automated exposure control, adjustment of the mA and/or kV according to patient size, use of iterative reconstruction technique) TECHNICAL DOCUMENTATION: JOB ID: [id number] [employer]- All Rights Reserved Reading location - IP/workstation name: [email or web address]
[2018-12-20] MEDS ORDERED: MORPHINE SULFATE 10 MG/ML INJ IV ONE (18:40)
--- NOTE | 2018-12-20 19:21 | RADIOLOGY REPORT (SQ) ---
EXAM DESCRIPTION: MRI HEAD WITHOUT COMPLETED DATE/TIME: 12/20/2018 7:06 pm REASON FOR STUDY: headache parasthesia COMPARISON: 05/16/2018, CT scan 12/20/2018 TECHNIQUE: Multiplanar imaging includes non-contrasted T1, T2, FLAIR, and diffusion with ADC map seq uences. Images stored on PACS. LIMITATIONS: None. FINDINGS: ANATOMY: No anomalies. Normal vascular flow voids. Pituitary fossa normal. CSF SPACES: Normal in size and contour. No hemorrhage. CEREBRUM: There scattered areas of high signal intensity in the periventricular white matter most typ ical small vessel ischemic change. Slightly progressed from previous. No masses. No hemorrhage. POSTERIOR FOSSA: Foci of signal alteration in the juan again most typical small vessel ischemic spence e. Progressed from previous. . No hemorrhage. No edema, masses or mass effect. Internal auditory c anals, cerebello-pontine angles, mastoids normal. DIFFUSION IMAGING: Negative for acute or sub-acute infarction. ORBITS: No masses. Globes normal. PARANASAL SINUSES: No fluid levels. Mucosa normal. OTHER: No other significant finding. IMPRESSION: Areas of high signal on FLAIR imaging in the white matter, slightly progressed from prev ious, most typical small vessel ischemia. No acute intracranial process. EVIDENCE OF ACUTE STROKE: NO. TECHNICAL DOCUMENTATION: JOB ID: [id number] [employer]- All Rights Reserved Reading location - IP/workstation name: [email or web address]
[2018-12-20] MEDS ORDERED: DIAZEPAM 5 MG TABLET PO ONE (19:47)
[2018-12-20 20:40] VITALS: BP 135/77
--- NOTE | 2018-12-21 13:59 | EKG REPORT ---
SEVERITY:- BORDERLINE ECG - SINUS RHYTHM LVH BY VOLTAGE : Confirmed by: Jorge Strong 21-Dec-2018 13:58:57
== END 2018-12-20 20:40 | disposition home or self-care (01) ==
LOC: ER 10:40
DX: R20.2 Paresthesia of skin (principal); R51 Headache; R20.0 Anesthesia of skin; R31.9 Hematuria, unspecified; R10.9 Unspecified abdominal pain; I10 Essential (primary) hypertension; F17.210 Nicotine dependence, cigarettes, uncomplicated; E11.9 Type 2 diabetes mellitus without complications; K21.9 Gastro-esophageal reflux disease without esophagitis; Z86.73 Personal history of transient ischemic attack (TIA), and cerebral infarction without residual deficits
CPT/HCPCS: 93005; 99284; 96361; 96374; 96375; 36415; 82553; 82550; 85025; 85610; 85730; 80053; 81001; 84484; 70551; 71045; 70450; 76380; 93010; J1200; J2765; J2270; J7030

== ENCOUNTER 2019-01-07 06:59 | Emergency (ER) | payer BC ==
[2019-01-07 09:24] LABS: APPEARANCE,URINE SLIGHTLY-CLOUDY; BILIRUBIN,URINE NEGATIVE (NEGATIVE); COLOR,URINE YELLOW; GLUCOSE, URINE NEGATIVE (NEGATIVE); KETONES,URINE NEGATIVE (NEGATIVE); LEUKOCYTE ESTERASE,URINE NEGATIVE (NEGATIVE); NITRITE,URINE NEGATIVE (NEGATIVE); PROTEIN,URINE NEGATIVE (NEGATIVE); URINE SPECIFIC GRAVITY 1.009; UROBILINOGEN,URINE NEGATIVE mg/dL (<2.0)
--- NOTE | 2019-01-07 09:46 | RADIOLOGY REPORT (SQ) ---
EXAM DESCRIPTION: HIP RIGHT AP/LATERAL COMPLETED DATE/TIME: 01/07/2019 9:32 am REASON FOR STUDY: pain, fall COMPARISON: 07/20/2007, 08/22/2018 hip and pelvis films NUMBER OF VIEWS: Two views. TECHNIQUE: AP pelvis and additional frog-leg view of the right hip. LIMITATIONS: None. FINDINGS: MINERALIZATION: Normal. RIGHT HIP: No fracture or dislocation. Right total hip replacement with acetabular component anchore d with a screw. LEFT HIP: No fracture or dislocation. Mild left hip joint space narrowing and acetabular rim bony sp urring. PUBIS AND ISCHIUM: No fracture. PELVIS: No fracture. SACRUM: No fracture or dislocation. No worrisome bone lesions. LOWER LUMBAR SPINE: Bilateral facet arthropathy at L4-5 and L5-S1 SOFT TISSUES: No findings. OTHER: No other significant finding. IMPRESSION: No acute fracture or malalignment. Right hip prosthesis in good alignment. TECHNICAL DOCUMENTATION: JOB ID: [id number] [employer]- All Rights Reserved Reading location - IP/workstation name: [email or web address]
--- NOTE | 2019-01-07 09:49 | RADIOLOGY REPORT (SQ) ---
EXAM DESCRIPTION: L SPINE WHOLE COMPLETED DATE/TIME: 01/07/2019 9:32 am REASON FOR STUDY: pain, fall COMPARISON: CT abdomen pelvis 05/12/2018 Lumbar spine plain films 04/11/2018 NUMBER OF VIEWS: Five views including obliques. TECHNIQUE: AP, lateral, oblique, and sacral radiographic images acquired of the lumbar spine. LIMITATIONS: None. FINDINGS: MINERALIZATION: Normal. SEGMENTATION: Normal. No transitional anatomy. ALIGNMENT: Grade 1 anterolisthesis of L4 over L5 related to advanced facet arthropathy VERTEBRAE: Maintained height. No fracture or worrisome bone lesion. DISCS: Disc space loss of height at L4-5 POSTERIOR ELEMENTS: Bilateral facet arthropathy most pronounced at L4-5, but also seen at L3-4 and L5 -S1. No acute fracture HARDWARE: None in the spine. PARASPINAL SOFT TISSUES: Normal. PELVIS: SI joints intact. Pelvis not included in the field of view OTHER: No other significant finding. IMPRESSION: Degenerative grade 1 anterolisthesis of L5 over S1. TECHNICAL DOCUMENTATION: JOB ID: [id number] [employer] All Rights Reserved Reading location - IP/workstation name: [email or web address]
[2019-01-07 09:59] LABS: ABSOLUTE BASOPHILS # (AUTO) 0.1 10^3/uL (0.0-0.2); ABSOLUTE LYMPHOCYTES (AUTO) 1.5 10^3/uL (0.5-4.7); ABSOLUTE MONOCYTES (AUTO) 0.5 10^3/uL (0.1-1.4); ABSOLUTE NEUT (AUTO) 7.1 10^3/uL (1.7-8.2); BASOPHILS % (AUTO) 0.7 % (0-2); EOSINOPHILS % (AUTO) 0.4 % (0-6); HEMATOCRIT 35.8 % (36.0-47.0); HEMOGLOBIN 12.1 g/dL (12.0-15.5); MEAN CORPUSCULAR HEMOGLOBIN 29.6 pg (27.0-33.4); MEAN CORPUSCULAR VOLUME 87 fl (80-97); MONOCYTES % (AUTO) 5.4 % (3-13); PLATELET COUNT 289 10^3/uL (150-450); RED BLOOD COUNT 4.11 10^6/uL (3.72-5.28); RED CELL DISTRIBUTION WIDTH 14.2 % (11.5-14.0); SEGMENTED NEUTROPHILS % (AUTO) 77.5 % (42-78); TOTAL CELLS COUNTED % (AUTO) 100 %; WHITE BLOOD COUNT 9.2 10^3/uL (4.0-10.5)
[2019-01-07 10:24] LABS: ALANINE AMINOTRANSFERASE 37 U/L (9-52); ALBUMIN 4.3 g/dL (3.5-5.0); ALKALINE PHOSPHATASE 108 U/L (38-126); ANION GAP 8 (5-19); ASPARTATE AMINO TRANSFERASE 55 U/L (14-36); BILIRUBIN,DIRECT 0.1 mg/dL (0.0-0.4); BILIRUBIN,TOTAL 0.3 mg/dL (0.2-1.3); BLOOD UREA NITROGEN 9 mg/dL (7-20); CALCIUM 9.5 mg/dL (8.4-10.2); CARBON DIOXIDE 36 mmol/L (22-30); CHLORIDE 97 mmol/L (98-107); CREATINE KINASE 1216 U/L (30-135); GLUCOSE 114 mg/dL (75-110); POTASSIUM 3.3 mmol/L (3.6-5.0); TOTAL PROTEIN 7.8 g/dL (6.3-8.2)
[2019-01-07 10:39] LABS: TROPONIN I < 0.012 ng/mL
[2019-01-07] MEDS ORDERED: 1/2 NORMAL SALINE 1,000 ML IV ONE (10:55)
[2019-01-07] MEDS ORDERED: POTASSIUM CHLORIDE 20 MEQ/15 ML UDCUP PO ONE (10:56)
--- NOTE | 2019-01-07 12:37 | ER Document Report ---
ED General - General Chief Complaint: Back Pain Stated Complaint: BACK PAIN Time Seen by Provider: 01/07/19 08:25 Primary Care Provider: OSCAR ADAMS MD [Primary Care Provider] - Follow up as needed TRAVEL OUTSIDE OF THE [place] IN LAST 30 DAYS: No - HPI Notes: Patient presents emergency department for evaluation. She states she fell 3 times yesterday. She complains of pain in her left lower back and her right hip. She cannot tell me why she fell down. She denies any preceding symptoms. She states she had that in the past when she was covered in "spider bites." She denies any rashes or apparent bites at this time. She has not tried anything for her pain. She denies ever hitting her head or losing consciousness. She has no neck pain. She is taking her medications as prescribed. Further describe her pain for me. - Related Data Allergies/Adverse Reactions: etodolac [From Lodine] Allergy (Severe, Verified 12/20/18 10:51) Itchiness Penicillins Allergy (Severe, Verified 12/20/18 10:51) Hives Iodinated Contrast- Oral and IV Dye [IV Dye, Iodine Containing] Allergy (Mild, Verified 12/20/18 10:51) Pruritis aspirin [Aspirin] Adverse Reaction (Mild, Verified 12/20/18 10:51) GI upset Past Medical History - General Information source: Patient - Social History Smoking Status: Current Every Day Smoker Frequency of alcohol use: None Drug Abuse: None Family History: Reviewed & Not Pertinent Patient has suicidal ideation: No Patient has homicidal ideation: No - Past Medical History Cardiac Medical History: Reports: Hx Hypertension - 15 yrs-takes meds Denies: Hx Atrial Fibrillation, Hx Congestive Heart Failure, Hx Coronary Artery Disease, Hx Heart Attack, Hx Hypercholesterolemia, Hx Peripheral Vascular Disease, Hx Pulmonary Embolism, Hx Heart Murmur Pulmonary Medical History: Reports: Hx Pneumonia - 2013 X2 Denies: Hx Asthma, Hx Bronchitis, Hx COPD, Hx Respiratory Failure, Hx Sleep Apnea, Hx Tuberculosis Neurological Medical History: Denies: Hx Cerebrovascular Accident, Hx Seizures Endocrine Medical History: Reports: Hx Diabetes Mellitus Type 2. Denies: Hx Graves' Disease, Hx Hyperthyroidism, Hx Hypothyroidism Renal/ Medical History: Denies: Hx Peritoneal Dialysis Malignancy Medical History: Denies: Hx Lung Cancer GI Medical History: Reports: Hx Gastroesophageal Reflux Disease - 2 yrs-takes meds. Denies: Hx Crohn's Disease, Hx Hiatal Hernia, Hx Irritable Bowel, Hx Karrie er Failure, Hx Pancreatitis, Hx Ulcer Musculoskeletal Medical History: Reports Hx Arthritis, Reports Hx Fibromyalgia - 3 years, Denies Hx Multiple Sclerosis, Denies Hx Muscular Dystrophy Psychiatric Medical History: Reports: Hx Depression Denies: Hx Bipolar Disorder, Hx Dementia, Hx Post Traumatic Stress Disorder, Hx Schizophrenia Traumatic Medical History: Denies: Hx Fractures Past Surgical History: Reports: Hx Breast Surgery - breast reduction, Hx Orthopedic Surgery - left knee, rt hip replaced. Denies: Hx Appendectomy, Hx Bowel Surgery, Hx Section, Hx Cholecystectomy, Hx Colostomy, Hx Coronary Artery Bypass Graft, Hx Gastric Bypass Surgery, Hx Herniorrhaphy, Hx Hysterectomy, Hx Mastectomy, Hx Pacemaker, Hx Tonsillectomy, Hx Tubal Ligation - Immunizations Immunizations up to date: Yes Hx Diphtheria, Pertussis, Tetanus Vaccination: Yes Hx Pneumococcal Vaccination: 11/13/09 Review of Systems - Review of Systems Constitutional: Weakness EENT: No symptoms reported Cardiovascular: No symptoms reported Respiratory: No symptoms reported Gastrointestinal: No symptoms reported Genitourinary: No symptoms reported Musculoskeletal: See HPI Skin: No symptoms reported Neurological/Psychological: No symptoms reported Physical Exam - Vital signs Vitals: Temp Pulse Resp BP Pulse Ox 97.5 F 98 16 184/94 H 94 01/07/19 07:06 01/07/19 07:06 01/07/19 07:06 01/07/19 07:06 01/07/19 07:06 Interpretation: Hypertensive - Blood pressure at the time of my evaluation was 155/94 - Notes Notes: Vital signs reviewed, please refer to chart. Patient is normocephalic, atraumatic. Pupils equal round, reactive to light. Neck is supple without meningismus. Heart is regular rate and rhythm. Lungs are clear to auscultation bilaterally. Abdomen is soft, nontender, normoactive bowel sounds throughout. Extremities without cyanosis, clubbing, edema. Peripheral pulses are equal. Skin is warm and dry. Patient is awake, alert, oriented x3. Cranial nerves II through XII are grossly intact without focal neurological deficits. Strength is plus 5 out of 5 bilateral upper and lower extremity. Sensations intact. Gait is within normal limits. Reflexes are symmetrical. Examination of the spine notes no midline tenderness or step-off. She has mild paraspinal musculature tenderness noted at L4-L5. She has some tenderness to palpation over the right greater trochanter. No real pain with passive or active range of motion including flexion, extension, internal and external rotation. Dorsalis pedis pulses 1+ bilaterally. Course - Re-evaluation Re-evalutation: 01/07/19 12:35 Patient presents emergency department for evaluation of back pain and right hip pain after a fall. I am concerned about the etiology of her falls. Workup was ordered. She does have a mildly elevated CK. She was given IV fluids. Her creatinine was normal. Her gait improved here and she was able to ambulate without any difficulty. I do not have a clear etiology as to why she has had so many falls. Certainly her CK is elevated and is assisted with that. She was given IV fluids, half-normal because of her sodium level. She is feeling improved here. I spoke with Dr. Adams about this patient. He will see her in the office. She is to take Tylenol at home as needed for pain, return to the emergency department with worsening or new concerning symptoms of any sort. She is told she needs to stay well-hydrated and voiced understanding to this. 01/07/19 12:37 - Vital Signs Vital signs: Temp Pulse Resp BP Pulse Ox 97.5 F 82 17 161/87 H 97 01/07/19 11:54 01/07/19 10:11 01/07/19 12:00 01/07/19 12:00 01/07/19 12:00 - Laboratory Result Diagrams: 01/07/19 09:43 01/07/19 09:43 Laboratory results interpreted by me: 01/07/19 01/07/19 01/07/19 08:49 09:43 09:43 Hct 35.8 L RDW 14.2 H Potassium 3.3 L Chloride 97 L Carbon Dioxide 36 H Glucose 114 H AST 55 H Creatine Kinase 1216 H CK-MB (CK-2) Urine Blood SMALL H 01/07/19 09:43 Hct RDW Potassium Chloride Carbon Dioxide Glucose AST Creatine Kinase CK-MB (CK-2) 12.80 H Urine Blood - Diagnostic Test Radiology reviewed: Reports reviewed - No acute findings - EKG Interpretation by Me Additional EKG results interpreted by me: 01/07/19 12:40 Sinus mechanism with rate of 84 bpm. Normal axis and intervals, no acute ST changes concerning for ischemia or infarction. Discharge - Discharge Clinical Impression: Multiple falls, Rhabdomyolysis, Low back pain, Right hip pain Condition: Stable Disposition: HOME, SELF-CARE Instructions: Low Back Pain ([facility]), Muscle Strain ([facility]) Additional Instructions: Stay well-hydrated. Follow-up with Dr. Adams this week. Take Tylenol as n eeded for pain. If you develop worsening or new concerning symptoms of any sort, return to the emergency department for evaluation. Referrals: OSCAR ADAMS MD [Primary Care Provider] - Follow up as needed
[2019-01-07 12:47] VITALS: BP 147/87
--- NOTE | 2019-01-09 10:24 | EKG REPORT ---
SEVERITY:- ABNORMAL ECG - SINUS RHYTHM CONSIDER LEFT VENTRICULAR HYPERTROPHY : Confirmed by: Jorge Strong 09-Jan-2019 10:24:28
== END 2019-01-07 12:56 | disposition home or self-care (01) ==
LOC: ER 06:59
DX: M62.82 Rhabdomyolysis (principal); M54.5 Low back pain; M25.551 Pain in right hip; W19.XXXA Unspecified fall, initial encounter; Z91.81 History of falling; F17.200 Nicotine dependence, unspecified, uncomplicated; I10 Essential (primary) hypertension; E11.9 Type 2 diabetes mellitus without complications; Z88.0 Allergy status to penicillin; Z88.6 Allergy status to analgesic agent; Z96.652 Presence of left artificial knee joint; Z96.641 Presence of right artificial hip joint
CPT/HCPCS: 36415; 72110; 80053; 81001; 82550; 82553; 84484; 85025; 93005; 93010; 96360; 99284

== ENCOUNTER 2019-06-18 09:10 | Emergency (ER) | payer SELFPAY ==
[2019-06-18] MEDS ORDERED: ACETAMINOPHEN 325 MG TABLET PO ONE (09:54)
--- NOTE | 2019-06-18 10:00 | ER Document Report ---
HPI - HPI Time Seen by Provider: 06/18/19 09:45 Pain Level: 4 Notes: Patient is a 53-year-old female with history of hypertension, diabetes, fiber myalgia, GERD, depression who presents complaining of generalized body pain status post fall 2 days ago. Patient states that she fell off of her trailer home roof and landed primarily on her back. She did not hit her head or lose consciousness. Patient states that she has been able to ambulate since then without difficulties. She did vomit twice initially which is since resolved. Patient is continued to complain of a frontal headache. Patient is also complaining of bilateral elbow pain which are what helped brace her fall as well. She has been able to eat and drink without difficulty. She is urinating normally and having normal bowel movements. She has not noticed any blood anywhere. She has not noticed any areas of swelling or bruising. Patient states that most of the soreness developed as the days went on. Her main areas of pain she is concerned about is her rt buttock/hip area, head, and elbows b/l. No LOC or head injury. Pt has had an occ cough over the past 4-5 days as well. Denies any fever, head injury, neck pain, changes in vision/speech/mentation/hearing, URI, sore throat, chest pain, palpitations, syncope, shortness of breath, wheeze, dyspnea, abdominal pain, nausea/vomiting/diarrhea, urinary retention, dysuria, hematuria, loss of control of bowel or bladder, numbness/tingling, saddle anesthesia, muscle paralysis/weakness, or rash. - ROS Systems Reviewed and Negative: Yes All other systems reviewed and negative - RESPIRATORY Respiratory: REPORTS: Coughing - REPRODUCTIVE Reproductive: DENIES: : - MUSCULOSKELETAL Musculoskeletal: REPORTS: Extremity pain Past Medical History - Social History Smoking Status: Current Every Day Smoker Frequency of alcohol use: None Drug Abuse: None Family History: Reviewed & Not Pertinent Patient has suicidal ideation: No Patient has homicidal ideation: No - Past Medical History Cardiac Medical History: Reports: Hx Hypertension - 17 yrs-takes meds Denies: Hx Atrial Fibrillation, Hx Congestive Heart Failure, Hx Coronary Artery Disease, Hx Heart Attack, Hx Hypercholesterolemia, Hx Peripheral Vascular Disease, Hx Pulmonary Embolism, Hx Heart Murmur Pulmonary Medical History: Reports: Hx Pneumonia - 2013 X2 Denies: Hx Asthma, Hx Bronchitis, Hx COPD, Hx Respiratory Failure, Hx Sleep Apnea, Hx Tuberculosis Neurological Medical History: Denies: Hx Cerebrovascular Accident, Hx Seizures Endocrine Medical History: Reports: Hx Diabetes Mellitus Type 2. Denies: Hx Gra ves' Disease, Hx Hyperthyroidism, Hx Hypothyroidism Renal/ Medical History: Denies: Hx Peritoneal Dialysis Malignancy Medical History: Denies: Hx Lung Cancer GI Medical History: Reports: Hx Gastroesophageal Reflux Disease - 2 yrs-takes meds. Denies: Hx Crohn's Disease, Hx Hiatal Hernia, Hx Irritable Bowel, Hx Liver Failure, Hx Pancreatitis, Hx Ulcer Musculoskeletal Medical History: Reports Hx Arthritis, Reports Hx Fibromyalgia - 3 years, Denies Hx Multiple Sclerosis, Denies Hx Muscular Dystrophy, Denies Hx Systemic Lupus Erythematosus Psychiatric Medical History: Reports: Hx Depression Denies: Hx Bipolar Disorder, Hx Dementia, Hx Post Traumatic Stress Disorder, Hx Schizophrenia Traumatic Medical History: Denies: Hx Fractures Past Surgical History: Reports: Hx Breast Surgery - breast reduction, Hx Orthopedic Surgery - left knee, rt hip replaced. Denies: Hx Appendectomy, Hx Bowel Surgery, Hx Section, Hx Cholecystectomy, Hx Colostomy, Hx Coronary Artery Bypass Graft, Hx Gastric Bypass Surgery, Hx Herniorrhaphy, Hx Hysterectomy, Hx Mastectomy, Hx Pacemaker, Hx Tonsillectomy, Hx Tubal Ligation - Immunizations Immunizations up to date: Yes Hx Diphtheria, Pertussis, Tetanus Vaccination: Yes Hx Pneumococcal Vaccination: 11/13/09 Vertical Provider Document - CONSTITUTIONAL Agree With Documented VS: Yes Notes: PHYSICAL EXAMINATION: accompanied by female nurse GENERAL: Well-appearing, well-nourished and in no acute distress. A&Ox4. Answers questions appropriately. HEAD: Atraumatic, normocephalic. Non-tender. No peters sign EYES: Pupils equal round and reactive to light, extraocular movements intact, sclera anicteric, conjunctiva are normal. No raccoon eyes/entrapment ENT: EAC clear b/l. TM's intact b/l without erythema, fluid, or perforation. Nares patent and without discharge. oropharynx clear without exudates. No tonsilar hypertrophy or erythema. Moist mucous membranes. No sinus tenderness. No hemotympanum/CSF discharge. NECK: Normal range of motion, supple without lymphadenopathy. No rigidity. No midline tenderness. Chest: No flail chest. equal rise/fall. Non-tender LUNGS: Breath sounds clear to auscultation bilaterally and equal. No wheezes rales or rhonchi. HEART: Regular rate and rhythm without murmurs, rubs, gallops. ABDOMEN: Soft, nontender, nondistended abdomen. No guarding, no rebound. No masses appreciated. Normal bowel sounds present. No CVA tenderness b ilaterally. No ecchymosis Musculoskeletal: Ext's b/l: FROM to passive/active. Strength 5+/5. No deficits noted. No bony tenderness of extremities. Back: FROM to passive/active. Strength 5+/5. No vertebral point tenderness, stepoffs, or deformities. SLR negative b/l. + mild tenderness to the rt posterior lateral hip. Extremities: No cyanosis, clubbing, or edema b/l. Peripheral pulses 2+. Capillary refill less than 2 seconds. NEUROLOGICAL: NIH 0. GCS 15. Cranial nerves grossly intact. Normal speech, normal gait. Normal sensory, motor exams. Reflexes 2+ b/l. MARY's negative. Pronator drift negative. Heel/mcmahon, finger/nose wnl. PSYCH: Normal mood, normal affect. SKIN: Warm, Dry, normal turgor, no rashes or lesions noted. - INFECTION CONTROL TRAVEL OUTSIDE OF THE [place] IN LAST 30 DAYS: No Course - Re-evaluation Re-evalutation: 06/18/19 10:57 Patient is an afebrile, well-hydrated, 53-year-old female who presents to the ED with rt hip pain, bilateral elbow pain, cough, and headache suspect contusions and viral cough. Vitals are acceptable without any significant tachycardia, tachypnea, or hypoxia. PE is otherwise unremarkable for any focal neurological deficits, neurovascular compromise, obvious tendon/ligament rupture, obvious fracture/dislocation, septic joint. Extensive imaging was unremarkable for acute pathology including CT scan of the head/cervical spine, x-rays of the elbows, chest x-ray, and pelvis x-ray. No other labs or imaging warranted at this time based on H&P. NIH 0, GCS 15, cranial nerves grossly intact. Patient is nontoxic-appearing and is tolerating p.o. without any difficulties. Patient is ambulating without any difficulties around the waiting room and in the exam room. Low suspicion for any meningitis, fracture, expanding/ruptured AAA, cauda equina syndrome, epidural mass lesion/abscess, herniated disc causing severe s adrian stenosis, acute intracranial process, or other systemic infection at this time. Patient is aware that this condition can change from initial presentation and that she needs monitor symptoms closely for any acute changes. I will send her home with a prescription for robaxin and lidoderm patches. Conservative measures otherwise for symptoms. Recheck with your PCM in 3-5 days. Consider consult with orthopedic/physical therapy. Return to the ED with any worsening/concerning symptoms otherwise as reviewed in discharge. Patient is in agreement. - Vital Signs Vital signs: Temp Pulse Resp BP Pulse Ox 97.5 F 81 16 132/83 H 100 06/18/19 09:15 06/18/19 09:15 06/18/19 09:15 06/18/19 09:15 06/18/19 09:15 Discharge - Discharge Clinical Impression: Pain of both elbows, Cough, Right buttock pain Headache Qualifiers: Headache type: unspecified Headache chronicity pattern: acute headache Intractability: not intractable Qualified Code(s): R51 - Headache Condition: Stable Disposition: HOME, SELF-CARE Additional Instructions: Rest, Ice, Compression, Elevation Tylenol/ibuprofen as needed Light stretches daily Strength exercises as able Moist heat and massage may help F/u with your PCP in 3-5 days for a recheck Consider consult(s) with Orthopedics/physical therapy for ongoing/worsening symptoms Return to the ED with any worsening symptoms and/or development of fever, headache, changes in behavior/mentation/vision/speech, chest pain, palpitations, syncope, shortness of breath, trouble breathing, abdominal pain, n/v/d, blood in stool/urine, loss of control of bowel/bladder, urinary retention, muscle weakness/paralysis, saddle anesthesia, numbness/tingling, or other worsening symptoms that are concerning to you. Prescriptions: Lidocaine [Lidoderm 5% (700 mg) Transdermal Patch] 1 patch TP DAILY #10 adh..patch Methocarbamol [Robaxin] 500 mg PO TID PRN #12 tablet PRN Reason: Forms: Elevated Blood Pressure, Smoking Cessation Education Referrals: OSCAR ADAMS MD [Primary Care Provider] - Follow up as needed [facility] [Provider Group] - Follow up as needed
--- NOTE | 2019-06-18 10:29 | RADIOLOGY REPORT (SQ) ---
EXAM DESCRIPTION: CT HEAD WITHOUT COMPLETED DATE/TIME: 06/18/2019 10:16 am REASON FOR STUDY: PARKER/injury s/p fall COMPARISON: 12/20/2018 TECHNIQUE: Axial images acquired through the brain without intravenous contrast. Images reviewed wi th bone, brain and subdural windows. Additional sagittal and coronal reconstructions were generated. Images stored on PACS. All CT scanners at this facility use dose modulation, iterative reconstruction, and/or weight based d osing when appropriate to reduce radiation dose to as low as reasonably achievable (ALARA). [facility]: Dose Right [facility]: CareDose [facility]: Dose Right [facility]: Teradose 4D [facility]: [employer] RADIATION DOSE: CT Rad equipment meets quality standard of care and radiation dose reduction techniq ues were employed. CTDIvol: 53.2 mGy. DLP: 991 mGy-cm. mGy. LIMITATIONS: None. FINDINGS: VENTRICLES: Normal size and contour. CEREBRUM: No masses. No hemorrhage. No midline shift. No evidence for acute infarction. Normal gra y/white matter differentiation. No areas of low density in the white matter. CEREBELLUM: No masses. No hemorrhage. No alteration of density. No evidence for acute infarction. EXTRAAXIAL SPACES: No fluid collections. No masses. ORBITS AND GLOBE: No intra- or extraconal masses. Normal contour of globe without masses. CALVARIUM: No fracture. PARANASAL SINUSES: No fluid or mucosal thickening. SOFT TISSUES: No mass or hematoma. OTHER: No other significant finding. IMPRESSION: No acute intracranial pathology. EVIDENCE OF ACUTE STROKE: NO. COMMENT: Quality ID # [id number]: Final reports with documentation of one or more dose reduction techniques (e.g., Automated exposure control, adjustment of the mA and/or kV according to patient size, use of iterative reconstruction technique) TECHNICAL DOCUMENTATION: JOB ID: [id number] [employer]- All Rights Reserved Reading location - IP/workstation name: [email or web address]
--- NOTE | 2019-06-18 10:30 | RADIOLOGY REPORT (SQ) ---
EXAM DESCRIPTION: CT CERVICAL SPINE WITHOUT COMPLETED DATE/TIME: 06/18/2019 10:16 am REASON FOR STUDY: injury/fall COMPARISON: None. TECHNIQUE: Axial images acquired through the cervical spine without intravenous contrast. Images re viewed with lung, soft tissue and bone windows. Reconstructed coronal and sagittal MPR images review ed. Images stored on PACS. All CT scanners at this facility use dose modulation, iterative reconstruction, and/or weight based d osing when appropriate to reduce radiation dose to as low as reasonably achievable (ALARA). [facility]: Dose Right [facility]: CareDose [facility]: Dose Right [facility]: Teradose 4D [facility]: [employer] RADIATION DOSE: CT Rad equipment meets quality standard of care and radiation dose reduction techniq ues were employed. CTDIvol: 22.0 mGy. DLP: 482 mGy-cm. mGy. LIMITATIONS: None. FINDINGS: ALIGNMENT: Anatomic. MINERALIZATION: Normal. VERTEBRAL BODIES: No fractures or dislocation. DISCS: No significant disc disease. FACETS, LATERAL MASSES, POSTERIOR ELEMENTS: No fractures. No dislocation. No acute findings. HARDWARE: None in the spine. VISUALIZED RIBS: No fractures. LUNG APICES AND SOFT TISSUES: No significant or acute findings. OTHER: No other significant finding. IMPRESSION: No fracture or static subluxation of the cervical spine. TECHNICAL DOCUMENTATION: JOB ID: [id number] Quality ID # [id number]: Final reports with documentation of one or more dose reduction techniques (e.g., Au tomated exposure control, adjustment of the mA and/or kV according to patient size, use of iterative reconstruction technique) 2010 [employer] All Rights Reserved Reading location - IP/workstation name: [email or web address]
--- NOTE | 2019-06-18 10:51 | RADIOLOGY REPORT (SQ) ---
EXAM DESCRIPTION: ELBOW LEFT OVER 2 VIEWS; ELBOW RIGHT OVER 2 VIEWS COMPLETED DATE/TIME: 06/18/2019 10:35 am REASON FOR STUDY: pain s/p fall COMPARISON: None. NUMBER OF VIEWS: Four views. TECHNIQUE: AP, lateral, and both oblique radiographic images acquired of the bilateral elbows LIMITATIONS: None. FINDINGS: MINERALIZATION: Normal. BONES: No definite acute fracture or dislocation. No worrisome bone lesions. JOINT: No effusion. 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 SOFT TISSUES: No soft tissue swelling. No foreign body. OTHER: No other significant finding. IMPRESSION: 1. No acute fracture or dislocation of the low bilateral elbows. No elbow joint effusi ons to suggest radiographically occult fracture or dislocation. 2. 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 Correlate for referable clinical history, such as prior trauma or inflammatory arthritis. TECHNICAL DOCUMENTATION: JOB ID: [id number] [employer]- All Rights Reserved Reading location - IP/workstation name: [email or web address]
--- NOTE | 2019-06-18 10:51 | RADIOLOGY REPORT (SQ) ---
EXAM DESCRIPTION: ELBOW LEFT OVER 2 VIEWS; ELBOW RIGHT OVER 2 VIEWS COMPLETED DATE/TIME: 06/18/2019 10:35 am REASON FOR STUDY: pain s/p fall COMPARISON: None. NUMBER OF VIEWS: Four views. TECHNIQUE: AP, lateral, and both oblique radiographic images acquired of the bilateral elbows LIMITATIONS: None. FINDINGS: MINERALIZATION: Normal. BONES: No definite acute fracture or dislocation. No worrisome bone lesions. JOINT: No effusion. 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 SOFT TISSUES: No soft tissue swelling. No foreign body. OTHER: No other significant finding. IMPRESSION: 1. No acute fracture or dislocation of the low bilateral elbows. No elbow joint effusi ons to suggest radiographically occult fracture or dislocation. 2. 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 Correlate for referable clinical history, such as prior trauma or inflammatory arthritis. TECHNICAL DOCUMENTATION: JOB ID: [id number] [employer]- All Rights Reserved Reading location - IP/workstation name: [email or web address]
--- NOTE | 2019-06-18 10:53 | RADIOLOGY REPORT (SQ) ---
EXAM DESCRIPTION: HIP BILATERAL COMPLETED DATE/TIME: 06/18/2019 10:35 am REASON FOR STUDY: pain s/p fall COMPARISON: None. NUMBER OF VIEWS: Two views. TECHNIQUE: AP pelvis and additional frog-leg view of the bilateral hips. LIMITATIONS: None. FINDINGS: MINERALIZATION: Normal. RIGHT HIP: Status post right hip total arthroplasty. No fracture or dislocation. No worrisome bone lesions. LEFT HIP: No fracture or dislocation. No worrisome bone lesions. Moderate superior joint space narr owing. PELVIS: No fracture. OTHER: No other significant finding. IMPRESSION: No fracture or dislocation of the bilateral hips or pelvis status post right hip total a rthroplasty. Moderate left hip arthrosis. Please note that plain radiographs are insensitive for hi p and pelvic fracture. Recommend CT or MRI to more sensitively evaluate if fracture is suspected. TECHNICAL DOCUMENTATION: JOB ID: [id number] [employer]- All Rights Reserved Reading location - IP/workstation name: [email or web address]
--- NOTE | 2019-06-18 10:54 | RADIOLOGY REPORT (SQ) ---
EXAM DESCRIPTION: CHEST 2 VIEWS COMPLETED DATE/TIME: 06/18/2019 10:35 am REASON FOR STUDY: cough COMPARISON: 12/20/2018 EXAM PARAMETERS: NUMBER OF VIEWS: two views TECHNIQUE: Digital Frontal and Lateral radiographic views of the chest acquired. RADIATION DOSE: NA LIMITATIONS: none FINDINGS: LUNGS AND PLEURA: No opacities, masses or pneumothorax. No pleural effusion. MEDIASTINUM AND HILAR STRUCTURES: No masses or contour abnormalities. HEART AND VASCULAR STRUCTURES: Heart normal size. No evidence for failure. BONES: No acute findings. HARDWARE: None in the chest. OTHER: No other significant finding. IMPRESSION: No acute abnormality of the lungs. TECHNICAL DOCUMENTATION: JOB ID: [id number] [employer]- All Rights Reserved Reading location - IP/workstation name: [email or web address]
[2019-06-18 11:22] VITALS: BP 124/88
== END 2019-06-18 11:00 | disposition home or self-care (01) ==
LOC: ER 09:10
DX: M25.521 Pain in right elbow (principal); M25.522 Pain in left elbow; M25.551 Pain in right hip; R51 Headache; W13.2XXA Fall from, out of or through roof, initial encounter; Y92.028 Other place in mobile home as the place of occurrence of the external cause; R05 Cough; I10 Essential (primary) hypertension; E11.9 Type 2 diabetes mellitus without complications; F17.200 Nicotine dependence, unspecified, uncomplicated
CPT/HCPCS: 70450; 71046; 72125; 73522; 99284

== ENCOUNTER → 2019-12-12 | Outpatient (CLI) | payer OTHER ==
--- NOTE | 2019-12-12 16:23 | RADIOLOGY REPORT (SQ) ---
EXAM DESCRIPTION: HAND BILATERAL 2 VIEWS COMPLETED DATE/TIME: 12/12/2019 4:10 pm REASON FOR STUDY: RHEUMATOID ARTHRITIS, UNSPECIFIED M06.9 RHEUMATOID ARTHRITIS, UNSPECIFIED COMPARISON: None. EXAM PARAMETERS: NUMBER OF VIEWS: Two views right hand. Two views left hand. TECHNIQUE: AP and lateral radiographic images acquired of bilateral hands. LIMITATIONS: None. FINDINGS: RIGHT HAND: MINERALIZATION: Normal. BONES: No acute fracture or dislocation. No worrisome bone lesions. Mild scattered osteophytes at the interphalangeal joints. JOINTS: No erosions. No paulie-articular osteopenia. No chondrocalcinosis. SOFT TISSUES: No swelling. No calcifications. OTHER: No other significant finding. LEFT HAND: MINERALIZATION: Normal. BONES: No acute fracture or dislocation. No worrisome bone lesions. Mild scattered osteophytes at the interphalangeal joints. JOINTS: No erosions. No paulie-articular osteopenia. No chondrocalcinosis. SOFT TISSUES: No swelling. No calcifications. OTHER: No other significant finding. IMPRESSION: 1. No evidence of acute bony abnormality of either hand. 2. Mild scattered osteoarthritic changes at the interphalangeal joints. No definitive erosive disea se. TECHNICAL DOCUMENTATION: JOB ID: [id number] [employer]- All Rights Reserved Reading location - IP/workstation name: [email or web address]
--- NOTE | 2019-12-12 16:25 | RADIOLOGY REPORT (SQ) ---
EXAM DESCRIPTION: SHOULDER BILAT 2 OR MORE VIEWS COMPLETED DATE/TIME: 12/12/2019 4:10 pm REASON FOR STUDY: RHEUMATOID ARTHRITIS, UNSPECIFIED M06.9 RHEUMATOID ARTHRITIS, UNSPECIFIED COMPARISON: None. NUMBER OF VIEWS: Three views. TECHNIQUE: Internal rotation, external rotation, and Y view images acquired of the right and left sh oulder. LIMITATIONS: None. FINDINGS: MINERALIZATION: Normal. BONES: No acute fracture. No worrisome bone lesions. JOINTS: No dislocation. VISUALIZED LUNGS AND RIBS: No pneumothorax. No rib fracture. SOFT TISSUES: No radiopaque foreign body. OTHER: No other significant finding. IMPRESSION: No acute bony abnormality of either shoulder. Minimal acromioclavicular osteoarthropathy bilaterally. TECHNICAL DOCUMENTATION: JOB ID: [id number] [employer] All Rights Reserved Reading location - IP/workstation name: [email or web address]
== END ==
LOC: RAD 15:46
PROVIDERS: ATTEND Internal Medicine
DX: M06.9 Rheumatoid arthritis, unspecified (principal)

== ENCOUNTER → 2019-12-18 | Outpatient (CLI) | payer OTHER ==
--- NOTE | 2019-12-19 16:17 | WOMENS IMAGING REPORT ---
EXAM DESCRIPTION: 3D SCREENING MAMMO BILAT COMPLETED DATE/TIME: 12/18/2019 3:56 pm REASON FOR STUDY: Z12.31 SCREENING MAMMO Z12.31 ENCNTR SCREEN MAMMOGRAM FOR MALIGNANT NEOPLASM OF B RE COMPARISON: Multiple since 2008 EXAM PARAMETERS: Standard craniocaudal and mediolateral oblique views of each breast recorded using digital acquisition and breast tomosynthesis. Read with the assistance of CAD. .[facility] - [employer] Version 9.2 LIMITATIONS: None. FINDINGS: Findings present which are benign by mammographic criteria. No suspicious masses, calcific ations or architectural distortion. Pertinent benign findings: Stable calcified fibroadenoma left retroareolar region. Benign mammographic findings may include one or more of the following: Smooth masses, popcorn/rim/coa rse calcifications, asymmetries, post-procedure changes, and lesions with long-standing stability. IMPRESSION: BENIGN MAMMOGRAPHIC FINDINGS. BIRADS 2 BREAST DENSITY: c. The breasts are heterogeneously dense, which may obscure small masses. BIRAD: ASSESSMENT: 2 BENIGN FINDING(S) RECOMMENDATION: ROUTINE SCREENING Please continue yearly bilateral screening mammography/tomosynthesis in December 2020. COMMENT: The patient has been notified of the results by letter per MQSA requirements. Additional no tification policies are in place for contacting patient with suspicious or incomplete findings. Quality ID #[id number]: The [employer] recommends an annual screening mammogram for women aged 40 years or over. This facility utilizes a reminder system to ensure that all patients receive reminder letters, and/or direct phone calls for appointments. This includes reminders for routine scr eening mammograms, diagnostic mammograms, or other Breast Imaging Interventions when appropriate. Th is patient will be placed in the appropriate reminder system. TECHNICAL DOCUMENTATION: FINDING NUMBER: (1) ASSESSMENT: (1) JOB ID: [id number] [employer]- All Rights Reserved Reading location - IP/workstation name: [email or web address]
== END ==
LOC: WI 15:40
PROVIDERS: ATTEND Internal Medicine
DX: Z12.31 Encounter for screening mammogram for malignant neoplasm of breast (principal)
CPT/HCPCS: 77063; 77067

== ENCOUNTER 2020-08-23 23:15 | Emergency (ER) | payer OTHER ==
--- NOTE | 2020-08-23 23:53 | ER Document Report ---
ED Medical Screen (RME) - General Chief Complaint: Breathing Difficulty Stated Complaint: MUSCLE PAIN / SHORT OF BREATH / BACK PAIN Primary Care Provider: OSCAR ADAMS MD [Primary Care Provider] - Follow up as needed Notes: 4-year-old -Tajik female with a history of diabetes and hypertension who presents the emergency department the chief complaint of head injury that occurred about a week ago. She states that she bent down at work and tried to stand up quickly striking the crown of her head on a solid object. She states she was dazed for a few minutes. She states since then she has had some ongoing nausea and headaches. She states she is got some pain that goes down the head to the posterior right trapezius and right shoulder blade area. She states the pain is worse with any movement as well as with deep inspiration. States she is been taking Phenergan at home for the nausea. Admits to some tingling in the hands but no posterior neck pain centrally. I have treated and performed a rapid initial assessment of this patient. A comprehensive ED assessment and evaluation of the patient, analysis of test results and completion of medical decision making process will be conducted by additional ED providers. PHYSICAL EXAMINATION: GENERAL: Well-appearing, well-nourished and in no acute distress. A&Ox4. Answers questions appropriately. TRAVEL OUTSIDE OF THE [place] IN LAST 30 DAYS: No - Related Data Allergies/Adverse Reactions: etodolac [From Lodine] Allergy (Severe, Verified 12/20/18 10:51) Itchiness Penicillins Allergy (Severe, Verified 12/20/18 10:51) Hives Iodinated Contrast Media [IV Dye, Iodine Containing] Allergy (Mild, Verified 12/20/18 10:51) Pruritis aspirin [Aspirin] Adverse Reaction (Mild, Verified 12/20/18 10:51) GI upset Past Medical History - Past Medical History Cardiac Medical History: Reports: Hx Hypertension - 15 yrs-takes meds Denies: Hx Atrial Fibrillation, Hx Congestive Heart Failure, Hx Coronary Artery Disease, Hx Heart Attack, Hx Hypercholesterolemia, Hx Peripheral Vascular Disease, Hx Pulmonary Embolism, Hx Heart Murmur Pulmonary Medical History: Reports: Hx Pneumonia - 2013 X2 Denies: Hx Asthma, Hx Bronchitis, Hx COPD, Hx Respiratory Failure, Hx Sleep Apnea, Hx Tuberculosis Neurological Medical History: Denies: Hx Cerebrovascular Accident, Hx Seizures, Hx Parkinson's Disease Endocrine Medical History: Reports: Hx Diabetes Mellitus Type 2. Denies: Hx Graves' Disease, Hx Hyperthyroidism, Hx Hypothyroidism Renal/ Medical History: Denies: Hx Peritoneal Dialysis Malignancy Medical History: Denies: Hx Lung Cancer GI Medical History: Reports: Hx Gastroesophageal Reflux Disease - 2 yrs-takes meds. Denies: Hx Crohn's Disease, Hx Hiatal Hernia, Hx Irritable Bowel, Hx Liver Failure, Hx Pancreatitis, Hx Ulcer Musculoskeltal Medical History: Reports Hx Arthritis, Reports Hx Fibromyalgia - 3 years, Denies Hx Multiple Sclerosis, Denies Hx Muscular Dystrophy, Denies Hx Systemic Lupus Erythematosus Psychiatric Medical History: Reports: Hx Depression Denies: Hx Bipolar Disorder, Hx Dementia, Hx Post Traumatic Stress Disorder, Hx Schizophrenia Traumatic Medical History: Denies: Hx Fractures Past Surgical History: Reports: Hx Breast Surgery - breast reduction, Hx O rthopedic Surgery - left knee, rt hip replaced. Denies: Hx Appendectomy, Hx Bowel Surgery, Hx Section, Hx Cholecystectomy, Hx Colostomy, Hx Coronary Artery Bypass Graft, Hx Gastric Bypass Surgery, Hx Herniorrhaphy, Hx Hysterectomy, Hx Mastectomy, Hx Pacemaker, Hx Tonsillectomy, Hx Tubal Ligation - Immunizations Immunizations up to date: Yes Hx Diphtheria, Pertussis, Tetanus Vaccination: Yes Physical Exam - Vital signs Vitals: Temp Pulse Resp BP Pulse Ox 98.2 F 67 16 153/87 H 96 08/23/20 23:25 08/23/20 23:25 08/23/20 23:25 08/23/20 23:25 08/23/20 23:25 Course - Vital Signs Vital signs: Temp Pulse Resp BP Pulse Ox 98.2 F 67 16 153/87 H 96 08/23/20 23:25 08/23/20 23:25 08/23/20 23:25 08/23/20 23:25 08/23/20 23:25 Doctor's Discharge - Discharge Referrals: OSCAR ADAMS MD [Primary Care Provider] - Follow up as needed
--- NOTE | 2020-08-24 02:32 | RADIOLOGY REPORT (SQ) ---
EXAM DESCRIPTION: CT head without contrast CLINICAL HISTORY: 54 years Female, head injury COMPARISON: CT head 06/18/2019 TECHNIQUE: Axial images of the head were performed without the use of intravenous contrast, with sagittal and coronal reformatted images. This exam was performed according to our departmental dose-optimization program which includes use of Automated Exposure Control, adjustment of the mA and/or kV according to patient size and/or use of iterative reconstruction technique. FINDINGS: No skull fracture. No intracranial bleed. No evidence of acute infarct. No evidence of mass or hydrocephalus. There is no significant change, as compared with the prior CT scan. IMPRESSION: No skull fracture. No intracranial bleed.
[2020-08-24] MEDS ORDERED: DIAZEPAM 5 MG TABLET PO ONE (04:26)
--- NOTE | 2020-08-24 04:30 | ER Document Report ---
ED General - General Chief Complaint: Breathing Difficulty Stated Complaint: MUSCLE PAIN / SHORT OF BREATH / BACK PAIN Time Seen by Provider: 08/24/20 03:52 Primary Care Provider: OSCAR ADAMS MD [Primary Care Provider] - Follow up as needed Notes: Patient is a 54-year-old female that comes emergency department for chief complaint of a head injury that occurred about 1 week ago. She states she was bent down, she tried to stand up quickly, she states she struck her head on the crown of the head on a divider/solid object. She states she was dazed, she states that since then she has developed pain in her upper back and neck, intermittent headaches, and these keep coming back. She states she also has pain in her right shoulder area especially with movement and deep breaths. She denies shortness of breath, chest pain, current headache, vomiting, passing out. She denies EtOH or a blood thinner. She has a past medical history of type 2 diabetes and hypertension. TRAVEL OUTSIDE OF THE [place] IN LAST 30 DAYS: No - Related Data Allergies/Adverse Reactions: etodolac [From Lodine] Allergy (Severe, Verified 12/20/18 10:51) Itchiness Penicillins Allergy (Severe, Verified 12/20/18 10:51) Hives Iodinated Contrast Media [IV Dye, Iodine Containing] Allergy (Mild, Verified 12/20/18 10:51) Pruritis aspirin [Aspirin] Adverse Reaction (Mild, Verified 12/20/18 10:51) GI upset Past Medical History - General Information source: Patient - Social History Smoking Status: Current Every Day Smoker Frequency of alcohol use: None Drug Abuse: None Lives with: Family Family History: Reviewed & Not Pertinent - Past Medical History Cardiac Medical History: Reports: Hx Hypertension - 15 yrs-takes meds Denies: Hx Atrial Fibrillation, Hx Congestive Heart Failure, Hx Coronary Artery Disease, Hx Heart Attack, Hx Hypercholesterolemia, Hx Peripheral Vascular Disease, Hx Pulmonary Embolism, Hx Heart Murmur Pulmonary Medical History: Reports: Hx Pneumonia - 2013 X2 Denies: Hx Asthma, Hx Bronchitis, Hx COPD, Hx Respiratory Failure, Hx Sleep Apnea, Hx Tuberculosis Neurological Medical History: Denies: Hx Cerebrovascular Accident, Hx Seizures, Hx Parkinson's Disease Endocrine Medical History: Reports: Hx Diabetes Mellitus Type 2. Denies: Hx Graves' Disease, Hx Hyperthyroidism, Hx Hypothyroidism Renal/ Medical History: Denies: Hx Peritoneal Dialysis Malignancy Medical History: Denies: Hx Lung Cancer GI Medical History: Reports: Hx Gastroesophageal Reflux Disease - 2 yrs-takes meds. Denies: Hx Crohn's Disease, Hx Hiatal Hernia, Hx Irritable Bowel, Hx Liver Failure, Hx Pancreatitis, Hx Ulcer Musculoskeletal Medical History: Reports Hx Arthritis, Reports Hx Fibromyalgia - 3 years, Denies Hx Multiple Sclerosis, Denies Hx Muscular Dystrophy, Denies Hx Systemic Lupus Erythematosus Psychiatric Medical History: Reports: Hx Depression Denies: Hx Bipolar Disorder, Hx Dementia, Hx Post Traumatic Stress Disorder, Hx Schizophrenia Traumatic Medical History: Denies: Hx Fractures Past Surgical History: Reports: Hx Breast Surgery - breast reduction, Hx Orthopedic Surgery - left knee, rt hip replaced. Denies: Hx Appendectomy, Hx Bowel Surgery, Hx Section, Hx Cholecystectomy, Hx Colostomy, Hx Coronary Artery Bypass Graft, Hx Gastric Bypass Surgery, Hx Herniorrhaphy, Hx Hysterectomy, Hx Mastectomy, Hx Pacemaker, Hx Tonsillectomy, Hx Tubal Ligation - Immunizations Immunizations up to date: Yes Hx Diphtheria, Pertussis, Tetanus Vaccination: Yes Hx Pneumococcal Vaccination: 11/13/09 Review of Systems - Review of Systems Constitutional: No symptoms reported EENT: No symptoms reported Cardiovascular: No symptoms reported Respiratory: No symptoms reported Gastrointestinal: No symptoms reported Genitourinary: No symptoms reported Female Genitourinary: No symptoms reported Musculoskeletal: See HPI Skin: No symptoms reported Hematologic/Lymphatic: No symptoms reported Neurological/Psychological: See HPI Physical Exam - Vital signs Vitals: Temp Pulse Resp BP Pulse Ox 98.2 F 67 16 153/87 H 96 08/23/20 23:25 08/23/20 23:25 08/23/20 23:25 08/23/20 23:25 08/23/20 23:25 - Notes Notes: GENERAL: Alert, interacts well. No acute distress. Patient moves stiffly but otherwise there are no signs of distress HEAD: Normocephalic, atraumatic. EYES: Pupils equal, round, and reactive to light. Extraocular movements intact. ENT: Oral mucosa moist, tongue midline. Oropharynx unremarkable. Airway patent. NECK: Full range of motion. Supple. Trachea midline. No lymphadenopathy. LUNGS: Clear to auscultation bilaterally, no wheezes, rales, or rhonchi. No respiratory distress. Non-tender chest wall. HEART: Regular rate and rhythm. No murmur ABDOMEN: Soft, non-tender. Non-distended. EXTREMITIES: Moves all 4 extremities spontaneously. No edema, normal radial and dorsalis pedis pulses bilaterally. No cyanosis. BACK: Patient with very tight paracervical muscles on the right, trapezius muscle spasm on the right, tenderness along the right scapula and just below the right scapula along the muscles with muscle tightness. She still has full range of motion of the neck, she has no midline tenderness of the cervical, thoracic, or lumbar spine. No saddle anesthesia. Moves all extremities in full range of motion, normal strength, normal distal neurovascular exam. No signs of trauma. NEUROLOGICAL: Alert and oriented x3. Normal speech. Cranial nerves II through XII grossly intact. PSYCH: Normal affect, normal mood. SKIN: Warm, dry, normal turgor. No rashes or lesions noted. Course - Re-evaluation Re-evalutation: I did review the CAT scan of the head from triage, this was unremarkable as expected given patient's duration since her symptoms and her overall evaluation. Overall clinical picture is most consistent with muscle strain and spasm especially on the right paracervical and trapezius muscles with secondary t ension headaches. She does not currently have a headache but she is having frequent headaches reportedly. No concerning injuries or deficits noted otherwise. Discussed treatment options, discussed expectations, follow-up, and return precautions. Patient states understanding and agreement. Stable and well-appearing at time of discharge. - Vital Signs Vital signs: Temp Pulse Resp BP Pulse Ox 98.4 F 69 16 149/80 H 98 08/24/20 04:35 08/24/20 04:35 08/24/20 04:35 08/24/20 04:35 08/24/20 04:35 Discharge - Discharge Clinical Impression: Upper back pain, Frequent headaches, Muscle spasm Head injury Qualifiers: Encounter type: initial encounter Qualified Code(s): S09.90XA - Unspecified injury of head, initial encounter Condition: Stable Disposition: HOME, SELF-CARE Additional Instructions: The imaging of your head is normal. Based on your exam you have had injury to the paracervical and trapezius muscle s, you have muscle spasms and intermittent tension headaches I believe. You can take the prescribed muscle relaxer with precautions especially at night, take the anti-inflammatory as prescribed with food during the day, apply heat to your neck and upper back, do gentle massage and stretches. You can take the Fioricet if needed for headaches. Follow-up with primary care for additional management. Return if you worsen including developing numbness, severe worsening headache, vomiting, fever, or any other concerning symptoms. Prescriptions: Butalb/Acetaminophen/Caffeine [Fioricet (50-325-40 mg) Tablet] 1 tab PO Q4HP PRN #20 tab PRN Reason: Naproxen 500 mg PO BID PRN #14 tablet PRN Reason: Diazepam [Valium 5 mg Tablet] 1 - 2 tab PO TID PRN #10 tablet PRN Reason: Forms: Return to Work Referrals: OSCAR ADAMS MD [Primary Care Provider] - Follow up as needed
[2020-08-24 04:38] VITALS: BP 149/80
== END 2020-08-24 04:35 | disposition home or self-care (01) ==
LOC: ER 23:15
DX: S09.90XA Unspecified injury of head, initial encounter (principal); W22.8XXA Striking against or struck by other objects, initial encounter; Y99.0 Civilian activity done for income or pay; M62.830 Muscle spasm of back; M54.9 Dorsalgia, unspecified; M54.2 Cervicalgia; M25.511 Pain in right shoulder; I10 Essential (primary) hypertension; E11.9 Type 2 diabetes mellitus without complications; F17.200 Nicotine dependence, unspecified, uncomplicated; Z88.8 Allergy status to other drugs, medicaments and biological substances; Z88.0 Allergy status to penicillin; Z91.041 Radiographic dye allergy status
CPT/HCPCS: 70450; 99285